=== PATIENT | male | born 1955 | race Caucasian/White ===

== ENCOUNTER 2020-06-18 06:05 | Outpatient (REF) | payer MEDICARE, SELFPAY ==
[2020-06-18 07:38] LABS: MANUAL DIFF FLAG NO
[2020-06-18 07:47] LABS: Basophils Percent Auto 0.4 % (0-2); Eosinophils Absolute Auto 0.1 X10*3/uL (0.0-0.4); Eosinophils Percent Auto 1.8 % (0-4); Hematocrit 40.9 % (42-52); Hemoglobin 14.5 g/dl (14.0-18.0); Imm Gran Abs Auto 0.02 X10*3/uL (0.00-0.03); Imm Gran Pct Auto 0.4 % (0.0-0.4); Lymphocytes Absolute Auto 1.8 X10*3/uL (1.2-4.9); Lymphocytes Percent Auto 31.8 % (20-40); Mean Corpuscular HGB Conc 35.5 g/dl (31.0-36.0); Mean Corpuscular Hemoglobin 34.4 pg (27.0-33.0); Mean Corpuscular Volume 97.1 fL (80-98); Mean Platelet Volume 11.1 fL (9.4-12.4); Monocytes Absolute Auto 0.5 X10*3/uL (0.1-1.2); Monocytes Percent Auto 8.9 % (2-11); Neutrophils Absolute Auto 3.2 X10*3/uL (2.0-8.3); Neutrophils Percent Auto 56.7 % (45-73); Platelet Count 244 X10*3/uL (160-400); Red Blood Count 4.21 X10*6/uL (4.60-5.80); Red Cell Distribution Width 12.6 % (11.0-16.0); White Blood Count 5.6 X10*3/uL (4.8-10.8)
[2020-06-18 07:58] LABS: Glucose Urine UA NEG (NEG); Leukocyte Esterase Urine NEG (NEG); Nitrite Urine NEG (NEG); Specific Gravity - Urine 1.025 (1.005-1.025); Urine Blood NEG (NEG); Urine Ketones NEG (NEG); Urine Protein NEG (NEG-TRACE)
[2020-06-18 08:02] LABS: Appearance Urine CLEAR; Color Urine YELLOW
[2020-06-18 08:13] LABS: Alanine Aminotransferase 17 U/L (0-40); Albumin Level 4.6 g/dL (3.5-5.0); Alkaline Phosphatase 48 U/L (39-117); Anion Gap 14 (12-20); Aspartate Amino Transferase 23 U/L (5-37); Bilirubin Total 0.6 mg/dL (0.0-1.0); Blood Urea Nitrogen 18 mg/dL (9-16); Calcium 8.9 mg/dL (8.4-10.2); Carbon Dioxide 27 mmol/L (22-29); Chloride 101 mmol/L (96-108); Cholesterol 152 mg/dL; Estimated Glomerular Filt Rate > 60; Glucose Random 154 mg/dL (60-115); HDL Cholesterol 26 mg/dL; Potassium 4.1 mmol/l (3.3-5.1); Sodium 138 mmol/L (135-145); Total Protein 7.4 g/dL (6.5-8.0); Triglycerides 439 mg/dL
[2020-06-18 08:35] LABS: Thyroid Stimulating Hormone 1.31 mIU/mL (0.32-4.0); Vitamin D 25-OH Total 24.9 ng/mL (>30)
[2020-06-18 08:43] LABS: Creatinine Urine 131.77 mg/dL; Microalbum/Creatinine Ratio Ur 3.7 ug/mg cr
[2020-06-18 08:46] LABS: Vitamin B12 367 pg/mL (200-900)
[2020-06-18 09:58] LABS: Estimated Average Glucose 154 mg/dL
== END 2020-06-18 06:06 | disposition home or self-care (01) ==
LOC: HO.LAB 06:05
PROVIDERS: Visit Provider Internal Medicine
DX: E11.9 Type 2 diabetes mellitus without complications (principal); I10 Essential (primary) hypertension; E78.2 Mixed hyperlipidemia; E55.9 Vitamin D deficiency, unspecified
CPT/HCPCS: 36415; 80053; 80061; 81003; 82043; 82306; 82607; 83036; 84443; 85025

== ENCOUNTER 2020-07-14 08:21 | Outpatient (REF) | payer MEDICARE, SELFPAY ==
--- NOTE | 2020-07-14 10:36 | MHC.AU.P13 ---
Adult Audiological Evaluation Date of Visit: 07/14/20 Reason for Appointment: Audiological re-evaluation to monitor the status of Mr. De La Cruz's hearing loss. He notes that he has been turning his hearing aids up more lately and feels like his hearing may be worse. He denies any changes to his medical history. Does patient feel they have a hearing loss?: Yes If Yes, Which Ear?: Both Ears Has hearing been tested previously?: Yes Previous Hearing Test Results: [facility] [place], 01/06/2019- Normal hearing at 250 Hz, sloping to a profound high-frequency sensorineural hearing loss bilaterally. Ear History: History of noise exposure?: Yes: hunting Medical History: Medical History:Diabetes, High Blood Pressure Otoscopy: Right Ear: Small scratch and dried blood in canal. Pt notes Q-Tip use Left Ear: Unremarkable Tympanometry: Right Ear: Normal Middle Ear System (Type A) Left Ear: Normal Middle Ear System (Type A) Hearing Evaluation: Transducer(s) Used: Insert Earphones, Bone Conduction Method: Conventional Audiometry Stimuli Used: Pure Tones Right Ear: Description of Hearing: Normal hearing at 250 Hz and a mild sloping to profound sensorineural hearing from 500-8000 Hz. Left Ear: Description of Hearing: Normal hearing at 250 Hz and a mild sloping to profound sensorineural hearing from 500-8000 Hz. Speech Recognition Threshold (SRT): Method Used: Monitored Live Voice Stimuli Used: Spondee Words Right Ear: 35 dBHL Left Ear: 30 dBHL Word Discrimination: Method: Recorded Lists Word Lists Used: NU-6 Right Ear: 96% at 75 dBHL Left Ear: 88% at 75 dBHL Comparison: Compared to the most recent evaluation: Hearing is stable. Recommendations: Recommendations: Audiological re-evaluation in one year. See Hearing Aid Follow-Up note for more information. Hearing aid(s) reprogrammed with updated test results. Hearing aid maintenance recommended in 6 months. Diagnosis: Primary Diagnosis: H90.3 Bilateral Sensorineural Hearing Loss Services Performed: Services Performed: Comprehensive Audiological Evaluation (CPT 20602) Tympanometry (CPT 44572) Signature: Provider: Natalie Yang, CCC-A
== END 2020-07-14 08:22 | disposition home or self-care (01) ==
LOC: HO.SH 08:21
PROVIDERS: PCP Internal Medicine; Referring Provider Internal Medicine; Visit Provider Internal Medicine
DX: H90.3 Sensorineural hearing loss, bilateral (principal)
CPT/HCPCS: 92557; 92567

== ENCOUNTER 2020-09-07 12:58 | Outpatient (REF) | payer SELFPAY | END 2020-09-07 12:59 | disposition home or self-care (01) | LOC: HO.HAP 12:58 | PROVIDERS: Visit Provider Internal Medicine | DX: Z13.89 Encounter for screening for other disorder (principal) ==

== ENCOUNTER 2020-09-16 15:31 | Outpatient (REF) | payer SELFPAY | END 2020-09-16 15:32 | disposition home or self-care (01) | LOC: HO.HAP 15:31 | PROVIDERS: Visit Provider Internal Medicine | DX: Z13.89 Encounter for screening for other disorder (principal) ==

== ENCOUNTER 2020-10-01 06:13 | Outpatient (REF) | payer MEDICARE, SELFPAY ==
[2020-10-01 07:12] LABS: MANUAL DIFF FLAG NO
[2020-10-01 07:16] LABS: Basophils Percent Auto 0.2 % (0-2); Eosinophils Absolute Auto 0.1 X10*3/uL (0.0-0.4); Eosinophils Percent Auto 1.5 % (0-4); Hematocrit 42.4 % (42-52); Hemoglobin 14.7 g/dl (14.0-18.0); Imm Gran Abs Auto 0.02 X10*3/uL (0.00-0.03); Imm Gran Pct Auto 0.4 % (0.0-0.4); Lymphocytes Absolute Auto 1.8 X10*3/uL (1.2-4.9); Lymphocytes Percent Auto 33.7 % (20-40); Mean Corpuscular HGB Conc 34.7 g/dl (31.0-36.0); Mean Corpuscular Hemoglobin 33.4 pg (27.0-33.0); Mean Corpuscular Volume 96.4 fL (80-98); Mean Platelet Volume 10.8 fL (9.4-12.4); Monocytes Absolute Auto 0.7 X10*3/uL (0.1-1.2); Monocytes Percent Auto 12.7 % (2-11); Neutrophils Absolute Auto 2.8 X10*3/uL (2.0-8.3); Neutrophils Percent Auto 51.5 % (45-73); Platelet Count 232 X10*3/uL (160-400); Red Cell Distribution Width 12.7 % (11.0-16.0); White Blood Count 5.4 X10*3/uL (4.8-10.8)
[2020-10-01 07:26] LABS: Prothrombin Time 12.2 SEC (10.8-13.0)
[2020-10-01 07:40] LABS: Alanine Aminotransferase 16 U/L (0-40); Albumin Level 4.6 g/dL (3.5-5.0); Alkaline Phosphatase 63 U/L (39-117); Aspartate Amino Transferase 18 U/L (5-37); Bilirubin Direct 0.2 mg/dL (0.0-0.5); Bilirubin Total 0.4 mg/dL (0.0-1.0); Blood Urea Nitrogen 20 mg/dL (9-16); Estimated Glomerular Filt Rate > 60; Total Protein 7.4 g/dL (6.5-8.0)
[2020-10-04 13:02] LABS: Alpha Fetoprotein 2.7 ng/mL (<6.1)
[2020-10-04 13:28] LABS: Carbohydrate Antigen 19-9 11 U/mL (<34)
== END 2020-10-01 06:14 | disposition home or self-care (01) ==
LOC: HO.LAB 06:13
PROVIDERS: PCP Internal Medicine; Visit Provider Internal Medicine
DX: K86.2 Cyst of pancreas (principal); B18.2 Chronic viral hepatitis C
CPT/HCPCS: 36415; 80076; 82105; 82565; 84520; 85025; 85610; 86301

== ENCOUNTER 2020-10-04 09:23 | Outpatient (REF) | payer MEDICARE, SELFPAY ==
--- NOTE | ~2020-10-04 | MR_ITS ---
EXAMINATION: MR ABDOMEN WITHOUT AND WITH CONTRAST CLINICAL INFORMATION: Pancreatic cyst. Chronic hepatitis C. COMPARISON: Previous abdominal MRI May 2018 and 2018. Abdominal ultrasound February 2009. TECHNIQUE: MR abdomen was performed without and with use of 8.5 mL intravenous Gadavist gadolinium contrast. Postcontrast images are performed in multiphase dynamic sequences. Imaging was performed in 3 planes. MRCP sequences were also performed. FINDINGS: LUNG BASES: The visualized lung bases are unremarkable. LIVER, GALLBLADDER, AND BILIARY TREE: The liver is upper normal in size, right lobe measuring 20 cm in length. This is similar to previous exams. There is slight signal loss in the liver on gzs-wh-qsmcm sequences, suggestive of mild fatty infiltration. There is a 1 cm lesion in the right lobe of the liver that is stable. This is low signal on T1-weighted sequences, high signal on T2-weighted sequences and demonstrates gradual peripheral puddling enhancement, compatible with a benign hemangioma. The second hemangioma in the more inferior right lobe of the liver seen on previous exams may be seen on axial fat sat T2 image 21 series 10. This does not appear appreciably changed. This isn't appreciated on other sequences, probably either due to ekgwc-im-evne or slice thickness. No other focal liver lesion is seen. The liver is normal in contour without evidence of cirrhosis. The gallbladder is normal in size. There is mild gallbladder wall thickening or edema. This may be related to the patient's liver disease. No gallstones are seen. There is no intrahepatic or extrahepatic biliary duct dilatation. The portal veins and hepatic veins are patent.. PANCREAS: There is a simple-appearing cyst in the neck of the pancreas. This measures 0.5 x 1.2 cm. This is low signal on T1-weighted sequences, high signal on T2-weighted sequences and demonstrates no enhancement or solid component. This is similar to previous exams. There is question of a second tiny 2 to 3 mm cyst in the tail of the pancreas for example axial T2 image 9 series 10. SPLEEN: Normal. ADRENAL GLANDS: Normal. KIDNEYS AND URETERS: The kidneys are normal in size, shape, and enhance symmetrically. No hydronephrosis. No perinephric stranding. BLADDER: The bladder is well distended. The bladder wall may be trabeculated. GASTROINTESTINAL TRACT: There is mild diverticulosis of the colon. No bowel obstruction. No ascites or fluid collection. ABDOMINAL WALL: No significant hernia is appreciated. LYMPH NODES: No lymphadenopathy. VASCULAR: Unremarkable. OSSEOUS STRUCTURES: Marrow signal normal. MR/MR abdomen wo/w con IMPRESSION: Mild fatty infiltration of the liver. The liver is upper normal in size. No evidence of cirrhosis. Stable 1 cm hemangioma in the right lobe of the liver. The second hemangioma in the more inferior right lobe of the liver seen on previous exams may be seen on axial fat sat T2 image 21 series 10. No other focal liver lesion is seen. Additional imaging of the liver should be considered if clinically indicated. Mild gallbladder wall thickening or edema. This may be related to liver disease. No gallstones seen. Stable cyst in the neck of the pancreas. Mild diverticulosis of the colon. Well-distended bladder with question slightly trabeculated bladder wall.
== END 2020-10-04 09:24 | disposition home or self-care (01) ==
LOC: HO.MRI 09:23
PROVIDERS: Visit Provider Internal Medicine
DX: K86.2 Cyst of pancreas (principal); B18.2 Chronic viral hepatitis C
CPT/HCPCS: 74183; A9585

== ENCOUNTER 2020-11-05 08:20 | Outpatient (REF) | payer SELFPAY | END 2020-11-05 08:21 | disposition home or self-care (01) | LOC: HO.HAP 08:20 | PROVIDERS: Visit Provider Internal Medicine | DX: Z13.89 Encounter for screening for other disorder (principal) ==

== ENCOUNTER 2020-11-12 10:52 | Outpatient (REF) | payer SELFPAY | END 2020-11-12 10:53 | disposition home or self-care (01) | LOC: HO.HAP 10:52 | PROVIDERS: Visit Provider Internal Medicine | DX: Z13.89 Encounter for screening for other disorder (principal) ==

== ENCOUNTER 2021-01-03 08:55 | Day surgery (SDC) | payer MEDICARE, SELFPAY ==
--- NOTE | 2020-12-31 11:39 | HO.ANESPROP2 ---
HPI - Anesthesia Eval Consult details Narrative: 65yo M for Upper Endoscopy [facility] Past Medical History Medical History (Updated 12/31/20 @ 11:41 by Gladys Jackson) Diabetes Diverticulitis Hepatic hemangioma Hepatitis C HSV infection HTN (hypertension) Pancreatic cyst Surgical History Surgical History (Updated 12/31/20 @ 11:41 by Gladys Jackson) S/p bilateral carpal tunnel release Social History Social History Use of substances other than those prescribed or required for medical reasons: No Are you DNR?: No Advance Directives: No Advance Directives Information Provided: Yes Nutrition Risks: No Nutritional Risk Poor oral hygiene: No Meds Allergies Allergy/AdvReac Type Severity Reaction Status Date / Time No Known Allergies Allergy Unverified 05/13/20 14:36 [No Known Allergies*] Exam Exam Date and Time: December 31, 2020 1139 Assessment and Plan Assessment Anesthesia Assessment: Chart Reviewed
[2021-01-03 09:19] VITALS: BMI 25.8
[2021-01-03 09:41] LABS: Glucose, Whole Blood 177 mg/dL (60-115)
[2021-01-03 10:03] VITALS: BP 117/74; PULSE 71; RESP 18; TEMP 36.2; O2SAT 99
--- NOTE | 2021-01-03 10:09 | PM.OP ---
Brief Operative Note Date of Service: 01/03/21 Pre-op diagnosis: Abdominal discomfort Post-op diagnosis: other (Minimal hiatal hernia, gastric polyps) Procedure: EGD with biopsy Surgeon: Steven Rodgers Anesthesia: MAC Was an Plating Technician used for this Procedure?: No Estimated blood loss (mL): 2.0 Pathology: other (A. Gastric antrum B. Gastric polyps C. EG Junction at 39cm) Condition: stable Disposition: PACU
[2021-01-03 10:18] VITALS: BP 142/78; PULSE 68; RESP 20; TEMP 36.3; O2SAT 97
--- NOTE | 2021-01-03 11:00 | OP_ITS ---
SURGEON: Steven Rodgers MD INDICATIONS: The patient presents for evaluation of abdominal discomfort. Full consent has been obtained from him for this, including risks of bleeding and perforation. PREOPERATIVE DIAGNOSIS: Abdominal discomfort. POSTOPERATIVE DIAGNOSIS: PROCEDURE PERFORMED: Esophagogastroduodenoscopy with biopsies. ESTIMATED BLOOD LOSS: COMPLICATIONS: ANESTHESIA: Monitored anesthesia care. ASSISTANTS: SPECIMENS: POSTOPERATIVE DIAGNOSES: Abdominal discomfort, minimal hiatal hernia, small gastric polyps. DESCRIPTION OF PROCEDURE: The patient was placed in the left lateral decubitus position. The Olympus video gastroscope was passed in the posterior oropharynx and upper esophagus under direct vision. The scope was passed slowly into the distal esophagus. The gastroesophageal junction appeared at 39 cm. There was a very minimal irregularity but no evidence of esophagitis nor Agudelo's mucosa. There was evidence of a minimal hiatal hernia. The scope was advanced to the pylorus and the duodenum was cannulated to the descending portion. The duodenum including the bulb appeared normal without mass or ulceration. The scope was withdrawn back to the stomach, the gastric antrum and body had some minimal areas of erythema, but no erosions or ulceration. There was good peristalsis. The scope was retroflexed visualizing the proximal stomach carefully, which appeared normal, without any sign of mass or ulceration. The scope was straightened. Biopsies were obtained from the gastric antrum. In the forward viewing position were several less than 5 mm hyperplastic appearing gastric polyps in the proximal stomach which were biopsied twice and removed. The remainder of the proximal stomach appeared normal. The scope was withdrawn back to the esophagus. The biopsies were obtained at the EG junction at 39 cm. Proximal to this, the esophageal mucosa appeared normal. The scope was withdrawn from the patient. He tolerated the procedure well and was returned to recovery area in stable condition. IMPRESSION: 1. Small gastric polyps, status post biopsy. 2. Rule out gastritis. 3. Minimal hiatal hernia and reflux, status post biopsy. PLAN: The results of the biopsy will be checked. At this point, he has been using Protonix twice a day with fairly good relief of his previous symptoms. I did advise him to decrease this to once a day. The remainder of his workup including an MRI of the abdomen was unremarkable. The gallbladder imaging appears normal on the most recent MRI as well as MRIs in the past. Laboratories were also unremarkable. I have advised him to use Protonix either daily or just on a p.r.n. basis. MD QUINCY Levy/GUI / [id number]
== END 2021-01-03 11:17 | disposition home or self-care (01) ==
PROVIDERS: PCP Internal Medicine; Visit Provider Internal Medicine
PROC: 0DJ08ZZ Inspection of Upper Intestinal Tract, Via Natural or Artificial Opening Endoscopic (ICD-10-PCS; CPT 43235; principal; 2021-01-03 10:00)
DX: R10.13 Epigastric pain (principal); K44.9 Diaphragmatic hernia without obstruction or gangrene; K31.7 Polyp of stomach and duodenum; K21.9 Gastro-esophageal reflux disease without esophagitis; K86.2 Cyst of pancreas; D18.09 Hemangioma of other sites; B19.20 Unspecified viral hepatitis C without hepatic coma; I10 Essential (primary) hypertension; E11.9 Type 2 diabetes mellitus without complications; A60.00 Herpesviral infection of urogenital system, unspecified; Z79.84 Long term (current) use of oral hypoglycemic drugs; Z79.899 Other long term (current) drug therapy
CPT/HCPCS: 43239; 82947; 88305; 88342

== ENCOUNTER 2021-01-17 05:58 | Outpatient (REF) | payer MEDICARE, SELFPAY ==
[2021-01-17 07:21] LABS: MANUAL DIFF FLAG NO
[2021-01-17 07:35] LABS: Basophils Percent Auto 0.3 % (0-2); Eosinophils Absolute Auto 0.1 X10*3/uL (0.0-0.4); Hematocrit 43.6 % (42-52); Hemoglobin 14.9 g/dl (14.0-18.0); Imm Gran Abs Auto 0.04 X10*3/uL (0.00-0.03); Imm Gran Pct Auto 0.6 % (0.0-0.4); Lymphocytes Absolute Auto 2.2 X10*3/uL (1.2-4.9); Lymphocytes Percent Auto 30.3 % (20-40); Mean Corpuscular HGB Conc 34.2 g/dl (31.0-36.0); Mean Corpuscular Hemoglobin 33.3 pg (27.0-33.0); Mean Corpuscular Volume 97.5 fL (80-98); Monocytes Absolute Auto 0.5 X10*3/uL (0.1-1.2); Monocytes Percent Auto 7.1 % (2-11); Neutrophils Absolute Auto 4.2 X10*3/uL (2.0-8.3); Neutrophils Percent Auto 59.7 % (45-73); Platelet Count 258 X10*3/uL (160-400); Red Blood Count 4.47 X10*6/uL (4.60-5.80); Red Cell Distribution Width 12.6 % (11.0-16.0); White Blood Count 7.1 X10*3/uL (4.8-10.8)
[2021-01-17 08:08] LABS: Estimated Average Glucose 157 mg/dL; Hemoglobin A1c % 7.1 %
[2021-01-17 08:26] LABS: Alanine Aminotransferase 15 U/L (0-40); Albumin Level 4.6 g/dL (3.5-5.0); Alkaline Phosphatase 54 U/L (39-117); Anion Gap 14 (12-20); Aspartate Amino Transferase 16 U/L (5-37); Bilirubin Total 0.5 mg/dL (0.0-1.0); Blood Urea Nitrogen 19 mg/dL (9-16); Calcium 9.3 mg/dL (8.4-10.2); Carbon Dioxide 27 mmol/L (22-29); Chloride 104 mmol/L (96-108); Cholesterol 188 mg/dL; Estimated Glomerular Filt Rate > 60; Glucose Random 157 mg/dL (60-115); HDL Cholesterol 36 mg/dL; LDL Cholesterol Calculated 90 mg/dl; Potassium 4.3 mmol/L (3.3-5.1); Sodium 141 mmol/L (135-145); Total Protein 7.4 g/dL (6.5-8.0); Triglycerides 313 mg/dL
[2021-01-17 08:34] LABS: Creatinine Urine 116.62 mg/dL; Microalbumin Urine < 5.0 mg/L
[2021-01-17 09:00] LABS: Prostate Specific Antigen 1.26 ng/mL (<0.05-4.0)
== END 2021-01-17 05:59 | disposition home or self-care (01) ==
LOC: HO.LAB 05:58
PROVIDERS: PCP Internal Medicine; Visit Provider Internal Medicine
DX: E11.9 Type 2 diabetes mellitus without complications (principal); I10 Essential (primary) hypertension; E78.2 Mixed hyperlipidemia; Z12.5 Encounter for screening for malignant neoplasm of prostate
CPT/HCPCS: 36415; 80053; 80061; 82043; 83036; 84153; 85025

== ENCOUNTER 2021-01-20 07:50 | Outpatient (REF) | payer MEDICARE, SELFPAY ==
--- NOTE | ~2021-01-20 | US_ITS ---
EXAMINATION: US RETROPERITONEAL LIMITED (AORTA) CLINICAL INFORMATION: Screening for abdominal aortic aneurysm. Smoking history. COMPARISON: MRI of October 04, 2020 TECHNIQUE: Casarez-scale, color Doppler and spectral Doppler evaluation of the abdominal aorta. FINDINGS: No abdominal aortic aneurysm. The measurements of the aorta in maximum AP and transverse dimensions respectively are as follows: Proximal: 2.5 x 2.2 cm. Mid: 1.9 x 1.9 cm. Distal: 1.9 x 1.8 cm. PSV: 109 cm/s. The measurements of the common iliac arteries in maximum AP and TRV dimensions are as follows: Right Common Iliac Artery: 1.0 x 1.0 cm. Left Common Iliac Artery: 1.1 x 1.0 cm. US/US aorta IMPRESSION: No abdominal aortic aneurysm. No significant atherosclerotic disease appreciated..
== END 2021-01-20 07:51 | disposition home or self-care (01) ==
LOC: HO.US 07:50
PROVIDERS: PCP Internal Medicine; Visit Provider Internal Medicine
DX: Z13.6 Encounter for screening for cardiovascular disorders (principal)
CPT/HCPCS: 76775

== ENCOUNTER 2021-05-30 05:59 | Outpatient (REF) | payer MEDICARE, SELFPAY ==
[2021-05-30 07:18] LABS: Estimated Average Glucose 194 mg/dL; Hemoglobin A1c % 8.4 %
[2021-05-30 07:20] LABS: Alanine Aminotransferase 15 U/L (0-40); Albumin Level 4.8 g/dL (3.5-5.0); Alkaline Phosphatase 66 U/L (39-117); Anion Gap 14 (12-20); Aspartate Amino Transferase 20 U/L (5-37); Bilirubin Total 0.4 mg/dL (0.0-1.0); Blood Urea Nitrogen 15 mg/dL (9-16); Calcium 9.8 mg/dL (8.4-10.2); Carbon Dioxide 30 mmol/L (22-29); Chloride 103 mmol/L (96-108); Cholesterol 180 mg/dL; Estimated Glomerular Filt Rate > 60; Glucose Random 225 mg/dL (60-115); HDL Cholesterol 28 mg/dL; Potassium 4.6 mmol/L (3.3-5.1); Sodium 142 mmol/L (135-145); Total Protein 7.7 g/dL (6.5-8.0); Triglycerides 554 mg/dL
== END 2021-05-30 06:00 | disposition home or self-care (01) ==
LOC: HO.LAB 05:59
PROVIDERS: PCP Internal Medicine; Visit Provider Internal Medicine
DX: I10 Essential (primary) hypertension (principal); E11.9 Type 2 diabetes mellitus without complications; E78.2 Mixed hyperlipidemia
CPT/HCPCS: 36415; 80053; 80061; 83036

== ENCOUNTER 2021-08-01 08:11 | Outpatient (REF) | payer MEDICARE, SELFPAY ==
--- NOTE | 2021-08-01 09:27 | MHC.AU.AHA ---
Adult Audiological Evaluation Date of Visit: 08/01/21 Reason for Appointment: History of hearing loss. Patient arrives today to determine if there has been a change in hearing. Previous Hearing Test Results: At this clinic on 07/14/2020- Normal sloping to profound sensorineural hearing loss bilaterally Ear History: Recent Ear Drainage: None Reported Recent Ear Pain: None Reported Recent Ear Infections: None Reported Medical History: Medical History: Diabetes, High Blood Pressure Hearing Instrument History- Right Ear: Gerontology Aide: Phonak Model: ZolkCeo [id number] Serial Number: [id number] Battery Size: 13 Repair Warranty: 01/20/2021 Loss and Damage Warranty: 01/20/2021 Dispensed By: [facility] Date of Fittin10/30/2017 Hearing Instrument History- Left Ear: Gerontology Aide: SynerZ Medicalak Model: ZolkCeo M04-[id number] Serial Number: [id number] Battery Size: 13 Warranty: 01/20/2021 Loss and Damage Warranty: 01/20/2021 Dispensed By: [facility] Date of Fittin11/01/2017 Otoscopy: Right Ear: Unremarkable Left Ear: Unremarkable Tympanometry: Tympanometry performed due to: To assess integrity of the middle ear system Right Ear: Normal Middle Ear System (Type A) Left Ear: Normal Middle Ear System (Type A) Hearing Evaluation: Transducer(s) Used: Insert Earphones Method: Conventional Audiometry Stimuli Used: Pure Tones Right Ear: Description of Hearing: Normal sloping to profound sensorineural hearing loss Left Ear: Description of Hearing: Normal sloping to profound sensorineural hearing loss Speech Recognition Threshold (SRT): Method Used: Recorded Lists Stimuli Used: Spondee Words Right Ear: 35 dBHL Left Ear: 30 dBHL Word Discrimination: Method: Recorded Lists Word Lists Used: W-22 Right Ear: 84% at 75 dBHL Left Ear: 84% at 75 dBHL Most Comfortable Level (MCL): Right Ear: 75 dBHL Left Ear: 75 dBHL Aided Testing: Aided word discrimination at 50 dBHL: 100% in quiet, 92% in noise (+10 SNR) Comparison: Compared to the most recent evaluation: Hearing is stable. Recommendations: Audiological re-evaluation in one year. Hearing aid maintenance performed today. No hearing aid programming changes made today. Diagnosis: Primary Diagnosis: H90.3 Bilateral Sensorineural Hearing Loss Signature: Provider: Natalie Dotson, CCC-A
== END 2021-08-01 08:12 | disposition home or self-care (01) ==
LOC: HO.SH 08:11
PROVIDERS: Visit Provider Internal Medicine
DX: H90.3 Sensorineural hearing loss, bilateral (principal)
CPT/HCPCS: 92557; 92567

== ENCOUNTER 2021-08-29 05:57 | Outpatient (REF) | payer MEDICARE, SELFPAY ==
[2021-08-29 07:34] LABS: Estimated Average Glucose 134 mg/dL; Hemoglobin A1c % 6.3 %
[2021-08-29 08:00] LABS: Creatinine Urine 109.34 mg/dL; Microalbum/Creatinine Ratio Ur 4.5 ug/mg cr
[2021-08-29 08:08] LABS: Alanine Aminotransferase 19 U/L (0-40); Albumin Level 4.7 g/dL (3.5-5.0); Alkaline Phosphatase 56 U/L (39-117); Anion Gap 12 (12-20); Aspartate Amino Transferase 22 U/L (5-37); Bilirubin Total 0.6 mg/dL (0.0-1.0); Blood Urea Nitrogen 16 mg/dL (9-16); Calcium 9.7 mg/dL (8.4-10.2); Carbon Dioxide 29 mmol/L (22-29); Chloride 104 mmol/L (96-108); Cholesterol 152 mg/dL; Estimated Glomerular Filt Rate > 60; Glucose Random 141 mg/dL (60-115); HDL Cholesterol 27 mg/dL; Potassium 4.4 mmol/L (3.3-5.1); Sodium 141 mmol/L (135-145); Total Protein 7.8 g/dL (6.5-8.0); Triglycerides 436 mg/dL
[2021-08-30 04:52] LABS: LDL Cholesterol Direct 74 mg/dL (<100)
== END 2021-08-29 05:58 | disposition home or self-care (01) ==
LOC: HO.LAB 05:57
PROVIDERS: PCP Internal Medicine; Visit Provider Internal Medicine
DX: I10 Essential (primary) hypertension (principal); E11.9 Type 2 diabetes mellitus without complications; E78.2 Mixed hyperlipidemia
CPT/HCPCS: 36415; 80053; 80061; 82043; 83036; 83721

== ENCOUNTER → 2021-12-07 11:09 | Outpatient (BNVA) | payer MEDICARE, SELFPAY | PROVIDERS: PCP Internal Medicine; Referring Provider Internal Medicine; Visit Provider Surgery | DX: K64.8 Other hemorrhoids (principal) | CPT/HCPCS: 46600; 99202 ==

== ENCOUNTER 2022-01-17 06:05 | Outpatient (REF) | payer MEDICARE, SELFPAY ==
[2022-01-17 06:30] LABS: MANUAL DIFF FLAG NO
[2022-01-17 07:25] LABS: Basophils Percent Auto 0.4 % (0-2); Eosinophils Absolute Auto 0.1 X10*3/uL (0.0-0.4); Eosinophils Percent Auto 2.2 % (0-4); Hemoglobin 14.5 g/dl (14.0-18.0); Imm Gran Abs Auto 0.04 X10*3/uL (0.00-0.03); Imm Gran Pct Auto 0.7 % (0.0-0.4); Lymphocytes Absolute Auto 1.5 X10*3/uL (1.2-4.9); Lymphocytes Percent Auto 26.3 % (20-40); Mean Corpuscular HGB Conc 34.5 g/dl (31.0-36.0); Mean Corpuscular Hemoglobin 33.3 pg (27.0-33.0); Mean Corpuscular Volume 96.3 fL (80.0-98.0); Mean Platelet Volume 11.2 fL (9.4-12.4); Monocytes Absolute Auto 0.5 X10*3/uL (0.1-1.2); Monocytes Percent Auto 8.5 % (2-11); Neutrophils Absolute Auto 3.4 x10*3/uL (2.0-8.3); Neutrophils Percent Auto 61.9 % (45-73); Platelet Count 252 X10*3/uL (160-400); Red Blood Count 4.36 X10*6/uL (4.60-5.80); Red Cell Distribution Width 12.7 % (11.0-16.0); White Blood Count 5.6 X10*3/uL (4.8-10.8)
[2022-01-17 07:40] LABS: Estimated Average Glucose 157 mg/dL; Hemoglobin A1c % 7.1 %
[2022-01-17 07:49] LABS: Alanine Aminotransferase 18 U/L (0-40); Albumin Level 4.5 g/dL (3.5-5.0); Alkaline Phosphatase 63 U/L (39-117); Anion Gap 15 (12-20); Aspartate Amino Transferase 15 U/L (5-37); Bilirubin Total 0.4 mg/dL (0.0-1.0); Blood Urea Nitrogen 14 mg/dL (9-16); Calcium 9.8 mg/dL (8.4-10.2); Carbon Dioxide 28 mmol/L (22-29); Chloride 103 mmol/L (96-108); Cholesterol 177 mg/dL; Estimated Glomerular Filt Rate > 60; Glucose Random 185 mg/dL (60-115); HDL Cholesterol 29 mg/dL; LDL Cholesterol Calculated 80 mg/dl; Potassium 4.1 mmol/L (3.3-5.1); Sodium 142 mmol/L (135-145); Total Protein 7.5 g/dL (6.5-8.0); Triglycerides 344 mg/dL
[2022-01-17 08:13] LABS: Prostate Specific Antigen 1.69 ng/mL (<0.05-4.0); Thyroid Stimulating Hormone 1.84 uIU/mL (0.32-4.0)
[2022-01-17 09:26] LABS: Appearance Urine CLEAR; Color Urine YELLOW; Glucose Urine UA NEG (NEG); Leukocyte Esterase Urine NEG (NEG); Nitrite Urine NEG (NEG); Specific Gravity - Urine 1.025 (1.005-1.025); Urine Blood NEG (NEG); Urine Ketones NEG (NEG); Urine Protein NEG (NEG-TRACE)
[2022-01-18 08:32] LABS: LDL Cholesterol Direct 89 mg/dL (<100)
[2022-01-18 12:21] LABS: Alpha Fetoprotein 2.8 ng/mL (<6.1)
[2022-01-19 08:57] LABS: Carbohydrate Antigen 19-9 11 U/mL (<34)
[2022-01-20 14:16] LABS: HCV Log PCR <1.18 NOT DETECTED Log IU/mL (NOT DETECTED); HepC Viral Load <15 NOT DETECTED IU/mL (NOT DETECTED)
[2022-01-24 15:51] LABS: FIB-ALT 16 U/L (9-46); FIB-Alpha-2-Macroglobulin 397 mg/dL (106-279); FIB-Apolipoprotein A1 130 mg/dL (94-176); FIB-GGT 25 U/L (3-70); FIB-Haptoglobin 145 mg/dL (43-212); FIB-Total Bilirubin 0.4 mg/dL (0.2-1.2); Liver Fibrosis Score 0.62; Liver Fibrosis Stage F3; Nec Inflam Act Grade A0; Nec Inflam Act Score 0.09
== END 2022-01-17 06:06 | disposition home or self-care (01) ==
LOC: HO.LAB 06:05
PROVIDERS: Absent Provider Internal Medicine; PCP Internal Medicine; Visit Provider Internal Medicine
DX: Z12.5 Encounter for screening for malignant neoplasm of prostate (principal); E78.2 Mixed hyperlipidemia; E11.9 Type 2 diabetes mellitus without complications; I10 Essential (primary) hypertension; K86.2 Cyst of pancreas; Z86.19 Personal history of other infectious and parasitic diseases
CPT/HCPCS: 36415; 80053; 80061; 81003; 81596; 82105; 83036; 83721; 84153; 84443; 85025; 86301; 87522

== ENCOUNTER 2022-05-09 06:10 | Outpatient (REF) | payer MEDICARE, SELFPAY ==
[2022-05-09 07:16] LABS: Estimated Average Glucose 163 mg/dL; Hemoglobin A1c % 7.3 %
[2022-05-09 07:22] LABS: Alanine Aminotransferase 17 U/L (0-40); Albumin Level 4.8 g/dL (3.5-5.0); Alkaline Phosphatase 56 U/L (39-117); Anion Gap 16 (12-20); Aspartate Amino Transferase 19 U/L (5-37); Bilirubin Total 0.5 mg/dL (0.0-1.0); Blood Urea Nitrogen 20 mg/dL (9-16); Calcium 10.2 mg/dL (8.4-10.2); Carbon Dioxide 29 mmol/L (22-29); Chloride 103 mmol/L (96-108); Estimated Glomerular Filt Rate > 60; Glucose Random 181 mg/dL (60-115); Potassium 4.5 mmol/L (3.3-5.1); Sodium 143 mmol/L (135-145); Total Protein 7.7 g/dL (6.5-8.0)
[2022-05-09 08:27] LABS: Creatinine Urine 78.58 mg/dL; Microalbumin Urine < 5.0 mg/L
== END 2022-05-09 06:11 | disposition home or self-care (01) ==
LOC: HO.LAB 06:10
PROVIDERS: PCP Internal Medicine; Visit Provider Internal Medicine
DX: E11.9 Type 2 diabetes mellitus without complications (principal); E78.2 Mixed hyperlipidemia
CPT/HCPCS: 36415; 80053; 82043; 83036

== ENCOUNTER 2022-06-24 07:08 | Outpatient (REF) | payer MEDICARE, SELFPAY ==
[2022-06-24 07:22] LABS: MANUAL DIFF FLAG NO
[2022-06-24 08:09] LABS: Basophils Percent Auto 0.2 % (0-2); Eosinophils Absolute Auto 0.1 X10*3/uL (0.0-0.4); Eosinophils Percent Auto 1.8 % (0-4); Hematocrit 42.6 % (42.0-52.0); Hemoglobin 14.8 g/dl (14.0-18.0); Imm Gran Abs Auto 0.04 X10*3/uL (0.00-0.03); Imm Gran Pct Auto 0.6 % (0.0-0.4); Lymphocytes Absolute Auto 1.7 X10*3/uL (1.2-4.9); Lymphocytes Percent Auto 26.5 % (20-40); Mean Corpuscular HGB Conc 34.7 g/dl (31.0-36.0); Mean Corpuscular Hemoglobin 33.2 pg (27.0-33.0); Mean Corpuscular Volume 95.5 fL (80.0-98.0); Mean Platelet Volume 11.2 fL (9.4-12.4); Monocytes Absolute Auto 0.5 X10*3/uL (0.1-1.2); Monocytes Percent Auto 8.3 % (2-11); Neutrophils Absolute Auto 3.9 x10*3/uL (2.0-8.3); Neutrophils Percent Auto 62.6 % (45-73); Platelet Count 255 X10*3/uL (160-400); Red Blood Count 4.46 X10*6/uL (4.60-5.80); Red Cell Distribution Width 12.5 % (11.0-16.0); White Blood Count 6.3 X10*3/uL (4.8-10.8)
[2022-06-24 08:43] LABS: Alanine Aminotransferase 16 U/L (0-40); Anion Gap 17 (12-20); Blood Urea Nitrogen 16 mg/dL (9-16); Calcium 9.9 mg/dL (8.4-10.2); Carbon Dioxide 28 mmol/L (22-29); Chloride 101 mmol/L (96-108); Estimated Glomerular Filt Rate > 60; Glucose Random 174 mg/dL (60-115); Potassium 4.8 mmol/L (3.3-5.1); Sodium 141 mmol/L (135-145)
[2022-06-24 09:03] LABS: Appearance Urine Clear; Color Urine Yellow; Glucose Urine UA Negative (Negative); Leukocyte Esterase Urine Negative (Negative); Nitrite Urine Negative (Negative); Specific Gravity - Urine 1.015 (1.005-1.025); Urine Blood Negative (Negative); Urine Ketones Negative (Negative); Urine Protein Negative (Neg-Trace)
== END 2022-06-24 07:09 | disposition home or self-care (01) ==
LOC: HO.LAB 07:08
PROVIDERS: PCP Internal Medicine; Visit Provider Internal Medicine
DX: E11.9 Type 2 diabetes mellitus without complications (principal); R35.1 Nocturia
CPT/HCPCS: 36415; 80048; 81003; 84460; 85025

== ENCOUNTER 2022-08-10 06:24 | Outpatient (REF) | payer MEDICARE, SELFPAY ==
[2022-08-10 07:47] LABS: Alanine Aminotransferase 15 U/L (0-40); Albumin Level 4.8 g/dL (3.5-5.0); Alkaline Phosphatase 54 U/L (39-117); Anion Gap 14 (12-20); Aspartate Amino Transferase 20 U/L (5-37); Bilirubin Total 0.5 mg/dL (0.0-1.0); Blood Urea Nitrogen 14 mg/dL (9-16); Calcium 9.7 mg/dL (8.4-10.2); Carbon Dioxide 28 mmol/L (22-29); Chloride 103 mmol/L (96-108); Estimated Glomerular Filt Rate > 60; Glucose Random 155 mg/dL (60-115); Potassium 4.7 mmol/L (3.3-5.1); Sodium 140 mmol/L (135-145); Total Protein 7.4 g/dL (6.5-8.0)
[2022-08-10 07:49] LABS: Estimated Average Glucose 143 mg/dL; Hemoglobin A1c % 6.6 %
== END 2022-08-10 06:25 | disposition home or self-care (01) ==
LOC: HO.LAB 06:24
PROVIDERS: PCP Internal Medicine; Visit Provider Internal Medicine
DX: E11.9 Type 2 diabetes mellitus without complications (principal)
CPT/HCPCS: 36415; 80053; 83036

== ENCOUNTER 2022-09-14 14:31 | Outpatient (REF) | payer MEDICARE, SELFPAY ==
--- NOTE | ~2022-09-14 | US_ITS ---
EXAMINATION: US EXTRACRANIAL CAROTID DUPLEX, BILATERAL CLINICAL INFORMATION: Hypertension. COMPARISON: None TECHNIQUE: Real-time ultrasound and Doppler techniques (integrating B-mode 2-D vascular images, Doppler spectral analysis and color-flow Doppler imaging) were utilized to interrogate the extracranial carotid arteries, the vertebral arteries and proximal subclavian arteries bilaterally. The degree of stenosis is determined by criteria similar to NASCET. FINDINGS: Right Side: 1. There is mild atherosclerotic plaque seen in the bifurcation/proximal ICA region. 2. The common carotid artery PSV proximally is 84 cm/s and distally 85 cm/s. 3. The proximal internal carotid artery velocities are 68 cm/s systolic and 19 cm/s diastolic. 4. The proximal external carotid artery PSV is 107 cm/s. 5. The vertebral artery shows antegrade flow. 6. The subclavian artery waveforms are normal. Left Side: 1. There is mild atherosclerotic plaque seen in the bifurcation/proximal ICA region. 2. The common carotid artery PSV proximally is 103 cm/s and distally 78 cm/s. 3. The proximal internal carotid artery velocities are 52 cm/s systolic and 18 cm/s diastolic. 4. The proximal external carotid artery PSV is 149 cm/s. 5. The vertebral artery shows antegrade flow. 6. The subclavian artery waveforms are normal. US/US carotid duplex BI IMPRESSION: 1. RIGHT: Minimal, non-hemodynamically significant stenosis of the proximal right internal carotid artery corresponding to a 0-49% stenosis by velocity criteria. 2. LEFT: Minimal, non-hemodynamically significant stenosis of the proximal left internal carotid artery corresponding to a 0-49% stenosis by velocity criteria.
== END 2022-09-14 14:32 | disposition home or self-care (01) ==
LOC: HO.US 14:31
PROVIDERS: PCP Internal Medicine; Visit Provider Internal Medicine
DX: R09.89 Other specified symptoms and signs involving the circulatory and respiratory systems (principal); I10 Essential (primary) hypertension
CPT/HCPCS: 93880

== ENCOUNTER 2022-09-19 08:45 | Outpatient (REF) | payer MEDICARE, SELFPAY ==
--- NOTE | 2022-09-19 09:50 | MHC.AU.HFU ---
Hearing Instrument Follow-Up- Binaural Date of Visit: 09/19/22 Right Ear: Phonak Audeo B90 Direct, [id number], sand beige Repair Warranty: 01/20/2021 Loss and Damage Warranty: 01/20/2021 Battery Size: 13 Probation Counselor: 1xS with retention wire Type of Dome: Medium open Type of Wax Guard: Cerustop Dispensed By: [facility] Date of Fittin10/30/2017 Left Ear: Phonak Audeo B90 Direct, [id number], sand beige Repair Warranty: 01/20/2021 Loss and Damage Warranty: 01/20/2021 Battery Size: 13 Probation Counselor: 1xS with retention wire Type of Dome: Medium open Type of Wax Guard: Cerustop Dispensed By: [facility] Date of Fittin11/01/2017 Follow-Up Summary: Paulo eD La Cruz is here today for an updated audiogram and hearing aid check. Hearing is stable bilaterally. See audiogram for report. The patient reports no concerns with his hearing aids at this time and prefers not to have any programming adjustments or cleaning today. Complimentary listening check reveals clear sound bilaterally. Visual inspection of the devices was unremarkable. I reviewed cleaning and how to change the domes/wax guards with the patient. Recommended audiogram and hearing aid check in 1 year, sooner if concerns arise. Diagnosis Code(s): Primary Diagnosis: H90.3 Bilateral Sensorineural Hearing Loss Signature: Provider: Natalie Cabrera, CCC-A
== END 2022-09-19 08:46 | disposition home or self-care (01) ==
LOC: HO.SH 08:45
PROVIDERS: Visit Provider Internal Medicine
DX: Z01.118 Encounter for examination of ears and hearing with other abnormal findings (principal); H90.3 Sensorineural hearing loss, bilateral
CPT/HCPCS: 92557

== ENCOUNTER 2023-04-05 12:16 | Outpatient (REF) | payer MEDICARE, SELFPAY ==
[2023-04-05 17:03] LABS: Adenovirus F 40/41 Not Detected (Not Detect.); Astrovirus Not Detected (Not Detect.); Campylobacter Not Detected (Not Detect.); Cryptosporidium Not Detected (Not Detect.); Cyclospora cayetanensis Not Detected (Not Detect.); E. coli EAEC Not Detected (Not Detect.); E. coli EPEC Not Detected (Not Detect.); E. coli ETEC Not Detected (Not Detect.); E. coli STEC Not Detected (Not Detect.); Entamoeba histolytica Not Detected (Not Detect.); Giardia lamblia Not Detected (Not Detect.); Norovirus GI/GII Not Detected (Not Detect.); Plesiomonas shigelloides Not Detected (Not Detect.); Rotavirus A Not Detected (Not Detect.); Salmonella Not Detected (Not Detect.); Sapovirus Not Detected (Not Detect.); Shigella sp./EIEC Not Detected (Not Detect.); Vibrio Not Detected (Not Detect.); Vibrio Cholerae Not Detected (Not Detect.); Yersinia enterocolitica Not Detected (Not Detect.)
[2023-04-05 17:09] LABS: CDiff Gene PCR NEGATIVE (Negative)
[2023-04-05 22:04] LABS: Leukocytes Stool Qualitative NEGATIVE (NEGATIVE)
== END 2023-04-05 12:17 | disposition home or self-care (01) ==
LOC: HO.10HDLNP 12:16
PROVIDERS: Visit Provider Internal Medicine
DX: R19.7 Diarrhea, unspecified (principal)
CPT/HCPCS: 87493; 87507; 89055

== ENCOUNTER 2023-04-26 06:05 | Outpatient (REF) | payer MEDICARE, SELFPAY ==
[2023-04-26 06:33] LABS: MANUAL DIFF FLAG NO
[2023-04-26 07:04] LABS: Basophils Percent Auto 0.4 % (0-2); Eosinophils Absolute Auto 0.1 X10*3/uL (0.0-0.4); Eosinophils Percent Auto 2.3 % (0-4); Hemoglobin 14.8 g/dl (14.0-18.0); Lymphocytes Absolute Auto 1.4 X10*3/uL (1.2-4.9); Lymphocytes Percent Auto 27.9 % (20-40); Mean Corpuscular HGB Conc 35.2 g/dl (31.0-36.0); Mean Corpuscular Hemoglobin 33.4 pg (27.0-33.0); Mean Corpuscular Volume 94.8 fL (80.0-98.0); Mean Platelet Volume 10.4 fL (9.4-12.4); Monocytes Absolute Auto 0.5 X10*3/uL (0.1-1.2); Monocytes Percent Auto 9.1 % (2-11); Neutrophils Absolute Auto 3.1 x10*3/uL (2.0-8.3); Neutrophils Percent Auto 60.3 % (45-73); Platelet Count 279 X10*3/uL (160-400); Red Blood Count 4.43 X10*6/uL (4.60-5.80); Red Cell Distribution Width 13.2 % (11.0-16.0); White Blood Count 5.2 X10*3/uL (4.8-10.8)
[2023-04-26 07:14] LABS: Estimated Average Glucose 151 mg/dL; Hemoglobin A1c % 6.9 % (<6.0)
[2023-04-26 07:25] LABS: Prothrombin Time 11.6 SEC (11.1-13.3)
[2023-04-26 07:26] LABS: Alanine Aminotransferase 19 U/L (0-40); Albumin Level 4.9 g/dL (3.5-5.0); Alkaline Phosphatase 53 U/L (39-117); Aspartate Amino Transferase 21 U/L (5-37); Bilirubin Direct 0.2 mg/dL (0.0-0.5); Bilirubin Total 0.5 mg/dL (0.0-1.0); Blood Urea Nitrogen 21 mg/dL (9-16); Estimated Glomerular Filt Rate > 60; Total Protein 7.9 g/dL (6.5-8.0)
[2023-04-26 07:32] LABS: Alanine Aminotransferase 19 U/L (0-40); Albumin Level 4.9 g/dL (3.5-5.0); Alkaline Phosphatase 52 U/L (39-117); Anion Gap 13 (12-20); Aspartate Amino Transferase 21 U/L (5-37); Bilirubin Total 0.5 mg/dL (0.0-1.0); Blood Urea Nitrogen 20 mg/dL (9-16); Calcium 9.9 mg/dL (8.4-10.2); Carbon Dioxide 28 mmol/L (22-29); Chloride 105 mmol/L (96-108); Cholesterol 154 mg/dL (<200); Estimated Glomerular Filt Rate > 60; Glucose Random 194 mg/dL (60-115); HDL Cholesterol 30 mg/dL (>40); LDL Cholesterol Calculated 69 mg/dL (<100); Sodium 142 mmol/L (135-145); Total Protein 7.8 g/dL (6.5-8.0); Triglycerides 277 mg/dL (<150)
[2023-04-26 07:47] LABS: Vitamin D 25-OH Total 72.7 ng/mL (>30)
[2023-04-26 07:49] LABS: Vitamin B12 > 2000 pg/mL (200-900)
[2023-04-26 10:45] LABS: Creatinine Urine 90.05 mg/dL; Microalbumin Urine < 5.0 mg/L
[2023-04-26 11:24] LABS: Appearance Urine Clear; Color Urine Yellow; Glucose Urine UA Negative (Negative); Leukocyte Esterase Urine Negative (Negative); Nitrite Urine Negative (Negative); PH 5.5 (5.0-9.0); Urine Blood Negative (Negative); Urine Ketones Negative (Negative); Urine Protein Negative (Neg-Trace)
[2023-04-27 13:38] LABS: HCV Log PCR <1.18 NOT DETECTED Log IU/mL (NOT DETECTED); HepC Viral Load <15 NOT DETECTED IU/mL (NOT DETECTED)
[2023-04-30 10:34] LABS: Carbohydrate Antigen 19-9 19 U/mL (<34)
[2023-05-01 11:44] LABS: Alpha Fetoprotein 2.2 ng/mL (<6.1)
[2023-05-01 13:48] LABS: Immunoglobulin A 334 mg/dL (70-320)
[2023-05-01 14:43] LABS: Endomysial IgA Antibody Negative (Negative)
[2023-05-01 21:18] LABS: Gliadin Deamidated IgA Ab <1.0 U/mL; Gliadin Deamidated IgG Ab <1.0 U/mL; Transglutaminase Ab IgG <1.0 U/mL; Transglutaminase IgA <1.0 U/mL
== END 2023-04-26 06:06 | disposition home or self-care (01) ==
LOC: HO.LAB 06:05
PROVIDERS: Absent Provider Internal Medicine; PCP Internal Medicine; Visit Provider Internal Medicine
DX: K86.2 Cyst of pancreas (principal); Z86.19 Personal history of other infectious and parasitic diseases; K74.00 Hepatic fibrosis, unspecified; K58.8 Other irritable bowel syndrome; E11.9 Type 2 diabetes mellitus without complications; R35.1 Nocturia; I10 Essential (primary) hypertension; E55.9 Vitamin D deficiency, unspecified
CPT/HCPCS: 36415; 80053; 80061; 80076; 81003; 81596; 82043; 82105; 82248; 82306; 82565; 82607; 82784; 83036; 84443; 84520; 85025; 85610; 86231; 86258; 86301; 86364; 87086; 87522

== ENCOUNTER 2023-06-06 08:01 | Outpatient (REF) | payer MEDICARE, SELFPAY ==
--- NOTE | ~2023-06-06 | MR_ITS ---
EXAMINATION: MR ABDOMEN WITHOUT AND WITH CONTRAST CLINICAL INFORMATION: Pancreatic cyst. Hepatic fibrosis. COMPARISON: 10/04/2020 TECHNIQUE: MR abdomen was performed without and with use of 8 mL intravenous Gadavist gadolinium contrast. Postcontrast images are performed in multiphase dynamic sequences. Imaging was performed in 3 planes. MRCP was also performed. FINDINGS: LUNG BASES: 3 mm right lower lobe nodule. LIVER, GALLBLADDER, AND BILIARY TREE: The liver is normal in contour without evidence of cirrhosis. The liver measures 20.8 cm in sagittal dimension. Mild hepatic steatosis. There is a stable 1 cm lesion in the right hepatic lobe previously characterized as a hepatic hemangioma. There is a stable 6 mm lesion in the inferior right hepatic lobe also likely representing hepatic hemangioma. The gallbladder is unremarkable. This may be related to the patient's liver disease. No gallstones are seen. There is no intrahepatic or extrahepatic biliary duct dilatation. The common duct measures 5 mm at the tomas hepatis. The portal veins and hepatic veins are patent. PANCREAS: Stable cystic lesion in the neck of the pancreas. This measures 0.5 x 1.2 cm. No postcontrast enhancement or solid component. Stable cystic lesion in the body of the pancreas measuring 0.6 x 0.8 cm. Stable 0.4 cm mm cystic lesion in the tail of the pancreas. SPLEEN: Not enlarged. ADRENAL GLANDS: No adrenal mass. KIDNEYS AND URETERS: The kidneys are normal in size, shape, and enhance symmetrically. No hydronephrosis. No perinephric stranding. GASTROINTESTINAL TRACT: No bowel obstruction. No ascites or fluid collection. ABDOMINAL WALL: No significant hernia is appreciated. LYMPH NODES: No bulky abdominal lymphadenopathy. VASCULAR: Normal caliber abdominal aorta. MR/MR abdomen wo/w con IMPRESSION: Stable examination.
== END 2023-06-06 08:02 | disposition home or self-care (01) ==
LOC: HO.MRI 08:01
PROVIDERS: PCP Internal Medicine; Visit Provider Internal Medicine
DX: K86.2 Cyst of pancreas (principal); Z86.19 Personal history of other infectious and parasitic diseases
CPT/HCPCS: 74183; A9585

== ENCOUNTER 2023-08-14 05:52 | Outpatient (REF) | payer MEDICARE, SELFPAY ==
[2023-08-14 07:09] LABS: Estimated Average Glucose 183 mg/dL
[2023-08-14 07:18] LABS: Alanine Aminotransferase 14 U/L (0-40); Albumin Level 4.6 g/dL (3.5-5.0); Alkaline Phosphatase 53 U/L (39-117); Anion Gap 16 (12-20); Aspartate Amino Transferase 19 U/L (5-37); Bilirubin Total 0.4 mg/dL (0.0-1.0); Blood Urea Nitrogen 17 mg/dL (9-16); Calcium 9.5 mg/dL (8.4-10.2); Carbon Dioxide 29 mmol/L (22-29); Chloride 102 mmol/L (96-108); Estimated Glomerular Filt Rate > 60; Glucose Random 223 mg/dL (60-115); Potassium 4.6 mmol/L (3.3-5.1); Sodium 142 mmol/L (135-145); Total Protein 7.7 g/dL (6.5-8.0)
== END 2023-08-14 05:53 | disposition home or self-care (01) ==
LOC: HO.LAB 05:52
PROVIDERS: PCP Internal Medicine; Visit Provider Internal Medicine
DX: E11.9 Type 2 diabetes mellitus without complications (principal)
CPT/HCPCS: 36415; 80053; 83036

== ENCOUNTER 2023-10-04 10:16 | Outpatient (REF) | payer MEDICARE, SELFPAY | END 2023-10-04 10:17 | disposition home or self-care (01) | LOC: HO.SH 10:16 | PROVIDERS: Visit Provider Internal Medicine | DX: Z01.10 Encounter for examination of ears and hearing without abnormal findings (principal); H90.3 Sensorineural hearing loss, bilateral | CPT/HCPCS: 92552; 92556 ==

== ENCOUNTER 2023-10-04 11:36 | Outpatient (REF) | payer SELFPAY ==
--- NOTE | 2023-10-04 11:56 | MHC.AU.HA3 ---
Hearing Instrument Follow-Up- Binaural Date of Visit: 10/04/23 Right Ear: Model Wong, Color, Serial Number: Abby Fox [id number] SN: [id number] Color: Sand Beige [employer] Repair Warranty: 01/20/2021 [employer] Loss and Damage Warranty: 01/20/2021 Battery Size: 13 [employer] Research Engineer/Slim Tube: 1xS Earmold/Dome/CShell/SlimTip:Medium vented dome with retention tail Type of Wax Guard: Cerustop Dispensed By: [facility] Date of Fittin10/30/2017 Left Ear: Model Wong, Color, Serial Number: Abby Fox [id number] SN: [id number] Color: Marjorie Bedillan [employer] Repair Warranty: 01/20/2021 [employer] Loss and Damage Warranty: 01/20/2021 Battery Size: 13 [employer] Research Engineer/Slim Tube: 1xS Earmold/Dome/CShell/SlimTip: Medium vented dome with retention tail Type of Wax Guard: Cerustop Dispensed By: [facility] Date of Fittin11/01/2017 Follow-Up Summary: Paulo returned for routine hearing aid maintenance following updated hearing test. Cleaned hearing aids. Replaced domes, wax guards, and retention tails. Hearing is stable; however, Paulo reported hearing difficulties even with his hearing aids. Notably, trouble understanding his who is a soft talker and people who are talking behind him as well as in any adverse listening environment, particularly in restaurants. However, he also reported the treble is too loud. For example, when his has her cellphone on speaker phone, the other person's voice is uncomfortably loud for Paulo. At his grandson's basketball game, the buzzer as well as the referee's whistles are bothersome. High frequencies already significantly cut out due to limits of feedback curve. Discussed balance between comfort and audibility. Changed to medium vented dome and reran feedback analyzer with slight improvement in high frequency gain and increased to 100% gain level to help with clarity. Decreased gain of loud sounds and increased noise management settings. Paulo is will try new settings and call if problems arise. Recommendations: Hearing instrument follow-up or maintenance as needed. Please contact our clinic with any questions or concerns. Diagnosis Code(s): Primary Diagnosis: H90.3 Bilateral Sensorineural Hearing Loss Signature: Provider: Giorgio Eduardo, SIVAKUMAR-A
== END 2023-10-04 11:37 | disposition home or self-care (01) ==
LOC: HO.HAP 11:36
PROVIDERS: Visit Provider Internal Medicine
DX: Z46.1 Encounter for fitting and adjustment of hearing aid (principal); H90.3 Sensorineural hearing loss, bilateral
CPT/HCPCS: 92593

== ENCOUNTER 2023-10-18 13:44 | Outpatient (REF) | payer SELFPAY | END 2023-10-18 13:45 | disposition home or self-care (01) | LOC: HO.HAP 13:44 | PROVIDERS: Visit Provider Internal Medicine | DX: Z13.89 Encounter for screening for other disorder (principal) ==

== ENCOUNTER 2023-11-13 05:59 | Outpatient (REF) | payer MEDICARE, SELFPAY ==
[2023-11-13 07:54] LABS: Estimated Average Glucose 134 mg/dL; Hemoglobin A1c % 6.3 % (<6.0)
[2023-11-13 08:00] LABS: Alanine Aminotransferase 17 U/L (0-40); Albumin Level 4.6 g/dL (3.5-5.0); Alkaline Phosphatase 50 U/L (39-117); Anion Gap 13 (12-20); Aspartate Amino Transferase 20 U/L (5-37); Bilirubin Total 0.5 mg/dL (0.0-1.0); Blood Urea Nitrogen 20 mg/dL (9-16); Calcium 9.3 mg/dL (8.4-10.2); Carbon Dioxide 28 mmol/L (22-29); Chloride 106 mmol/L (96-108); Estimated Glomerular Filt Rate > 60; Glucose Random 121 mg/dL (60-115); Potassium 3.7 mmol/L (3.3-5.1); Sodium 143 mmol/L (135-145); Total Protein 7.4 g/dL (6.5-8.0)
== END 2023-11-13 06:00 | disposition home or self-care (01) ==
LOC: HO.LAB 05:59
PROVIDERS: PCP Internal Medicine; Visit Provider Internal Medicine
DX: E11.65 Type 2 diabetes mellitus with hyperglycemia (principal)
CPT/HCPCS: 36415; 80053; 83036

== ENCOUNTER 2023-11-20 20:54 | Emergency (ER) | payer MEDICARE, SELFPAY ==
--- NOTE | 2023-11-20 | ECG_ITS ---
Test Reason : WEAKNESS Blood Pressure : / mmHG Vent. Rate : 063 BPM Atrial Rate : 063 BPM P-R Int : 160 ms QRS Dur : 084 ms QT Int : 414 ms P-R-T Axes : 036 -10 037 degrees QTc Int : 423 ms Sinus rhythm with occasional Premature ventricular complexes Minimal voltage criteria for LVH, may be normal variant ( R in aVL ) Borderline ECG When compared with ECG of 10-JUN-2012 07:54, Premature ventricular complexes are now Present Referred By: Generic ED Physician Electronically Signed By:Jovi Campa
--- NOTE | ~2023-11-20 | US_ITS ---
EXAMINATION: US ABDOMEN LIMITED CLINICAL INFORMATION: Abdominal pain. COMPARISON: CT from the same day TECHNIQUE: Real-time imaging of the right upper quadrant abdominal viscera. FINDINGS: PANCREAS: The visualized proximal portion of the pancreas is unremarkable. The distal portion is obscured secondary to overlying bowel gas. LIVER: The liver is normal in size. The liver contour is normal. There is diffusely increased liver parenchymal echogenicity, suggesting hepatic steatosis. No focal hepatic lesion. There is no intrahepatic biliary duct dilatation seen. GALLBLADDER: The gallbladder is physiologically distended. Gallbladder sludge is present. No definite gallstones are seen. There is slight gallbladder wall thickening to 0.4 cm. Sonographic Main sign is reportedly negative. COMMON BILE DUCT: Normal in caliber measuring 0.4 cm in diameter. RIGHT KIDNEY: No hydronephrosis. No renal calculi or focal parenchymal lesions. The kidney measures 13.8 cm in maximum dimension. FREE FLUID: None. US/US abdomen limited IMPRESSION: 1. Gallbladder sludge with slight gallbladder wall thickening, nonspecific in the absence of positive sonographic Main sign. If there is clinical concern for cholecystitis, assessment with nuclear medicine hepatobiliary scan may be helpful. 2. Hepatic steatosis.
--- NOTE | ~2023-11-20 | CT_ITS ---
EXAMINATION: CT ABDOMEN AND PELVIS WITH CONTRAST CLINICAL INFORMATION: Left lower quadrant pain COMPARISON: Multiple priors, including 06/06/2023 TECHNIQUE: Multidetector volumetric images were obtained from the superior aspect of the liver through the pubic symphysis following administration 85 mL of Omnipaque 350 intravenous contrast. Sagittal and coronal reformatted images were obtained on the technologist's workstation. Oral contrast: No This CT examination was performed using dose optimization techniques as appropriate, variously including the following: *Automated exposure control *Adjustment of mA and/or kV according to patient size (this includes techniques or standardized protocols for targeted exams where dose is matched to indication/reason for exam; i.e. extremities or head) *Use of iterative reconstruction technique DLP: 530 mGy-cm FINDINGS: LUNG BASES: Few bilateral lung nodules are present measuring 4 mm in the right lower lobe on image 68/811, 4 mm in the left lower lobe on image 6/211, and 3 mm in the left lower lobe on image 58/811. LIVER, GALLBLADDER, AND BILIARY TREE: The liver is normal in size, shape, and attenuation. Subtle subcentimeter hypoattenuating focus in the right hepatic lobe is better characterized on prior MRI. No biliary ductal dilatation is present. The gallbladder is unremarkable with no evidence of radiopaque gallstones, significant gallbladder wall thickening, or obvious pericholecystic inflammatory changes. PANCREAS: Small cystic pancreatic lesions are better demonstrated on prior MRI. SPLEEN: Unremarkable. ADRENAL GLANDS: Unremarkable. KIDNEYS AND URETERS: Bilateral nephrograms are symmetric. Prominent right greater than left extrarenal pelvises with no obstructing calculus seen. Nonspecific bilateral perinephric stranding. BLADDER: Significantly distended, without appreciable wall thickening. GASTROINTESTINAL TRACT: No evidence of bowel obstruction. There is colonic diverticulosis without convincing diverticulitis. No significant bowel wall thickening is seen. No free fluid or free air is seen. ABDOMINAL WALL: No significant hernia is appreciated. LYMPH NODES: Normal. VASCULAR: Scattered atherosclerotic calcifications. PELVIC VISCERA: Mildly prominent prostate gland, including nodularity superiorly indenting on the urinary bladder. OSSEOUS STRUCTURES: Mild scattered degenerative changes in the spine. CT/CT abdomen pelvis w IV con IMPRESSION: 1. Colonic diverticulosis without convincing diverticulitis. 2. Significantly distended urinary bladder. Bladder outlet obstruction is a consideration with this appearance. There is some prominence of right greater than left extrarenal pelvises, which may be physiologic in this setting. No obstructing calculus identified. 3. Mildly prominent prostate gland, including nodularity superiorly indenting on the urinary bladder. This could reflect hypertrophy though malignancy cannot be excluded. 4. Few nonspecific lung nodules as noted above. According to the UPDATED 2017 Fleischner Society recommendations, the advised follow-up imaging for solid nodules < 6 mm is: LOW RISK PATIENT: No routine follow-up. HIGH RISK PATIENT: Optional CT at 12 months.
[2023-11-20 21:22] VITALS: BP 204/91; PULSE 65; RESP 20; TEMP 36.5; O2SAT 100; BMI 25.8
[2023-11-20 21:47] LABS: Basophils Percent Auto 0.2 % (0-2); Eosinophils Absolute Auto 0.1 X10*3/uL (0.0-0.4); Eosinophils Percent Auto 0.9 % (0-4); Hematocrit 43.6 % (42.0-52.0); Hemoglobin 15.9 g/dl (14.0-18.0); Imm Gran Abs Auto 0.05 X10*3/uL (0.00-0.03); Imm Gran Pct Auto 0.4 % (0.0-0.4); Lymphocytes Percent Auto 14.8 % (20-40); MANUAL DIFF FLAG NO; Mean Corpuscular HGB Conc 36.5 g/dl (31.0-36.0); Mean Corpuscular Hemoglobin 33.1 pg (27.0-33.0); Mean Corpuscular Volume 90.8 fL (80.0-98.0); Mean Platelet Volume 10.5 fL (9.4-12.4); Monocytes Percent Auto 7.6 % (2-11); Neutrophils Absolute Auto 10.4 x10*3/uL (2.0-8.3); Neutrophils Percent Auto 76.1 % (45-73); Platelet Count 278 X10*3/uL (160-400); Red Cell Distribution Width 12.1 % (11.0-16.0); White Blood Count 13.7 X10*3/uL (4.8-10.8)
[2023-11-20 22:02] LABS: Alanine Aminotransferase 15 U/L (0-40); Alkaline Phosphatase 61 U/L (39-117); Anion Gap 17 (12-20); Aspartate Amino Transferase 21 U/L (5-37); Bilirubin Total 0.5 mg/dL (0.0-1.0); Blood Urea Nitrogen 20 mg/dL (9-16); Calcium 9.9 mg/dL (8.4-10.2); Carbon Dioxide 27 mmol/L (22-29); Chloride 98 mmol/L (96-108); Estimated Glomerular Filt Rate > 60; Glucose Random 182 mg/dL (60-115); Potassium 4.1 mmol/L (3.3-5.1); Sodium 138 mmol/L (135-145); Total Protein 8.4 g/dL (6.5-8.0)
[2023-11-20 22:12] LABS: Troponin-I High Sensitivity < 2.7 ng/L (<3.5-35.0)
[2023-11-20 22:15] LABS: Bilirubin Direct 0.2 mg/dL (0.0-0.5); Lipase 51 U/L (8-78)
[2023-11-20 22:20] VITALS: BP 171/90; PULSE 70; RESP 18; TEMP 36.8; O2SAT 98
--- NOTE | 2023-11-20 22:21 | MHC.EDTECH ---
This tech took over care of patient at this time,hourly rounds and vitals completed,BP is elevated at 171/90,RN made aware. Patient ambulated to bathroom with a steady gait, urine sample obtained and sent to lab.
[2023-11-20 22:34] LABS: Appearance Urine Clear; Color Urine Yellow; Glucose Urine UA Negative (Negative); Leukocyte Esterase Urine Negative (Negative); Nitrite Urine Negative (Negative); Urine Blood Negative (Negative); Urine Ketones 15 mg/dL (Negative); Urine Protein Trace mg/dL (Neg-Trace)
[2023-11-20 22:39] LABS: Bacteria Urine None Seen (None Seen); Hyaline Casts Urine 0-2 /LPF (0-2); RBC Urine 0-2 /HPF (0-2); Squamous Epithelial Cell Urine 0-2 /HPF (0-2); WBC Urine 0-5 /HPF (0-5)
--- NOTE | 2023-11-20 23:22 | ED_ITS ---
HPI - Abdominal Pain General Chief Complaint: Abdominal Pain Stated Complaint: abd pain Time Seen by Provider: 11/20/23 22:40 Source: patient and family Mode of arrival: ambulatory History of Present Illness HPI narrative: 68-year-old male with onset of what he describes as periumbilical pain as well as associated nausea, vomiting denies any fevers and chills and denies any intra-abdominal surgeries in the past. Patient states he has carried a diagnosis of diverticulosis in the past. Related Data Home Medications Medication Instructions Recorded Confirmed acyclovir 400 mg tablet 400 mg PO BID 12/07/21 12/07/21 atorvastatin 10 mg tablet 10 mg PO DAILY 12/07/21 12/07/21 banana ea PO 12/07/21 12/07/21 flakes-transgalactooligosaccharide oral powder packet (Banatrol Plus oral powder packet) hydrochlorothiazide 25 mg tablet 25 mg PO DAILY 12/07/21 12/07/21 lisinopril 40 mg tablet 40 mg PO DAILY 12/07/21 12/07/21 metformin 500 mg tablet,extended 1,000 mg PO BID 12/07/21 12/07/21 release 24 hr multivitamin 1 tab PO DAILY 12/07/21 12/07/21 pantoprazole 40 mg tablet,delayed 40 mg PO DAILY 12/07/21 12/07/21 release Allergies Allergy/AdvReac Type Severity Reaction Status Date / Time No Known Allergies Allergy Verified 11/20/23 21:21 [No Known Allergies*] Review of Systems Review of Systems Pertinent positives and negatives as stated in HPI PMFSH Past Medical History Source: nursing notes reviewed Medical History Hemorrhoids with complication Diabetes Pancreatic cyst Hepatic hemangioma Diverticulitis HSV infection HTN (hypertension) Hepatitis C Surgical History S/p bilateral carpal tunnel release Family History Family History Maternal Grandfather Cancer of unknown origin Social History Social History Advance Directives: No Advance Directives Information Provided: No Physical Exam ED Vital Signs: Vital Signs - 24 hr 11/20/23 21:22 11/20/23 22:20 11/20/23 23:44 Temperature 97.7 F 98.3 F 98.5 F Pulse Rate 65 70 63 Respiratory Rate 20 18 18 Blood Pressure 204/91 H 171/90 H 175/83 H Pulse Oximetry 100 98 98 Oxygen Delivery Method Room Air Room Air Room Air 11/21/23 00:03 11/21/23 00:42 11/21/23 02:21 Temperature 98.4 F 98.2 F Pulse Rate 63 81 87 Respiratory Rate 18 18 18 Blood Pressure 159/77 H 145/74 H 122/54 L Pulse Oximetry 98 98 98 Oxygen Delivery Method Room Air Room Air Room Air BMI result Body Mass Index 25.8 VITAL SIGNS: Reviewed. GENERAL: Well developed, well nourished, in no acute distress. HEAD: Normocephalic/atraumatic EYES: PERRLA, EOMI EARS: Ext canals without abnormality NOSE: Nares patent bilateral OROPHARYNX: no oral lesions noted, posterior pharynx clear NECK: Supple, no adenopathy LUNGS: Normal breath sounds. No adventitious sounds or accessory muscle use. SpO2<98> CARDIOVASCULAR: Regular rate and rhythm without noted murmurs ABDOMEN: Soft, left lower quadrant pain, non-distended with bowel sounds. MUSCULOSKELETAL: No tenderness, deformities, or effusions noted on gross inspection. EXTREMITIES: No cyanosis, clubbing or edema. SKIN: Inspection of the skin reveals no rashes NEUROLOGIC: Alert and oriented x 4. Strength and sensation to light touch were grossly intact x 4. Medical Decision Making Medical Decision Making [facility] Narrative: 2310: 68-year-old male with history and clinical presentation, DDX: Diverticulitis, perfect abdomen, lower clinical suspicion for renal colic/appendicitis and no clinical suspicion for SBO. I reviewed all investigations and hematologic indices demonstrate a leukocytosis without anemia or thrombocytopenia. Chemistry indices negative for MATTHEW/electrolyte or liver enzyme derangements, I sensitivity troponin is undetectable. Lactic acid was noted be 2.2, patient has received IV fluids as well as antibiotics. Urinalysis is negative for UTI or hematuria. CT scan negative for any evidence to suggest diverticulitis/cholecystitis/appendicitis/obstruction. There is noted a large amount of stool. Ultrasound demonstrates borderline gallbladder wall thickness with noted sludge, however clinical exam is completely benign for suggestion of cholecystitis. On re-evaluation patient is feeling much better and is no longer nauseous. Suspect that this may have been related with stool volume load but patient also instructed to follow-up in the outpatient setting for elective gallbladder evaluation. He is otherwise discharged. Differential Diagnosis Differential Diagnoses: The differential diagnosis associated with the presentation includes Admission/Observation Consideration of admission/observation: Escalation of care including admission/observation considered Please see the discussion above Lab Data MDM Lab Attestation statement: I reviewed the patient's lab results. Please see the discussion above 11/20/23 21:41 11/20/23 21:41 Labs: Lab Results 11/20/23 11/20/23 11/20/23 Range/Units 21:41 22:26 23:42 WBC 13.7 H (4.8-10.8) X10*3/uL RBC 4.80 (4.60-5.80) X10*6/uL Hgb 15.9 (14.0-18.0) g/dl Hct 43.6 (42.0-52.0) % MCV 90.8 (80.0-98.0) fL MCH 33.1 H (27.0-33.0) pg MCHC 36.5 H (31.0-36.0) g/dl RDW 12.1 (11.0-16.0) % Plt Count 278 (160-400) X10*3/uL MPV 10.5 (9.4-12.4) fL Immature Gran % (Auto) 0.4 (0.0-0.4) % Neut % (Auto) 76.1 H (45-73) % Lymph % (Auto) 14.8 L (20-40) % [place] % (Auto) 7.6 (2-11) % Eos % (Auto) 0.9 (0-4) % Baso % (Auto) 0.2 (0-2) % Lymph # (Auto) 2.0 (1.2-4.9) X10*3/uL [place] # (Auto) 1.0 (0.1-1.2) X10*3/uL Eos # (Auto) 0.1 (0.0-0.4) X10*3/uL Baso # (Auto) 0.0 (0.0-0.2) X10*3/uL Abs Immat Gran (auto) 0.05 H (0.00-0.03) X10*3/uL Absolute Neuts (auto) 10.4 H (2.0-8.3) x10*3/uL Absolute Nucleated RBC 0.000 (0.0-0.012) X10*3/uL Nucleated RBC % (auto) 0.0 (0.0-0.2) /100WBC Sodium 138 (135-145) mmol/L Potassium 4.1 (3.3-5.1) mmol/L Chloride 98 (96-108) mmol/L Carbon Dioxide 27 (22-29) mmol/L Anion Gap 17 (12-20) BUN 20 H (9-16) mg/dL Creatinine 1.09 (0.5-1.4) mg/dL Estim Creat Clear Calc 63.0 Estimated GFR > 60 Random Glucose 182 H (60-115) mg/dL Lactic Acid 2.2 H* (0.5-2.0) mmol/L Lactic Acid F/U @ 2Hr (0.5-2.0) mmol/L Calcium 9.9 D (8.4-10.2) mg/dL Total Bilirubin 0.5 (0.0-1.0) mg/dL Direct Bilirubin 0.2 (0.0-0.5) mg/dL AST 21 (5-37) U/L ALT 15 (0-40) U/L Alkaline Phosphatase 61 (39-117) U/L Troponin I High Sens < 2.7 (<3.5-35.0) ng/L Total Protein 8.4 H (6.5-8.0) g/dL Albumin 5.0 (3.5-5.0) g/dL Lipase 51 (8-78) U/L Urine Color Yellow Urine Appearance Clear Urine pH 7.0 (5.0-9.0) Ur Specific [place]rosse 1.010 (1.005-1.025) Urine Protein Trace (Neg-Trace) mg/dL Urine Glucose (UA) Negative (Negative) mg/dL Urine Ketones 15 (Negative) mg/dL Urine Blood Negative (Negative) Urine Nitrite Negative (Negative) Ur Leukocyte Esterase Negative (Negative) Urine RBC 0-2 (0-2) /HPF Urine WBC 0-5 (0-5) /HPF Ur Squamous Epith Cells 0-2 (0-2) /HPF Urine Bacteria None Seen (None Seen) Hyaline Casts 0-2 (0-2) /LPF 11/21/23 Range/Units 02:11 WBC (4.8-10.8) X10*3/uL RBC (4.60-5.80) X10*6/uL Hgb (14.0-18.0) g/dl Hct (42.0-52.0) % MCV (80.0-98.0) fL MCH (27.0-33.0) pg MCHC (31.0-36.0) g/dl RDW (11.0-16.0) % Plt Count (160-400) X10*3/uL MPV (9.4-12.4) fL Immature Gran % (Auto) (0.0-0.4) % Neut % (Auto) (45-73) % Lymph % (Auto) (20-40) % Sum[place] % (Auto) (2-11) % Eos % (Auto) (0-4) % Baso % (Auto) (0-2) % Lymph # (Auto) (1.2-4.9) X10*3/uL [place] # (Auto) (0.1-1.2) X10*3/uL Eos # (Auto) (0.0-0.4) X10*3/uL Baso # (Auto) (0.0-0.2) X10*3/uL Abs Immat Gran (auto) (0.00-0.03) X10*3/uL Absolute Neuts (auto) (2.0-8.3) x10*3/uL Absolute Nucleated RBC (0.0-0.012) X10*3/uL Nucleated RBC % (auto) (0.0-0.2) /100WBC Sodium (135-145) mmol/L Potassium (3.3-5.1) mmol/L Chloride (96-108) mmol/L Carbon Dioxide (22-29) mmol/L Anion Gap (12-20) BUN (9-16) mg/dL Creatinine (0.5-1.4) mg/dL Estim Creat Clear Calc Estimated GFR Random Glucose (60-115) mg/dL Lactic Acid (0.5-2.0) mmol/L Lactic Acid F/U @ 2Hr 2.2 H* (0.5-2.0) mmol/L Calcium (8.4-10.2) mg/dL Total Bilirubin (0.0-1.0) mg/dL Direct Bilirubin (0.0-0.5) mg/dL AST (5-37) U/L ALT (0-40) U/L Alkaline Phosphatase (39-117) U/L Troponin I High Sens (<3.5-35.0) ng/L Total Protein (6.5-8.0) g/dL Albumin (3.5-5.0) g/dL Lipase (8-78) U/L Urine Color Urine Appearance Urine pH (5.0-9.0) Ur Specific [place]rosse (1.005-1.025) Urine Protein (Neg-Trace) mg/dL Urine Glucose (UA) (Negative) mg/dL Urine Ketones (Negative) mg/dL Urine Blood (Negative) Urine Nitrite (Negative) Ur Leukocyte Esterase (Negative) Urine RBC (0-2) /HPF Urine WBC (0-5) /HPF Ur Squamous Epith Cells (0-2) /HPF Urine Bacteria (None Seen) Hyaline Casts (0-2) /LPF Independent Interpretation I performed an independent interpretation of an: EKG Interpretation: Sinus rhythm, HR-63, no STEMI, MS/QRS/QTC is within normal limits. Radiology Impression Discussion of test interpretation with radiology: I have reviewed the radiologist's reading. Radiologist Impression: Please see the discussion above External Record Review External record reviewed: Outpatient record and Prior outpatient labs Chronic Conditions Patient?s care impacted by: Diabetes and Hypertension Medications Administered Discontinued Medications Generic Name Dose Route Start Last Admin Trade Name Freq PRN Reason Stop Dose Admin Fentanyl 25 mcg 11/20/23 23:10 11/20/23 23:44 Fentanyl Citrate/Pf 100 Mcg/2 Ml Vial IVPUSH 11/20/23 23:11 25 mcg ONCE ONE Administration Protocol Sodium Chloride 1,000 mls @ 999 mls/hr 11/20/23 23:15 11/21/23 00:46 Ns IV 11/21/23 00:15 Infused .Q1H1M AJ Infusion Piperacillin Sod/Tazobactam 50 mls @ 100 mls/hr 11/20/23 23:10 11/20/23 23:45 Sod 3.375 gm/ Sodium Chloride IV 11/20/23 23:39 Infused ONCE ONE Infusion Iohexol 85 ml 11/21/23 00:27 11/21/23 00:28 Iohexol 350 Mg/Ml 100 Ml Infus..Btl IV 11/21/23 00:28 85 ml ONCE ONE Administration Ondansetron HCl 4 mg 11/20/23 23:10 11/20/23 23:43 Ondansetron Hcl 4 Mg/2 Ml Vial IVPUSH 11/20/23 23:11 4 mg ONCE ONE Administration Critical Care Time Critical Care Time Critical Care Time: Yes Total Critical Care Time: 60 Attestation: I personally attest to this time spent taking care of the patient. Discharge Plan Discharge Clinical Impression: Abdominal pain, Constipation, Cholelithiasis Patient Disposition: Home, Self-Care Instructions: Abdominal Pain (ED), Constipation (ED), Gallstones (ED) Additional Instructions: 1. Resume all home medications as prescribed. 2. Recommend [id number] MiraLax for treating constipation. 3. Recommend outpatient follow-up for gallbladder evaluation. Return to the ER for any worsening symptoms. Prescriptions: No Action metformin 500 mg tablet extended release 24 hr 1,000 mg PO BID lisinopril 40 mg tablet 40 mg PO DAILY acyclovir 400 mg tablet 400 mg PO BID atorvastatin 10 mg tablet 10 mg PO DAILY multivitamin Tablet 1 tab PO DAILY hydrochlorothiazide 25 mg tablet 25 mg PO DAILY pantoprazole 40 mg tablet,delayed release (DR/EC) 40 mg PO DAILY Banatrol Plus Powder In Packet PO Referrals: Markos Mulligan MD [Primary Care Provider] -
[2023-11-20] MEDS: Piperacillin Sodium/Tazobactam 3.375 GM in 0.9 % Sodium Chloride 50 ML IV (23:43)
[2023-11-20] MEDS: ondansetron HCL 4 MG/2 ML VIAL IVPUSH (23:43)
[2023-11-20 23:44] VITALS: BP 175/83; PULSE 63; RESP 18; TEMP 36.9; O2SAT 98
[2023-11-20] MEDS: fentaNYL citrate/PF 100 MCG/2 ML VIAL 25 MCG IVPUSH (23:44)
[2023-11-20] MEDS: 0.9 % Sodium Chloride 1,000 ML 999 ML IV (23:45)
--- NOTE | 2023-11-20 23:45 | MHC.EDTECH ---
Blood cultures,and lactic drawn and sent to lab. Hourly rounds and vitals completed,patient's BP is elevated 175/83 RN made aware.
[2023-11-21 00:03] VITALS: BP 159/77; PULSE 63; RESP 18; O2SAT 98
[2023-11-21 00:03] LABS: Lactic Acid 2.2 mmol/L (0.5-2.0)
[2023-11-21] MEDS: iohexoL 350 MG/ML 100 ML INFUS..BTL 85 ML IV (00:28)
[2023-11-21 00:42] VITALS: BP 145/74; PULSE 81; RESP 18; TEMP 36.9; O2SAT 98
[2023-11-21 01:50] LABS: Reflex Lactate? Lactic Acid Added
--- NOTE | 2023-11-21 01:55 | MHC.EDTECH ---
This tech went to repeat lactic,patient is at ultrasound at this time.RN and MD aware
--- NOTE | 2023-11-21 02:07 | MHC.EDTECH ---
Patient arrived back from [facility] ,lactic being obtained at this time.
[2023-11-21 02:21] VITALS: BP 122/54; PULSE 87; RESP 18; TEMP 36.8; O2SAT 98
--- NOTE | 2023-11-21 02:22 | MHC.EDTECH ---
Hourly rounds and vitals completed,patient is resting at this time. at bedside
[2023-11-21 02:33] LABS: ~Lactic Acid-LAB USE ONLY 2.2 mmol/L (0.5-2.0)
--- NOTE | 2023-11-21 02:38 | PC.NURSE ---
Critical lab result received: Lactic acid 2.2 Dr. Lindsey made aware. No new orders at this time.
[2023-11-21 03:48] VITALS: BP 121/70; PULSE 92; RESP 14; TEMP 36.7; O2SAT 97
[2023-11-21 04:18] LABS: Reflex Lactate? 2 Y
== END 2023-11-21 03:49 | disposition home or self-care (01) ==
PROVIDERS: Emergency Provider Student in an Organized Health Care Education/Training Program; PCP Internal Medicine
DX: K80.20 Calculus of gallbladder without cholecystitis without obstruction (principal); K59.00 Constipation, unspecified; R10.33 Periumbilical pain; R94.31 Abnormal electrocardiogram [ECG] [EKG]; R10.32 Left lower quadrant pain; R11.2 Nausea with vomiting, unspecified; Z79.899 Other long term (current) drug therapy
CPT/HCPCS: 36415; 51798; 74177; 76705; 80053; 81001; 82248; 83605; 83690; 84484; 85025; 87040; 93005; 96361; 96374; 96375; 99285; J2405; J2543; J3010; Q9967

== ENCOUNTER → 2023-11-20 21:33 | Outpatient (BNV) | payer MEDICARE, SELFPAY | PROVIDERS: Emergency Provider Student in an Organized Health Care Education/Training Program; PCP Internal Medicine; Visit Provider Internal Medicine Cardiovascular Disease | DX: R53.1 Weakness (principal) | CPT/HCPCS: 93010 ==

== ENCOUNTER 2023-11-29 10:25 | Outpatient (AMB) | payer MEDICARE, SELFPAY ==
--- NOTE | 2023-11-29 10:34 | MHC.OFFVIS ---
Intake Intake Visit Reasons: stomach pain, gallbladder issues Intake Note: This patient presents for symptomatic gallbladder. Pt c/o; reports diarrhea, reports is on 2 rounds of abx, reports diarrhea, reports no abdominal pain or cramp. Double Cutter Required: No Accompanied by: Self / Same As Patient Allergies No Known Allergies [No Known Allergies*] Allergy (Verified 11/29/23 10:40) Medication List - Last Reconciled 11/29/23 by Danie Sainz MD acyclovir 400 mg PO BID atorvastatin 10 mg PO DAILY banana [id number]. (Banatrol Plus oral powder packet) ea PO ciprofloxacin HCl 500 mg PO BID hydrochlorothiazide 25 mg PO DAILY insulin glargine (Basaglar KwikPen U-100 Insulin) units subcut lisinopril 40 mg PO DAILY metformin ER 1,000 mg PO BID metronidazole 500 mg PO TID multivitamin 1 tab PO DAILY pantoprazole 40 mg PO DAILY HPI stomach pain, gallbladder issues HPI Details 68-year-old male referred for gallbladder sludge. He went to the ER last 11/16/2023 because of what he described as an episode of severe epigastric and periumbilical pain. He says this lasted for a couple of hours. He had a CAT scan and an ultrasound done showing gallbladder sludge without stones. He did not have any evidence of cholecystitis. His LFTs were normal. He was sent home and was advised to see me in the office. He has had no further episodes since then. He says he has good oral intake. [facility] Medical History (Updated 11/29/23 @ 10:57 by Danie Sainz MD) Gallbladder sludge Hemorrhoids with complication Diabetes Pancreatic cyst Hepatic hemangioma Diverticulitis HSV infection HTN (hypertension) Hepatitis C Surgical History S/p bilateral carpal tunnel release Family History Maternal Grandfather Cancer of unknown origin Review of Systems Const Denies chills and Denies fever(s) Card Denies chest pain, Denies dyspnea and Denies dyspnea on exertion Resp Denies cough, Denies dyspnea and Denies dyspnea on exertion GI Denies hematochezia and Denies change in bowel habits Denies hematuria and Denies difficulty urinating Musc Denies back pain and Denies limited range of motion Neuro Denies focal weakness and Denies convulsions Psych Denies depression and Denies mood swings Physical Exam Const General: comfortable and no acute distress Orientation/consciousness: patient oriented x3 Neck Neck: Yes no lymphadenopathy Resp Auscultation: clear to auscultation bilaterally Cardio Rhythm: regular rhythm GI Other: No Main's sign Palpation (GI): Soft to palpation, nontender and no guarding Neuro General: patient oriented x3 Assessment & Plan Assessment & Plan (1) Gallbladder sludge: Code(s): K82.8 - Other specified diseases of gallbladder Plan: He had gallbladder sludge noted on an ultrasound in the ER. His pain was described to be in the periumbilical area and epigastric area at that time. He says that this was not on the right upper quadrant. He is pain may be atypical for gallbladder disease. However, I did tell him that there is the option of proceeding with cholecystectomy for symptoms that may be attributable to gallbladder disease. I discussed the technique of laparoscopic cholecystectomy and possible open cholecystectomy. I reviewed the risks including but not limited to bleeding, infections, injury to other organs, as well as the benefits and alternatives I did make him aware that I am uncertain if his episode of pain at that time was secondary to gallbladder disease as this was atypical He says he will think about the procedure and let me know if he decides to proceed. Coding Level of Care Code New Pt Level 3 (66292) Diagnoses Gallbladder sludge K82.8
== END 2023-11-29 10:54 | disposition home or self-care (01) ==
PROVIDERS: PCP Internal Medicine; Visit Provider Surgery
DX: K82.8 Other specified diseases of gallbladder (principal)
CPT/HCPCS: 99203; 99213

== ENCOUNTER → 2023-11-29 10:25 | Outpatient (BNVA) | payer MEDICARE, SELFPAY | PROVIDERS: PCP Internal Medicine; Visit Provider Surgery | DX: K82.8 Other specified diseases of gallbladder (principal) | CPT/HCPCS: 99202 ==

== ENCOUNTER 2024-03-06 08:41 | Outpatient (AMB) | payer MEDICARE, SELFPAY ==
--- NOTE | 2024-03-06 09:28 | A.SPINEOV_ITS ---
Intake Visit Reasons: Left leg pain and numbness Car Rental Manager Required: No Allergies No Known Allergies [No Known Allergies*] Allergy (Verified 11/29/23 10:40) Assessment & Plan Assessment & Plan (1) Lumbar radiculopathy: Code(s): M54.16 - Radiculopathy, lumbar region Category: Medical Plan Dear colleague, Thank you for referring Paulo to our office today. Paulo is a pleasant 69-year-old male who comes in today with a chief complaint of low back pain with radiation to his left lower extremity. He states that this has been ongoing for the past couple of years but was recently exacerbated on 02/17/2024 when he was camping. He states that he was attempting to pull a stake out of the ground from his tent, and when bending over to do so felt a sharp pain in his low back precipitating a worsening shooting pain down his leg. He had an MRI completed a couple of weeks later, which he brings with him to the office today. When describing the radiation of his pain he runs his hand over the lateral aspect of his left thigh down his posterior/lateral tibialis toward the bottom left side of his foot. He reports associated lateral thigh numbness with this pain. He reports that standing and lying flat helps to alleviate his pain, and that sitting and bending exacerbate his pain. He is currently taking oxycodone, gabapentin, Biofreeze, and Tylenol to help alleviate his symptoms. He reports a history of previous evaluation by both [facility] pain management and [facility] pain management. He reports he has had several injections in his spine before, but is unsure exactly what procedures he had done. He states that he was recently evaluated by GORDON Hadley along Dr. Brandon at [facility] who referred him to physical therapy and pain management. He comes in today for a 2nd opinion. PMH: History of right shoulder repair, bilateral carpal tunnel release, unspecified right knee surgery x 2. HSV, Diabetes (last A1C 6.3%), GERD, high blood pressure, Social hx: The patient does not smoke, reports no substance use. Medications: Metformin, lisinopril, acyclovir, HCTZ, Protonix, meloxicam, gabapentin, insulin, oxycodone, gabapentin, Biofreeze, Tylenol. Allergies: NKDA. Physical exam: The patient has 5/5 strength in his upper and lower extremities. He has some hypoesthesia reported over his lateral thigh terminating before the knee. The rest of his sensation is intact. His reflexes are 2+ intact. He ambulates with a somewhat antalgic gait favoring the right side. (-) bilateral straight leg raise, (-) Sherri's, (-) Cony finger test, (-) clonus, (-) Todd's. Imaging review: MRI of the lumbar spine completed at [facility] shows diffuse spondylosis of the lumbar spine. He has mild central canal and bilateral foraminal stenosis at L2-3, accompanied by a grade 1 spondylolisthesis. He has mild central canal and bilateral foraminal stenosis at L3-4. He also has mild- moderate right-sided foraminal stenosis at L4-5. There is also some evidence of facet hypertrophy at L2-3 and L3-4. Impression: Paulo is a pleasant 69-year-old male who comes in today with a chi ef complaint of exacerbation of existing lumbar radiculopathy. In addition to this recent exacerbation he reports newer onset numbness of the lateral thigh. His MRI imaging does not show any obvious acute pathology that would be causing his symptoms. There is no evidence of an acute disc herniation causing left- sided nerve compression. There is evidence of a spondylolisthesis. I would like to send the patient for a set of flexion/extension x-rays, and I would also like to obtain his pain management injection records from both [facility] pain management and [facility] pain management. This will help us pain to better picture of what treatment interventions have been tried and what has and/or has not been successful in the past. I will follow up with Keon after these things were done / obtained. Thank you for allowing us to care for your patient. The total time spent with this visit with this patient was 45 minutes reviewing history, physical exam, MRI imaging review, and implementation of treatment plan or further diagnostic testing Chandrakant Blackburn MD,PhD [facility] Orders: Orders XR lumbar spine 4V min Today M54.16 - Radiculopathy, lumbar region Coding Level of Care Code New Pt Level 4 (41677) Diagnoses Lumbar radiculopathy M54.16
== END 2024-03-06 10:12 | disposition home or self-care (01) ==
PROVIDERS: PCP Internal Medicine; Visit Provider Physician Assistant
DX: M54.16 Radiculopathy, lumbar region (principal)
CPT/HCPCS: 99204

== ENCOUNTER 2024-03-06 08:41 | Outpatient (REF) | payer MEDICARE, SELFPAY ==
--- NOTE | ~2024-03-06 | XR_ITS ---
EXAMINATION: XR LUMBOSACRAL SPINE WITH OBLIQUES CLINICAL INFORMATION: Radiculopathy lumbar region. COMPARISON: MRI lumbar spine August 29, 2022. TECHNIQUE: 4 views of the lumbar spine. FINDINGS: Dextroscoliosis of the lumbar spine. Diffuse demineralization. Degenerative changes in the bilateral sacroiliac joints. Facet arthritis in the lower lumbar spine. Grade 1 anterolisthesis of L1 on L2, and of L2 on L3 with flexion and extension. Moderate multilevel lumbar spondylosis with loss of disc space height. XR/XR lumbar spine 4V min IMPRESSION: 1. Moderate multilevel lumbar spondylosis with loss of disc space height. 2. Facet arthritis in the lower lumbar spine.
== END 2024-03-06 08:42 | disposition home or self-care (01) ==
LOC: HO.HOSX 08:41
PROVIDERS: PCP Internal Medicine; Visit Provider Physician Assistant
DX: M54.16 Radiculopathy, lumbar region (principal)
CPT/HCPCS: 72110; 99202

== ENCOUNTER 2024-03-26 08:59 | Outpatient (AMB) | payer MEDICARE, SELFPAY ==
--- NOTE | 2024-03-26 09:02 | MHC.OFFVIS ---
Intake Visit Reasons: hematuria Intake Note: Patient is present for HEMATURIA Urology Medication:PYRIDOXINE Antibiotic Allergy:NONE Blood Thinner:NONE Director Airport Operations Required: No Allergies No Known Allergies [No Known Allergies*] Allergy (Verified 03/26/24 09:45) Medication List - Last Reconciled 03/26/24 by FENG Cyr acyclovir 400 mg PO BID atorvastatin 10 mg PO DAILY hydrochlorothiazide 25 mg PO DAILY insulin glargine (Basaglar KwikPen U-100 Insulin) units subcut lisinopril 40 mg PO DAILY metformin ER 1,000 mg PO BID multivitamin 1 tab PO DAILY pantoprazole 40 mg PO DAILY tamsulosin 0.4 mg PO BEDTIME 30 days HPI Comments Details: Keon is a very pleasant 69-year-old male patient of Dr. Mulligan. He has a past medical history of hemorrhoids, diabetes, pancreatic cysts, hepatic hemangioma, diverticulitis, hypertension, hepatitis-C treated in 2014, HCV remains negative. He presents to the office today as a new patient for acute urinary retention. In discussion with the patient today he reports having had L5-S1 back surgery with Dr. Crawford at [facility] approximately 2 days ago at which time a Butler catheter was placed due to acute urinary retention. He reports noting episodes of gross hematuria and is here today for further assessment evaluation. He reports prior to his back surgery he had no urinary issues or concerns. He reports he had been following up with his PSAs and prostate exams with his PCP. He reports having had his PSA drawn this year and believes it was 1.6. In review of patient's chart it appears PSAs are as follows: 07/15 1.2, 01/13 1.0 Discussed at length potential causes of acute urinary retention. Discussed in office voiding trial with nursing in 3-4 weeks given patient with over 1 L in his bladder status post surgery. He reports to be recovering well from his recent back surgery. He reports pain has been managed with gabapentin and Tylenol as needed and he has been able to come off of his as needed oxycodone. Discussed bladder cap for bladder cycling. Discussed obtaining retroperitoneal ultrasound and PSA in 3 months for further assessment evaluation.He otherwise denies any bothersome urinary issues or concerns. [facility] Medical History (Updated 03/26/24 @ 09:44 by Rita Albrecht, MASTER COOK-BC) Gallbladder sludge Hemorrhoids with complication Diabetes Pancreatic cyst Hepatic hemangioma Diverticulitis HSV infection HTN (hypertension) Hepatitis C Surgical History S/p bilateral carpal tunnel release Family History Maternal Grandfather Cancer of unknown origin Review of Systems Const All systems reviewed & are unremarkable except as noted in HPI and below Physical Exam Const General: cooperative, healthy appearing, comfortable, no acute distress, well developed, alert and awake Nutritional Appearance: average body habitus Orientation/consciousness: patient oriented x3 Limitations: no limitations HEENT Head: Yes normal to inspection, Yes normocephalic and Yes atraumatic Ears: hearing grossly normal bilaterally Eyes General: appearance normal, both eyes and all related structures Neck Neck: Yes normal visual inspection and Yes trachea midline Chest Chest palpation & inspection: normal inspection of the chest Resp Effort & Inspection: normal respiratory effort and able to speak in complete sentences Cardio Rate: regular rate GI Inspection: Yes normal to inspection General: Yes no CVA tenderness Back/Spine/Pelvis Back: no CVA tenderness Skin General skin exam: no rashes or lesions noted Neuro General: patient oriented x3 Extrem General: Yes normal to inspection Psych Appearance: grossly normal and well kempt Mental Status: mental status grossly normal Speech and movement: Normal speech and movement present and Clear speech present Affect: normal affect Attitude: cooperative Thought process: Normal thought process present Thought content: Normal thought content present Insight: Fair insight present (Psych) Judgement: Fair judgement present (Psych) Assessment & Plan Assessment & Plan (1) Acute urinary retention: Code(s): R33.8 - Other retention of urine Category: Medical Plan Follow-up in office voiding trial in 3-4 weeks with nursing. Will obtain retroperitoneal ultrasound and PSA in 3 months. Discussed bladder cycling with bladder cap. Start Flomax as discussed and prescribed. Discussed, educated, and stressed the importance of adequate hydration. Discussed at length potential causes of acute urinary retention. Follow-up with nursing in 3-4 weeks for in office voiding trial. Follow-up with provider in 3 months with imaging and lab to be completed prior; or sooner with any issues, concerns, and or questions. Orders: Orders US retroperitoneal comp 3 Months R33.8 - Other retention of urine Prostate Specific Antigen 3 Months N40.0 - Benign prostatic hyperplasia without lower urinary tract symptoms Medications: New tamsulosin 0.4 mg PO BEDTIME 30 caps 3RF 30 days N40.1 - Benign prostatic hyperplasia with lower urinary tract symptoms, R35.1 - Nocturia Patient Instructions: The patient had an opportunity to ask questions regarding the treatment plan. All questions were answered. Physical exam, labs, and imaging were discussed and reviewed in detail. As well as risks, benefits, and discussion of treatment choices. No major barriers to understanding were identified. The patient expressed understanding and agreement with the above treatment plan. The patient was made aware they should contact our office by phone for worsening of their current condition, the appearance of new symptoms, or with any questions or concerns. Compliance is encouraged with any medications and follow up testing that is ordered. It is a privilege to be allowed the opportunity to participate in? your urological care.? Again, if you have any questions or concerns If you have any questions or concerns please do not hesitate to contact me. The office is [phone]. This note is constructed using voice recognition software. While every effort has been made to ensure accuracy welder setter resistance machine errors may have been included. Yours sincerely, FENG Cyr Coding Level of Care Code New Pt Level 4 (39627) Diagnoses Acute urinary retention R33.8
== END 2024-03-26 09:50 | disposition home or self-care (01) ==
PROVIDERS: PCP Internal Medicine; Visit Provider Nurse Practitioner Family
DX: R33.8 Other retention of urine (principal)
CPT/HCPCS: 99204

== ENCOUNTER → 2024-03-26 08:59 | Outpatient (BNVA) | payer MEDICARE, SELFPAY | PROVIDERS: PCP Internal Medicine; Visit Provider Nurse Practitioner Family | DX: R33.8 Other retention of urine (principal) | CPT/HCPCS: 99202 ==

== ENCOUNTER → 2024-04-15 08:12 | Outpatient (BNVA) | payer MEDICARE, SELFPAY | PROVIDERS: PCP Internal Medicine; Visit Provider Nurse Practitioner Family | DX: R33.8 Other retention of urine (principal) | CPT/HCPCS: 51700; 51702; 51798 ==

== ENCOUNTER → 2024-05-07 10:04 | Outpatient (BNVA) | payer MEDICARE, SELFPAY | PROVIDERS: PCP Internal Medicine; Visit Provider Nurse Practitioner Family ==

== ENCOUNTER 2024-05-22 09:43 | Outpatient (AMB) | payer MEDICARE, SELFPAY ==
--- NOTE | 2024-05-22 10:04 | MHC.OFFVIS ---
Intake Visit Reasons: cysto/VT Intake Note: Patient is Present for Cystoscopy/Voiding Trial Urology Med: Tamsulosin Antibiotic Allergy:None Blood Thinner:None PVR: 598ml URO- G Disposable Cystoscope lot:[id number] exp:12/05/2026 Corporate Technical Recruiter Required: No Accompanied by: Self / Same As Patient Allergies No Known Allergies [No Known Allergies*] Allergy (Verified 05/22/24 10:15) HPI Comments Details: Keon is a pleasant male. He is a patient of Dr. Mulligan. He seen for the following urologic conditions - urinary retention Check cystoscopy Large median lobe on prostate Retention had been triggered from spinal surgery Start finasteride Plan GreenLight laser prostatectomy in 6-8 weeks Family history of enlarged prostate Urinary retention Initial presentation following L5-S1 spine fusion with Dr. Crawford Has been on alpha-celine Valenzuela catheter been placed for large voiding residual 07/15 1.2, 01/13 1.0 PFSH Medical History Gallbladder sludge Hemorrhoids with complication Diabetes Pancreatic cyst Hepatic hemangioma Diverticulitis HSV infection HTN (hypertension) Hepatitis C Surgical History S/p bilateral carpal tunnel release Family History Maternal Grandfather Cancer of unknown origin Review of Systems Const Denies chills and Denies fever(s) Card Reports no additional complaints and Denies syncope Resp Denies cough GI Denies abdominal pain and Denies heartburn Reports as per HPI and Denies change in libido Neuro Denies syncope Psych Denies change in libido Endo Denies change in libido Physical Exam Const General: cooperative, healthy appearing, comfortable and no acute distress Orientation/consciousness: patient oriented x3 HEENT Face and sinus: Yes normal facial exam Mouth: moist mucous membranes Neck Neck: Yes normal visual inspection, Yes full ROM and Yes trachea midline Chest Chest palpation & inspection: normal inspection of the chest Resp Effort & Inspection: normal respiratory effort, able to speak in complete sentences and no respiratory distress GI Inspection: Yes normal to inspection Back/Spine/Pelvis Cervical Spine: normal cervical lordosis Thoracic/Lumbar Spine: thoracic and lumbar spine normal to inspection Skin General skin exam: no rashes or lesions noted Neuro General: patient oriented x3, gait normal, tone normal and moves all extremities Extrem General: Yes normal to inspection and Yes capillary refill normal Office Procedures Bladder/Catheter Procedure Details: 16 fr valenzuela catheter 10ml balloon with flip valve inserted, patient tolerated well. Patient to follow up in 4 weeks for catheter change/VT with nursing 51501-Zuvtzr Temporary Bladder Catheter Procedure code (CPT) selection complete Cystoscopy Consent Discussed risk and benefit or proposed procedure with the patient. Information consent for procedure given to the patient. Discussed technical aspects, risks, benefits and alternatives in full. Addressed all of the patient's questions and concerns regarding the procedure. The patient demonstrated knowledge and understanding. They wish to proceed with this procedure. Preparation The patient was prepped in the usual manner. A tier lift operator was present and in the room. Genitalia was prepped with betadine solution in a sterile manner. Lidocaine Jelly 2% was placed into the urethra and 16Fr flexible Olympus cystoscope was inserted into the meatus after adequate lubrication. Procedure Cystoscopy performed using a disposable Urovue digital 16 Swazi cystoscope. Meatus circumcised Urethra anterior and posterior urethra normal Prostatic Urethra permanent median lobe Bladder examination with retroflexion of cystoscope Bladder Orifices normal shape and position Bladder Capacity large Trabeculations grade 2 Cellule Formation yes Diverticulum Formation - Mucosal Erythema -- Bladder Tumor - 16fr valenzuela catheter removed prior to procedure prep, patient tolerated removal well. 60679-Irmcmiuotl DISPOSABLE SCOPE URO-G FLEXIBLE SCOPE Procedure code (CPT) selection complete Post Void Residual Post Residual Void Post Void Residual (PVR): 598 79895-Gnhz Void Residual by ultrasound Office Meds lidocaine HCl 2 % mucosal jelly in applicator Performing Provider: Ulisses Monsivais MD [facility] Administered by: Ilir Mcgill LPN on 05/22/24 10:18 Dose Route Admin Location Dispensed Lot Number Expiration Date [facility] Systems Navigator 10 mL intra-urethral 10 mL nitrofurantoin monohydrate/macrocrystals 100 mg capsule Performing Provider: Ulisses Monsivais MD Performing Location[facility] Administered by: Ilir Mcgill LPN on 05/22/24 10:18 Dose Route Admin Location Dispensed Lot Number Expiration Date [facility] Systems Navigator 100 mg PO 1 cap naproxen 500 mg tablet Performing Provider: Ulisses Monsivais MD Performing Location: [facility] Administered by: Ilir Mcgill LPN on 05/22/24 10:18 Dose Route Admin Location Dispensed Lot Number Expiration Date [employer] Systems Navigator 500 mg PO 1 tab Assessment & Plan Assessment & Plan (1) Bladder outlet obstruction: Code(s): N32.0 - Bladder-neck obstruction Category: Medical Plan We discussed the nature of the decision and reasonable options for performing a prostate intervention. Interventions include TURP, GreenLight laser enucleation of the prostate, GreenLight laser ablation of the prostate, transurethral incision of the prostate, and I-Tend prostate procedure. Options such as medical therapy were discussed. The relative uncertainties and benefits related to each alternate procedure were adequately discussed. General surgical risks including, but not limited to, pain, bleeding, infection, myocardial infarction, pulmonary embolus, deep vein thrombosis and cerebrovascular accident which may result in further hospitalization were discussed. Full disclosure of the procedure as well as all major risks, benefits and complications were discussed including but not limited to damage to the urethra or bladder neck, recurrent BPH, retrograde ejaculation, bladder infection, urge, de cammie frequency, incomplete emptying, dysuria, remote chance of erectile dysfunction, epididymitis, and meatal stenosis. The success rate of the procedure was discussed. Success of the procedure in the short-term does not necessarily guarantee that long-term success will be maintained. Suitable follow up will need to be maintained. The patient showed understanding of discussion. An opportunity was provided for questions to be answered and wishes to proceed with the following procedure. - GreenLight laser prostatectomy Orders: Orders AMB Cystoscopy Today R33.8 - Other retention of urine AMB Post Void Residual by ultrasound Today R33.8 - Other retention of urine AMB Bladder/Catheter Procedure Today N32.0 - Bladder-neck obstruction, R33.8 - Other retention of urine Medications: New finasteride 5 mg PO DAILY 90 days 90 tabs 1RF N13.8 - Other obstructive and reflux uropathy, N32.0 - Bladder-neck obstruction, N40.1 - Benign prostatic hyperplasia with lower urinary tract symptoms, R33.9 - Retention of urine, unspecified Patient Instructions: Imaging studies, laboratory and physical exam results were discussed and reviewed in detail. No major barriers to patient understanding were identified. An opportunity to ask questions regarding the treatment plan was provided. All questions were answered. The patient expressed understanding and agreement with the above treatment plan. The patient is aware they should contact our office by phone for worsening of their current condition or the appearance of new urologic symptoms. Compliance is encouraged with any medications and followup testing that is ordered. It is a privilege to participate in the urologic care of your patient. If you have any questions or concerns regarding treatment for the above conditions, or other urologic issues, please do not hesitate to contact me. The office telephone contact is [phone]. This note is constructed using voice recognition software. While every effort has been made to ensure accuracy area mechanic errors may have been included. Yours sincerely, Dr Ulisses Monsivais MD, [facility] - Urology Providers of Expert, Compassionate Care for the Genitourinary System Coding Level of Care Code Est Pt Level 4 (35206) Diagnoses Bladder outlet obstruction N32.0 CPT Codes Bladder/Catheter Procedure - CPT: 30192-Hkynvz Temporary Bladder Catheter ([id number]) Cystoscopy - CPT: 18772-Amqyjfzqjv ([id number]) Post Residual Void - PVR CPT Code: 70085-Xaii Void Residual by ultrasound ([id number])
== END 2024-05-22 11:16 | disposition home or self-care (01) ==
PROVIDERS: PCP Internal Medicine; Visit Provider Urology
DX: N32.0 Bladder-neck obstruction (principal); R33.8 Other retention of urine
CPT/HCPCS: 52000; 99214

== ENCOUNTER → 2024-05-22 09:43 | Outpatient (BNVA) | payer MEDICARE, SELFPAY | PROVIDERS: PCP Internal Medicine; Visit Provider Urology | DX: N40.1 Benign prostatic hyperplasia with lower urinary tract symptoms (principal); R33.8 Other retention of urine; N32.0 Bladder-neck obstruction; N13.8 Other obstructive and reflux uropathy | CPT/HCPCS: 51702; 51798; 52000; 99212 ==

== ENCOUNTER 2024-06-12 09:52 | Outpatient (REF) | payer MEDICARE, SELFPAY | END 2024-06-12 09:53 | disposition home or self-care (01) | LOC: HO.US 09:52 | PROVIDERS: PCP Internal Medicine; Visit Provider Nurse Practitioner Family | DX: R33.8 Other retention of urine (principal) | CPT/HCPCS: 76770 ==

== ENCOUNTER → 2024-06-18 07:46 | Outpatient (BNVA) | payer MEDICARE, SELFPAY | PROVIDERS: PCP Internal Medicine; Visit Provider Urology | DX: N32.0 Bladder-neck obstruction (principal); R33.8 Other retention of urine | CPT/HCPCS: 51700 ==

== ENCOUNTER → 2024-07-16 08:41 | Outpatient (BNVA) | payer MEDICARE, SELFPAY | PROVIDERS: PCP Internal Medicine; Visit Provider Urology | DX: N32.0 Bladder-neck obstruction (principal); R33.8 Other retention of urine; Z46.6 Encounter for fitting and adjustment of urinary device | CPT/HCPCS: 51702 ==

== ENCOUNTER 2024-08-21 08:29 | Outpatient (AMB) | payer MEDICARE, SELFPAY ==
--- NOTE | 2024-08-21 08:38 | MHC.OFFVIS ---
Intake Visit Reasons: 3M PVR/Med Review(Finasteride) Intake Note: Patient is present for 3m pvr/med review Urology Medication:finasteride,bactrim,tamsulosin Antibiotic Allergy:none Blood Thinner:none TODAY'S PVR:0ML'S Folder Gluer Operator Required: No Allergies No Known Allergies [No Known Allergies*] Allergy (Verified 08/21/24 08:39) HPI Comments Details: Keon is a pleasant male. He is a patient of Dr. Mulligan. He seen for the following urologic conditions - urinary retention - lower urinary tract symptoms Has failed voiding trials with Butler catheter in place Butler catheter switch today Plan GreenLight laser prostatectomy Lower urinary tract symptoms Three-month follow-up Urinary retention Initial presentation following L5-S1 spine fusion with Dr. Crawford Has been on alpha-celine Butler catheter been placed for large voiding residual 07/15 1.2, 01/13 1.0 PFSH Medical History Gallbladder sludge Hemorrhoids with complication Diabetes Pancreatic cyst Hepatic hemangioma Diverticulitis HSV infection HTN (hypertension) Hepatitis C Surgical History S/p bilateral carpal tunnel release Family History Maternal Grandfather Cancer of unknown origin Review of Systems Const Denies chills and Denies fever(s) Card Reports no additional complaints and Denies syncope Resp Denies cough GI Denies abdominal pain and Denies heartburn Reports as per HPI and Denies change in libido Neuro Denies syncope Psych Denies change in libido Endo Denies change in libido Physical Exam Const General: cooperative, healthy appearing, comfortable and no acute distress Orientation/consciousness: patient oriented x3 HEENT Face and sinus: Yes normal facial exam Mouth: moist mucous membranes Neck Neck: Yes normal visual inspection, Yes full ROM and Yes trachea midline Chest Chest palpation & inspection: normal inspection of the chest Resp Effort & Inspection: normal respiratory effort, able to speak in complete sentences and no respiratory distress GI Inspection: Yes normal to inspection Back/Spine/Pelvis Cervical Spine: normal cervical lordosis Thoracic/Lumbar Spine: thoracic and lumbar spine normal to inspection Skin General skin exam: no rashes or lesions noted Neuro General: patient oriented x3, gait normal, tone normal and moves all extremities Extrem General: Yes normal to inspection and Yes capillary refill normal Office Procedures Bladder/Catheter Procedure Details: Sixteen Surinamese Butler catheter exchange 10257-Rwffey Temporary Bladder Catheter Procedure code (CPT) selection complete Post Void Residual Post Residual Void Post Void Residual (PVR): 0 46339-Pcvq Void Residual by ultrasound Results AMB Urinalysis, Automated UA Leukoctes 15 Hannah/uL Last Edit by ISIS Jeter on 08/21/24 08:54 UA Nitrite Positive Last Edit by ISIS Jeter on 08/21/24 08:54 UA Urobilinogen 0.2 mg/dL Last Edit by ISIS Jeter on 08/21/24 08:54 UA Protein 0 mg/dL Last Edit by ISIS Jeter on 08/21/24 08:54 UA pH 5.5 Last Edit by Lola Hicks CCM on 08/21/24 08:54 UA Blood 0 Krishna/uL Last Edit by IISS Jeter on 08/21/24 08:54 UA Specific [place] 1.020 Last Edit by Lola Hicks CCM on 08/21/24 08:54 UA Ketone Negative Last Edit by ISIS Jeter on 08/21/24 08:54 UA Bilirubin 0 mg/dL Last Edit by ISIS Jeter on 08/21/24 08:54 UA Glucose 0 mg/dL Last Edit by ISIS Jeter on 08/21/24 08:54 Results Reviewed Results Reviewed: Laboratory Last Values Urine pH (Auto) 5.5 08/21/24 08:54 Specific [place] (Auto) 1.020 08/21/24 08:54 Urine Protein (Auto) 0 mg/dL 08/21/24 08:54 Glucose (UA)(Auto) 0 mg/dL 08/21/24 08:54 Urine Ketones (Auto) Negative 08/21/24 08:54 Urine Blood (Auto) 0 Krishna/uL 08/21/24 08:54 Urine Nitrite (Auto) Positive 08/21/24 08:54 Urine Bilirubin (Auto) 0 mg/dL 08/21/24 08:54 Urine Urobilinogen (Auto) 0.2 mg/dL 08/21/24 08:54 Leukocyte Esterase (Auto) 15 Hannah/uL 08/21/24 08:54 Assessment & Plan Assessment & Plan (1) Acute urinary retention: Code(s): R33.8 - Other retention of urine Category: Medical (2) Bladder outlet obstruction: Code(s): N32.0 - Bladder-neck obstruction Category: Medical Plan Risks, benefits and alternatives to therapy were discussed. These include but are not limited to infection, bleeding, damage to local organs and tissues, need for further interventions. Anesthetic risks regarding cardiac arrhythmia, blood clots, and potential mortality were discussed. The patient understands the typical recovery time and the outpatient nature of the procedure. After consideration of these risks the patient gives full informed consent and they wish to move ahead with the procedure. Plan GreenLight laser prostatectomy Orders: Orders AMB Urinalysis Automated Today Z13.9 - Encounter for screening, unspecified Patient Instructions: Imaging studies, laboratory and physical exam results were discussed and reviewed in detail. No major barriers to patient understanding were identified. An opportunity to ask questions regarding the treatment plan was provided. All questions were answered. The patient expressed understanding and agreement with the above treatment plan. The patient is aware they should contact our office by phone for worsening of their current condition or the appearance of new urologic symptoms. Compliance is encouraged with any medications and followup testing that is ordered. It is a privilege to participate in the urologic care of your patient. If you have any questions or concerns regarding treatment for the above conditions, or other urologic issues, please do not hesitate to contact me. The office telephone contact is [phone]. This note is constructed using voice recognition software. While every effort has been made to ensure accuracy printing equipment mechanic errors may have been included. Yours sincerely, Dr Ulisses Monsivais MD, [facility] - Urology Providers of Expert, Compassionate Care for the Genitourinary System Coding Level of Care Code Est Pt Level 4 (43870) Diagnoses Acute urinary retention R33.8 Bladder outlet obstruction N32.0 CPT Codes Bladder/Catheter Procedure - CPT: 63536-Qqdggy Temporary Bladder Catheter ([id number]) Post Residual Void - PVR CPT Code: 31908-Ujmw Void Residual by ultrasound ([id number])
--- OUTSIDE RECORDS SUMMARY | 2024-08-21 08:47 | XMS_ITS ---
Author Organization [facility] Address [address] [place] [address] Care Team Providers Care Platen Press Operator Name Role Phone Markos Mulligan MD Primary Care Provider Steven Monteiro [phone] REASON FOR VISIT refill pantoprazole Encounters Encounter Location Date Provider Diagnosis [facility] [address] [place] [address] [address] [place] [address] 06/23/2024 Steven Rodgers PLAN OF TREATMENT Next Appt Details Provider Name:Steven Rodgers , 09/04/2024 10:00:00 AM, [address], [address], [place], [address],
--- OUTSIDE RECORDS SUMMARY | 2024-08-21 08:47 | XMS_ITS ---
Author Organization [facility] Address [address] [place] [address] Care Team Providers Care Doctor Chiropractic Name Role Phone Markos Mulligan MD Primary Care Provider Unavaila Manolo Cardoza Unavailable [phone] REASON FOR VISIT Seen Sooner Encounters Encounter Location Date Provider Diagnosis [address] [address] 06/29/2023 Manolo Riojas Plan Of Treatment Next Appt Details Provider Name:Maonlo Riojas , 06/09/2025 08:45:00 AM, [address] [place] [address], [phone], Progress Notes * Paulo SALGADO MDOB:1954 (69 yo M)Acc No.[id number]:06/29/2023 Progress Note Patient:?Paulo SALGADO Provider:?Manolo Riojas DPM :1955???Age:68 Y???Sex:Male Corona e:06/29/2023 Address:[address], [place] Pcp:Markos Mulligan MD Subjective: * Chief Complaints: * ???1. Seen Sooner. * Medical History:? Objective: * Vitals:? Assessment: Plan: * Treatment: * Images: * The named appointment provid er may or may not be the originator of this progress note, and it is not deemed complete until electronically signed by the appointment provider. Sign off status: Pending * Provider:Kerri Riojas DPM Date:?2022 Generated for Adrian wilcox/Latasha/Heladio on:?08/21/2024 08:46 AM EST
--- OUTSIDE RECORDS SUMMARY | 2024-08-21 08:47 | XMS_ITS | Patient Health Record ---
Author Organization [facility] Address [address] [place] [address] Care Team Providers Care Cover Cutter Machine Name Role Phone Markos Mulligan MD Primary Care Provider Manolo Sales Unavailable [phone] Allergies No Known Allergies Results Component Value Reference Range Notes HEMOGLOBIN A1C (GLYCOHEMOGLO BIN) Reviewed date:06/10/2024 08:37:12 AM Interpretation: Performing Lab: Notes/Report: TOTAL HEMOGLOBIN (HGBA1C) 6.4 Reason For Referral No Information Medications Medication SIG (Take, Route, Frequency, Duration) Notes Start Date End Date Status Meloxicam 15 mg 1x a day Active Protonix 40 MG 1 tablet Orally Once a day for 30 day(s) Active metFORMIN HCl ER 500 MG TAKE TWO TABLETS BY MOUTH EVERY DAY WITH SUPPER Oral for 90 Active Basaglar KwikPen 100 UNIT/ML as directed Subcutaneous Active metroNIDAZOLE Not-Ta henok Acyclovir Active Ciprofloxacin HCl 500 MG TAKE ONE TABLET BY MOUTH TWICE A DAY FOR 10 DAYS Oral for 10 Not-Taking Finasteride 5 MG 1 tablet Orally Once a day Active Tamsulosin HCl 0.4 MG 1 capsule Orally Once a day Active Cephalexin 500 MG 1 capsule Orally every 6 hrs for 5 day(s) Not-Taking hydroCHLOROthiazide 25 MG 1 tablet in th e morning Orally Once a day for 30 day(s) Active Lisinopril 40 MG 1 tablet Orally Once a day for 30 day(s) Active Atorvastatin Calcium 10 MG 1 tablet Orally Once a day for 30 day(s) Active Lantus Not-Taking Gabapentin 600 MG 1 tablet Orally three a day Active Extra Depth Orthopedic Shoes (1 Pair) with Customized Heat Molded Multidensity Innersoles (3 Pair) as directed Dx: NIDDM (E11.9), Hammertoe Foot Deformity (M20.41,M20.42), Preulcerative Skin Lesion(s) (L85.1) Active Immunizations Vaccine Route Administration Date Status Comme nts COVID-19 Moderna Vaccine Unknown 10/25/2020 Administere d 1st 09/27/2020 Influenza Unknown 04/27/2022 Administered Social History Tobacco Use: Social History Observation Description Date Details (start date - stop date) Former Smoker NA - NA Tobacco Use/Smoking Question Answer Notes Are you a: former smoker Additional Findings: Tobacco Non-User Current no n-smoker Alcohol Screen Question Answer Notes Did you have a drink containing alcohol in the p ast year? No Points 0 Interpretation Negative Tobacco use other than smoking: Question Answer Notes Are you an other tobacco user? No Problems Problem Type SNOMED Code ICD Code Onset Dates Problem Status W/U Status Risk Notes Problem Acquired hammer toe of right foot (619376640160 9105) Other hammer toe(s) (acquired), right foot (M20.41) Active confirmed Problem Acquired hammer toe of left foot (823458504709 9103) Other hammer toe(s) (acquired), left foot (M20.42) Active confirmed Problem [id number] Type 2 diabetes mellitus without complication (E11.9) Active confirmed Vital Signs Height 5ft 8in in 06/10/2024 Weight 175 lbs 06/10/2024 BMI 26.61 kg/m2 06/10/2024 Encounters Encounter Location Date Provider Diagnosis [facility] [address] [address] 06/10/2024 Manolo Riojas Type 2 diabetes mellitus without complication E11.9 ; Other hammer toe(s) (acquired), left foot M20.42 and Other hammer toe(s) (acquired), right foot M20.41 Assessments Encounter Date Diagnosis (ICD Code) Assessment Notes Treatment Notes Treatment Clinical Notes Section Notes 06/10/2024 Type 2 diabetes mellitus without complication (ICD-10 - E11.9) 06/10/2024 Other hammer toe(s) (acquired), left foot (ICD-10 - M20.42) 06/10/2024 Other hammer toe(s) (acquired), right foot (ICD-10 - M20.41) Patient Educated with: DIABETIC FOOT CARE INSTRUCTIONS.p df (DIABETIC FOOT CARE INSTRUCTIONS.p df) Plan Of Treatment Pending Test Test Name Order Date 36813-Kuoydkcy Plate 04/04/2022 28831-Aajsmtlq Plate Each Additional 04/2022 74295-JFO 11/07/2022 [id number]-KSZ 03/07/2023 01774-PLJZBRB SKIN/TISSUE 03/29/2023 57976-JXJOPIH SKIN/TISSUE 11/21/2022 61715 I&D ABSCESS- SIMPLE,SINGLE 021 Next Appt Details Provider Name:Manolo Riojas , 06/09/2025 08:45:00 AM, [address] [place] [address], [phone], Insurance Providers Payer Name Payer Address Payer Phone Subscriber Number Group Number Insured Name Patient Relationship to Insured Coverage Start Date Coverage End Date Medicare National [employer] [address] [facility] [place] [address] [id number] Paulo Savage Self - patient is the insured [employer] [address] [place] [address] [id number] Paulo Savage Self - patient is the insured Medical (General) History Medical History History ICD Code Back,Hip,and Knee pain Cataracts Diabetes mellitus type ll Diverticulosis Hepatitis C High blood pressure Measles Mumps Chicken pox Carpal tunnel knee Arthritis Sciatica CAD Surgical History Surgery Date(Month/Year) knee surgery, right carpal tunnel surgery bilateral right shoulder surgery cataract Epidural steroid injections, Spine hip injection 10/10/22 l5 s1 spine surgery 03/25/2024
--- OUTSIDE RECORDS SUMMARY | 2024-08-21 08:47 | XMS_ITS ---
Author Organization [facility] Address [address] [place] [address] Care Team Providers Care Physician Intensivist Name Role Phone Markos Mulligan MD Primary Care Provider Steven Monteiro [phone] REASON FOR VISIT No show Encounters Encounter Location Date Provider Diagnosis [facility] [address] [place] [address] 04/24/2024 Steven Rodgers PLAN OF TREATMENT Next Appt Details Provider Name:Steven Rodgers , 09/04/2024 10:00:00 AM, [address], [address], [place], [address],
--- OUTSIDE RECORDS SUMMARY | 2024-08-21 08:47 | XMS_ITS ---
[facility] [address] [facility] [place] [address] Care Team Providers Care Biomass Technician Name Role Phone Markos Mulligan MD Primary Care Provider Manolo Sales Unavailable [phone] Allergies No Known Allergies REASON FOR VISIT At Risk Footcare, Toe Irritation Medications Medication SIG (Take, Route, Frequency, Duration) Notes Start Date End Date Status Meloxicam 15 mg 1x a day Active Protonix 40 MG 1 tablet Orally Once a day for 30 day(s) Active metFORMIN HCl ER 500 MG TAKE TWO TABLETS BY MOUTH EVERY DAY WITH SUPPER Oral for 90 Active metroNIDAZOLE Not-Ta henok Cephalexin 500 MG 1 capsule Orally every 6 hrs for 5 day(s) Not-Taking Acyclovir Active hydroCHLOROthiazide 25 MG 1 tablet in th e morning Orally Once a day for 30 day(s) Active Lisinopril 40 MG 1 tablet Orally Once a day for 30 day(s) Active Atorvastatin Calcium 10 MG 1 tablet Orally Once a day for 30 day(s) Active Gabapentin 600 MG 1 tablet Orally three a day Active Basaglar KwikPen 100 UNIT/ML as directed Subcutaneous Active Finasteride 5 MG 1 tablet Orally Once a day Active Tamsulosin HCl 0.4 MG 1 capsule Orally Once a day Active Extra Depth Orthopedic Shoes (1 Pair) with Customized Heat Molded Multidensity Innersoles (3 Pair) as directed Dx: NIDDM (E11.9), Hammertoe Foot Deformity (M20.41,M20.42), Preulcerative Skin Lesion(s) (L85.1) Active Lantus Not-Taking Ciprofloxacin HCl 500 MG TAKE ONE TABLET BY MOUTH TWICE A DAY FOR 10 DAYS Oral for 10 Not-Taking Social History Tobacco Use: Social History Observation [...] Are you an other tobacco user? No Vital Signs Height 5ft 8in in 06/10/2024 Weight 175 lbs 06/10/2024 BMI 26.61 kg/m2 06/10/2024 Encounters Encounter Location Date Provider Diagnosis [facility] [address] [address] 06/10/2024 Manolo Riojas Type 2 diabetes mellitus [...] FOOT CARE INSTRUCTIONS.p df) Plan Of Treatment Medication Medication Name Sig Start Date Stop Date Notes Extra Depth Orthopedic Shoes (1 Pair) with Customized Heat Molded Multidensity Innersoles (3 Pair) as directed Dx: NIDDM (E11.9), Hammertoe Foot Deformity (M20.41,M20.42), Preulcerative Skin Lesion(s) (L85.1) Treatment Notes Assessment Notes Other hammer toe(s) (acquired), right fo ot Patient Educated with: DIABETIC FOOT CARE INSTRUCTIONS.pdf (DIABETIC FOOT CARE INSTRUCTIONS.pdf) Next Appt Details Follow Up: 1 Year, Reason: Provider Name:Manolo Riojas , 06/09/2025 08:45:00 AM, [address] [facility] [place], [address], Progress Notes * Paulo SALGADO MDOB:1954 (69 yo M)Acc No.[id number]:06/10/2024 Progress Note Patient:?Paulo Salgado Provider:?Manolo Riojas DPM :1955???Age:69 Y???Sex:Male Corona e:06/10/2024 Address:[address] [place] [address], [place] Pcp:Markos Mulligan MD Subjective: * Chief Complaints: * ???At Risk FootcareToe Irrit ation * HPI: ???At Risk footcare:?Pt States Last PCP Visit:?Date?03/12/2024 ???Toe pain:?Location:?B/L feet.?Duration:?several years.?Course:?worse.?Aggravated by:?shoes, any pressure.?Treatments:?change in shoes.? * ROS:?General/Constitutional:?Nausea?denies.?Vomiting?denies.?Hunger Thirst?denies.?Loss appetite?denies.?Chills?denies.?Fatigue?denies.?Fever?denies.?Night Sweats?denies.?Unexplained weight loss?denies.?Unexplained weight gain?denies.?HEENTM:?Dentures?denies.?Dizziness?denies.?Glasses/contacts?admits.?Retinopathy?de nies.?Blurred/double vision?denies.?TMJ?denies.?Discharge/drainage?denies.?Implants?denies.?Sore throat?denies.?Dental implants?denies.?Hard of hearing ?denies.?Difficulty chewing/swallowing/speaking?denies.?Nose bleeds?denies.?Sore mouth?denies.?Respiratory:?On Oxygen?denies.?Pneumonia/pleurisy?denies.?Bronchitis?denies.?Emphysema?denies.?C oughing?denies.?Cough blood?denies.?Shortness of breath?denies.?Wheezing?denies.?Cardiovascular:?Pacemaker?denies.?MVP?denies.?WPW?denies.?CHF?denies.?Heart attack?denies.?Septal defect?denies.?Rapid beat?denies.?Chest pain ?denies.?Atrial Fib.?denies.?Murmur/Palpitations?denies.?Gastrointestinal:?Hemorrhoids?denies.?Stomach/Abdominal pain?admits.?Dark blood stool?denies.?Irritable bowel ?admits.?Constipation?denies.?Diarrhea?admits.?Hematology:?Swelling?denies.?Clots?denies.?Varicose Veins?denies.?Bruising?denies.?Bleeding problem?denies.?Genitourinary:?Blood urine?denies.?Frequent/Painfu/urination/bladder control?denies.?Kidney stones?denies.?Infection (UTI)?denies.?Nephropathy?denies.?sex trans dis (STD)?denies.?Prostate?denies.?Musculoskeletal:?Hammertoes?admits.?Bunions?denies.?Back Pain?admits.?Muscle Cramps/ Resting?denies.?Muscle cramps / walking?denies.?Generalized aches and pains?admits.?Weakness?denies.?Integ.:?Hagen?denies.?Scars?denies.?Corns/calluses?admits.?Ingrown nails?admits.?Painful nails?admits.?Open Sores?denies.?Rashes?denies.?Neurologic:?Difficulty sleeping?denies.?Brain disorder?denies.?Numbness?admits, Left foot due to recent spinal surgery.?Balance trouble?denies.?Confusion?denies.?Fainting/blackouts?denies.?Tingling?admits, in the toes, that is mild, Left foot due to recent spinal surgery.?Tremors?denies.? * Medical History:? * Surgical History:?knee surge ry, right carpal tunnel surgery bilateral right shoulder surgery cataract Epidural steroid injections, Spine 09/25/22hip injection 10/10/22l5 s1 spine surgery 03/25/2024 * Hospitalization/Major Diagno stic Procedure:?Denies Past Hospitalization * Family History:?Mother: luis fontenot?Father: , heart attack, diagnosed with Diabetic - NIDDM, Unspecified essential hypertension, Unspecified heart disease.?Spouse: alive.?Maternal Grand Mother: diagnosed with Diabetic - NIDDM.? * Social History:?Tobacco Use:?Tobacco Use/Smoking?Are you a:?former smoker ?Additional Findings: Tobacco Non-User?Current non-smoker ?Tobacco use other than smoking?Are you an other tobacco user??No ???Drugs/Alcohol:?Drugs?Have you used drugs other than those for medical reasons in the past 12 months??No ?Alcohol Screen?Did you have a drink containing alcohol in the past year??No ?Points?0 ?Interpretation?Negative ???Miscellaneous:?Caffeine: yes, frequency:, 1 cup per day. ?Children: yes, 2. ?Exercise: yes, walking treadmil, weights. ?Marital status: . ?Occupation: retired-[employer]. * Medications:?TakingFinasteri de 5 MG Tablet 1 tablet Orally Once a dayTamsulosin HCl 0.4 MG Capsule 1 capsule Orally Once a dayBasaglar KwikPen 100 UNIT/ML Solution Pen-injector as directed Subcutaneous Acyclovir Atorvastatin Calcium 10 MG Tablet 1 tablet Orally Once a dayGabapentin 600 MG Tablet 1 tablet Orally three a dayhydroCHLOROthiazide 25 MG Tablet 1 tablet in the morning Orally Once a dayLisinopril 40 MG Tablet 1 tablet Orally Once a daymetFORMIN HCl ER 500 MG Tablet Extended Release 24 Hour TAKE TWO TABLETS BY MOUTH EVERY DAY WITH SUPPER Oral Meloxicam , Notes: 15 mg 1x a dayProtonix 40 MG Tablet Delayed Release 1 tablet Orally Once a dayExtra Depth Orthopedic Shoes (1 Pair) with Customized Heat Molded Multidensity Innersoles (3 Pair) as directed Dx: NIDDM (E11.9), Hammertoe Foot Deformity (M20.41,M20.42), Preulcerative Skin Lesion(s) (L85.1)Taking Finasteride 5 MG Tablet 1 tablet Orally Once a dayTaking Tamsulosin HCl 0.4 MG Capsule 1 capsule Orally Once a dayTaking Basaglar KwikPen 100 UNIT/ML Solution Pen-injector as directed Subcutaneous Taking Acyclovir Taking Atorvastatin Calcium 10 MG Tablet 1 tablet Orally Once a dayTaking Gabapentin 600 MG Tablet 1 tablet Orally three a dayTaking hydroCHLOROthiazide 25 MG Tablet 1 tablet in the morning Orally Once a dayTaking Lisinopril 40 MG Tablet 1 tablet Orally Once a dayTaking metFORMIN HCl ER 500 MG Tablet Extended Release 24 Hour TAKE TWO TABLETS BY MOUTH EVERY DAY WITH SUPPER Oral Taking Meloxicam , Notes: 15 mg 1x a dayTaking Protonix 40 MG Tablet Delayed Release 1 tablet Orally Once a dayTaking Extra Depth Orthopedic Shoes (1 Pair) with Customized Heat Molded Multidensity Innersoles (3 Pair) as directed Dx: NIDDM (E11.9), Hammertoe Foot Deformity (M20.41,M20.42), Preulcerative Skin Lesion(s) (L85.1)Not-Taking/PRNCephalexin 500 MG Capsule 1 capsule Orally every 6 hrsmetroNIDAZOLE Ciprofloxacin HCl 500 MG Tablet TAKE ONE TABLET BY MOUTH TWICE A DAY FOR 10 DAYS Oral Lantus Medication List reviewed and reconciled with the patientNot-Taking/PRN Cephalexin 500 MG Capsule 1 capsule Orally every 6 hrsNot-Taking/PRN metroNIDAZOLE Not-Taking/PRN Ciprofloxacin HCl 500 MG Tablet TAKE ONE TABLET BY MOUTH TWICE A DAY FOR 10 DAYS Oral Not-Taking/PRN Lantus Medication List reviewed and reconciled with the patient * Allergies:?N.K.D.A.yes[Aller gies Verified] Objective: * Vitals:?Ht: 5ft 8in, Wt:175, BMI:26.61, Shoe size: 8, BS: 120, Ht-cm: 172.72 cm, Wt-k.38 kg. * ???Past Orders: ???Lab:HEMOGLOBIN A1C (GLYCO HEMOGLOBIN) (Order Date - 02/25/2024) (Collection Date - 02/25/2024) ? Value Reference Range ?TOTAL HEMOGLOBIN (HGBA1C) 6.4 * Examination: ???Dermatologic: ?SKIN FINDINGS:?Skin exam reveals normal texture, elasticity, and turgor. There are no masses. The interspaces are clear, B/L, Skin exam reveals Keratotic lesion(s) located at, SUB MTH (s), 1, B/L , Heel(s), B/L .?Orthopedic: ?MUSCLE STRENGTH:?5/5 all groups in a symmetrical fashion , B/L.?FOOT MORPHOLOGY:? No Charcot collapse/destruction noted at MTJ.?DIGITAL DEFORMITIES:?Digital contracture, PIPJ, 2-5 B/L, incompl-reducible to push-up test, medial under lapping - T3, T8, Adducto-varus deformity noted, T3, T8,?with evidence of shoe producing skin irritation.?FOOTWEAR:?worn, OT were inspected and noted to be severely worn , in poor condition not giving proper support at the present time , shoe gear properties exacerbate patients foot/toe deformity.?Vascular: ?DP PULSES(B):?3/4, B/L.?PT PULSES(B):?3/4, B/L.?CAPILLARY FILL TIME:?immediate, all digits, B/L.?TROPHIC CONDITION-TEXTURE/ELASTICITY/TURGOR/HAIR GROWTH(B):?normal, B/L.?TEMPERTURE GRADIENT(C):?normal, warm to cool, proximal to distal, B/L, B/L.?PIGMENTATION:?normal, B/L.?EDEMA(C):?absent, B/L.?Neurological: ?SENSORY:?Neurological exam reveals intact sensorium, pain sensation normal, vibration sensation intact, pinprick sensation is normal in the lower extremities, 5.07 monofilament test performed at plantar aspects of 5 varied sites per foot shows sensation, normal, B/L, Pt denies, anesthesia, burning, paresthesia, tingling, B/L.?Ophthalmology Referral: ?DIABETES EYE EXAM?General Examination: ?GENERAL APPEARANCE:?Reveals a pleasant, alert, well nourished, well- developed, well hydrated individual, who demonstrates proper attention to hygiene/body habitus, and is in no acute distress, Pt serves as own historian for office visit today , , and/who is physically present in exam room at time of visit.?ORIENTED:?person, place, and time.?FOOT EXAM:?Footwear Evaluation? Assessment: * Assessment: 1.?Type 2 diabetes mellitus without complication - E11.9?2.?Other hammer toe(s) (acquired), left foot - M20.42, Chronic problem, Worse (4),Rx Management (4)?3.?Other hammer toe(s) (acquired), right foot - M20.41 (Primary), Chronic problem, Worse (4),Rx Management (4)? Plan: * Treatment: * Procedure Codes:? * Preventive Medicine:? ??Counseling:?Discussion:?-14: Office or other outpatient visit for the evaluation and management of an established patient, which required a medically appropriate history and/or examination and MODERATE level of DECISION MAKING for: 1 OR MORE CHRONIC PROBLEM(S) THATS WORSENING, 2 STABLE CHRONIC PROBLEMS, A NEWLY DIAGNOSED PROBLEM WITH UNCERTAIN PROGNOSIS, AN ACUTE COMPLICATED INJURY WITH MULTIPLE TREATMENT OPTIONS, OR AN ACUTE PROBLEM WITH ACCOMPANYING SYSTEMIC SYMPTOMS, THAT POSE(S) A MODERATE RISK OF MORBIDITY. THIS CONDITION MAY ALSO INCLUDE RX DRUG MANAGEMENT, OR A DECISON FOR MINOR SURGERY. The visit on the day of the encounter encompassed interpreting the data and educating the patient as to the nature of their condition, treatment options available according to their individual PMH, meds, allergies, and overall health/living conditions, as well as any potential risks or complications that may occur from a failure to adhere to, and participate in, the recommended course of therapy. The discussion included a complete verbal, and/or written explanation of the examination results, any x-rays taken, the proposed diagnosis, and outline of the treatment plan. A schedule for future care needs was also explained. The patient verbalized an understanding of the instructions at this time and agreed to be an active participant in their treatment. If the patient should think of any questions or concerns after the visit, I have encouraged the patient to call the office.?Digital Surgery:?Digital surgery was discussed with the patient, We elected to try conservative treatment at the present time, due to the patients medical history and increased asssociated post-operative risks.?Digital Treatment:?HT- I explained to the patient the possible etiologies of Hammertoes, including genetics/foot type/shoegear/activity level/exercise routine and the risks/benefits of all the different treatment options for their pain including: No treatment at all, Rest, Ice, New/supportive/wider/deeper Shoegear, Digital Padding/Strapping/Taping/Bracing/Gel protective sleeves, Foot/Ankle AFO Bracing, Stretching exercises, Deep Tissue Massage, Arch support/shoe inserts with splay metatarsal padding, and Custom orthoses. I insisted that any digital devices be removed daily and not worn overnight for safety. The patient is to carefully examine the toes daily for any skin irritation while using any splinting or padding device. The advantages and disadvantages of each option were discussed and the patients questions re: shoegear, padding, custom vs prefabricated inserts, activity level, and consistency in home treatment regimens for optimal success were answered to their verbally confirmed satisfaction.?Shoe Gear Counseling:?SHOE Rx - The patient was counseled in great detail on their muscoloskeletal foot and toe deformities which coincided with the dermatological presentations visualized on exam. We discussed how their deformities put the integrity of their feet at risk for potential pedal complications which makes the accomidative diabetic shoes and cutomizable inserts medically necessary. We discussed the different shoe and insert treatment types and options, as well as the important advantages for adhering to regularly wearing these accomidative devices daily. The patient was made aware of the fact that a failure to abide by these recommedations may be deleterious to their foot health as they are able to prevent many pedal complications such as skin irritation, skin ulceration, infection, and even loss of toe/foot/leg/or life. Time was also spent with the patient dispensing and discussing proper diabetic footcare techniques including daily skin moisturization, daily foot inspection for any interruption in skin integrity including open lesions, or sign of infection such as redness/malodor/drainage/swelling. Also discussed and recommended were procedures regarding daily shoe inspection for the presence of internal foreign bodies as well as any visualized irregular shoe or insert wear. Patient questions re: shoes, inserts, and self foot inspections were answered to their satisfaction as the patient verbally confirmed a full understanding of the above information. A Rx for Extra Depth Orthopedic Shoes with 3 pair of custom heat-molded inserts was dispensed.? ??Screening/Special Tests:?Fall Risk?Assessment:?Performed ?Plan of Care:?Documented ?Screening:?No falls in the past year ?FALLS: Screening for Future Fall Risk?Have you had any falls with injury in the past year??No * Follow Up:?1 Year * Images: * Sign off status: Completed true * Provider:?Manolo Riojas DPM Date:?2023 Generated for Adrian wilcox/Latasha/Jonelsmitting on:?08/21/2024 08:46 AM EST History and Physical Notes * HPI (History of Present Illness) Category Sub-Category Detail Notes Category Not es Toe pain Location: B/L feet Duration: several years Course: worse Aggravated by: shoes, any pressure Treatments: change in shoes At Risk footcare Pt States Last PCP Visit: Date: 4 Examination Category Sub-Category Detail Notes Category Not es Neurological SENSORY: Neurological exa m reveals intact sensorium, pain sensation normal, vibration sensation intact, pinprick sensation is normal in the lower extremities, 5.07 monofilament test performed at plantar aspects of 5 varied sites per foot shows sensation, normal, B/L, Pt denies, anesthesia, burning, paresthesia, tingling, B/L Dermatologic SKIN FINDINGS: Skin exam reveal s normal texture, elasticity, and turgor. There are no masses. The interspaces are clear, B/L, Skin exam reveals Keratotic lesion(s) located at, SUB MTH (s), 1, B/L , Heel(s), B/L Orthopedic FOOT MORPHOLOGY: No Charcot javy apse/destruction noted at MTJ FOOTWEAR: worn, OT were inspec selma and noted to be severely worn , in poor condition not giving proper support at the present time , shoe gear properties exacerbate patients foot/toe deformity DIGITAL DEFORMITIES: Digital contracture , PIPJ, 2-5 B/L, incompl-reducible to push-up test, medial under lapping - T3, T8, Adducto-varus deformity noted, T3, T8, with evidence of shoe producing skin irritation MUSCLE STRENGTH: 5/5 all groups in a symmetrical fashion , B/L General Examination GENERAL APPEARANCE: Reveals a pleasant, alert, well nourished, well-developed, well hydrated individual, who demonstrates proper attention to hygiene/body habitus, and is in no acute distress, Pt serves as own historian for office visit today , , and/who is physically present in exam room at time of visit FOOT EXAM: Lower Extremity Neurological Exa m performed:: Yes ORIENTED: person, place, and t calvin Footwear Evaluation Footwear Evaluation performe d:: Yes Ophthalmology Referral DIABETES EYE EXAM Diabetic Retinopa thy Screening:: Yes Findings of Diabetic Eye Exam:: no retin opathy Vascular DP PULSES (B): 3/4, B/L PT PULSES (B): 3/4, B/L CAPILLARY FILL TIME: immediate, all digi ts, B/L TEMPERTURE GRADIENT (C): normal, warm to cool, proximal to distal, B/L, B/L TROPHIC CONDITION-TEXTURE/ELASTICITY/TURGOR/HAIR GROWTH (B): normal, B/L EDEMA (C): absent, B/L PIGMENTATION: normal, B/L
--- OUTSIDE RECORDS SUMMARY | 2024-08-21 08:47 | XMS_ITS ---
Author Organization [facility] Address [address] [place] [address] Care Team Providers Care Nursing Home Admissions Director Name Role Phone Markos Mulligan MD Primary Care Provider Manolo Sales Unavailable [phone] Allergies No Known Allergies REASON FOR VISIT At Risk Footcare, Toe Irritation Medications Medication SIG (Take, Route, Frequency, Duration) Notes Start Date End Date Status Meloxicam 15 mg 1x a day Active metFORMIN HCl ER 500 MG TAKE TWO TABLETS BY MOUTH EVERY DAY WITH SUPPER Oral for 90 Active Lisinopril 40 MG 1 tablet Orally Once a day for 30 day(s) Active hydroCHLOROthiazide 25 MG 1 tablet in th e morning Orally Once a day for 30 day(s) Active Protonix 40 MG 1 tablet Orally Once a day for 30 day(s) Active Extra Depth Orthopedic Shoes (1 Pair) with Customized Heat Molded Multidensity Innersoles (3 Pair) as directed Dx: NIDDM (E11.9), Hammertoe Foot Deformity (M20.41,M20.42), Preulcerative Skin Lesion(s) (L85.1) 06/05/2023 Active Gabapentin 600 MG 1 tablet Orally three a day Active Atorvastatin Calcium 10 MG 1 tablet Orally Once a day for 30 day(s) Active Acyclovir Active Lantus Not-Taking Ciprofloxacin HCl 500 MG TAKE ONE TABLET BY MOUTH TWICE A DAY FOR 10 DAYS Oral for 10 Not-Taking metroNIDAZOLE Not-Ta henok Cephalexin 500 MG 1 capsule Orally every 6 hrs for 5 day(s) Not-Taking Social History Tobacco Use: Social History [...] tobacco user? No Vital Signs Height 5ft 10 in in 06/05/2023 Weight 175 lbs 06/05/2023 BMI 25.11 kg/m2 06/05/2023 Blood pressure systolic 120 mm Hg 06/05/20 23 Blood pressure diastolic 80 mm Hg 023 Encounters Encounter Location Date Provider Diagnosis [facility] [address] [place] [address] 06/05/2023 Manolo Riojas Type 2 diabetes mellitus without complication E11.9 ; Other hammer toe(s) (acquired), left foot M20.42 and Other hammer toe(s) (acquired), right foot M20.41 Assessments Encounter Date Diagnosis (ICD Code) Assessment Notes Treatment Notes Treatment Clinical Notes Section Notes 06/05/2023 Type 2 diabetes mellitus without complication (ICD-10 - E11.9) 06/05/2023 Other hammer toe(s) (acquired), left foot (ICD-10 - M20.42) 06/05/2023 Other hammer toe(s) (acquired), right foot (ICD-10 - M20.41) Patient Educated with: DIABETIC FOOT CARE INSTRUCTIONS.p df (DIABETIC FOOT CARE INSTRUCTIONS.p df) Plan Of Treatment Medication Medication Name Sig Start Date Stop Date Notes Extra Depth Orthopedic Shoes (1 Pair) with Customized Heat Molded Multidensity Innersoles (3 Pair) as directed Dx: NIDDM (E11.9), Hammertoe Foot Deformity (M20.41,M20.42), Preulcerative Skin Lesion(s) (L85.1) 06/05/2023 Treatment Notes Assessment Notes Other hammer toe(s) (acquired), right fo ot Patient Educated with: DIABETIC FOOT CARE INSTRUCTIONS.pdf (DIABETIC FOOT CARE INSTRUCTIONS.pdf) Next Appt Details Follow Up: prn, Reason: Provider Name:Manolo Riojas , 06/09/2025 08:45:00 AM, [address] [place] [place], [address], Progress Notes * Paulo SALGADO MDOB:1954 (68 yo M)Acc No.[id number]:06/05/2023 Progress Note Patient:Paulo Soto Provider:?Manolo Riojas DPM :1955???Age:68 Y???Sex:Male Corona e:06/05/2023 Address:[address] [place] [address], [place] Pcp:Markos Mulligan MD Subjective: * Chief Complaints: * ???At Risk FootcareToe Irrit ation * HPI: ???At Risk footcare:?Pt States Last PCP Visit:?Date?03/08/2023 ???Toe pain:?Location:?B/L feet.?Duration:?several years.?Course:?worse.?Aggrevated by:?shoes, any pressure.?Treatments:?change in shoes.? * ROS:?General/Constitutional:?Nausea?denies.?Vomiting?denies.?Hunger Thirst?denies.?Loss appetite?denies.?Chills?denies.?Fatigue?denies.?Fever?denies.?Night Sweats?denies.?Unexplained weight loss?denies.?Unexplained weight gain?denies.?HEENTM:?Dentures?denies.?Dizziness?denies.?Glasses/contacts?admits.?Retinopathy?de nies.?Blurred/double vision?denies.?TMJ?denies.?Discharge/drainage?denies.?Implants?denies.?Sore throat?denies.?Dental implants?denies.?Hard of hearing ?denies.?Difficulty chewing/swallowing/speaking?denies.?Nose bleeds?denies.?Sore mouth?denies.?Respiratory:?On Oxygen?denies.?Pneumonia/pleurisy?denies.?Bronchitis?denies.?Emphysema?denies.?C oughing?denies.?Cough blood?denies.?Shortness of breath?denies.?Wheezing?denies.?Cardiovascular:?Pacemaker?denies.?MVP?denies.?WPW?denies.?CHF?denies.?Heart attack?denies.?Septal defect?denies.?Rapid beat?denies.?Chest pain ?denies.?Atrial Fib.?denies.?Murmur/Palpitations?denies.?Gastrointestinal:?Hemorrhoids?denies.?Stomach/Abdominal pain?admits.?Dark blood stool?denies.?Irritable bowel ?admits.?Constipation?denies.?Diarrhea?admits.?Hematology:?Swelling?denies.?Clots?denies.?Varicose Veins?denies.?Bruising?denies.?Bleeding problem?denies.?Genitourinary:?Blood urine?denies.?Frequent/Painfu/urination/bladder control?denies.?Kidney stones?denies.?Infection (UTI)?denies.?Nephropathy?denies.?sex trans dis (STD)?denies.?Prostate?denies.?Musculoskeletal:?Hammertoes?admits.?Bunions?denies.?Back Pain?admits.?Muscle Cramps/ Resting?denies.?Muscle cramps / walking?denies.?Generalized aches and pains?admits.?Weakness?denies.?Integ.:?Hagen?denies.?Scars?denies.?Corns/calluses?admits.?Ingrown nails?admits.?Painful nails?admits.?Open Sores?denies.?Rashes?denies.?Neurologic:?Difficulty sleeping?denies.?Brain disorder?denies.?Numbness?denies.?Balance trouble?denies.?Confusion?denies.?Fainting/blackouts?denies.?Tingling?denies.?Tr emors?denies.? * Medical History:? * Surgical History:?knee surge ry, right carpal tunnel surgery bilateral right shoulder surgery cataract Epidural steroid injections, Spine 09/25/22hip injection 10/10/22 * Hospitalization/Major Diagno stic Procedure:?Denies Past Hospitalization [...] past year??No ?Points?0 ?Interpretation?Negative ???Miscellaneous:?Caffeine: yes, frequency:, 1-2 cups per day. ?Children: yes, 2. ?Exercise: yes, walking treadmil, weights. ?Marital status: . 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 * Medications:?TakingAcyclovir Atorvastatin Calcium 10 MG Tablet 1 tablet [...] Release 1 tablet Orally Once a dayTaking Acyclovir Taking Atorvastatin Calcium 10 MG Tablet [...] Delayed Release 1 tablet Orally Once a dayNot-Taking/PRNCephalexin 500 MG Capsule 1 capsule Orally every [...] reviewed and reconciled with the patient * Allergies:?N.K.D.A.yes[Alicia berg Verified] Objective: * Vitals:?Ht: 5ft 10 in, Wt:17 5, BMI:25.11, Shoe size:8, BP:120/80 mm Hg, BS:128. * ???Past Orders: ???Lab:HEMOGLOBIN A1C (GLYCO HEMOGLOBIN) (Order Date - 11/07/2022) (Collection Date - 11/06/2022) ? Value Reference Range ?HEMOGLOBIN A1C (HH) 6.8 * Examination: ???Dermatologic: ?SKIN FINDINGS:?Skin exam reveals [...] T8,?with evidence of shoe producing skin irritation.?FOOTWEAR:?worn, non-supportive , shoe gear properties exacerbate patients foot/toe deformity.?Vascular: ?DP PULSES:?/, B/L.?PT PULSES:?/, B/L.?CAPILLARY FILL TIME:?immediate, all digits, B/L.?SKIN TEMPERTURE GRADIENT OF THE LOWER EXTERMITIES:?normal, warm to cool, proximal to distal, B/L, B/L.?HAIR GROWTH/TEXTURE/ELASTICITY/TURGOR:?normal, B/L.?PIGMENTATION:?normal, B/L.?EDEMA:?absent, B/L.?Neurological: ?SENSORY:?Neurological exam reveals intact sensorium, pain [...] injury in the past year??No * Follow Up:?prn * Images: * Sign off status: Completed true * Provider:?Manolo Riojas DPM Date:?2022 Generated for Adrian wilcox/Latasha/Heladio on:?08/21/2024 08:46 AM EST History and Physical Notes * HPI (History of Present Illness) Category Sub-Category Detail Notes Category Not es Toe pain Location: B/L feet Duration: several years Course: worse Aggravated by: shoes, any pressure Treatments: change in shoes At Risk footcare Pt States Last PCP Visit: Date: 3 Examination Category Sub-Category Detail Notes Category Not [...] javy apse/destruction noted at [facility] FOOTWEAR: worn, non-supportive , shoe gear properties exacerbate patients foot/toe [...]
--- OUTSIDE RECORDS SUMMARY | 2024-08-21 08:47 | XMS_ITS ---
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
--- OUTSIDE RECORDS SUMMARY | 2024-08-21 08:48 | XMS_ITS | Patient Health Record ---
Author Organization [facility] Address [address] [place] [address] Care Team Providers Care Cnc Technician Name Role Phone Markos Mulligan MD Primary Care Provider Steven Monteiro [phone] ALLERGIES No Known Allergies REASON FOR REFERRAL No Information MEDICATIONS Medication SIG (Take, Route, Frequency, Duration) Notes Start Date End Date Status Stool Softener 100 MG 1 capsule as neede d Orally Once a day Active Fiber 625 MG 2 tablets as needed Orally as directed Active Lisinopril 20 MG 1 tablet Orally Once a day for 30 day(s) Active Cipro 500 MG 1 tablet Orally Twic e a day for 10 day(s) 09/21/2016 Active Atorvastatin Calcium 10 MG 1 tablet Oral ly Once a day for 30 day(s) Active [employer] [facility] Advan ce - as directed Orally once a day Active Banatrol Active Flaxseed Oil 1000 MG as directed Orally once a day Active Acyclovir 400 MG 1 tablet Orally once a day Active Probiotic - as directed Orally Active metFORMIN HCl 500 MG 4 tablet with meals Orally Once a day Active Protonix 40 MG 1 tablet Orally Once a day for 30 Active hydroCHLOROthiazide 25 MG 1 tablet Orall y Once a day Active Multivitamin Adult - as directed Orally once a day Active Meloxicam 15 MG Oral for 90 Ac tive Claritin 10 MG 1 tablet Orally Once a day/ as needed Active Pantoprazole Sodium 40 MG TAKE 1 TABLET BY MOUTH EVERY DAY FOR 30 DAYS for 90 Active Flagyl 500 MG 1 tablet Orally Thre e times a day for 10 day(s) 04/01/2021 Active IMMUNIZATIONS Vaccine Route Administration Date Status Comme nts Influenza Unknown 04/27/2018 Administered Influenza Unknown 05/27/2020 Administered Influenza Unknown 05/27/2021 Administered SOCIAL HISTORY Sex Assigned At : Social History Observation Description Sex Assigned At Unknown PROBLEMS Problem Type ICD Code Onset Dates Problem Status W/U Status Risk SNOMED Code Notes Problem Epigastric pain (R10.13) Active confirmed 37055967 Problem Diverticulitis of large intestine without perforation or abscess without bleeding (K57.32) Active confirmed 6669960 Problem Encounter for screening for malignant neoplasm of colon (Z12.11) Active confirmed 683613906 Problem Abdominal bloating (R14.0) Active confirmed 618993571 Problem Other hemorrhoids (K64.8) Active confirmed 64225489 Problem Gastroesophageal reflux disease without esophagitis (K21.9) Active confirmed 463364073 Problem Chronic hepatitis C without hepatic coma (B18.2) Active confirmed 102579816 Problem Pancreatic cyst (K86.2) Active confirmed 04403631 Problem Abdominal pain, left lower quadrant (R10.32) Active confirmed 711294185 Problem History of hepatitis C (Z86.19) Active confirmed 90060410317397 Problem Abdominal pain, generalized (R10.84) Active confirmed 601816476 Problem Abdominal distension (R14.0) Active confirmed 34600576 Problem Other irritable bowel syndrome (K58.8) Active confirmed 74047169 Problem Diarrhea of presumed infectious origin (R19.7) Active confirmed 77417732 Problem Liver fibrosis (K74.00) Active confirmed 29877309 Problem Diastasis of rectus abdominis (M62.08) Active confirmed 76084958 Encounters Encounter Location Date Provider Diagnosis [facility] [address] [place] [address] 04/24/2024 Steven Rodgers [facility] [address] [place] [address] 11/23/2023 Steven Rodgers [facility] [address] [place] [address] 04/24/2024 Steven Rodgers [facility] [address] [place] [address] 06/23/2024 Steven Rodgers PLAN OF TREATMENT Pending Test Test Name Order Date BUN 04/29/2019 BUN 06/30/2014 BUN 04/20/2017 BUN 04/24/2023 BUN 09/30/2020 CREATININE 04/29/2019 CREATININE 06/30/2014 CREATININE 04/20/2017 CREATININE 09/30/2020 LIVER PROFILE 04/23/2015 LIVER PROFILE 09/30/2020 LIVER PROFILE 05/09/2012 LIVER PROFILE 12/13/2021 LIVER PROFILE 04/02/2015 LIVER PROFILE 07/01/2015 LIVER PROFILE 01/21/2015 LIVER PROFILE 06/30/2014 LIVER PROFILE 04/24/2023 LIVER PROFILE 04/20/2017 CBC w DIFF 06/30/2014 CBC w DIFF 04/24/2023 CBC w DIFF 04/20/2017 CBC w DIFF 07/13/2016 CBC w DIFF 04/23/2015 CBC w DIFF 02/18/2015 CBC w DIFF 09/30/2020 CBC w DIFF 04/02/2015 CBC w DIFF 01/21/2015 PROTHROMBIN TIME (PT, INR) 04/20/2017 PROTHROMBIN TIME (PT, INR) 09/30/2020 ALPHA-FETOPROTEIN,TUMOR MARKER 3 ALPHA-FETOPROTEIN,TUMOR MARKER 4 ALPHA-FETOPROTEIN,TUMOR MARKER 7 ALPHA-FETOPROTEIN,TUMOR MARKER 1 ALPHA-FETOPROTEIN,TUMOR MARKER 9 CELIAC PANEL #10 04/24/2023 CA 19-9 04/29/2019 CA 19-9 12/13/2021 CA 19-9 04/24/2023 CA 19-9 04/20/2017 CA 19-9 09/30/2020 HEPATITIS C VIRAL LOAD 01/21/2015 HEPATITIS C VIRAL LOAD 04/29/2019 HEPATITIS C VIRAL LOAD 04/23/2015 HEPATITIS C VIRAL LOAD 07/01/2015 HEPATITIS C VIRAL LOAD 12/13/2021 HEPATITIS C VIRAL LOAD 04/24/2023 HEPATITIS C VIRAL LOAD 04/02/2015 HEPATITIS C VIRAL LOAD 04/20/2017 CT ABD & PELVIS WITH CONTRAST 06/30/2014 CT ABD & PELVIS WITH CONTRAST 07/13/2016 MRI ABD NO CONTRAST (MRCP) 04/24/2023 MRI ABD W&WO CONTRAST 05/02/2016 MRI ABD W&WO CONTRAST 04/20/2017 MRI ABD W&WO CONTRAST 09/30/2020 MRI ABD W&WO CONTRAST 05/09/2018 MRI ABD W&WO CONTRAST 04/29/2019 MRI ABD W&WO CONTRAST 04/24/2023 MRI ABD W&WO CONTRAST 07/01/2014 HCV LIVER FIBROSIS, FIBRO TEST 2 HCV LIVER FIBROSIS, FIBRO TEST 3 STOOL WBC 04/04/2023 C DIFFICILE RFLX PCR 04/04/2023 Alpha Fetoprotein 12/13/2021 Future Test Test Name Order Date COLONOSCOPY 04/29/2019 UPPER GI ENDOSCOPY 12/26/2020 Next Appt Details Provider Name:Steven Rodgers , 09/04/2024 10:00:00 AM, [address], [address], [place], [address], Insurance Providers Payer Name Payer Address Payer Phone Subscriber Number Group Number Insured Name Patient Relationship to Insured Coverage Start Date Coverage End Date MEDICARE OF [place] [address] [employer] [place] [address] [phone] [id number] WILLY SORIANO Self - patient is the insured [employer] CLAIMS [address] [place] [address] [id number] WILLY SORIANO Self - patient is the insured MEDICAL (GENERAL) HISTORY Medical History History ICD Code Chronic Hep C-Genotype 1a--l iver bx in 2008 showed only a grade 1/4 hepatitis and stage I/IV fibrosis- Finished 3 months of the Viekira/Ribaviirn in the beginning of 04/2015--HCV was neg. on 06/21/15, 10/2015, 04/2016, and 05/2019 HTN Bilateral carpal tunnel-surgery with Dr. Gooden Genital herpes Neg. colonoscopy in 1999, 10/2009, and 2019 except sigmoid diverticulosis Denies NH,CVA,Lung disease,renal disease Sigmoid diverticulitis confi rmed on CAT scan and treated with outpatient antibiotics in June of 2014; had an episode in 02/2016 treated with outpatient antibiotics--- he also had episodes in June of 2016, August of 2016, and February 2017--he was referred to the colorectal surgeons at [facility] in August 2016--seen by Dr. Malave in 09/2016 and the plan is to observe things but recommend surgery if things recur Hepatic hemangioma was seen on his CAT scan and MRI in 2013--F/U in 05/2018 was stable; 09/2020 MRI was stable Small pancreatic cysts seen on the MRI in 2013--he was evaluated by Dr. Brewster who did not think an endoscopic ultrasound was required and recommended a follow up MRI for 2015--F/U MRI in 05/2018 was stable. MRI in 05/2019 was stable; 09/2020 was stable NIDDM IBS EGD 12/2020--minimal hiatal h ernia, minimal gastritis, gastric biopsies negative for H. pylori, no esophagitis nor Agudelo's esophagus, benign gastric polyps Surgical History Surgery Date(Month/Year) R Knee Cataracts both eyes carpal tunnel as above Right 4th finger laceration Shoulder surgery-right 11/2018
== END 2024-08-21 09:30 | disposition home or self-care (01) ==
PROVIDERS: PCP Internal Medicine; Visit Provider Urology
DX: R33.8 Other retention of urine (principal); N32.0 Bladder-neck obstruction; Z13.9 Encounter for screening, unspecified
CPT/HCPCS: 51702; 99214

== ENCOUNTER → 2024-08-21 08:29 | Outpatient (BNVA) | payer MEDICARE, SELFPAY | PROVIDERS: PCP Internal Medicine; Visit Provider Urology | DX: R33.8 Other retention of urine (principal); N32.0 Bladder-neck obstruction; Z46.6 Encounter for fitting and adjustment of urinary device; Z96.0 Presence of urogenital implants | CPT/HCPCS: 51702; 51798; 81003; 99212 ==

== ENCOUNTER 2024-09-11 08:15 | Outpatient (REF) | payer MEDICARE, SELFPAY ==
--- NOTE | ~2024-09-11 | MR_ITS ---
EXAMINATION: MRI Abdomen without and with contrast HISTORY: Pancreatic cyst COMPARISON: Comparison is made with the prior examination dated 06/06/2023. TECHNIQUE: Axial in and out of phase T1-weighted gradient echo, axial diffusion weighted, and axial and coronal haste T2 with fat saturation images were obtained through the abdomen. 3D MRCP Reconstructed images and thick slab imaging of the biliary tree were obtained. Subsequently, fat suppressed axial and coronal T1-weighted images were obtained after the intravenous administration of 8.5 mL Gadavist. FINDINGS: There is no significant signal loss in the liver on opposed phase imaging to suggest steatosis. There is no intra or extrahepatic biliary ductal dilatation. Again seen is a 5 mm T2 hyperintense enhancing lesion in segment VII and an additional 5 mm T2 enhancing lesion in segment IV which likely represent hemangiomas. An additional 2 mm arterial enhancing focus is noted in segment VIII (series 20, image 20). This is too small to accurately characterize. The hepatic and portal veins are patent. There are multiple calculi in the gallbladder. Again seen is a 12 x 4 mm T2 hyperintense lesion in the neck of the pancreas without abnormal enhancement. A 5 mm T2 hyperintense focus is again noted in the body of the pancreas without associated enhancement. There is a punctate T2 hyperintense focus in the tail of the pancreas. This also does not enhance. The pancreatic duct is normal in caliber. The spleen, adrenals, and kidneys are unremarkable. No retroperitoneal lymphadenopathy or ascites is identified in the upper abdomen. MR/MR abdomen wo/w con IMPRESSION: 1. Stable cystic foci in the pancreas as described. Continued follow-up is recommended. 2. Probable small hemangiomata in the liver as detailed above. These are stable. Electronically signed by: Steven Wells MD 09/11/2024 01:44 PM EST
[2024-09-11] MEDS: gadobutroL 10 ML VIAL IVPUSH (09:37)
== END 2024-09-11 08:16 | disposition home or self-care (01) ==
LOC: HO.MRI 08:15
PROVIDERS: PCP Internal Medicine; Visit Provider Internal Medicine
DX: K86.2 Cyst of pancreas (principal); K74.00 Hepatic fibrosis, unspecified; Z86.19 Personal history of other infectious and parasitic diseases
CPT/HCPCS: 74183; A9585

== ENCOUNTER → 2024-09-11 08:30 | Outpatient (BNV) | payer MEDICARE, SELFPAY | PROVIDERS: PCP Internal Medicine; Visit Provider Radiology Diagnostic Radiology | DX: K86.2 Cyst of pancreas (principal) | CPT/HCPCS: 74183 ==

== ENCOUNTER → 2024-09-16 08:43 | Outpatient (BNVA) | payer MEDICARE, SELFPAY | PROVIDERS: PCP Internal Medicine; Visit Provider Urology | DX: N32.0 Bladder-neck obstruction (principal); R33.8 Other retention of urine | CPT/HCPCS: 51702 ==

== ENCOUNTER → 2024-10-14 10:10 | Outpatient (BNVA) | payer MEDICARE, SELFPAY | PROVIDERS: PCP Internal Medicine; Visit Provider Urology | DX: N32.0 Bladder-neck obstruction (principal); R33.8 Other retention of urine; Z46.6 Encounter for fitting and adjustment of urinary device; Z96.0 Presence of urogenital implants | CPT/HCPCS: 51702 ==

== ENCOUNTER 2024-10-28 07:51 | Outpatient (REF) | payer MEDICARE, SELFPAY ==
--- OUTSIDE RECORDS SUMMARY | 2024-10-28 07:54 | XMS_ITS ---
Author Organization [facility] Address [address] [facility] [place] [address] Care Team Providers Care Environmental Services Coordinator Name Role Phone Markos Mulligan MD Primary Care Provider Manolo Sales Unavailable [phone] Allergies No Known Allergies REASON FOR VISIT [...] Date Details (start date - stop date) Never Smoker NA - NA Alcohol Screen Question Answer Notes Did you have a drink containing alcohol in the p ast year? No Points 0 Interpretation Negative Tobacco use other than smoking: Question Answer Notes Are you an other tobacco user? No Tobacco Control (Standard) Question Answer Notes Tobacco use: Nonsmoker Vital Signs Height 5ft 8in in 06/10/2024 Weight 175 lbs 06/10/2024 BMI 26.61 kg/m2 06/10/2024 Encounters Encounter Location Date Provider Diagnosis [facility] [address] [address] 06/10/2024 Manolo Riojas Type 2 diabetes mellitus [...] Name:Manolo Riojas , 06/09/2025 08:45:00 AM, [address] [place], [address], Progress Notes * Paulo SALGADO MDOB:1954 (69 yo M)Acc No.[id number]:06/10/2024 Progress Note Patient:?Paulo SALGADO Provider:?Manolo Riojas DPM :1955???Age:69 Y???Sex:Male Corona e:06/10/2024 Address:[address] [place] [address], [place] Pcp:Markos Mulligan MD Subjective: * Chief Complaints: * ???At Risk FootcareToe Irrit ation * HPI: ???At Risk footcare:?Pt States Last PCP Visit:?Date?03/12/2024 ???Toe pain:?Location:?B/L feet.?Duration:?several years.?Course:?worse.?Aggravated by:?shoes, any pressure.?Treatments:?change in shoes.? * ROS:?General/Constitutional:?Nausea?denies.?Vomiting?denies.?Hunger Thirst?denies.?Loss appetite?denies.?Chills?denies.?Fatigue?denies.?Fever?denies.?Night Sweats?denies.?Unexplained weight loss?denies.?Unexplained weight gain?denies.?HEENTM:?Dentures?denies.?Dizziness?denies.?Glasses/contacts?admits.?Retinopathy?den ies.?Blurred/double vision?denies.?TMJ?denies.?Discharge/drainage?denies.?Implants?denies.?Sore throat?denies.?Dental implants?denies.?Hard of hearing ?denies.?Difficulty chewing/swallowing/speaking?denies.?Nose bleeds?denies.?Sore mouth?denies.?Respiratory:?On O xygen?denies.?Pneumonia/pleurisy?denies.?Bronchitis?denies.?Emphysema?denies.?Co ughing?denies.?Cough blood?denies.?Shortness of breath?denies.?Wheezing?denies.?Cardiovascular:?Pacemaker?denies.?MVP?denies.?WPW?denies.?CHF?denies.?Heart attack?denies.?Septal defect?denies.?Rapid beat?denies.?Chest pain [...] Diabetic - NIDDM.? * Social History:?Tobacco Use:?Tobacco use other than smoking?Are you an other tobacco user??No ?Tobacco Control (Standard)?Tobacco use:?Nonsmoker ???Drugs/Alcohol:?Drugs?Have you used drugs other than those for medical reasons in the past 12 months??No ?Alcohol Screen?Did you have a drink containing alcohol in the past year??No ?Points?0 ?Interpretation?Negative ???Miscellaneous:?Caffeine: yes, frequency:, 1 cup per day. ?Children: yes, 2. ?Exercise: yes, walking treadmil, weights. ?Marital status: . 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 * Medications:?TakingFinasteri de 5 MG Tablet 1 tablet Orally Once a day Tamsulosin HCl 0.4 MG Capsule 1 capsule Orally Once a day Basaglar KwikPen 100 UNIT/ML Solution Pen-injector as directed Subcutaneous Acyclovir Atorvastatin Calcium 10 MG Tablet 1 tablet Orally Once a day Gabapentin 600 MG Tablet 1 tablet Orally three a day hydroCHLOROthiazide 25 MG Tablet 1 tablet in the morning Orally Once a day Lisinopril 40 MG Tablet 1 tablet Orally Once a day metFORMIN HCl ER 500 MG Tablet Extended Release 24 Hour TAKE TWO TABLETS BY MOUTH EVERY DAY WITH SUPPER Oral Meloxicam , Notes to Pharmacist: 15 mg 1x a dayProtonix 40 MG Tablet Delayed Release 1 tablet Orally Once a day Extra Depth Orthopedic Shoes (1 Pair) with Customized Heat Molded Multidensity Innersoles (3 Pair) as directed Dx: NIDDM (E11.9), Hammertoe Foot Deformity (M20.41,M20.42), Preulcerative Skin Lesion(s) (L85.1) Taking Finasteride 5 MG Tablet 1 tablet Orally Once a day Taking Tamsulosin HCl 0.4 MG Capsule 1 capsule Orally Once a day Taking Basaglar KwikPen 100 UNIT/ML Solution Pen-injector as directed Subcutaneous Taking Acyclovir Taking Atorvastatin Calcium 10 MG Tablet 1 tablet Orally Once a day Taking Gabapentin 600 MG Tablet 1 tablet Orally three a day Taking hydroCHLOROthiazide 25 MG Tablet 1 tablet in the morning Orally Once a day Taking Lisinopril 40 MG Tablet 1 tablet Orally Once a day Taking metFORMIN HCl ER 500 MG Tablet Extended Release 24 Hour TAKE TWO TABLETS BY MOUTH EVERY DAY WITH SUPPER Oral Taking Meloxicam , Notes to Pharmacist: 15 mg 1x a dayTaking Protonix 40 MG Tablet Delayed Release 1 tablet Orally Once a day Taking Extra Depth Orthopedic Shoes (1 Pair) with Customized Heat Molded Multidensity Innersoles (3 Pair) as directed Dx: NIDDM (E11.9), Hammertoe Foot Deformity (M20.41,M20.42), Preulcerative Skin Lesion(s) (L85.1) Not-Taking/PRNCephalexin 500 MG Capsule 1 capsule Orally every 6 hrs metroNIDAZOLE Ciprofloxacin HCl 500 MG Tablet TAKE ONE TABLET BY MOUTH TWICE A DAY FOR 10 DAYS Oral Lantus Medication List reviewed and reconciled with the patientNot-Taking/PRN Cephalexin 500 MG Capsule 1 capsule Orally every 6 hrs Not-Taking/PRN metroNIDAZOLE Not-Taking/PRN Ciprofloxacin HCl 500 MG Tablet TAKE ONE TABLET BY MOUTH TWICE A DAY FOR 10 DAYS Oral Not-Taking/PRN Lantus Medication List reviewed and reconciled with the patient * Allergies:?N.K.D.A.yes[Aller gies Verified] Objective: * Vitals:?Ht: 5ft 8in, Wt:175, BMI:26.61, Shoe size: 8, BS: 120, Ht-cm: 172.72 cm, Wt-k.38 kg. * ???Past Orders: ???Lab:HEMOGLOBIN A1C (GLYCO HEMOGLOBIN) (Order Date - 02/25/2024) (Collection Date & Time - 02/25/2024 08:36 AM) ? Value Reference Range ?TOTAL HEMOGLOBIN (HGBA1C) 6.4 * Examination: ???Ophthalmology Referral: ?DIABETES EYE EXAM?Procedure Performed:?Yes ?Date of Exam Performed?05/12/2024 ?Diabetic Retinopathy Screening:?Yes ?Findings of Diabetic Eye Exam:?no retinopathy?Dermatologic: ?SKIN FINDINGS:?Skin exam reveals normal texture, elasticity, and turgor. There are no masses. The interspaces are clear, B/L, Skin exam reveals Keratotic lesion(s) located at, SUB MTH (s), 1, B/L , Heel(s), B/L .?Vascular: ?DP PULSES (B):?3/4, B/L.?PT PULSES (B):?3/4, B/L.?CAPILLARY FILL TIME:?immediate, all digits, B/L.?TROPHIC CONDITION-TEXTURE/ELASTICITY/TURGOR/HAIR GROWTH (B):?normal, B/L.?TEMPERTURE GRADIENT (C):?normal, warm to cool, proximal to distal, B/L, B/L.?PIGMENTATION:?normal, B/L.?EDEMA (C):?absent, B/L.?Orthopedic: ?MUSCLE STRENGTH:?5/5 all groups in a symmetrical [...] , shoe gear properties exacerbate patients foot/toe deformity.?Neurological: ?SENSORY:?Neurological exam reveals intact sensorium, pain sensation normal, vibration sensation intact, pinprick sensation is normal in the lower extremities, 5.07 monofilament test performed at plantar aspects of 5 varied sites per foot shows sensation, normal, B/L, Pt denies, anesthesia, burning, paresthesia, tingling, B/L.?General Examination: ?GENERAL APPEARANCE:?Reveals a pleasant, alert, well nourished, well- developed, well hydrated individual, who demonstrates proper attention to hygiene/body habitus, and is in no acute distress, Pt serves as own historian for office visit today , , and/who is physically present in exam room at time of visit.?ORIENTED:?person, place, and time.?FOOT EXAM:?Lower Extremity Neurological Exam performed:?Yes ?Visual exam of foot performed:?Yes ?Date?06/10/2024 ?Footwear Evaluation?Footwear Evaluation performed:?Yes??? Assessment: * Assessment: 1.?Type 2 diabetes mellitus without complication - E11.9???2.?Other hammer toe(s) (acquired), left foot - M20.42???Specify :Chronic problem, Worse (4),Rx Management (4)???3.?Other hammer toe(s) (acquired), right foot - M20.41 (Primary)???Specify :Chronic problem, Worse (4),Rx Management (4)??? Plan: * Treatment: * Procedure Codes:? * [...] Provider:?Manolo Riojas DPM Date:?2023 Generated for Adrian wilcox/Latasha/Heladio on:?10/28/2024 07:54 AM EST History and Physical Notes * [...] Lower Extremity Neurological Exa m performed:: Yes Visual exam of foot performed:: Yes Date: 06/10/2024 ORIENTED: person, place, and t calvin Footwear Evaluation Footwear Evaluation performe d:: Yes Ophthalmology Referral DIABETES EYE EXAM Procedure Perform ed:: Yes ?Date of Exam Performed: 05/12/2024 Diabetic Retinopathy Screening:: Yes Findings of Diabetic Eye Exam:: no retin opathy Vascular DP PULSES (B): 3/4, B/L PT PULSES (B): 3/4, B/L CAPILLARY FILL TIME: immediate, all digi ts, B/L TEMPERTURE GRADIENT (C): normal, warm to cool, proximal to distal, B/L, B/L TROPHIC CONDITION-TEXTURE/ELASTICITY/TURGOR/HAIR GROWTH (B): normal, B/L EDEMA (C): absent, B/L PIGMENTATION: normal, B/L
--- OUTSIDE RECORDS SUMMARY | 2024-10-28 07:54 | XMS_ITS ---
Author Organization [facility] Address [address] [place] [address] Care Team Providers Care Client Technologies Analyst Name Role Phone Markos Mulligan MD Primary Care Provider Steven Monteiro Unavailable [phone] ALLERGIES No Known Allergies REASON FOR VISIT Patient presents today for hep c MEDICATIONS Medication SIG (Take, Route, Frequency, Duration) Notes Start Date End Date Status Banatrol Active metFORMIN HCl 500 MG 4 tablet with meals Orally Once a day Active Acyclovir 400 MG 1 tablet Orally once a day Active hydroCHLOROthiazide 25 MG 1 tablet Orall y Once a day Active Gabapentin 600 MG 1 capsule Orally three times a day Active Finasteride 5 MG 1 tablet Orally Once a day Active Insulin Glargine 100 UNIT/ML as directed /26 units Subcutaneous once a day Active Tamsulosin HCl 0.4 MG 2 capsule Orally Once a day Active Protonix 40 MG 1 tablet Orally Once a day for 30 Active Probiotic - as directed Orally Active Tylenol Extra Strength Not-Taking Flaxseed Oil 1000 MG as directed Orally once a day Active Lisinopril 20 MG 1 tablet Orally Once a day for 30 day(s) Active Fiber 625 MG 2 tablets as needed Orally as directed Active Move Free Joint Health Advance - as directed Orally once a day Active Atorvastatin Calcium 10 MG 1 tablet Oral ly Once a day for 30 day(s) Active Multivitamin Adult - as directed Orally once a day Active Stool Softener 100 MG 1 capsule as neede d Orally Once a day Active Claritin 10 MG 1 tablet Orally Once a day/ as needed Active VITAL SIGNS Blood pressure systolic 00 mm Hg 09/04/19 25 Blood pressure diastolic 00 mm Hg 025 Height 69 in 09/04/2024 Weight 189 lbs 09/04/2024 BMI 27.91 kg/m2 09/04/2024 Encounters Encounter Location Date Provider Diagnosis [facility] [address] [place] [address] 09/04/2024 Steven Rodgers Pancreatic cyst K86. 2 ; Liver fibrosis K74.00 ; History of hepatitis C Z86.19 ; Gastroesophageal reflux disease without esophagitis K21.9 and Other irritable bowel syndrome K58.8 ASSESSMENTS Encounter Date Diagnosis Assessment Notes Treatment Notes Treatment Clinical Notes 09/04/2024 Pancreatic cyst (ICD -10 - K86.2) 09/04/2024 Liver fibrosis (ICD- 10 - K74.00) 09/04/2024 History of hepatitis C (ICD-10 - Z86.19) 09/04/2024 Gastroesophageal ref lux disease without esophagitis (ICD-10 - K21.9) 09/04/2024 Other irritable kong l syndrome (ICD-10 - K58.8) PLAN OF TREATMENT Pending Test Test Name Order Date BUN 09/04/2024 LIVER PROFILE 09/04/2024 CBC w DIFF 09/04/2024 ALPHA-FETOPROTEIN,TUMOR MARKER 5 CA 19-9 09/04/2024 MRI ABD W&WO CONTRAST 09/04/2024 HCV LIVER FIBROSIS, FIBRO TEST 5 Prothrombin Time INR 09/04/2024 Creatinine 09/04/2024 Next Appt Details Follow Up: 1 Year, Reason: Provider Name:Steven Rodgers , 09/08/2025 09:10:00 AM, [address], [address], [place], [address], Progress Notes * Examination Category Sub-Category Detail Notes General Examination GENERAL APPEARANCE: pleasant , well nourished, well developed, in no acute distress EYES: sclera non-icteric NECK/THYROID: no cervical lymphade nopathy, neck supple HEART: S1, S2 normal LUNGS: clear to auscultatio n bilaterally ABDOMEN: normal bowel sounds, no guarding or rigidity, no masses palpable, soft, nondistended, NT NEUROLOGIC: alert and oriented SKIN: nonjaundiced, no spi karthikeyan angiomata EXTREMITIES: no edema ORAL CAVITY: mucosa moist
--- OUTSIDE RECORDS SUMMARY | 2024-10-28 07:54 | XMS_ITS | Clinical Summary ---
Author Organization [facility] Address [address] [place] [address] Care Team Providers Care Paper Box Maker Name Role Phone Markos Mulligan MD Primary Care Provider [phone] Surgical History Surgery Date Site/Laterality Comments CARPAL TUNNEL RELEASE 2015 Bilateral PROCEDURE: HISTORICAL CARPAL TUNNEL REL KNEE SURGERY 2008 Right PROCEDURE: HISTORICAL KNEE SURGERY; COMMENT: x2 SHOULDER SURGERY 2018 Right PROCEDURE: HISTORICAL SHOULDER SURGERY; COMMENT: Dr. Dillon OTHER SURGICAL HISTORY Left PROCEDURE: HISTORY OTHER; COMMENT: wrist CATARACT EXTRACTION PROCEDURE: HISTORICAL CATARACT REMOVAL Medical History Medical History Date Comments HTN (hypertension) DX:HTN (hyper tension) Diabetes mellitus type 2, co ntrolled, with complications (CMS/HCC) DX:Diabetes mellitus type 2, controlled, with complications (HCC); COMMENT: last A1c 6.30 November 2023 Social History Tobacco Use Types Packs/Day Years Used Date Smoking Tobacco: Former Smokeless Tobacco: Never Alcohol Use Standard Drinks/Week Comments No 0 (1 standard drink = 0.6 oz pur e alcohol) Sex and Gender Information Value Date Recorded Sex Assigned at Not on file Legal Sex Male 8:32 PM EST Gender Identity Not on file Sexual Orientation Not on file Obstetrics History Last Filed Vital Signs Vital Sign Reading Time Taken Comments Blood Pressure - - Pulse - - Temperature - - Respiratory Rate - - Oxygen Saturation - - Inhaled Oxygen Concentration - - Weight 81.7 kg (180 lb 0.1 oz) 04/03/2024 10:12 AM EDT Height 172.7 cm (5' 8 ) 04/03/2024 10:12 AM EDT Body Mass Index 27.37 04/03/2024 10:12 AM EDT Plan of Treatment Health Maintenance Due Date Last Done Comments DTaP,Tdap,and Td Vaccines (1 - Tdap) 04/20/2015 04/19/2015 Pneumococcal Vaccine: 50+ Years (2 of 2 - PCV) 07/01/2021 07/01/2020 Abdominal Aortic Aneurysm (AAA) Screen 09/21/2023 Cholesterol Screening (Lipid Panel) 09/21/2023 Colorectal Cancer Screening: Colonoscopy 09/21/2023 Depression Screening 09/21/2023 Falls Risk Assessment 09/21/2023 Hepatitis C Screening 09/21/2023 Social Influencers of Health Screening 09/21/2023 COVID-19 Vaccine ( season) 2024 11/24/2021, 07/12/2021, 10/25/2020, Additional history exists Influenza Vaccine (#1) 2024 , 05/09/2021, 04/14/2020, Additional history exists RSV Immunization Patients 60+ Years Old (1 - 1-dose 75+ series) 01/02/2028 Zoster Vaccines Completed 07/01/2018, 12/02/2017 HIB Vaccines Aged Out No longer eligi ble based on patient's age to complete this topic HPV Vaccines Aged Out No longer eligi ble based on patient's age to complete this topic Hepatitis A Vaccines Aged Out No long er eligible based on patient's age to complete this topic Hepatitis B Vaccines Aged Out No long er eligible based on patient's age to complete this topic IPV Vaccines Aged Out No longer eligi ble based on patient's age to complete this topic MMR Vaccines Aged Out No longer eligi ble based on patient's age to complete this topic Meningococcal ACWY Vaccine Aged Out N o longer eligible based on patient's age to complete this topic Meningococcal B Vacine Aged Out No lo nger eligible based on patient's age to complete this topic RSV Immunization Patients Under 20 months Aged Out No longer eligible based on patient's age to complete this topic Varicella Vaccines Aged Out No longer eligible based on patient's age to complete this topic Care Teams Paper Box Maker Relationship Specialty Start Date End Date Markos Mulligan MD [address] [place] [address] PCP - General 09/18/22
--- OUTSIDE RECORDS SUMMARY | 2024-10-28 07:54 | XMS_ITS ---
Author Organization [facility] Address [address] [place] [address] Care Team Providers Care Pedicab Driver Name Role Phone Markos Mulligan MD Primary Care Provider Steven Monteiro [phone] REASON FOR VISIT refill pantoprazole Encounters Encounter Location Date Provider Diagnosis [facility] [address] [place] [address] 06/23/2024 Steven Rodgers PLAN OF TREATMENT Next Appt Details Provider Name:Steven Rodgers , 09/08/2025 09:10:00 AM, [address], [address], [place], [address],
--- OUTSIDE RECORDS SUMMARY | 2024-10-28 07:54 | XMS_ITS ---
Author Organization [facility] Address [address] [place] [address] Care Team Providers Care Oil Pipe Inspector Helper Name Role Phone Markos Mulligan MD Primary Care Provider Manolo Sales Unavailable [phone] Allergies No Known Allergies REASON FOR VISIT [...] 023 Encounters Encounter Location Date Provider Diagnosis [facility] [place] [address] [place] [address] 06/05/2023 Manolo Riojas Type 2 diabetes mellitus [...] Name:Manolo Riojas , 06/09/2025 08:45:00 AM, [address] [place], [address], Progress Notes * Paulo SALGADO MDOB:1954 (68 yo M)Acc No.[id number]:06/05/2023 Progress Note Patient:Paulo Soto Provider:?Manolo Riojas DPM :1955???Age:68 Y???Sex:Male Corona e:06/05/2023 Address:[address] [place] [address], [place] Pcp:Markos Mulligan MD Subjective: * Chief Complaints: [...] gear properties exacerbate patients foot/toe deformity.?Vascular: ?DP PULSES:?3/4, B/L.?PT PULSES:?3/4, B/L.?CAPILLARY FILL TIME:?immediate, all digits, B/L.?SKIN TEMPERTURE [...] burning, paresthesia, tingling, B/L.?Ophthalmology Referral: ?DIABETES EYE EXAM?Diabetic Retinopathy Screening:?Yes ?Findings of Diabetic Eye Exam:?no retinopathy?General Examination: ?GENERAL APPEARANCE:?Reveals a pleasant, alert, well nourished, well- developed, well hydrated individual, who demonstrates proper attention to hygiene/body habitus, and is in no acute distress, Pt serves as own historian for office visit today , , and/who is physically present in exam room at time of visit.?ORIENTED:?person, place, and time.?FOOT EXAM:?Lower Extremity Neurological Exam performed:?Yes ?Footwear Evaluation?Footwear Evaluation performed:?Yes??? Assessment: * Assessment: [...] Riojas DPM Date:?2022 Generated for Adrian wilcox/Latasha/Heladio on:?10/28/2024 07:53 AM EST History and Physical Notes * [...]
--- OUTSIDE RECORDS SUMMARY | 2024-10-28 07:54 | XMS_ITS ---
Author Organization [facility] Address [address] [place] [address] Care Team Providers Care Lease Administration Supervisor Name Role Phone Markos Mulligan MD Primary Care Provider Steven Monteiro [phone] REASON FOR VISIT No show Encounters Encounter Location Date Provider Diagnosis [facility] [address] [place] [address] 04/24/2024 Steven Rodgers PLAN OF TREATMENT Next Appt Details Provider Name:Steven Rodgers , 09/08/2025 09:10:00 AM, [address], [address], [place], [address],
--- OUTSIDE RECORDS SUMMARY | 2024-10-28 07:54 | XMS_ITS ---
Author Organization [facility] Address [address] [place] [address] Care Team Providers Care General Internist And Physician Leader Name Role Phone Markos Mulligan MD Primary Care Provider Unavaila Manolo Cardoza Unavailable [phone] REASON FOR VISIT Seen Sooner Encounters Encounter Location Date Provider Diagnosis [address] [address] 06/29/2023 Manolo Riojas Plan Of Treatment Next Appt Details Provider Name:Manolo Riojas , 06/09/2025 08:45:00 AM, [address] [place] [address], [address], Progress Notes * Paulo SALGADO MDOB:1954 (69 yo M)Acc No.[id number]:06/29/2023 Progress Note Patient:?Paulo SALGADO Provider:?Manolo Riojas DPM :1955???Age:68 Y???Sex:Male Corona e:06/29/2023 Address:[address], [place] Pcp:Markos Mulligan MD Subjective: * Chief Complaints: [...] DPM Date:?2022 Generated for Adrian wilcox/Latasha/Heladio on:?10/28/2024 07:54 AM EST
--- OUTSIDE RECORDS SUMMARY | 2024-10-28 07:55 | XMS_ITS | Patient Health Record ---
Author Organization [facility] Address [address] [place] [address] Care Team Providers Care Weaver Dobby Loom Name Role Phone Markos Mulligan MD Primary Care Provider Manolo Sales Unavailable [phone] Allergies No Known Allergies Results Component Value [...] (Standard) Question Answer Notes Tobacco use: Nonsmoker Problems Problem Type SNOMED Code ICD Code Onset Dates Problem Status W/U Status Risk Notes Problem Acquired hammer toe of right foot (034886438791 9105) Other hammer toe(s) (acquired), right foot (M20.41) Active confirmed Problem Acquired hammer toe of left foot (088932890312 9103) Other hammer toe(s) (acquired), left foot (M20.42) Active confirmed Problem 95222524 Type 2 diabetes mellitus without complication (E11.9) Active confirmed Vital Signs Height 5ft 8in in 06/10/2024 Weight 175 lbs 06/10/2024 BMI 26.61 kg/m2 06/10/2024 Encounters Encounter Location Date Provider Diagnosis [facility] [address] [address] 06/10/2024 Manolo Riojas Type 2 diabetes mellitus [...] Treatment Pending Test Test Name Order Date [id number] Plate 04/04/2022 [id number] Plate Each Additional 04/2022 [id number] 11/07/2022 [id number] 03/07/2023 [id number] SKIN/TISSUE 03/29/2023 [id number] SKIN/TISSUE 11/21/2022 [id number] I&D ABSCESS- SIMPLE,SINGLE 021 Next Appt Details Provider Name:Manolo Riojas , 06/09/2025 08:45:00 AM, [address], [place], [address], Insurance Providers Payer Name Payer Address Payer Phone Subscriber Number Group Number Insured Name Patient Relationship to Insured Coverage Start Date Coverage End Date Medicare National [employer]t [employer] [address] [facility] [place] [address] [phone] [id number] Paulo Savage Self - patient is the insured [employer] [address] [place] [address] [id number] Paulo Savage Self - patient is the [...]
== END 2024-10-28 07:52 | disposition home or self-care (01) ==
LOC: HO.SH 07:51
PROVIDERS: Visit Provider Internal Medicine
DX: Z01.118 Encounter for examination of ears and hearing with other abnormal findings (principal); H90.3 Sensorineural hearing loss, bilateral
CPT/HCPCS: 92552; 92556

== ENCOUNTER 2024-10-28 08:39 | Outpatient (REF) | payer SELFPAY ==
--- OUTSIDE RECORDS SUMMARY | 2024-10-28 09:15 | XMS_ITS | Clinical Summary ---
Author Organization [employer] [facility] Address [address] [place] [address] Care Team Providers Care Long Distance Billing Operator Name Role Phone Markos Mulligan MD Primary Care Provider [phone] Surgical History Surgery Date Site/Laterality Comments CARPAL [...] age to complete this topic Care Teams Long Distance Billing Operator Relationship Specialty Start Date End Date Markos Mulligan MD [address] [place] [address] PCP - General 09/18/22
--- OUTSIDE RECORDS SUMMARY | 2024-10-28 09:16 | XMS_ITS | Patient Health Record ---
Author Organization [facility] Address [address] [place] [address] Care Team Providers Care Telegraphic Instrument Supervisor Name Role Phone Markos Mulligan MD Primary Care Provider Steven Monteiro [phone] ALLERGIES No Known Allergies RESULTS Component Value Reference Range Notes MR abdomen wo/w con Reviewed date:10/18/2024 10:14:57 PM Interpretation: Performing Lab: Notes/Report: [address] [address] Magnetic Resonance Report Signed Patient: Willy Salgado MR#: [id number] : 1955 Acct:[id number] Age/Sex: 69 / M ADM Date: 09/11/24 Loc: HO.MRI Attending Dr: Steven Rodgers MD Ordering Physician: Steven Rodgers MD Date of Service: 09/11/24 Procedure(s): MR abdomen wo/w con Accession Number(s): [id number] cc: Markos Mulligan MD; Steven Rodgers MD EXAMINATION: MRI Abdomen without and with contrast HISTORY: Pancreatic cyst COMPARISON: Comparison is made with the prior examination dated 06/06/2023. TECHNIQUE: Axial in and out of phase T1-weighted gradient echo, axial diffusion weighted, and axial and coronal haste T2 with fat saturation images were obtained through the abdomen. 3D MRCP Reconstructed images and thick slab imaging of the biliary tree were obtained. Subsequently, fat suppressed axial and coronal T1-weighted images were obtained after the intravenous administration of 8.5 mL Gadavist. FINDINGS: There is no significant signal loss in the liver on opposed phase imaging to suggest steatosis. There is no intra or extrahepatic biliary ductal dilatation. Again seen is a 5 mm T2 hyperintense enhancing lesion in segment VII and an additional 5 mm T2 enhancing lesion in segment IV which likely represent hemangiomas. An additional 2 mm arterial enhancing focus is noted in segment VIII (series 20, image 20). This is too small to accurately characterize. The hepatic and portal veins are patent. There are multiple calculi in the gallbladder. Again seen is a 12 x 4 mm T2 hyperintense lesion in the neck of the pancreas without abnormal enhancement. A 5 mm T2 hyperintense focus is again noted in the body of the pancreas without associated enhancement. There is a punctate T2 hyperintense focus in the tail of the pancreas. This also does not enhance. The pancreatic duct is normal in caliber. The spleen, adrenals, and kidneys are unremarkable. No retroperitoneal lymphadenopathy or ascites is identified in the upper abdomen. MR/MR abdomen wo/w con IMPRESSION: 1. Stable cystic foci in the pancreas as described. Continued follow-up is recommended. 2. Probable small hemangiomata in the liver as detailed above. These are stable. Electronically signed by: Steven Wells MD 09/11/2024 01:44 PM [facility] Dictated By: Steven Wells MD Signed By: <Electronically signed by Steven Wells MD in OV> 09/11/24 1344 DD/ 0830 TD/TT: 09/11/24 0915 Conductor Symphonic Orchestra: Complete Blood Count Auto Di ff Reviewed date:10/18/2024 10:15:21 PM Interpretation: Performing Lab:[facility], [address] [place] [phone] Notes/Report: White Blood Count 6.8 4.8-10.8 X10*3/uL Red Blood Count 4.53 4.60-5.80 X10*6/uL Hemoglobin 15.3 14.0-18.0 g/dl Hematocrit 42.7 42.0-52.0 % Mean Corpuscular Volume 94.3 80.0-98.0 fL Mean Corpuscular Hemoglobin 33.8 27.0-33.0 pg Mean Corpuscular HGB Conc 35.8 31.0-36.0 g/dl Red Cell Distribution Width 12.6 11.0-16.0 % Platelet Count 222 160-400 X10*3/uL Mean Platelet Volume 11.4 9.4-12.4 fL Neutrophils Percent Auto 65.3 45-73 % Imm Gran Pct Auto 0.4 0.0-0.4 % Lymphocytes Percent Auto 22.7 20-40 % Monocytes Percent Auto 9.7 2-11 % Eosinophils Percent Auto 1.6 0-4 % Basophils Percent Auto 0.3 0-2 % NRBC Pct Auto 0.0 0.0-0.2 /100WBC Neutrophils Absolute Auto 4.5 2.0-8.3 x10*3/u L Imm Gran Abs Auto 0.03 0.00-0.03 X10*3/uL Lymphocytes Absolute Auto 1.6 1.2-4.9 X10*3/u L Monocytes Absolute Auto 0.7 0.1-1.2 X10*3/uL Eosinophils Absolute Auto 0.1 0.0-0.4 X10*3/u L Basophils Absolute Auto 0.0 0.0-0.2 X10*3/uL NRBC Abs Auto 0.000 0.0-0.012 X10*3/uL Prothrombin Time INR Reviewed date:09/15/2024 09:35:56 PM Interpretation: Performing Lab:[address] [address] Notes/Report: Prothrombin Time 11.9 10.9-12.4 SEC INTERNATIONAL NORM RATIO 1.0 0.9-1.1 INTERNATIONAL NORMALIZED RATIO (INR) REFERENCE RANGES Reference Range For patients not on anticoagulant therapy: 0.9 - 1.1 INR ranges for oral anticoagulant therapy: For prevention and treatment of venous thrombosis and pulmonary embolism: 2.0 - 3.0 For acute myocardial infarction with aspirin therapy: 2.0 - 3.0 For acute myocardial infarction without aspirin therapy: 3.0 - 4.0 For patients with mechanical prosthetic heart valves: 2.5 - 3.5 Liver Panel Reviewed date:09/15/2024 09:35:47 PM Interpretation: Performing Lab:[address] [address] Notes/Report: Bilirubin Total 0.4 0.0-1.0 mg/dL Bilirubin Direct 0.1 0.0-0.5 mg/dL Aspartate Amino Transferase 29 5-37 U/L Alanine Aminotransferase 24 0-40 U/L Total Protein 8.2 6.5-8.0 g/dL Albumin Level 4.8 3.5-5.0 g/dL Alkaline Phosphatase 71 39-117 U/L Blood Urea Nitrogen Reviewed date:09/15/2024 09:35:35 PM Interpretation: Performing Lab:[facility], [address] [place] [phone] Notes/Report: Blood Urea Nitrogen 26 9-16 mg/dL Creatinine Reviewed date:09/15/2024 09:35:24 PM Interpretation: Performing Lab:[address] [address] Notes/Report: Creatinine 1.01 0.5-1.4 mg/dL Estimated Glomerular Filt Rate > 60 Chronic Kidney Disease: Estimated GFR < 60 mL/min/1.73m2 Severe Kidney Disease: Estimated GFR < 15 mL/min/1.73m2 Carbohydrate Antigen 19-9 Reviewed date:09/21/2024 02:53:31 PM Interpretation: Performing Lab:[address] [address] Notes/Report: Carbohydrate Antigen 19-9 11 <34 U/mL This test was performed using the [employer] chemiluminescent method. Values obtained from different assay methods cannot be used interchangeably. CA 19-9 levels, regardless of value, should not be interpreted as absolute evidence of the presence or absence of disease. THIS TEST WAS PERFORMED AT: [facility] [address] [place] [phone] KIRAN PRATHER MD Alpha Fetoprotein Reviewed date:09/21/2024 02:53:40 PM Interpretation: Performing Lab:[address] [address] Notes/Report: Alpha Fetoprotein 2.1 <6.1 ng/mL This test was performed using the [employer] chemiluminescent method. Values obtained from different assay methods cannot be used interchangeably. AFP levels, regardless of value, should not be interpreted as absolute evidence of the presence or absence of disease. THIS TEST WAS PERFORMED AT: [facility] [address] [place] [phone] KIRAN PRATHER MD Liver Fibrosis Pnl Reviewed date:09/21/2024 02:54:05 PM Interpretation: Performing Lab:[facility], [address] [place] [phone] Notes/Report: Liver Fibrosis Score 0.59 Liver Fibrosis Stage F3 Liver Fibrosis Interpretation SEE NOTE advanced fibrosis Fibro Test Score (f) Metavir Score f>=0 and f<=0.21 : F0 (no fibrosis) f>0.21 and f<=0.27 : F0-F1 (no fibrosis) f>0.27 and f<=0.31 : F1 (minimal fibrosis) f>0.31 and f<=0.48 : F1-F2 (minimal fibrosis) f>0.48 and f<=0.58 : F2 (moderate fibrosis) f>0.58 and f<=0.72 : F3 (advanced fibrosis) f>0.72 and f<=0.74 : F3-F4 (advanced fibrosis) f>0.74 and f<=1.00 : F4 (severe fibrosis) Nec Inflam Act Score 0.08 Nec Inflam Act Grade A0 Nec Inflam Act Interpretation SEE NOTE no activity ActiTest Score (a) Metavir Score a>=0 and a<=0.17 : A0 (no activity) a>0.17 and a<=0.29 : A0-A1 (no activity) a>0.29 and a<=0.36 : A1 (minimal activity) a>0.36 and a<=0.52 : A1-A2 (minimal activity) a>0.52 and a<=0.60 : A2 (significant activity) a>0.60 and a<=0.62 : A2-A3 (significant activity) a>0.62 and a<=1.00 : A3 (severe activity) TSN-Oynow-7-Macroglobulin 373 106-279 mg/dL FIB-Haptoglobin 89 43-212 mg/dL FIB-Apolipoprotein A1 117 94-176 mg/dL FIB-Total Bilirubin 0.3 0.2-1.2 mg/dL FIB-GGT 13 3-70 U/L FIB-ALT 15 9-46 U/L Reference ID [id number] Footnote SEE NOTE The reliability of results is dependent on compliance with the preanalytical and analytical conditions recommended by [employer]. The tests have to be deferred for: acute hemolysis, acute hepatitis, acute inflammation, extra hepatic cholestasis. The advice of a specialist should be sought for interpretation in chronic hemolysis and Gilbert's syndrome. The test interpretation is not validated in liver transplant patients. Isolated extreme values of one of the components should lead to caution in interpreting the results. In case of discordance between a biopsy result and a test, it is recommended to seek the advice of a specialist. The causes of these discordances could be due to a flaw of the test or to a flaw in the biopsy: i.e. a liver biopsy has a 33% variability rate for one fibrosis stage. FibroTest is interpretable for chronic hepatitis B and C, alcoholic and non alcoholic steatosis. ActiTest is interpretable for chronic hepatitis B and C. The performance characteristics have been determined by [facility]. It has not been cleared or approved by the U.S. Food and Drug Administration. Performance characteristics refer to the analytical performance of the test. [employer], the associated logo, [employer] and all associated [employer] larry are the registered trademarks of [employer]. All third republican larry - (R) and (TM) - are the property of their respective owners. (C) [id number] [employer]. All rights reserved. THIS TEST WAS PERFORMED AT: [facility] [address] [place] [address] ROBERTO COLÓN MD,PHD,KELLIE REASON FOR REFERRAL No Information MEDICATIONS Medication SIG (Take, Route, Frequency, Duration) Notes Start Date End Date Status Flaxseed Oil 1000 MG as directed Orally once a day Active metFORMIN HCl 500 MG 4 tablet with meals Orally Once a day Active Protonix 40 MG 1 tablet Orally Once a day for 30 Active Acyclovir 400 MG 1 tablet Orally once a day Active Probiotic - as directed Orally Active Banatrol Active Multivitamin Adult - as directed Orally once a day Active hydroCHLOROthiazide 25 MG 1 tablet Orall y Once a day Active Tylenol Extra Strength Not-Taking Stool Softener 100 MG 1 capsule as neede d Orally Once a day Active Claritin 10 MG 1 tablet Orally Once a day/ as needed Active Finasteride 5 MG 1 tablet Orally Once a day Active Lisinopril 20 MG 1 tablet Orally Once a day for 30 day(s) Active Insulin Glargine 100 UNIT/ML as directed /26 units Subcutaneous once a day Active Fiber 625 MG 2 tablets as needed Orally as directed Active Gabapentin 600 MG 1 capsule Orally three times a day Active Move Free [facility] Advance - as directed Orally once a day Active Tamsulosin HCl 0.4 MG 2 capsule Orally Once a day Active Atorvastatin Calcium 10 MG 1 tablet Oral ly Once a day for 30 day(s) Active IMMUNIZATIONS Vaccine Route Administration Date Status Comme nts Influenza Unknown 04/27/2018 Administered Influenza Unknown 05/27/2020 Administered Influenza Unknown 05/27/2021 Administered SOCIAL HISTORY Sex Assigned At : Social History Observation Description Sex Assigned At Unknown PROBLEMS Problem Type ICD Code Onset Dates Problem Status W/U Status Risk SNOMED Code Notes Problem Epigastric pain (R10.13) Active confirmed 51018329 Problem Diverticulitis of large intestine without perforation or abscess without bleeding (K57.32) Active confirmed 1038439 Problem Encounter for screening for malignant neoplasm of colon (Z12.11) Active confirmed 555805305 Problem Abdominal bloating (R14.0) Active confirmed 669999784 Problem Other hemorrhoids (K64.8) Active confirmed 07186496 Problem Gastroesophageal reflux disease without esophagitis (K21.9) Active confirmed 304318894 Problem Chronic hepatitis C without hepatic coma (B18.2) Active confirmed 499645722 Problem Pancreatic cyst (K86.2) Active confirmed 19745394 Problem Abdominal pain, left lower quadrant (R10.32) Active confirmed 166883836 Problem History of hepatitis C (Z86.19) Active confirmed 11609344442220 Problem Abdominal pain, generalized (R10.84) Active confirmed 067079751 Problem Abdominal distension (R14.0) Active confirmed 13292274 Problem Other irritable bowel syndrome (K58.8) Active confirmed 05667925 Problem Diarrhea of presumed infectious origin (R19.7) Active confirmed 87959166 Problem Liver fibrosis (K74.00) Active confirmed 61051147 Problem Diastasis of rectus abdominis (M62.08) Active confirmed 19816582 VITAL SIGNS Blood pressure diastolic 00 mm Hg 09/04/2024 Height 69 in 09/04/2024 Blood pressure systolic 00 mm Hg 09/04/2024 Weight 189 lbs 09/04/2024 BMI 27.91 kg/m2 09/04/2024 Encounters Encounter Location Date Provider Diagnosis [facility] [address] [place] [phone] 04/24/2024 Steven Rodgers [facility] [address] [place] [phone] 09/04/2024 Steven Rodgers Pancreatic cyst K86. 2 ; Liver fibrosis K74.00 ; History of hepatitis C Z86.19 ; Gastroesophageal reflux disease without esophagitis K21.9 and Other irritable bowel syndrome K58.8 [facility] [address] [place] [phone] 11/23/2023 Steven Rodgers [facility] [address] [place] [phone] 04/24/2024 Steven Rodgers [facility] [address] [place] [phone] 06/23/2024 Steven Rodgers ASSESSMENTS Encounter Date Diagnosis Assessment Notes Treatment [...] Test Name Order Date BUN 04/29/2019 BUN 09/30/2020 BUN 06/30/2014 BUN 09/04/2024 BUN 04/24/2023 BUN 04/20/2017 CREATININE 04/20/2017 CREATININE 04/29/2019 CREATININE 09/30/2020 CREATININE 06/30/2014 LIVER PROFILE 04/23/2015 LIVER PROFILE 04/20/2017 LIVER PROFILE 05/09/2012 LIVER PROFILE 04/02/2015 LIVER PROFILE 07/01/2015 LIVER PROFILE 09/30/2020 LIVER PROFILE 01/21/2015 LIVER PROFILE 12/13/2021 LIVER PROFILE 09/04/2024 LIVER PROFILE 06/30/2014 LIVER PROFILE 04/24/2023 CBC w DIFF 09/04/2024 CBC w DIFF 06/30/2014 CBC w DIFF 04/24/2023 CBC w DIFF 04/23/2015 CBC w DIFF 02/18/2015 CBC w DIFF 04/20/2017 CBC w DIFF 07/13/2016 CBC w DIFF 04/02/2015 CBC w DIFF 09/30/2020 CBC w DIFF 01/21/2015 PROTHROMBIN TIME (PT, INR) 09/30/2020 PROTHROMBIN TIME (PT, INR) 04/20/2017 ALPHA-FETOPROTEIN,TUMOR MARKER 5 ALPHA-FETOPROTEIN,TUMOR MARKER 1 ALPHA-FETOPROTEIN,TUMOR MARKER 3 ALPHA-FETOPROTEIN,TUMOR MARKER 4 ALPHA-FETOPROTEIN,TUMOR MARKER 9 ALPHA-FETOPROTEIN,TUMOR MARKER 7 CELIAC PANEL #10 04/24/2023 CA 19-9 12/13/2021 CA 19-9 04/20/2017 CA 19-9 09/04/2024 CA 19-9 09/30/2020 CA 19-9 04/24/2023 CA 19-9 04/29/2019 HEPATITIS C VIRAL LOAD 01/21/2015 HEPATITIS C VIRAL LOAD 12/13/2021 HEPATITIS C VIRAL LOAD 04/20/2017 HEPATITIS C VIRAL LOAD 04/23/2015 HEPATITIS C VIRAL LOAD 07/01/2015 HEPATITIS C VIRAL LOAD 04/02/2015 HEPATITIS C VIRAL LOAD 04/24/2023 HEPATITIS C VIRAL LOAD 04/29/2019 CT ABD & PELVIS WITH CONTRAST 06/30/2014 CT ABD & PELVIS WITH CONTRAST 07/13/2016 MRI ABD NO CONTRAST (MRCP) 04/24/2023 MRI ABD W&WO CONTRAST 05/09/2018 MRI ABD W&WO CONTRAST 04/29/2019 MRI ABD W&WO CONTRAST 09/04/2024 MRI ABD W&WO CONTRAST 04/20/2017 MRI ABD W&WO CONTRAST 04/24/2023 MRI ABD W&WO CONTRAST 07/01/2014 MRI ABD W&WO CONTRAST 09/30/2020 MRI ABD W&WO CONTRAST 05/02/2016 HCV LIVER FIBROSIS, FIBRO TEST 3 HCV LIVER FIBROSIS, FIBRO TEST 2 HCV LIVER FIBROSIS, FIBRO TEST 5 STOOL WBC 04/04/2023 C DIFFICILE RFLX PCR 04/04/2023 Prothrombin Time INR 09/04/2024 Creatinine 09/04/2024 Alpha Fetoprotein 12/13/2021 Future Test Test Name Order Date COLONOSCOPY 04/29/2019 UPPER GI ENDOSCOPY 12/26/2020 Next Appt Details Provider Name:Steven Rodgers , 09/08/2025 09:10:00 AM, [address] [facility], [address], [place], [address], Insurance Providers Payer Name Payer Address Payer Phone Subscriber Number Group Number Insured Name Patient Relationship to Insured Coverage Start Date Coverage End Date MEDICARE OF [place] [address] [place] [address] [id number] WILLY SORIANO Self - patient is the insured [employer] CLAIMS [address] [place] [address] [id number] WILLY SROIANO Self - patient is the insured MEDICAL [...] 10/2009, and 2019 except sigmoid diverticulosis Denies MD,CVA,Lung disease,renal disease Sigmoid diverticulitis confi rmed on CAT scan and treated with outpatient antibiotics in June of 2014; had an episode in 02/2016 treated with outpatient antibiotics--- he also had episodes in June of 2016, August of 2016, and February 2017--he was referred to the colorectal surgeons at [facility] in August 2016--seen by Dr. Malave in [...] esophagitis nor Agudelo's esophagus, benign gastric polyps Enlarged prostate- Dr. Monsivais Surgical History Surgery Date(Month/Year) R Knee Cataracts both eyes carpal tunnel as above Right 4th finger laceration Shoulder surgery-right 11/2018 Left wrist 05/2023 Back L5-S1 03/24/2024 Future surgery for enlarged prostate as of the 09/04/24 OV - Dr. Monsivais
== END 2024-10-28 08:40 | disposition home or self-care (01) ==
LOC: HO.HAP 08:39
PROVIDERS: Visit Provider Internal Medicine
DX: Z46.1 Encounter for fitting and adjustment of hearing aid (principal); H90.3 Sensorineural hearing loss, bilateral
CPT/HCPCS: 92593; V5267

== ENCOUNTER 2024-11-17 05:51 | Day surgery (SDC) | payer MEDICARE, SELFPAY ==
--- NOTE | 2024-11-14 08:55 | HO.ANESPROP2 ---
Documented by User: Gladys Jackson NP 11/14/24 08:56 HPI - Anesthesia Eval Consult details Narrative: 69yo M for Laser Ablation Prostate w/Green Light PMFSH Active Problems Active Problems: All Active Problems Bladder outlet obstruction (Acute) Acute urinary retention (Acute) Lumbar radiculopathy (Acute) Gallbladder sludge (Acute) Hemorrhoids with complication (Acute) Past Medical History Medical History Gallbladder sludge Hemorrhoids with complication Diabetes Pancreatic cyst Hepatic hemangioma Diverticulitis HSV infection HTN (hypertension) Hepatitis C Family History Family History Maternal Grandfather Cancer of unknown origin Surgical History Surgical History S/p bilateral carpal tunnel release Social History Social History Patient Tobacco Use Status: Never used Tobacco Use of substances other than those prescribed or required for medical reasons: No Are you DNR?: No Advance Directives: No Advance Directives Information Provided: Yes Meds Allergies Allergy/AdvReac Type Severity Reaction Status Date / Time No Known Allergies Allergy Verified 08/21/24 08:39 [No Known Allergies*] Home Medications ?Medication ?Instructions ?Recorded ?Confirmed ?Last Taken ?Type acyclovir 400 mg tablet 400 mg PO BID 12/07/21 11/29/23 Unknown History atorvastatin 10 mg tablet 10 mg PO DAILY 12/07/21 11/29/23 Unknown History hydrochlorothiazide 25 mg tablet 25 mg PO DAILY 12/07/21 11/29/23 Unknown History lisinopril 40 mg tablet 40 mg PO DAILY 12/07/21 11/29/23 Unknown History metformin 500 mg tablet,extended 1,000 mg PO BID 12/07/21 11/29/23 Unknown History release 24 hr multivitamin 1 tab PO DAILY 12/07/21 11/29/23 Unknown History pantoprazole 40 mg tablet,delayed 40 mg PO DAILY 12/07/21 11/29/23 Unknown History release insulin glargine 100 unit/mL (3 unit subcut 11/29/23 11/29/23 Unknown History mL) subcutaneous pen (Alyse Gonzalez U-100 Insulin) Exam Height,Weight and Vital Signs: Height 5 ft 10 in Pertinent Lab Results Pertinent Lab Results: Laboratory Tests 09/15/24 06:24 WBC 6.8 Hgb 15.3 Hct 42.7 Plt Count 222 Sodium 142 Potassium 3.7 Chloride 107 Carbon Dioxide 23 BUN 26 H Creatinine 1.10 Narrative Narrative: EKG 2023 Vent. Rate : 063 BPM Atrial Rate : 063 BPM P-R Int : 160 ms QRS Dur : 084 ms QT Int : 414 ms P-R-T Axes : 036 -10 037 degrees QTc Int : 423 ms Sinus rhythm with occasional Premature ventricular complexes Minimal voltage criteria for LVH, may be normal variant ( R in aVL ) Borderline ECG When compared with ECG of 10-JUN-2012 07:54, Premature ventricular complexes are now Present Assessment and Plan Assessment Anesthesia Assessment: Chart Reviewed Documented by User: Richard Guerra MD 11/17/24 07:52 PMFSH Past Medical History Medical History Gallbladder sludge Hemorrhoids with complication Diabetes Pancreatic cyst Hepatic hemangioma Diverticulitis HSV infection HTN (hypertension) Hepatitis C Family History Family History Maternal Grandfather Cancer of unknown origin Family history of problems with anesthesia: No Surgical History Surgical History S/p bilateral carpal tunnel release History of Problems with Anesthesia: No Social History Social History Patient Tobacco Use Status: Never used Tobacco Use of substances other than those prescribed or required for medical reasons: No Are you DNR?: No Advance Directives: No Advance Directives Information Provided: Yes Meds Allergies Allergy/AdvReac Type Severity Reaction Status Date / Time No Known Allergies Allergy Verified 08/21/24 08:39 [No Known Allergies*] Home Medications ?Medication ?Instructions ?Recorded ?Confirmed ?Last Taken ?Type acyclovir 400 mg tablet 400 mg PO BID 12/07/21 11/29/23 Unknown History atorvastatin 10 mg tablet 10 mg PO DAILY 12/07/21 11/29/23 Unknown History hydrochlorothiazide 25 mg tablet 25 mg PO DAILY 12/07/21 11/29/23 Unknown History lisinopril 40 mg tablet 40 mg PO DAILY 12/07/21 11/29/23 Unknown History metformin 500 mg tablet,extended 1,000 mg PO BID 12/07/21 11/29/23 Unknown History release 24 hr multivitamin 1 tab PO DAILY 12/07/21 11/29/23 Unknown History pantoprazole 40 mg tablet,delayed 40 mg PO DAILY 12/07/21 11/29/23 Unknown History release insulin glargine 100 unit/mL (3 unit subcut 11/29/23 11/29/23 Unknown History mL) subcutaneous pen (Basaglar KwikPen U-100 Insulin) Exam Airway Mallampati Class: II TM Dist: <=3cm Neck ROM: Full Loose/Missing/Broken Teeth: No Heart: ok Lungs: ok Assessment and Plan Assessment Anesthesia Assessment: Anesthesia Plan Discussed Final Anesthetic Review Family History of Problems with Anesthesia: No History of Problems with Anesthesia: No NPO: Yes ASA Class: II Final Preanesthetic Review: No Changes in Pt Med Stat, Meds/Allgs Chart Reviewed, Consent Obtained/Reviewed and Anes Risks/Benef Reviewed Patient Risk: Intermediate Procedure Risk: Low Anesthetic Plan Anesthetic Plan: GA and Agree w/ Assess. and Plan Disposition: Standard PACU
[2024-11-17] VITALS (8 sets, daily range): BP systolic 131–167; BP diastolic 79–85; PULSE 58–76; RESP 16–18; TEMP 36.1–36.6; O2SAT 93–98; BMI 28.2
[2024-11-17 06:25] LABS: Glucose, Whole Blood 168 mg/dL (60-115)
[2024-11-17] MEDS: Lactated Ringers 1,000 ML 100 ML IVCONT (06:45)
--- NOTE | 2024-11-17 07:26 | MHC.SHP ---
Pre-Procedural Eval Section A - 24 Hr Update-Section A only Date of Service: 11/17/24 The patient is an INPATIENT: No Changes since office visit: No Cold of Flu in the past 2 weeks, No New Medical Problems, No Changes in Medication and No Patient answered all questions The patient has been examined within 24 hours of the surgical procedure. The History & Physical has been completed within 30 days and I have reviewed it.: No Section B - Complete if H&P > 30 days Chief Complaint: Retention of urine, unspecified Details of Present Illness: greenlight laser prostate Relevant Social History: None Present Medications: see Short Stay Collaborative assessment Medical History: No relevant PMH History of Previous Operations: No relevant previous surgery Allergies: Allergies Allergy/AdvReac Type Severity Reaction Status Date / Time No Known Allergies Allergy Verified 08/21/24 08:39 [No Known Allergies*] Review of Systems Sugical H&P ROS: Negative: Constitution, Cardiovascular, Respiratory, Neurological, Psychiatric, Hem-Onc, Allergic/Immunologic, Gastrointestinal, Genitourinary, Musculoskeletal, Integumentary, Endocrine and Eyes/Ears/Nose/Throat Exam Surgical H&P Exam: Normal: HEENT, Normal: Heart, Normal: Lungs, Normal: Extremities, Normal: Abdomen, Normal: Skin and Normal: Neurological Plan Diagnosis/Plan: Unchanged I have reviewed the history and physical and performed a pertinent physical examination on my patient. No changes have occurred unless specified. Time Spent With Patient Time: Total time managing care of this patient today ____ minutes.
[2024-11-17] MEDS: ceFAZolin Sodium/Dextrose,Iso 2 GM/50 ML PIGGYBACK IV (07:33)
--- NOTE | 2024-11-17 08:38 | P.OP_ITS ---
Operative Note Operative Note Date of Service: 11/17/24 Narrative: PreOperative Diagnosis: Bladder outlet obstruction Post Operative Diagnosis: Bladder outlet obstruction Procedure: GreenLight Laser Enucleation of the prostate CPT 47951 Surgeon: Dr Ulisses Monsivais Anesthesia: General History of bladder outlet obstruction. Initial presentation with urinary retention. Failed voiding trial. On cystoscopy in office has significantly enlarged median lobe. Recommendation for prostate procedure with laser enucleation of prostate. Risks and benefits have been discussed. Focus was placed on development of retrograde ejaculation which is a normal part of this procedure. Procedure: After informed consent was verified the patient was brought to the operating room and placed in a supine position. Anesthesia was administered per protocol. Patient was placed in modified dorsal lithotomy position and prepped and draped in a sterile fashion. Safety pause time-out was confirmed. Antibiotics have been given. A Twenty-four [place] laser cystoscope was inserted per urethra. No abnormalities were found of the anterior and bulbar urethra. The prostatic urethra shows primarily median lobe hypertrophy. The bladder was examined and both ureteric orifices were seen in their normal positions away from the area of interest. Bladder trabeculation Grade 2. Using a GreenLight laser with initial settings of 80 huffman incisions were made at the 5 and 7 o'clock position. The incisions were taken down from the bladder neck down to the area just proximal of the veru. These were gradually deepened in order to define the lateral aspects of the median lobe area. The deep boundary of enucleation was defined by the prostate surgical capsule. Once clearly defined the grooves were extended in the lateral directions in order to create a deep groove. The median lobe was then ablated and enucleated tissue released into the bladder with the laser power increased to 120 W - and after partial removal to 140 w. Once the median lobe area had been cleared, attention was directed to the lateral lobes. Starting with the patient's left lateral lobe. First the 05:00 o'clock groove was further developed. This was moved in the lateral direction to undermine the tissue on the lateral side running from the bladder neck to the prostate apex. The ureteric orifice was used to guide incisions. The laser fiber was placed at the 1 o'clock position and a secondary groove was developed down to the level of prostatic capsule. The creation of a second deep groove defined a segment of intervening tissue similar to a slice of orange. At the apex of the prostate the laser was used to vertically link the two grooves releasing the intervening tissue and creating a segment of tissue. This tissue was then removed with a combination of enucleation and ablation working from the apex toward the bladder neck. A similar procedure was repeated on the patient's right-hand side. The only differences being the position of the lateral groove at he 7 o'clock position and the secondary groove at the 11 o'clock position, Otherwise the procedure was developed in a mirror fashion. At power of 140 w After the majority of tissue had been debulked remnant tissue was ablated with the side fire laser and the curve of the prostate followed up each side wall clearly defining the anterior remnant strip that remained between the 11 and 1 o'clock positions. At completion debris and pieces of prostate were removed from the bladder with irrigation. Both ureteric orifices were reviewed again in shown to be patent in away from any areas of energy damage. The apical area was reviewed and any stray mucosal ooze was controlled. A 22 Citizen [place] 30 cc balloon Butler catheter was placed into the bladder using a flexible stylet. Clear efflux was obtained upon irrigation with a Grace piston syringe. 30 cc was placed in the balloon and gentle traction was placed. A snap was used to hold tension on the catheter to control bleeding during patient moved and transported. A drainage bag was placed. Once transportation is complete to the PACU the snap will be removed. The patient tolerated the procedure well, he was extubated in the operating and transferred in a stable condition to the recovery area. Total Power 169 kW Lasing time 25 min Pathology: Prostate tissue Drains: Butler catheter
[2024-11-17] MEDS: oxyCODONE HCl Immed Release 5 MG TABLET PO (08:53)
[2024-11-17] MEDS: Acetaminophen 325 MG TABLET 975 MG PO (09:16)
[2024-11-17] MEDS: ondansetron HCL 4 MG/2 ML VIAL IVPUSH (09:26)
[2024-11-17] MEDS: Phenazopyridine HCL 100 MG TABLET PO (09:58)
== END 2024-11-17 10:29 | disposition home or self-care (01) ==
PROVIDERS: PCP Internal Medicine; Visit Provider Urology
PROC: (CPT 52648; principal; 2024-11-17 07:30)
DX: N40.3 Nodular prostate with lower urinary tract symptoms (principal); N32.0 Bladder-neck obstruction; R33.8 Other retention of urine; I10 Essential (primary) hypertension; E11.9 Type 2 diabetes mellitus without complications; K86.2 Cyst of pancreas; D18.03 Hemangioma of intra-abdominal structures; B00.9 Herpesviral infection, unspecified; Z87.19 Personal history of other diseases of the digestive system; Z79.4 Long term (current) use of insulin; Z79.84 Long term (current) use of oral hypoglycemic drugs; Z79.899 Other long term (current) drug therapy; Z86.19 Personal history of other infectious and parasitic diseases
CPT/HCPCS: 52649; 82947; 88305; J0690; J2003; J2405; J2704; J3010

== ENCOUNTER → 2024-11-17 05:51 | Outpatient (BNV) | payer MEDICARE, SELFPAY | PROVIDERS: PCP Internal Medicine; Visit Provider Urology | DX: N32.0 Bladder-neck obstruction (principal) | CPT/HCPCS: 52649 ==

== ENCOUNTER → 2024-11-19 08:57 | Outpatient (BNVA) | payer MEDICARE, SELFPAY | PROVIDERS: PCP Internal Medicine; Visit Provider Urology | DX: N32.0 Bladder-neck obstruction (principal); R33.8 Other retention of urine | CPT/HCPCS: 51700 ==

== ENCOUNTER 2024-12-01 06:07 | Outpatient (REF) | payer MEDICARE, SELFPAY ==
--- OUTSIDE RECORDS SUMMARY | 2024-12-01 06:10 | XMS_ITS ---
[facility] Address [address] [facility] [place] [address] Care Team Providers Care Derrick Boat Captain Name Role Phone Markos Mulligan MD Primary Care Provider Manolo Sales Unavailable [phone] Allergies No Known Allergies REASON FOR VISIT [...] 06/10/2024 Encounters Encounter Location Date Provider Diagnosis [facility] [address] [address] 06/10/2024 Manolo Riojas Type 2 diabetes mellitus [...] Name:Manolo Riojas , 06/09/2025 08:45:00 AM, [address] [place], [address], Progress Notes * Paulo SALGDAO MDOB:1954 (69 yo M)Acc No.[id number]:06/10/2024 Progress Note Patient:?Paulo SALGADO Provider:?Manolo Riojas DPM :1955???Age:69 Y???Sex:Male [place] e:06/10/2024 Address:[address] [place] [address], [id number] Pcp:Markos Mulligan MD Subjective: * Chief Complaints: [...] Riojas DPM Date:?2023 Generated for Adrian wilcox/Latasha/Heladio on:?12/01/2024 06:10 AM EDT History and Physical Notes * HPI (History [...] No Charcot javy apse/destruction noted at [facility] FOOTWEAR EVALUATION: worn, OT were inspe cted and noted to be severely worn , [...]
--- OUTSIDE RECORDS SUMMARY | 2024-12-01 06:10 | XMS_ITS | Clinical Summary ---
Author Organization [facility] Address [address] [place] [address] Care Team Providers Care Prosthodontist/Owner Name Role Phone Markos Mulligan MD Primary Care Provider [phone] Surgical History Surgery Date Site/Laterality Comments CARPAL [...] 05/09/2021, 04/14/2020, Additional history exists RSV Immunization Adult Patients (1 - 1-dose 75+ series) 01/02/2028 Zoster [...] age to complete this topic Care Teams Prosthodontist/Owner Relationship Specialty Start Date End Date Markos Mulligan MD [address] [place] [address] PCP - General 09/18/22
--- OUTSIDE RECORDS SUMMARY | 2024-12-01 06:10 | XMS_ITS ---
Author Organization [facility] Address [address] [place] [address] Care Team Providers Care Scale Expert Name Role Phone Markos Mulligan MD Primary Care Provider Steven Monteiro Unavailable [phone] Allergies No Known Allergies REASON FOR VISIT Patient presents today for hep c Medications Medication SIG (Take, Route, Frequency, Duration) [...] Orally Once a day/ as needed Active Vital Signs Blood pressure systolic 00 mm Hg 09/04/19 25 Blood pressure diastolic 00 mm Hg 025 Height 69 in 09/04/2024 Weight 189 lbs 09/04/2024 BMI 27.91 kg/m2 09/04/2024 Encounters Encounter Location Date Provider Diagnosis [facility] [address] [place] [address] 09/04/2024 Steven Rodgers Pancreatic cyst K86. 2 ; Liver fibrosis K74.00 ; History of hepatitis C Z86.19 ; Gastroesophageal reflux disease without esophagitis K21.9 and Other irritable bowel syndrome K58.8 Assessments Encounter Date Diagnosis (ICD Code) Assessment Notes Treatment Notes Treatment Clinical Notes Section Notes 09/04/2024 Pancreatic cyst (ICD-10 - K86.2) Overall, Shaun appears to be doing well. He is not having any new nor worrisome GI complaints at the present time. His reflux is well controlled on his PPI. He has not had any recent symptoms to suggest diverticulitis . We did review that he won't be due for a screening colonoscopy until 2029 given his negative exam in 2019 and no family history of colon cancer. He does not show any signs nor is he having any symptoms of progressive liver disease. His studies from the past 1 to 1 1/2 years ago all appeared quite stable, including the imaging of his pancreatic cysts. I have recommended further followup of his previous hepatitis C and some component of liver fibrosis with the below laboratories. The MRI of the abdomen will be to followup on his known pancreatic cysts and chronic liver disease. If his upcoming studies are stable and he otherwise remains well I will plan to see Shaun in one year for a followup office visit. Shaun was comfortable with this plan. Thank you again for allowing me to participate in Shaun's care. I shall continue to keep you advised of his progress. 09/04/2024 Liver fibrosis (ICD-10 - K74.00) Overall, Shaun appears to be doing well. He is not having any new nor worrisome GI complaints at the present time. His reflux is well controlled on his PPI. He has not had any recent symptoms to suggest diverticulitis . We did review that he won't be due for a screening colonoscopy until 2029 given his negative exam in 2019 and no family history of colon cancer. He does not show any signs nor is he having any symptoms of progressive liver disease. His studies from the past 1 to 1 1/2 years ago all appeared quite stable, including the imaging of his pancreatic cysts. I have recommended further followup of his previous hepatitis C and some component of liver fibrosis with the below laboratories. The MRI of the abdomen will be to followup on his known pancreatic cysts and chronic liver disease. If his upcoming studies are stable and he otherwise remains well I will plan to see Shaun in one year for a followup office visit. Shaun was comfortable with this plan. Thank you again for allowing me to participate in Shaun's care. I shall continue to keep you advised of his progress. 09/04/2024 History of hepatitis C (ICD-10 - Z86.19) Overall, Shaun appears to be doing well. He is not having any new nor worrisome GI complaints at the present time. His reflux is well controlled on his PPI. He has not had any recent symptoms to suggest diverticulitis . We did review that he won't be due for a screening colonoscopy until 2029 given his negative exam in 2019 and no family history of colon cancer. He does not show any signs nor is he having any symptoms of progressive liver disease. His studies from the past 1 to 08 27/2 years ago all appeared quite stable, including the imaging of his pancreatic cysts. I have recommended further followup of his previous hepatitis C and some component of liver fibrosis with the below laboratories. The MRI of the abdomen will be to followup on his known pancreatic cysts and chronic liver disease. If his upcoming studies are stable and he otherwise remains well I will plan to see Shaun in one year for a followup office visit. Shaun was comfortable with this plan. Thank you again for allowing me to participate in Shaun's care. I shall continue to keep you advised of his progress. 09/04/2024 Gastroesophageal reflux disease without esophagitis (ICD-10 - K21.9) Overall, Shaun appears to be doing well. He is not having any new nor worrisome GI complaints at the present time. His reflux is well controlled on his PPI. He has not had any recent symptoms to suggest diverticulitis . We did review that he won't be due for a screening colonoscopy until 2029 given his negative exam in 2019 and no family history of colon cancer. He does not show any signs nor is he having any symptoms of progressive liver disease. His studies from the past 1 to 1 /2 years ago all appeared quite stable, including the imaging of his pancreatic cysts. I have recommended further followup of his previous hepatitis C and some component of liver fibrosis with the below laboratories. The MRI of the abdomen will be to followup on his known pancreatic cysts and chronic liver disease. If his upcoming studies are stable and he otherwise remains well I will plan to see Shaun in one year for a followup office visit. Shaun was comfortable with this plan. Thank you again for allowing me to participate in Shaun's care. I shall continue to keep you advised of his progress. 09/04/2024 Other irritable bowel syndrome (ICD-10 - K58.8) Overall, Shaun appears to be doing well. He is not having any new nor worrisome GI complaints at the present time. His reflux is well controlled on his PPI. He has not had any recent symptoms to suggest diverticulitis . We did review that he won't be due for a screening colonoscopy until 2029 given his negative exam in 2019 and no family history of colon cancer. He does not show any signs nor is he having any symptoms of progressive liver disease. His studies from the past 1 to 1 1/2 years ago all appeared quite stable, including the imaging of his pancreatic cysts. I have recommended further followup of his previous hepatitis C and some component of liver fibrosis with the below laboratories. The MRI of the abdomen will be to followup on his known pancreatic cysts and chronic liver disease. If his upcoming studies are stable and he otherwise remains well I will plan to see Shaun in one year for a followup office visit. Shaun was comfortable with this plan. Thank you again for allowing me to participate in Shaun's care. I shall continue to keep you advised of his progress. Plan Of Treatment Pending Test Test Name Order Date BUN 09/04/2024 LIVER PROFILE 09/04/2024 CBC w DIFF 09/04/2024 ALPHA-FETOPROTEIN,TUMOR MARKER 5 CA 19-9 09/04/2024 MRI ABD W&WO CONTRAST 09/04/2024 HCV LIVER FIBROSIS, FIBRO TEST 5 Prothrombin Time INR 09/04/2024 Creatinine 09/04/2024 Next Appt Details Follow Up: 1 Year, Reason: Provider Name:Steven Rodgers , 09/08/2025 09:10:00 AM, [address], [address], [place], [address], Progress Notes * WILLY SALGADODOB:[birth year] (69 yo M)Acc No.[id number]:09/04/2024 Progress Notes Patient:WILLY ANSARI Provider:?Steven Rodgers MD :1955???Age:69 Y???Sex:Male Corona e:09/04/2024 Address:[address] [place] [address], [place], [facility] Pcp:Markos Mulligan MD Subjective: * Chief Complaints: * ???1. Patient presents today for hep c. * HPI: ???incontinence:? I saw Shaun in followup today in regard to his previous history of chronic hepatitis C, known history of pancreatic cysts and hepatic hemangiomas, gastroesophageal reflux, and history of irregular bowel movements with known diverticulosis. I last saw Shaun in March of 2023. Since that time he reports that he has been doing well from a GI standpoint. He reports that he has not been having any heartburn, dysphagia, anorexia, early satiety, nausea, nor vomiting. He has not had any specific abdominal pains, jaundice, unintentional weight loss, increasing abdominal girth, edema, pruritus, or fatigue. His bowel movements have actually been fairly regular and without any hematochezia nor melena. Laboratories and imaging studies from the latter part of 2022 and the early part of 2023 were all stable. The ultrasound and CT scan did not show any change in the pancreatic cysts or hepatic hemangioma. There was no radiographic evidence of cirrhosis and there was no splenomegaly or ascites. Laboratories revealed a normal CBC with platelet count, normal LFTs, normal chemistries, normal alpha- fetoprotein level, and a normal CA 19-9 level. * ROS:?General/Constitutional:?Change in appetite?denies.?Chills?denies.?Fatigue?denies.?Ophthalmologic:?Comments?all negative.?ENT:?Comments?all negative.?Respiratory:?hemoptysis?denies.?Cough?denies.?Cardiovascular:?Chest pain?denies.?Orthopnea?denies.?Gastrointestinal:?Comments?See HPI for details.?Genitourinary:?Hematuria?denies.?Dysuria?denies.?Musculoskeletal:?Painful joints?denies.?Weakness?denies.?Skin:?Itching?denies.?Rash?denies.?Neurologic:?Headache?denies.?Seizures?denies.?Psychiatric:?Comments?all negative.? * Medical History:?Chronic Hep C-Genotype 1a--liver bx in 2008 showed only a grade 1/4 hepatitis and stage I/IV fibrosis- Finished 3 months of the Viekira/Ribaviirn in the beginning of 04/2015--HCV was neg. on 06/21/15, 10/2015, 04/2016, and 05/2019, HTN, Bilateral carpal tunnel-surgery with Dr. Gooden, Genital herpes, Neg. colonoscopy in 1999, 10/2009, and 10/2019 except sigmoid diverticulosis, Denies MO,CVA,Lung disease,renal disease, Sigmoid diverticulitis confirmed on CAT scan and treated with outpatient antibiotics in June of 2014; had an episode in 02/2016 treated with outpatient antibiotics--- he also had episodes in June of 2016, August of 2016, and February 2017--he was referred to the colorectal surgeons at [facility] in August 2016--seen by Dr. Malave in 09/2016 and the plan is to observe things but recommend surgery if things recur, Hepatic hemangioma was seen on his CAT scan and MRI in 2013--F/U in 05/2018 was stable; 09/2020 MRI was stable, Small pancreatic cysts seen on the MRI in 2013--he was evaluated by Dr. Brewster who did not think an endoscopic ultrasound was required and recommended a follow up MRI for 2015--F/U MRI in 05/2018 was stable. MRI in 05/2019 was stable; 09/2020 was stable, NIDDM, IBS, EGD 12/2020--minimal hiatal hernia, minimal gastritis, gastric biopsies negative for H. pylori, no esophagitis nor Agudelo's esophagus, benign gastric polyps, Enlarged prostate- Dr. Monsivais . * Surgical History:?R Knee , C ataracts both eyes , carpal tunnel as above , Right 4th finger laceration , Shoulder surgery-right 11/2018, Left wrist 05/2023, Back L5- S1 03/24/2024, Future surgery for enlarged prostate as of the 09/04/24 OV - Dr. Monsivais . * Family History:?Father: dece ased, diagnosed with Diabetes, Heart disease, HTN (hypertension).?Mother: alive.?Maternal Grand Father: , diagnosed with Colon cancer.? No 1st degree relatives with colorectal cancer or liver disease. * Social History:?Tobacco Use:?Tobacco Use/Smoking?Are you a: nonsmoker.?Drugs/Alcohol:?Alcohol Screen?Points: 0, Interpretation: Negative.?Miscellaneous:?Marital status: . 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 ???Nonsmoker; no alcohol. * Medications:?Taking Insulin Glargine 100 UNIT/ML Solution as directed/26 units Subcutaneous once a day , Taking Finasteride 5 MG Tablet 1 tablet Orally Once a day , Taking Tamsulosin HCl 0.4 MG Capsule 2 capsule Orally Once a day , Taking Gabapentin 600 MG Tablet 1 capsule Orally three times a day , Taking Banatrol , Taking Acyclovir 400 MG Tablet 1 tablet Orally once a day , Taking metFORMIN HCl 500 MG Tablet 4 tablet with meals Orally Once a day , Taking hydroCHLOROthiazide 25 MG Tablet 1 tablet Orally Once a day , Taking Multivitamin Adult - Tablet as directed Orally once a day , Taking Claritin 10 MG Tablet 1 tablet Orally Once a day/ as needed , Taking Stool Softener 100 MG Capsule 1 capsule as needed Orally Once a day , Taking Fiber 625 MG Tablet 2 tablets as needed Orally as directed , Taking Lisinopril 20 MG Tablet 1 tablet Orally Once a day , Taking Atorvastatin Calcium 10 MG Tablet 1 tablet Orally Once a day , Taking Move Free Joint Health Advance - Tablet as directed Orally once a day , Taking Flaxseed Oil 1000 MG Capsule as directed Orally once a day , Taking Probiotic - Capsule as directed Orally , Taking Protonix 40 MG Tablet Delayed Release 1 tablet Orally Once a day , Not-Taking/PRN Tylenol Extra Strength , Discontinued Meloxicam 15 MG Tablet Oral , Discontinued Cipro 500 MG Tablet 1 tablet Orally Twice a day , Discontinued Flagyl 500 MG Tablet 1 tablet Orally Three times a day , Discontinued Pantoprazole Sodium 40 MG Tablet Delayed Release TAKE 1 TABLET BY MOUTH EVERY DAY FOR 30 DAYS , Medication List reviewed and reconciled with the patient * Allergies:?N.K.D.A. Objective: * Vitals:?Wt: 189 lbs, Ht: 69 in, BMI:27.91Index, BP: 00/00 mm Hg. * Examination: ???General Examination: ?GENERAL APPEARANCE:?pleasant, well nourished, well developed, in no acute distress.?EYES:?sclera non-icteric.?ORAL CAVITY:?mucosa moist.?NECK/THYROID:?no cervical lymphadenopathy, neck supple.?SKIN:?nonjaundiced, no spider angiomata.?HEART:?S1, S2 normal.?LUNGS:?clear to auscultation bilaterally.?ABDOMEN:?normal bowel sounds, no guarding or rigidity, no masses palpable, soft, nondistended, NT.?EXTREMITIES:?no edema.?NEUROLOGIC:?alert and oriented.? Assessment: * Assessment: 1.?Liver fibrosis - K74.00 ( Primary)???2.?Pancreatic cyst - K86.2???3.?History of hepatitis C - Z86.19???4.?Gastroesophageal reflux disease without esophagitis - K21.9???5.?Other irritable bowel syndrome - K58.8??? Overall, Shaun appears to be doing well. He is not having any new nor worrisome GI complaints at the present time. His reflux is well controlled on his PPI. He has not had any recent symptoms to suggest diverticulitis. We did review that he won't be due for a screening colonoscopy until 2029 given his negative exam in 2019 and no family history of colon cancer. He does not show any signs nor is he having any symptoms of progressive liver disease. His studies from the past 1 to 1 1/2 years ago all appeared quite stable, including the imaging of his pancreatic cysts. I have recommended further followup of his previous hepatitis C and some component of liver fibrosis with the below laboratories. The MRI of the abdomen will be to followup on his known pancreatic cysts and chronic liver disease. If his upcoming studies are stable and he otherwise remains well I will plan to see Shaun in one year for a followup office visit. Shaun was comfortable with this plan. Thank you again for allowing me to participate in Shaun's care. I shall continue to keep you advised of his progress. Plan: * Treatment: * 2.?Pancreatic cyst?LAB: BUN ?LAB: LIVER PROFILE ?LAB: CBC w DIFF ?LAB: ALPHA-FETOPROTEIN,TUMOR MARKER ?LAB: CA 19-9 ?LAB: HCV LIVER FIBROSIS, FIBRO TEST ?LAB: Prothrombin Time INR ?LAB: Creatinine ?Imaging: MRI ABD W&WO CONTRAST* Colon,Ritika 09/04/2024 10:5 4:14 AM EST >order faxed for scheduling * 3.?History of hepatitis C?LAB: BUN ?LAB: LIVER PROFILE ?LAB: CBC w DIFF ?LAB: ALPHA-FETOPROTEIN,TUMOR MARKER ?LAB: CA 19-9 ?LAB: HCV LIVER FIBROSIS, FIBRO TEST ?LAB: Prothrombin Time INR ?LAB: Creatinine ?Imaging: MRI ABD W&WO CONTRAST* Colon,Ritika 09/04/2024 10:5 4:14 AM EST >order faxed for scheduling * * Procedure Codes:?3017F COLOR ECTAL CA SCREEN DOC REV, 1036F TOBACCO NON-USER, G8785 BP SCR NOT PRFRM REC REASON NOS * Preventive Medicine:? ??Counseling:?Care goal follow-up plan:?Above Normal BMI Follow-up?Giving encouragement to exercise,?BMI management provided?Yes.? ??Screenings:?Fall Risk Screening?Fall Risk Assessment:?No falls in the past year,?Screening:?No falls in the past year,?Assessment:?Not performed, no reason specified,?Plan of Care:?Not documented, no reason specified.? * Follow Up:?1 Year * * The named appointment provid er may or may not be the originator of this progress note, and it is not deemed complete until electronically signed by the appointment provider. Sign off status: Pending * Provider:?Steven Rodgers MD Date:? 025 Generated for Adrian wilcox/Latasha/Jonelsmitting on:?12/01/2024 06:10 AM EDT History and Physical Notes * HPI (History of Present Illness) Category Sub-Category Detail Notes Category Not es incontinence I saw Shaun in followup today in regard to his previous history of chronic hepatitis C, known history of pancreatic cysts and hepatic hemangiomas, gastroesophageal reflux, and history of irregular bowel movements with known diverticulosis. I last saw Shaun in March of 2023. Since that time he reports that he has been doing well from a GI standpoint. He reports that he has not been having any heartburn, dysphagia, anorexia, early satiety, nausea, nor vomiting. He has not had any specific abdominal pains, jaundice, unintentional weight loss, increasing abdominal girth, edema, pruritus, or fatigue. His bowel movements have actually been fairly regular and without any hematochezia nor melena. Laboratories and imaging studies from the latter part of 2022 and the early part of 2023 were all stable. The ultrasound and CT scan did not show any change in the pancreatic cysts or hepatic hemangioma. There was no radiographic evidence of cirrhosis and there was no splenomegaly or ascites. Laboratories revealed a normal CBC with platelet count, normal LFTs, normal chemistries, normal alpha-fetoprotein level, and a normal CA 19-9 level. Examination Category Sub-Category Detail Notes Category Not es General Examination GENERAL APPEARANCE: pleasant , well [...]
--- OUTSIDE RECORDS SUMMARY | 2024-12-01 06:10 | XMS_ITS ---
Author Organization [facility] Address [address] [address] Care Team Providers Care Hide Mill Man Name Role Phone Markos Mulligan MD Primary Care Provider Manolo Sales Unavailable [phone] Allergies No Known Allergies REASON FOR VISIT [...] 023 Encounters Encounter Location Date Provider Diagnosis [facility] [place] [address] [place] [address] 06/05/2023 Manolo Riojas Type 2 diabetes mellitus [...] Name:Manolo Riojas , 06/09/2025 08:45:00 AM, [address] [place], [address], Progress Notes * Paulo SALGADO MDOB:1954 (68 yo M)Acc No.[id number]:06/05/2023 Progress Note Patient:Paulo Soto Provider:?Manolo Riojas DPM :1955???Age:68 Y???Sex:Male Corona e:06/05/2023 Address:[address] [place] [address], [place] Pcp:Markos Mulligan MD Subjective: * Chief Complaints: [...] Riojas DPM Date:?2022 Generated for Adrian wilcox/Latasha/Heladio on:?12/01/2024 06:10 AM [...] apse/destruction noted at [facility] FOOTWEAR EVALUATION: worn, non-supportiv e , shoe gear properties exacerbate patients foot/toe [...]
--- OUTSIDE RECORDS SUMMARY | 2024-12-01 06:11 | XMS_ITS ---
Author Organization [facility] Address [address] [place] [address] Care Team Providers Care Chancery Clerk Name Role Phone Markos Mulligan MD Primary Care Provider Steven Monteiro [phone] Encounters Encounter Location Date Provider Diagnosis [facility] [address] [place] [address] 11/18/2024 Steven Rodgers Plan Of Treatment Next Appt Details Provider Name:Steven Rodgers , 09/08/2025 09:10:00 AM, [address], [address], [place], [address], Progress Notes * WILLY SALGADODOB:[birth year] (69 yo M)Acc No.[id number]:11/18/2024 Patient:?WILLY SALGADO :1955???Age:69 Y???Sex:Male Address:[address] [place] [address] * true * Date:? Generated for Printi ng/Facatalina/eTransmitting on:?12/01/2024 06:10 AM EDT
--- OUTSIDE RECORDS SUMMARY | 2024-12-01 06:11 | XMS_ITS ---
Author Organization [facility] Address [address] [place] [address] Care Team Providers Care Nuclear Medical Tech Name Role Phone Markos Mulligan MD Primary Care Provider Steven Monteiro [phone] REASON FOR VISIT PLEASE LOCK NOTE Encounters Encounter Location Date Provider Diagnosis [facility] [address] [facility] [address] [place] [address] 11/19/2024 Steven Rodgers Plan Of Treatment Next Appt Details Provider Name:Steven Rodgers , 09/08/2025 09:10:00 AM, [address], [address], [place], [address], Progress Notes * WILLY SALGADODOB:[birth year] (69 yo M)Acc No.[id number]:11/19/2024 Patient:?WILLY SALGADO :1955???Age:69 Y???Sex:Male Address:[address] [place] [address] * true * Date:? Generated for Printi brenden/Latasha/eTransmitting on:?12/01/2024 06:10 AM EDT
--- OUTSIDE RECORDS SUMMARY | 2024-12-01 06:11 | XMS_ITS ---
Author Organization [facility] Address [address] [place] [address] Care Team Providers Care Licensed Massage Therapist Name Role Phone Markos Mulligan MD Primary Care Provider Unavaila Manolo Cardoza Unavailable [phone] REASON FOR VISIT Seen Sooner Encounters Encounter Location Date Provider Diagnosis [address] [address] 06/29/2023 Manolo Riojas Plan Of Treatment Next Appt Details Provider Name:Manolo Riojas , 06/09/2025 08:45:00 AM, [address] [place] [address], [address], Progress Notes * Paulo SALGADO MDOB:1954 (69 yo M)Acc No.[id number]:06/29/2023 Progress Note Patient:?Paulo SALGADO Provider:?Manolo Riojas DPM :1955???Age:68 Y???Sex:Male Corona e:06/29/2023 Address:[address], [place] Pcp:Markos Mulligan MD Subjective: * Chief Complaints: [...]
--- OUTSIDE RECORDS SUMMARY | 2024-12-01 06:11 | XMS_ITS | Patient Health Record ---
Author Organization [facility] Address [address] [place] [address] Care Team Providers Care Surgical Scrub Technician Name Role Phone Markos Mulligan MD Primary Care Provider Manolo Sales Unavailable [phone] Allergies No Known Allergies Results Component Value [...] Problem Acquired hammer toe of right foot (025563127060 9105) Other hammer toe(s) (acquired), right foot (M20.41) Active confirmed Problem Acquired hammer toe of left foot (788504695073 9103) Other hammer toe(s) (acquired), left foot (M20.42) Active confirmed Problem 12407696 Type 2 diabetes mellitus without complication (E11.9) Active confirmed Vital Signs Height 5ft 8in in 06/10/2024 Weight 175 lbs 06/10/2024 BMI 26.61 kg/m2 06/10/2024 Encounters Encounter Location Date Provider Diagnosis [facility] [address] [address] 06/10/2024 Manolo Riojas Type 2 diabetes mellitus [...] Treatment Pending Test Test Name Order Date [id number]-Undveatr Plate 04/04/2022 99510-Vstaceys Plate Each Additional 04/2022 [id number] 11/07/2022 [id number] 03/07/2023 [id number]-UZEFYHM SKIN/TISSUE 03/29/2023 93447-WIXPJMN SKIN/TISSUE 11/21/2022 34948 I&D ABSCESS- SIMPLE,SINGLE 021 Next Appt Details Provider Name:Manolo Riojas , 06/09/2025 08:45:00 AM, [address] [facility], [place], [address], Insurance Providers Payer Name Payer Address Payer Phone Subscriber Number Group Number Insured Name Patient Relationship to Insured Coverage Start Date Coverage End Date Medicare National [employer] [address] [facility] [place] [address] [id number] Paulo Savage Self - patient is the insured [employer] [address] [place] [address] [id number] Paulo Savage Self - patient is the [...]
[2024-12-01 08:41] LABS: Estimated Average Glucose 128 mg/dL; Hemoglobin A1C 167.0271 umol/L; Hemoglobin A1c % 6.1 % (<6.0); Total Hemoglobin (HGBA1C) 3895.2041 umol/L
[2024-12-01 08:50] LABS: Alanine Aminotransferase 16 U/L (0-40); Albumin Level 4.5 g/dL (3.5-5.0); Alkaline Phosphatase 61 U/L (39-117); Anion Gap 13 (12-20); Aspartate Amino Transferase 24 U/L (5-37); Bilirubin Total 0.4 mg/dL (0.0-1.0); Blood Urea Nitrogen 29 mg/dL (9-16); Calcium 9.6 mg/dL (8.4-10.2); Carbon Dioxide 26 mmol/L (22-29); Chloride 107 mmol/L (96-108); Cholesterol 158 mg/dL (<200); Estimated Glomerular Filt Rate > 60; Glucose Random 149 mg/dL (60-115); HDL Cholesterol 23 mg/dL (>40); LDL Cholesterol Calculated 66 mg/dL (<100); Potassium 3.9 mmol/L (3.3-5.1); Sodium 142 mmol/L (135-145); Total Protein 7.6 g/dL (6.5-8.0); Triglycerides 346 mg/dL (<150)
[2024-12-01 08:51] LABS: Microalbum/Creatinine Ratio Ur 227.5 ug/mg cr (<30)
[2024-12-01 09:10] LABS: TSH reflex Free T4 1.99 uIU/mL (0.32-4.0)
[2024-12-03 00:19] LABS: LDL Cholesterol Direct 75 mg/dL (<100)
== END 2024-12-01 06:08 | disposition home or self-care (01) ==
LOC: HO.LAB 06:07
PROVIDERS: PCP Internal Medicine; Visit Provider Internal Medicine
DX: I10 Essential (primary) hypertension (principal); E78.1 Pure hyperglyceridemia; Z13.1 Encounter for screening for diabetes mellitus
CPT/HCPCS: 36415; 80053; 80061; 82043; 82570; 83036; 83721; 84443

== ENCOUNTER 2024-12-26 14:42 | Outpatient (AMB) | payer MEDICARE, SELFPAY ==
--- NOTE | 2024-12-26 14:45 | MHC.OFFVIS ---
Intake Visit Reasons: [facility]- follow up Intake Note: Patient is present for [facility] F/U Urology Medication:TAMSULOSIN,FINASTERIDE Antibiotic Allergy:NONE Blood Thinner: NONE TODAY'S PVR:230ML'S Green Inspector Required: No Allergies No Known Allergies (No Known Allergies*) Allergy (Verified 12/26/24 14:46) HPI Comments Details: Keon is a pleasant male. He is a patient of Dr. Mulligan. He seen for the following urologic conditions - urinary retention - lower urinary tract symptoms Six week follow-up [facility] laser Effective urination Effective stream Six-month follow-up office with PVR Lower urinary tract symptoms Three-month follow-up Urinary retention Initial presentation following L5-S1 spine fusion with Dr. Crawford Has been on alpha-celine Butler catheter been placed for large voiding residual 07/15 1.2, 01/13 1.0 PFSH Medical History Gallbladder sludge Hemorrhoids with complication Diabetes Pancreatic cyst Hepatic hemangioma Diverticulitis HSV infection HTN (hypertension) Hepatitis C Surgical History S/p bilateral carpal tunnel release Family History Maternal Grandfather Cancer of unknown origin Social History Patient Tobacco Use Status: Never used Tobacco Review of Systems Const Denies chills and Denies fever(s) Card Reports no additional complaints and Denies syncope Resp Denies cough GI Denies abdominal pain and Denies heartburn Reports as per HPI and Denies change in libido Neuro Denies syncope Psych Denies change in libido Endo Denies change in libido Physical Exam Const General: cooperative, healthy appearing, comfortable and no acute distress Orientation/consciousness: patient oriented x3 HEENT Face and sinus: Yes normal facial exam Mouth: moist mucous membranes Neck Neck: Yes normal visual inspection, Yes full ROM and Yes trachea midline Chest Chest palpation & inspection: normal inspection of the chest Resp Effort & Inspection: normal respiratory effort, able to speak in complete sentences and no respiratory distress GI Inspection: Yes normal to inspection Back/Spine/Pelvis Cervical Spine: normal cervical lordosis Thoracic/Lumbar Spine: thoracic and lumbar spine normal to inspection Skin General skin exam: no rashes or lesions noted Neuro General: patient oriented x3, gait normal, tone normal and moves all extremities Extrem General: Yes normal to inspection and Yes capillary refill normal Office Procedures Post Void Residual Post Residual Void Post Void Residual (PVR): 230 75376-Itcm Void Residual by ultrasound Assessment & Plan Assessment & Plan (1) Acute urinary retention: Code(s): R33.8 - Other retention of urine Category: Medical (2) Bladder outlet obstruction: Code(s): N32.0 - Bladder-neck obstruction Category: Medical Plan Six-month follow-up PSA Orders: Orders Prostate Specific Antigen 6 Months N32.0 - Bladder-neck obstruction Patient Instructions: This note is constructed using voice recognition software. While every effort has been made to ensure accuracy route service representative errors may have been included. Imaging studies, laboratory and physical exam results were discussed and reviewed in detail. No major barriers to patient understanding were identified. An opportunity to ask questions regarding the treatment plan was provided. All questions were answered. The patient expressed understanding and agreement with the above treatment plan. The patient is aware they should contact our office by phone for worsening of their current condition or the appearance of new urologic symptoms. Compliance is encouraged with any medications and followup testing that is ordered. It is a privilege to participate in the urologic care of your patient. If you have any questions or concerns regarding treatment for the above conditions, or other urologic issues, please do not hesitate to contact me. The office telephone contact is [phone]. Sincerely, Dr Ulisses Monsivais MD, [facility] - Urology Compassionate Specialist Care for the Genitourinary System Coding Level of Care Code Est Pt Level 3 (03734) Diagnoses Acute urinary retention R33.8 Bladder outlet obstruction N32.0 CPT Codes Post Residual Void - PVR CPT Code: 98188-Iscl Void Residual by ultrasound ([id number])
--- OUTSIDE RECORDS SUMMARY | 2024-12-26 14:45 | XMS_ITS | Clinical Summary ---
Author Organization [facility] Address [address] [place] [address] Care Team Providers Care Aircraft Powerplant Repairer Name Role Phone Markos Mulligan MD Primary Care Provider [phone] Surgical History Surgery Date Site/Laterality Comments CARPAL [...] mellitus type 2, co ntrolled, with complications (CMS/HCC V24, CMS/HCC V28) DX:Diabetes mellitus type 2, controlled, with complications ([facility]); COMMENT: last A1c 6.30 November 2023 Social [...] 07/12/2021, 10/25/2020, Additional history exists Influenza Vaccine (Season Ended) 2025 05/30/2022, 05/09/2021, 04/14/2020, Additional history exists RSV Immunization [...] age to complete this topic Meningococcal B Vaccine Aged Out No l onger eligible based on patient's age to complete this topic RSV Immunization Patients Under 20 months Aged Out No longer eligible based on patient's age to complete this topic Varicella Vaccines Aged Out No longer eligible based on patient's age to complete this topic Care Teams Aircraft Powerplant Repairer Relationship Specialty Start Date End Date Markos Mulligan MD [address] [place] [address] PCP - General 09/18/22
--- OUTSIDE RECORDS SUMMARY | 2024-12-26 14:45 | XMS_ITS ---
Author Organization [facility] Address [address] [place] [address] Care Team Providers Care House Servant Name Role Phone Markos Mulligan MD Primary Care Provider Steven Monteiro Unavailable [phone] Allergies No Known Allergies REASON FOR VISIT [...] 09/04/2024 Encounters Encounter Location Date Provider Diagnosis [facility] [address] [place] [address] 09/04/2024 Steven Rodgers Pancreatic cyst K86. 2 [...] Name:Steven Rodgers , 09/08/2025 09:10:00 AM, [address], [address], [place], [address], Progress Notes * WILLY SALGADODOB:[birth year] (69 yo M)Acc No.[id number]:09/04/2024 Progress Notes Patient:WILLY ANSARI Provider:?Steven Rodgers MD :1955???Age:69 Y???Sex:Male Corona e:09/04/2024 Address:[address] [place] [address], [place], [id number] Pcp:Markos Mulligan MD Subjective: * Chief Complaints: * ???Patient presents today fo r hep c * HPI: ???incontinence:? I saw Shaun in [...] HPI for details.?Genitourinary:?Hematuria?denies.?Dysuria?denies.?Musculoskeletal:?Painful joints?denies.?Weakness?denies.?Skin:?Itching?denies.?Rash?denies.?Neurologic:?Headache?denies.?Seizures?denies.?Psychiatric:?Comments?all negative.? * Medical History:? * Surgical History:?R Knee Cat aracts both eyes carpal tunnel as above Right 4th finger laceration Shoulder surgery-right 11/2018Left wrist ack L5-S1 03/24/2024Future surgery for enlarged prostate as of the 09/04/24 OV - Dr. Monsivais * Hospitalization/Major Diagno stic Procedure:?No Hospitalization History. * Family History:?Father: dece ased, diagnosed with Diabetes, Heart disease, HTN (hypertension).?Mother: alive.?Maternal Grand Father: , diagnosed with Colon cancer.? No 1st degree relatives with colorectal cancer or liver disease. * Social History:?Tobacco Use:?Tobacco Use/Smoking?Are you a: nonsmoker.?Drugs/Alcohol:?Alcohol Screen?Points: 0, Interpretation: Negative.?Miscellaneous:?Marital status: . 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 ???Nonsmoker; no alcohol. * Medications:?TakingInsulin G largine 100 UNIT/ML Solution as directed/26 units Subcutaneous once a day Finasteride 5 MG Tablet 1 tablet Orally Once a day Tamsulosin HCl 0.4 MG Capsule 2 capsule Orally Once a day Gabapentin 600 MG Tablet 1 capsule Orally three times a day Banatrol Acyclovir 400 MG Tablet 1 tablet Orally once a day metFORMIN HCl 500 MG Tablet 4 tablet with meals Orally Once a day hydroCHLOROthiazide 25 MG Tablet 1 tablet Orally Once a day Multivitamin Adult - Tablet as directed Orally once a day Claritin 10 MG Tablet 1 tablet Orally Once a day/ as needed Stool Softener 100 MG Capsule 1 capsule as needed Orally Once a day Fiber 625 MG Tablet 2 tablets as needed Orally as directed Lisinopril 20 MG Tablet 1 tablet Orally Once a day Atorvastatin Calcium 10 MG Tablet 1 tablet Orally Once a day Move [email or web address] Advance - Tablet as directed Orally once a day Flaxseed Oil 1000 MG Capsule as directed Orally once a day Probiotic - Capsule as directed Orally Protonix 40 MG Tablet Delayed Release 1 tablet Orally Once a day Taking Insulin Glargine 100 UNIT/ML Solution as directed/26 units Subcutaneous once a day Taking Finasteride 5 MG Tablet 1 tablet Orally Once a day Taking Tamsulosin HCl 0.4 MG Capsule 2 capsule Orally Once a day Taking Gabapentin 600 MG Tablet 1 capsule Orally three times a day Taking Banatrol Taking Acyclovir 400 MG Tablet 1 tablet Orally once a day Taking metFORMIN HCl 500 MG Tablet 4 tablet with meals Orally Once a day Taking hydroCHLOROthiazide 25 MG Tablet 1 tablet Orally Once a day Taking Multivitamin Adult - Tablet as directed Orally once a day Taking Claritin 10 MG Tablet 1 tablet Orally Once a day/ as needed Taking Stool Softener 100 MG Capsule 1 capsule as needed Orally Once a day Taking Fiber 625 MG Tablet 2 tablets as needed Orally as directed Taking Lisinopril 20 MG Tablet 1 tablet Orally Once a day Taking Atorvastatin Calcium 10 MG Tablet 1 tablet Orally Once a day Taking [facility] [email or web address] Advance - Tablet as directed Orally once a day Taking Flaxseed Oil 1000 MG Capsule as directed Orally once a day Taking Probiotic - Capsule as directed Orally Taking Protonix 40 MG Tablet Delayed Release 1 tablet Orally Once a day Not-Taking/PRNTylenol Extra Strength Not-Taking/PRN Tylenol Extra Strength DiscontinuedMeloxicam 15 MG Tablet Oral Cipro 500 MG Tablet 1 tablet Orally Twice a day Flagyl 500 MG Tablet 1 tablet Orally Three times a day Pantoprazole Sodium 40 MG Tablet Delayed Release TAKE 1 TABLET BY MOUTH EVERY DAY FOR 30 DAYS Medication List reviewed and reconciled with the patientDiscontinued Meloxicam 15 MG Tablet Oral Discontinued Cipro 500 MG Tablet 1 tablet Orally Twice a day Discontinued Flagyl 500 MG Tablet 1 tablet Orally Three times a day Discontinued Pantoprazole Sodium 40 MG Tablet Delayed Release TAKE 1 TABLET BY MOUTH EVERY DAY FOR 30 DAYS Medication List reviewed and reconciled with the patient * Allergies:?N.K.D.A.yes[Aller gies Verified] Objective: * Vitals:?Wt: 189 lbs, Ht: 69 [...] be due for a screening colonoscopy until 2030 given his negative exam in 2020 and no family history of colon cancer. [...] Procedure Codes:?3017F COLOR ECTAL CA SCREEN DOC [id number] TOBACCO [id number] BP SCR NOT PRFRM REC REASON NOS * Preventive Medicine:? ??Counseling:?Care goal follow-up plan:?Above Normal BMI Follow-up?Giving encouragement to exercise,?BMI management provided?Yes.? ??Screenings:?Fall Risk Screening?Fall Risk Assessment:?No falls in the past year,?Screening:?No falls in the past year,?Assessment:?Not performed, no reason specified,?Plan of Care:?Not documented, no reason specified.? * Follow Up:?1 Year * * Sign off status: Completed true * Provider:?Steven Rodgers MD Date:? 025 Generated for Adrian wilcox/Latasha/eTransmitting on:?12/26/2024 02:45 PM EDT History and Physical Notes * HPI [...]
--- OUTSIDE RECORDS SUMMARY | 2024-12-26 14:45 | XMS_ITS ---
Author Organization [facility] Address [address] [place] [address] Care Team Providers Care Wire Harness Design Engineer Name Role Phone Markos Mulligan MD Primary Care Provider Steven Monteiro [phone] Encounters Encounter Location Date Provider Diagnosis [facility] [address] [place] [address] 11/18/2024 Steven Rodgers Plan Of Treatment Next Appt Details Provider Name:Steven Rodgers , 09/08/2025 09:10:00 AM, [address], [address], [place], [address], Progress Notes * WILLY SALGADODOB:[birth year] (69 yo M)Acc No.[id number]:11/18/2024 Patient:?WILLY SALGADO :1955???Age:69 Y???Sex:Male Address:[address] [place] [address] * true * Date:? Generated for Printi ng/Fahermelindog/eTransmitting on:?12/26/2024 02:45 PM EDT
--- OUTSIDE RECORDS SUMMARY | 2024-12-26 14:45 | XMS_ITS ---
Author Organization [facility] Address [address] [facility] [place] [address] Care Team Providers Care Finishing Technician Name Role Phone Markos Mulligan MD Primary Care Provider Manolo Sales Unavailable [phone] Allergies No Known Allergies REASON FOR VISIT [...] 06/10/2024 Encounters Encounter Location Date Provider Diagnosis [facility] [address] [address] 06/10/2024 Manolo Riojas Type 2 diabetes mellitus [...] Name:Manolo Riojas , 06/09/2025 08:45:00 AM, [address] [place], [address], Progress Notes * Paulo SALGADO MDOB:1954 (69 yo M)Acc No.[id number]:06/10/2024 Progress Note Patient:?Paulo SALGADO Provider:?Manolo Riojas DPM :1955???Age:69 Y???Sex:Male Corona e:06/10/2024 Address:[address] [place] [address], [id number] Pcp:Markos Mulligan MD Subjective: * Chief Complaints: [...] Riojas DPM Date:?2023 Generated for Adrian wilcox/Latasha/Heladio on:?12/26/2024 02:45 PM EDT History and Physical [...]
--- OUTSIDE RECORDS SUMMARY | 2024-12-26 14:46 | XMS_ITS | Patient Health Record ---
[facility] Address [address] [facility] [place] [address] Care Team Providers Care Pest Control Worker Helper Name Role Phone Markos Mulligan MD Primary Care Provider Manolo Sales Unavailable [phone] Allergies No Known Allergies Results Component Value [...] Problem Acquired hammer toe of right foot (768130899171 9105) Other hammer toe(s) (acquired), right foot (M20.41) Active confirmed Problem Acquired hammer toe of left foot ([id number] 9103) Other hammer toe(s) (acquired), left foot (M20.42) Active confirmed Problem [id number] Type 2 diabetes mellitus without complication (E11.9) Active confirmed Vital Signs Height 5ft 8in in 06/10/2024 Weight 175 lbs 06/10/2024 BMI 26.61 kg/m2 06/10/2024 Encounters Encounter Location Date Provider Diagnosis [facility] [address] [address] 06/10/2024 Manolo Riojas Type 2 diabetes mellitus [...] Treatment Pending Test Test Name Order Date [id number]-Ddoynscq Plate 04/04/2022 86263-Gphvrpzc Plate Each Additional 04/2022 93080-UED 11/07/2022 93737-DFZ 03/07/2023 31616-KABAHWL SKIN/TISSUE 03/29/2023 63653-MTJCDDN SKIN/TISSUE 11/21/2022 92565 I&D ABSCESS- SIMPLE,SINGLE 021 Next Appt Details Provider Name:Manolo Riojas , 06/09/2025 08:45:00 AM, [address] [facility], [place], [address], Insurance Providers Payer Name Payer Address Payer Phone Subscriber Number Group Number Insured Name Patient Relationship to Insured Coverage Start Date Coverage End Date Medicare National [employer]t [employer] [address] [facility] [place] [address] [id number] Paulo Savage Self - patient is the insured [employer] [address] [place] [address] [phone] [id number] Paulo Savage Self - patient is the [...]
--- OUTSIDE RECORDS SUMMARY | 2024-12-26 14:46 | XMS_ITS | Patient Health Record ---
Author Organization [facility] Address [address] [place] [address] Care Team Providers Care Business Development Representative Name Role Phone Markos Mulligan MD Primary Care Provider Steven Monteiro [phone] Allergies No Known Allergies Results Component Value Reference Range Notes MR abdomen wo/w con Reviewed date:10/18/2024 10:14:57 PM Interpretation: Performing Lab: Notes/Report: [address] [address] Magnetic Resonance Report Signed Patient: Willy Salgado MR#: [id number] : 1955 Acct:[id number] Age/Sex: 69 / M ADM Date: 09/11/24 Loc: HO.MRI Attending Dr: Steven Rodgers MD Ordering Physician: Steven Rodgers MD Date of Service: 09/11/24 Procedure(s): MR abdomen wo/w con Accession Number(s): [id number] cc: Markos Mulligan MD; Steven Rodgers MD [...] by: Steven Wells MD 09/11/2024 01:44 PM [facility] Dictated By: Steven Wells MD Signed By: <Electronically signed by Steven Wells MD in OV> 09/11/24 1344 DD/ 0830 TD/TT: 09/11/24 0915 [employer] Estate Internship: [place] [address] Magnetic Resonance Report Signed Patient: Willy Salgado MR#: [id number] : 1955 Acct:[id number] Age/Sex: 69 / M ADM Date: 09/11/24 Loc: HO.MRI Attending Dr: Steven Rodgers MD Ordering Physician: Steven Rodgers MD Date of Service: 09/11/24 Procedure(s): MR abdomen wo/w con Accession Number(s): [id number] cc: Markos Mulligan MD ; Steven Rodgers MD EXAMINATION: MRI Abdomen without and with contrast HISTORY: Pancreatic cyst COMPARISON: Comparis on is made with the prior examination dated 06/06/2023. TECHNIQUE: Axial in and out of phase T1-weighted gradient echo, axial diffusion weighted, and axial and coronal haste T2 with fat saturation images were obtained through the abdomen. 3D MRCP Reconstructed images and thick slab imagi ng of the biliary tree were obtained. Subsequently, fat suppressed axial and coronal T1-weighted images were obtained after the intravenous administration of 8.5 mL Gadavist. FINDINGS: There is n o significant signal loss in the liver on opposed phase imaging to suggest steatosis. There is no intra or extrahepatic biliary ductal dilatation. Again seen is a 5 mm T2 hyperintense enhancing lesion in segment VII and an additional 5 mm T2 enhancing lesion in segment IV which likely represent hemangiomas. An additional 2 mm arterial enhanc ing focus is noted in segment VIII (series 20, image 20). This is t oo small to accurately characterize. The hepatic and portal veins are patent. There are multiple calculi in the gallbladder. Again seen is a 12 x 4 mm T2 hyperintense lesion in the neck of the pancreas without abnormal enhancement. A 5 mm T2 hyperintense focus is again noted in the body of the pancreas without associated enhancement. There is a punctate T2 hyperintense focus i n the tail of the pancreas. This also does not enhance. The pancrea tic duct is normal in caliber. The spleen, adrenals , and kidneys are unremarkable. No retroperitoneal lymphadenopathy or ascites is identified in the upper abdomen. ___ MR/MR abdomen wo/w con IMPRESSION: 1. Stable cystic foc i in the pancreas as described. Continued follow-up is recommended. 2. Probable small hemangiomata in the liver as detailed above. These are stable. Electronically blaze d by: Steven Wells MD 09/11/2024 01:44 PM [facility] Dictated By: Steven Wells MD Signed By: <Electronically signed by Steven Wells MD in OV> 09/11/24 1344 DD/ 0830 TD/TT: 09/11/24 0915 Real Estate Internship: Complete Blood Count Auto Di ff Reviewed date:10/18/2024 10:15:21 PM Interpretation: Performing Lab:[facility], [address] [place] [phone] Notes/Report: White Blood Count 6.8 4.8-10.8 X10*3/uL [...] 0.0-0.2 /100WBC Neutrophils Absolute Auto 4.5 2.0-8.3 x10*3/uL Imm Gran Abs Auto 0.03 0.00-0.03 X10*3/uL Lymphocytes Absolute Auto 1.6 1.2-4.9 X10*3/uL Monocytes Absolute Auto 0.7 0.1-1.2 X10*3/uL Eosinophils Absolute Auto 0.1 0.0-0.4 X10*3/uL Basophils Absolute Auto 0.0 0.0-0.2 X10*3/uL NRBC Abs Auto 0.000 0.0-0.012 X10*3/uL Prothrombin Time INR Reviewed date:09/15/2024 09:35:56 PM Interpretation: Performing Lab:[facility], [address] [place] [phone] Notes/Report: Prothrombin Time 11.9 10.9-12.4 [employer] [...] Panel Reviewed date:09/15/2024 09:35:47 PM Interpretation: Performing Lab:[address] [address] Notes/Report: Bilirubin Total 0.4 0.0-1.0 mg/dL Bilirubin Direct 0.1 0.0-0.5 mg/dL Aspartate Amino Transferase 29 5-37 U/L Alanine Aminotransferase 24 0-40 U/L Total Protein 8.2 6.5-8.0 g/dL Albumin Level 4.8 3.5-5.0 g/dL Alkaline Phosphatase 71 39-117 U/L Blood Urea Nitrogen Reviewed date:09/15/2024 09:35:35 PM Interpretation: Performing Lab:[address] [address] Notes/Report: Blood Urea Nitrogen 26 9-16 mg/dL Creatinine Reviewed date:09/15/2024 09:35:24 PM Interpretation: Performing Lab:[address] [address] Notes/Report: Creatinine 1.01 0.5-1.4 mg/dL Estimated Glomerular Filt Rate > 60 Chronic Kidney Disease: Estimated GFR < 60 mL/min/1.73m2 Severe Kidney Disease: Estimated GFR < 15 mL/min/1.73m2 Carbohydrate Antigen 19-9 Reviewed date:09/21/2024 02:53:31 PM Interpretation: Performing Lab:[address] [address] Notes/Report: Carbohydrate Antigen 19-9 11 <34 U/mL This test was performed using the Siemens chemiluminescent method. Values obtained from different assay methods cannot be used interchangeably. CA 19-9 levels, regardless of value, should not be interpreted as absolute evidence of the presence or absence of disease. THIS TEST WAS PERFORMED AT: [employer] [address] [place] [phone] KIRAN PRATHER MD Alpha Fetoprotein Reviewed date:09/21/2024 02:53:40 PM Interpretation: Performing Lab:[facility], [address] [place] [phone] Notes/Report: Alpha Fetoprotein 2.1 <6.1 ng/mL This test was performed using the [place] chemiluminescent method. Values obtained from different assay methods cannot be used interchangeably. AFP levels, regardless of value, should not be interpreted as absolute evidence of the presence or absence of disease. THIS TEST WAS PERFORMED AT: [facility] [address] [place] [phone] KIRAN PRATHER MD Liver Fibrosis Pnl Reviewed date:09/21/2024 02:54:05 PM Interpretation: Performing Lab:[facility], [address] [place] [phone] Notes/Report: Liver Fibrosis Score 0.59 Liver Fibrosis [...] a>0.62 and a<=1.00 : A3 (severe activity) RQT-Jgpvs-3-Macroglobuli n 373 106-279 mg/dL FIB-Haptoglobin 89 43-212 mg/dL FIB-Apolipoprotein A1 117 94-176 mg/dL FIB-Total Bilirubin 0.3 0.2-1.2 mg/dL FIB-GGT 13 3-70 U/L FIB-ALT 15 9-46 U/L Reference ID [id number] Footnote SEE NOTE The reliability of results is dependent on compliance with the preanalytical and analytical conditions recommended by [employer]. The tests have to be deferred for: [...] The performance characteristics have been determined by [employer] [facility]. It has not been cleared or approved by the U.S. Food and Drug Administration. Performance characteristics refer to the analytical performance of the test. [employer], the associated logo, byUs and all associated [employer] larry are the registered trademarks of [employer]. All third libertarian larry - (R) and (TM) - are the property of their respective owners. (C) 4451-9515 [employer]. All rights reserved. THIS TEST WAS PERFORMED AT: [employer] [facility] [address] [place] [address] ROBERTO COLÓN MD,PHD,KELLIE Reason For Referral No Information Medications Medication [...] three times a day Active Move Free Joint [facility] Advance - as directed Orally once a day Active Tamsulosin HCl 0.4 MG 2 capsule Orally Once a day Active Atorvastatin Calcium 10 MG 1 tablet Oral ly Once a day for 30 day(s) Active Immunizations Vaccine Route Administration Date Status Comme nts Influenza Unknown 04/27/2018 Administered Influenza Unknown 05/27/2020 Administered Influenza Unknown 05/27/2021 Administered Problems Problem Type SNOMED Code ICD Code Onset Dates Problem Status W/U Status Risk Notes Problem 44936058 Epigastric pain (R10.13) Active confirmed Problem 9818193 Diverticulitis o f large intestine without perforation or abscess without bleeding (K57.32) Active confirmed Problem 230808312 Encounter for screening for malignant neoplasm of colon (Z12.11) Active confirmed Problem 650345633 Abdominal bloati ng (R14.0) Active confirmed Problem 05393313 Other hemorrhoid s (K64.8) Active confirmed Problem 528047295 Gastroesophageal reflux disease without esophagitis (K21.9) Active confirmed Problem 264585542 Chronic hepatiti s C without hepatic coma (B18.2) Active confirmed Problem 61767299 Pancreatic cyst (K86.2) Active confirmed Problem 131677762 Abdominal pain, left lower quadrant (R10.32) Active confirmed Problem 12113530450465 History of hepatitis C (Z86.19) Active confirmed Problem 540122840 Abdominal pain, generalized (R10.84) Active confirmed Problem 26850625 Abdominal distension (R14.0) Active confirmed Problem 16151930 Other irritable bowel syndrome (K58.8) Active confirmed Problem 39510411 Diarrhea of presumed infectious origin (R19.7) Active confirmed Problem 99989069 Liver fibrosis (K74.00) Active confirmed Problem 81518730 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 2 ; Liver fibrosis K74.00 ; History of hepatitis C Z86.19 ; Gastroesophageal reflux disease without esophagitis K21.9 and Other irritable bowel syndrome K58.8 [facility] [address] [place] [address] 04/24/2024 Steven Rodgers [facility] [address] [place] [phone] 06/23/2024 Steven Rodgers [facility] [address] [place] [address] 11/18/2024 Steven Rodgers [facility] [address] [place] [address] 11/19/2024 Steven Rodgers Assessments Encounter Date Diagnosis (ICD Code) Assessment [...] Pending Test Test Name Order Date BUN 04/20/2017 BUN 04/29/2019 BUN 06/30/2014 BUN 04/24/2023 BUN 09/30/2020 BUN 09/04/2024 CREATININE 09/30/2020 CREATININE 04/20/2017 CREATININE 04/29/2019 CREATININE 06/30/2014 LIVER PROFILE 04/24/2023 LIVER PROFILE 06/30/2014 LIVER PROFILE 09/04/2024 LIVER PROFILE 04/02/2015 LIVER PROFILE 01/21/2015 LIVER PROFILE 09/30/2020 LIVER PROFILE 05/09/2012 LIVER PROFILE 04/20/2017 LIVER PROFILE 12/13/2021 LIVER PROFILE 07/01/2015 LIVER PROFILE 04/23/2015 CBC w DIFF 02/18/2015 CBC w DIFF 04/23/2015 CBC w DIFF 04/24/2023 CBC w DIFF 06/30/2014 CBC w DIFF 09/04/2024 CBC w DIFF 04/02/2015 CBC w DIFF 07/13/2016 CBC w DIFF 01/21/2015 CBC w DIFF 09/30/2020 CBC w DIFF 04/20/2017 PROTHROMBIN TIME (PT, INR) 09/30/2020 PROTHROMBIN TIME (PT, INR) 04/20/2017 ALPHA-FETOPROTEIN,TUMOR MARKER 1 ALPHA-FETOPROTEIN,TUMOR MARKER 9 ALPHA-FETOPROTEIN,TUMOR MARKER 7 ALPHA-FETOPROTEIN,TUMOR MARKER 3 ALPHA-FETOPROTEIN,TUMOR MARKER 5 ALPHA-FETOPROTEIN,TUMOR MARKER 4 CELIAC PANEL #10 04/24/2023 CA 19-9 09/30/2020 CA 19-9 04/29/2019 CA 19-9 04/20/2017 CA 19-9 09/04/2024 CA 19-9 04/24/2023 CA 19-9 12/13/2021 HEPATITIS C VIRAL LOAD 04/24/2023 HEPATITIS C VIRAL LOAD 12/13/2021 HEPATITIS C VIRAL LOAD 04/23/2015 HEPATITIS C VIRAL LOAD 04/29/2019 HEPATITIS C VIRAL LOAD 04/20/2017 HEPATITIS C VIRAL LOAD 04/02/2015 HEPATITIS C VIRAL LOAD 01/21/2015 HEPATITIS C VIRAL LOAD 07/01/2015 CT ABD & PELVIS WITH CONTRAST 06/30/2014 CT ABD & PELVIS WITH CONTRAST 07/13/2016 MRI ABD NO CONTRAST (MRCP) 04/24/2023 MRI ABD W&WO CONTRAST 09/04/2024 MRI ABD W&WO CONTRAST 07/01/2014 MRI ABD W&WO CONTRAST 05/02/2016 MRI ABD W&WO CONTRAST 05/09/2018 MRI ABD W&WO CONTRAST 09/30/2020 MRI ABD W&WO CONTRAST 04/24/2023 MRI ABD W&WO CONTRAST 04/29/2019 MRI ABD W&WO CONTRAST 04/20/2017 HCV LIVER FIBROSIS, FIBRO TEST 5 HCV LIVER FIBROSIS, FIBRO TEST 2 HCV LIVER FIBROSIS, FIBRO TEST 3 STOOL WBC 04/04/2023 C DIFFICILE RFLX PCR 04/04/2023 Prothrombin Time INR 09/04/2024 Creatinine 09/04/2024 Alpha Fetoprotein 12/13/2021 Future Test Test Name Order Date COLONOSCOPY 04/29/2019 UPPER GI ENDOSCOPY 12/26/2020 Next Appt Details Provider Name:Steven Rodgers , 09/08/2025 09:10:00 AM, [address] [place] [address], [address], [place], [address], Insurance Providers Payer Name Payer Address Payer Phone Subscriber Number Group Number Insured Name Patient Relationship to Insured Coverage Start Date Coverage End Date MEDICARE OF [place] [address] [facility] [address] [phone] [id number] WILLY SORIANO Self - patient is the insured [employer] ATT[employer] CLAIMS [address] [place] [address] [id number] WILLY SORIANO Self - patient is the insured Medical (General) History Medical History History ICD Code Chronic Hep C-Genotype 1a--l iver bx in 2008 showed only a grade 1/4 hepatitis and stage I/IV fibrosis- Finished 3 months of the Viekira/Ribaviirn in the beginning of 04/2015--HCV was neg. on 06/21/15, 10/2015, 04/2016, and 05/2019 HTN Bilateral carpal tunnel-surgery with Dr. Gooden Genital herpes Neg. colonoscopy in 1999, 10/2009, and 2019 except sigmoid diverticulosis Denies MS,CVA,Lung disease,renal disease Sigmoid diverticulitis confi rmed on CAT scan and treated with outpatient antibiotics in June of 2014; had an episode in 02/2016 treated with outpatient antibiotics--- he also had episodes in June of 2016, August of 2016, and February 2017--he was referred to the colorectal surgeons at [facility] in August 2016--seen by Dr. [...]
--- OUTSIDE RECORDS SUMMARY | 2024-12-26 14:46 | XMS_ITS ---
Author Organization [facility] Address [address] [place] [address] Care Team Providers Care Expressive Therapist Name Role Phone Markos Mulligan MD Primary Care Provider Unavaila Manolo Cardoza Unavailable [phone] REASON FOR VISIT Seen Sooner Encounters Encounter Location Date Provider Diagnosis [address] [address] 06/29/2023 Manolo Riojas Plan Of Treatment Next Appt Details Provider Name:Manolo Riojas , 06/09/2025 08:45:00 AM, [address] [place] [address], [phone], Progress Notes * Paulo SALGADO MDOB:1954 (69 yo M)Acc No.[id number]:06/29/2023 Progress Note Patient:?Paulo SALGADO Provider:?Manolo Riojas DPM :1955???Age:68 Y???Sex:Male [place] e:06/29/2023 Address:[address], [place] Pcp:Markos Mulligan MD Subjective: * Chief Complaints: [...] Riojas DPM Date:?2022 Generated for Adrian wilcox/Latasha/Heladio on:?12/26/2024 02:45 PM EDT
--- OUTSIDE RECORDS SUMMARY | 2024-12-26 14:46 | XMS_ITS ---
Author Organization [facility] Address [address] [place] [address] Care Team Providers Care Sugar Cane Farm Manager Name Role Phone Markos Mulligan MD Primary Care Provider Steven Monteiro [phone] REASON FOR VISIT PLEASE LOCK NOTE Encounters Encounter Location Date Provider Diagnosis [facility] [address] [place] [address] 11/19/2024 Steven Rodgers Plan Of Treatment Next Appt Details Provider Name:Steven Rodgers , 09/08/2025 09:10:00 AM, [address], [address], [place], [address], Progress Notes * WILLY SALGADODOB:[birth year] (69 yo M)Acc No.[id number]:11/19/2024 Patient:?WILLY SALGADO :1955???Age:69 Y???Sex:Male Address:[address] [place] [address] * true * Date:? Generated for Printi brenden/Latasha/eTransmitting on:?12/26/2024 02:45 PM EDT
== END 2024-12-26 15:29 | disposition home or self-care (01) ==
LOC: HO.HUSH 14:42
PROVIDERS: PCP Internal Medicine; Visit Provider Urology
DX: R33.8 Other retention of urine (principal); N32.0 Bladder-neck obstruction
CPT/HCPCS: 99024

== ENCOUNTER → 2024-12-26 14:42 | Outpatient (BNVA) | payer MEDICARE, SELFPAY | PROVIDERS: PCP Internal Medicine; Visit Provider Urology | DX: R33.8 Other retention of urine (principal); N32.0 Bladder-neck obstruction; Z98.890 Other specified postprocedural states | CPT/HCPCS: 51798; 99212 ==

== ENCOUNTER 2025-03-23 06:01 | Outpatient (REF) | payer MEDICARE, SELFPAY ==
--- OUTSIDE RECORDS SUMMARY | 2025-03-23 06:04 | XMS_ITS | Clinical Summary ---
Author Organization [facility] Address [address] [address] Phone Care Team Providers Care School Bus Technician Name Role Phone Markos Mulligan MD Primary Care Provider [phone] Markos Mulligan MD Unavailable [phone] Markos Mulligan MD Unavailable [phone] Kaveh Garcia MD Unavailable Steven Rodgers MD Unavailable [phone] Allergies No known active allergies Medications GLUCOSAMINE/METHY LSULFONYLMETH (GLUCOSAMINE SULFATE-MSM ORAL) (Move free) Take 2 tablets by mouth once daily. Active pablbdhm-djr-oyoz ous fumarate 9 mg iron/15 mL Liqd Take 1 tablet by mouth once daily. Active flaxseed oil 1,000 mg Cap Take 1,000 mg by mouth daily. Active Lactobac no.41/Bifidobact no.7 (PROBIOTIC-10 ORAL) Take 1 tablet once daily. Active pantoprazole (PROTONIX) 40 MG tablet Take 40 mg by mouth daily. 021 Active loratadine (CLARITIN) 10 mg tablet Take 10 mg by mouth daily. Active acetaminophen (TYLENOL) 500 MG tablet Take 1,000 mg by mouth 3 (three) times a day. Active wheat dextrin (BENEFIBER CLEAR SF, DEXTRIN, ORAL) Take 3 teaspoonful by mouth 2 (two) times a day. Active hydrocortisone 2.5 % creamIndications: Unspecified hemorrhoids Apply 1 Application topically daily as needed. 28 g 3 024 Active FREESTYLE 28 gauge lancetsIndication s:Uncontrolled type 2 diabetes mellitus with hyperglycemia Test bs 3 x a day 300 each 11 024 Active FREESTYLE LITE Strp stripsIndications :Type 2 diabetes mellitus without complication, without long-term current use of insulin Inject 1 each under the skin 3 (three) times a day before meals. 300 strip 11 024 Active hydroCHLOROthiazi de 25 MG tabletIndications :Essential hypertension TAKE 1 TABLET (25 MG TOTAL) BY MOUTH DAILY. 90 tablet 3 024 Active gabapentin (NEURONTIN) 600 MG tablet Take 600 mg by mouth 3 (three) times a day. 024 Active metFORMIN (GLUCOPHAGE-XR) 500 MG 24 hr tabletIndications :Type 2 diabetes mellitus without complications Take 2 tablets (1,000 mg total) by mouth 2 (two) times a day. 360 tablet 3 024 Active lisinopril (PRINIVIL,ZESTRIL ) 40 MG tabletIndications :Essential hypertension TAKE 1 TABLET BY MOUTH EVERY DAY 90 tablet 3 024 Active insulin pen needles, disposable, (BD PIOTR 2ND GEN PEN NEEDLE) 32 gauge x 5/32 NdleIndications:U ncontrolled type 2 diabetes mellitus with hyperglycemia USE 1 NEEDLE NEEDED (EACH EVENING). 100 each 3 024 Active acyclovir (ZOVIRAX) 400 MG tablet TAKE 1 TABLET BY MOUTH TWICE A DAY 180 tablet 3 024 Active tamsulosin (FLOMAX) 0.4 mg Cap Take 0.8 mg by mouth nightly at bedtime. Active finasteride (PROSCAR) 5 mg tablet Take 5 mg by mouth daily. Active insulin glargine-yfgn (SEMGLEE,INSULIN GLARG-YFGN,PEN) 100 unit/mL (3 mL) subcutaneous penIndications:Ty pe 2 diabetes mellitus without complication, with long-term current use of insulin Inject 26 Units under the skin nightly at bedtime. 30 mL 3 025 2025 Active FREESTYLE TERRY 3 PLUS SENSOR Charisse Use as directed Active atorvastatin (LIPITOR) 10 MG tabletIndications :Mixed hyperlipidemia TAKE 1 TABLET BY MOUTH EVERY DAY 90 tablet 3 025 Active insulin degludec U-100 (TRESIBA) injection penIndications:Ty pe 2 diabetes mellitus without complication, with long-term current use of insulin Inject 26 Units under the skin nightly at bedtime. 30 mL 025 Active atorvastatin (LIPITOR) 10 MG tabletIndications :Mixed hyperlipidemia take 1 tablet by mouth every day 90 tablet 3 024 2024 Discontinued Active Problems Problem Noted Date Diagnosed Date Lumbar radiculopathy 04/12/2024 Overview (04/14/2024): Saw [facility] spine center- 03/06 saw Chandrakant Majano PA-C they will get new films and get pain med information from [facility]- then f/u with the pt Admitted to [facility] 03/24/24 for numbness and leg pain- plan a invasive microdiscectomy- saw Gregory Eugene PA-C Had surgery with Dr. Brandon 03/24/24- see media scan dated 03/24/24 Chronic hepatitis C without hepatic coma 024 Essential hypertension 2018 Bilateral hearing loss 2018 History of tobacco use 2018 Mixed hyperlipidemia 2018 Pulmonary nodules 2018 Type 2 diabetes mellitus without complications 0 2018 Encounters Date Type Department Care Team Description 03/13/2025 Refill [facility] [address] [place] [address] Markos Mulligan MD Med Change Request 03/08/2025 Refill [facility] [address] [place] [address] Markos Mulligan MD Medication Refill 01/07/2025 Telephone [facility] [address] [place] [address] Markos Mulligan MD Request For Records from Last 3 Months Immunizations Immunization Administration Dates Next Due COVID-19 (Pre-06/18) Moderna Vaccine, mRNA, PF 10/25/2020,09/27/2020 Influenza High-Dose Quadriva lent Preservative Free IM 05/09/2021 Influenza High-Dose Trivalen t Preservative Free IM 05/05/2024,04/29/2019,04/29/2018 Influenza Quadrivalent Adjuv anted Preservative Free IM 06/11/2023,05/30/2022 Influenza Quadrivalent Preservative Free IM 0 03/2017,05/05/2016 Influenza Trivalent w/ Preservative IM ,04/27/2018,05/17/2015 Influenza, Unspecified Formulation 04/14/2020 Pneumococcal conjugate PCV13 2018 Pneumococcal polysaccharide PPSV23 07/01/2020, RSV Vaccine (monovalent, adjuvanted) 05/10/2023 Td (adult),2 Lf Tetanus Toxo id, PF, Adsorbed 04/19/2015 Zoster live 08/28/2015 Zoster recombinant 04/01/2023,07/01/2018, 018 Family History Medical History Relation Comments Diabetes Father Heart disease Father Atrial fibrillation Mother Hypertension Mother Colon cancer Paternal Grandmother Relation Status Comments Brother 1 Alive Brother 2 Alive Brother 3 Alive Father (Age 78) Mother Alive HEALTHY HTN Paternal Grandmother Sister 1 Alive Sister 2 Alive Social History Tobacco Use Types Packs/Day Years Used Date Smoking Tobacco: Former Cigarettes 0.5 20 0 02/13/1980 - 1989 Smokeless Tobacco: Never Tobacco Cessation:Counseling Given: Not Answered Comments:quit 25 years ago Alcohol Use Standard Drinks/Week Comments Not Currently 0 (1 standard drink = 0.6 oz pure alcohol) has not had alcohol since late Education Answer Date Recorded Are you interested in more education? Not on yoel e 12/22/2022 Are you concerned about learning? Not on file 12/22/2022 No 12/22/2022 No 12/22/2022 Digital Access Answer Date Recorded No 01/16/2023 No 01/16/2023 Reliable internet access at home? Not on file 01/16/2023 Device with a working camera? Not on file Intimate Partner Violence Answer Date R ecorded Denied Basic Needs Not on file 03/20/2025 In the past 12 months have y ou been in a relationship with a person who hurts, threatens, or tries to control you? No 03/20/2025 Worried food would run out Not on file 03/20 In the past 12 months have y ou been in a relationship with a person who hurts, threatens, or tries to control you? No 03/20/2025 Sex and Gender Information Value Date Recorded Sex Assigned at Not on file Legal Sex Male 10:36 PM EDT Gender Identity Not on file Sexual Orientation Not on file Last Filed Vital Signs Vital Sign Reading Time Taken Comments Blood Pressure 126/67 12/04/2024 7:52 AM EDT Pulse 72 12/04/2024 7:52 AM EDT Temperature 36.6 C (97.9 F) 12/04/2024 7:52 AM EDT Respiratory Rate 16 12/04/2024 7:52 AM EDT Oxygen Saturation 98% 12/04/2024 7:52 AM EDT Inhaled Oxygen Concentration - - Weight 86.3 kg (190 lb 3.2 oz) 12/04/2024 7:52 A M EDT Height 173.7 cm (5' 8.39 ) 12/04/2024 7:52 AM ED T Body Mass Index 28.59 12/04/2024 7:52 AM EDT Plan of Treatment Upcoming Encounters Date Type Department Care Team (Late st Contact Info) Description 03/27/2025 11:00 AM EDT Office Visit [facility] [address] [place] [address] Markos Mulligan MD [address] [place] [address] [email or web address] Health Maintenance Due Date Last Done Comments HEPATITIS A VACCINES (1 of 2 - Risk 2-dose series) 01/02/1974 COLOGUARD 1998 FIT TEST 1998 FOBT 1998 SIGMOIDOSCOPY 1998 VIRTUAL COLONOSCOPY 1998 COVID-19 VACCINE ( season) 2024 05/30/2022, 11/24/2021, 07/12/2021, Additional history exists DIABETIC EYE EXAM 08/01/2024 08/01/2023, , 06/20/2022, Additional history exists DEPRESSION SCREENING 03/17/2025 03/17/2024, 03/17/20 24 Adult Td,Tdap Booster 04/19/2025 04/19/2015 HEMOGLOBIN A1C 06/02/2025 12/01/2024, 02/25, 11/13/2023, Additional history exists BLOOD PRESSURE 06/05/2025 12/04/2024 CREATININE LEVEL 12/01/2025 12/01/2024, , 11/27/2023, Additional history exists POTASSIUM LEVEL 12/01/2025 12/01/2024, 02/25, 11/27/2023, Additional history exists COLONOSCOPY 11/02/2029 11/03/2019, 11/22/2009 COLORECTAL CANCER SCREENING 11/02/2029 PNEUMOCOCCAL VACCINES (50+ years) Completed 07/01/2020, 2018, 06/15/2015 ABDOMINAL AORTIC ANEURYSM (AAA) SCREENING Completed 01/20/2021, 12/08/2016 ZOSTER VACCINES Completed 04/01/2023, 12/2017, 12/02/2017, Additional history exists RSV VACCINE Completed 05/10/2023 SMOKING STATUS SCREENING (Once After 26 Yrs) Completed 12/04/2024 HIB VACCINES Aged Out No longer eligi ble based on patient's age to complete this topic MENINGOCOCCAL VACCINES (ACWY) Aged Out No longer eligible based on patient's age to complete this topic MENINGOCOCCAL VACCINES (B) Aged Out N o longer eligible based on patient's age to complete this topic Medical Devices Not on file Procedures Procedure Name Priority Date/Time Associated Diagnosis Comments OUTSIDE HEMOGLOBIN A1C Routine 12/01/2024 OUTSIDE POTASSIUM LEVEL Routine 12/01/2024 OUTSIDE SERUM CREATININE LEVEL Routine 12/01/2024 DIABETES EYE EXAM FOR RESULT ENTRY ONLY Routine 08/01/2023 10:48 AM EST US ABDOMINAL AORTIC SCREENING Routine 01/20/2021 4:28 PM EDT Screening for abdominal aortic aneurysm COLONOSCOPY FOR RESULT ENTRY ONLY Routine 11/03/2019 from Last 3 Months or Most Recently Relevant to Health Maintenance Results * Outside Potassium Level (12/01/2024) Potassium level - External 3.9 3.4 - 5.0 mmol/L EXTERNAL NON-INTERFACED REF LAB Result [facility] Historical Provider MD LAB BLOOD ORDERABLES Maribel l Result Performing Organization Address City/[facility]/ZIP Co de Phone Number EXTERNAL NON-INTERFACED REF LAB * Outside HbA1c (12/01/2024) Hemoglobin A1c - External 6.1 % EXTERNAL NON-INTERFACED REF LAB Result [facility] Provider MD LAB BLOOD ORDERABLES Maribel l Result Performing Organization Address [facility] de Phone Number EXTERNAL NON-INTERFACED REF LAB * Outside Serum Creatinine Level (12/01/2024) Creatinine, serum - External 1.13 0.8 - 1.3 mg/dL EXTERNAL NON-INTERFACED REF LAB Result [facility] Provider LAB BLOOD ORDERABLES Maribel l Result Performing Organization Address [facility] de Phone Number EXTERNAL NON-INTERFACED REF LAB * DIABETES EYE EXAM FOR RESULT ENTRY ONLY (08/01/2023 10:48 AM EST) Result [facility] Historical Provider HEALTH MAINTENANCE Final Result * Abdominal Aortic Screening (01/20/2021 4:28 PM EDT) Anatomical Region Laterality Modality Abdomen Ultrasound Diagn ostic Markos Mulligan MD IM US ABDOMEN Final Result * COLONOSCOPY FOR RESULT ENTRY ONLY (11/03/2019) Colonoscopy 10 year repeat Result [facility] Historical Provider HEALTH MAINTENANCE Final Result from Last 3 Months or Most Recently Relevant to Health Maintenance Insurance MEDICARE PART A & B [email or web address] MEDEX SUPPLEMENT MEDICARE PART A & B [email or web address] MEDEX SUPPLEMENT MEDICARE PART A & B [employer] SUPPLEMENT MEDICARE PART A & B [employer] SUPPLEMENT MEDICARE PART A & B [email or web address] MEDEX SUPPLEMENT MEDICARE PART A & B [employer] MEDEX SUPPLEMENT MEDICARE PART A & B [email or web address] MEDEX SUPPLEMENT MEDICARE PART A & B [employer] MEDEX SUPPLEMENT MEDICARE PART A & B [employer] CROSS MEDEX SUPPLEMENT Care Teams School Bus Technician Relationship Specialty Start Date End Date Markos Mulligan MD [address] [place] [id number] [email or web address] PCP - General 06/14/17 Markos Mulligan MD [address] [place] [address] [email or web address] Historical LMR Provider 06/14/17 Markos Mulligan MD [address] [place] [address] [email or web address] Insurance Assigned Provider 12/01/23 Kaveh Garcia MD [address] [place] [address] [address] Ophthalmology 01/15/20 Steven Rodgers MD [address] [place] [address] Drive [address] [place] [address] Gastroenterology 01/15/20 Additional Source Comments The information contained in this document represents components of the legal health record. It is not the complete legal health record.[facility]
--- OUTSIDE RECORDS SUMMARY | 2025-03-23 06:04 | XMS_ITS | Patient Health Record ---
Author Organization [facility] Address [address] [place] [address] Care Team Providers Care Mixer Foam Rubber Name Role Phone Markos Mulligan MD Primary Care Provider Steven Monteiro [phone] Allergies No Known Allergies Results Component Value Reference Range Notes MR abdomen wo/w con Reviewed date:10/18/2024 10:14:57 PM Interpretation: Performing Lab: Notes/Report: [address] [address] Magnetic Resonance Report Signed Patient: Willy Salgado MR#: [id number] : 1955 Acct:[id number] Age/Sex: 69 / M ADM Date: 09/11/24 Loc: HO.MRI Attending Dr: Steven Rodgers MD Ordering Physician: Steven Rodgers MD Date of Service: 09/11/24 Procedure(s): MR abdomen wo/w con Accession Number(s): [id number] cc: Markos Mulligan MD; Steven Rodgers MD [...] by: Steven Wells MD 09/11/2024 01:44 PM [facility] Dictated By: Steven Wells MD Signed By: <Electronically signed by Steven Wells MD in OV> 09/11/24 1344 DD/ 0830 TD/TT: 09/11/24 0915 Roller Staker: Complete Blood Count Auto Di ff Reviewed date:10/18/2024 10:15:21 PM Interpretation: Performing Lab:[facility], [address] [place] [phone] Notes/Report: White Blood Count 6.8 4.8-10.8 X10*3/uL [...] INR Reviewed date:09/15/2024 09:35:56 PM Interpretation: Performing Lab:[address] [address] Notes/Report: Prothrombin Time 11.9 10.9-12.4 [employer] [...] Panel Reviewed date:09/15/2024 09:35:47 PM Interpretation: Performing Lab:[address] [address] Notes/Report: Bilirubin Total 0.4 0.0-1.0 mg/dL Bilirubin Direct 0.1 0.0-0.5 mg/dL Aspartate Amino Transferase 29 5-37 U/L Alanine Aminotransferase 24 0-40 U/L Total Protein 8.2 6.5-8.0 g/dL Albumin Level 4.8 3.5-5.0 g/dL Alkaline Phosphatase 71 39-117 U/L Blood Urea Nitrogen Reviewed date:09/15/2024 09:35:35 PM Interpretation: Performing Lab:[facility], [address] [place] [phone] Notes/Report: Blood Urea Nitrogen 26 9-16 mg/dL Creatinine Reviewed date:09/15/2024 09:35:24 PM Interpretation: Performing Lab:[address] [address] Notes/Report: Creatinine 1.01 0.5-1.4 mg/dL Estimated Glomerular Filt Rate > 60 Chronic Kidney Disease: Estimated GFR < 60 mL/min/1.73m2 Severe Kidney Disease: Estimated GFR < 15 mL/min/1.73m2 Carbohydrate Antigen 19-9 Reviewed date:09/21/2024 02:53:31 PM Interpretation: Performing Lab:[address] [address] Notes/Report: Carbohydrate Antigen 19-9 11 <34 U/mL This test was performed using the IntelliMat chemiluminescent method. Values obtained from different assay methods cannot be used interchangeably. CA 19-9 levels, regardless of value, should not be interpreted as absolute evidence of the presence or absence of disease. THIS TEST WAS PERFORMED AT: [employer] [address] [place] [phone] KIRAN PRATHER MD Alpha Fetoprotein Reviewed date:09/21/2024 02:53:40 PM Interpretation: Performing Lab:[address] [address] Notes/Report: Alpha Fetoprotein 2.1 <6.1 ng/mL This test was performed using the [employer] [place] chemiluminescent method. Values obtained from different assay methods cannot be used interchangeably. AFP levels, regardless of value, should not be interpreted as absolute evidence of the presence or absence of disease. THIS TEST WAS PERFORMED AT: [facility] [address] [place] [phone] KIRAN PRATHER MD Liver Fibrosis Pnl Reviewed date:09/21/2024 02:54:05 PM Interpretation: Performing Lab:[facility], [address] [place] [phone] Notes/Report: Liver Fibrosis Score 0.59 Liver Fibrosis [...] a>0.62 and a<=1.00 : A3 (severe activity) UIK-Oeswk-8-Macroglobulin 373 106-279 mg/dL FIB-Haptoglobin 89 43-212 mg/dL FIB-Apolipoprotein A1 117 94-176 mg/dL FIB-Total Bilirubin 0.3 0.2-1.2 mg/dL FIB-GGT 13 3-70 U/L FIB-ALT 15 9-46 U/L Reference ID [id number] Footnote SEE NOTE The reliability of results is dependent on compliance with the preanalytical and analytical conditions recommended by [employer]. The tests have to be deferred for: [...] The performance characteristics have been determined by [facility]. It has not been cleared or approved by the U.S. Food and Drug Administration. Performance characteristics refer to the analytical performance of the test. [employer], the associated logo, [employer] and all associated [employer] larry are the registered trademarks of [employer]. All third green party larry - (R) and (TM) - are the property of their respective owners. (C) 3906-9936 [employer]. All rights reserved. THIS TEST WAS PERFORMED AT: [employer] [facility] [address] [place] [address] ROBERTO COLÓN MD,PHD,KELLIE Reason For Referral No [...] three times a day Active Move Free [facility] Advance - as directed Orally [...] Problem Status W/U Status Risk Notes Problem 28946848 Epigastric pain (R10.13) Active confirmed Problem 2252310 Diverticulitis o f large intestine without perforation or abscess without bleeding (K57.32) Active confirmed Problem 625271887 Encounter for screening for malignant neoplasm of colon (Z12.11) Active confirmed Problem 153643910 Abdominal bloati ng (R14.0) Active confirmed Problem 63943233 Other hemorrhoid s (K64.8) Active confirmed Problem 916995616 Gastroesophageal reflux disease without esophagitis (K21.9) Active confirmed Problem 156476827 Chronic hepatiti s C without hepatic coma (B18.2) Active confirmed Problem 71315978 Pancreatic cyst (K86.2) Active confirmed Problem 848018452 Abdominal pain, left lower quadrant (R10.32) Active confirmed Problem 90985813089591 History of hepatitis C (Z86.19) Active confirmed Problem 340847965 Abdominal pain, generalized (R10.84) Active confirmed Problem 78295085 Abdominal distension (R14.0) Active confirmed Problem 44883307 Other irritable bowel syndrome (K58.8) Active confirmed Problem 25164648 Diarrhea of presumed infectious origin (R19.7) Active confirmed Problem 92755604 Liver fibrosis (K74.00) Active confirmed Problem 07176963 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 2 ; Liver fibrosis K74.00 ; History of hepatitis C Z86.19 ; Gastroesophageal reflux disease without esophagitis K21.9 and Other irritable bowel syndrome K58.8 [facility] [address] [place] [address] 04/24/2024 Steven Rodgers [facility] [address] [place] [address] 06/23/2024 Steven Rodgers [facility] [address] [place] [address] 11/18/2024 Steven Rodgers [facility] [address] [place] [address] 11/19/2024 Steven Rodgers Assessments Encounter Date Diagnosis [...] Order Date BUN 04/29/2019 BUN 06/30/2014 BUN 04/24/2023 BUN 09/30/2020 BUN 09/04/2024 BUN 04/20/2017 CREATININE 04/29/2019 CREATININE 06/30/2014 CREATININE 09/30/2020 CREATININE 04/20/2017 LIVER PROFILE 12/13/2021 LIVER PROFILE 07/01/2015 LIVER PROFILE 04/23/2015 LIVER PROFILE 04/24/2023 LIVER PROFILE 06/30/2014 LIVER PROFILE 09/04/2024 LIVER PROFILE 04/02/2015 LIVER PROFILE 09/30/2020 LIVER PROFILE 01/21/2015 LIVER PROFILE 04/20/2017 LIVER PROFILE 05/09/2012 CBC w DIFF 07/13/2016 CBC w DIFF 09/30/2020 CBC w DIFF 01/21/2015 CBC w DIFF 04/20/2017 CBC w DIFF 02/18/2015 CBC w DIFF 04/23/2015 CBC w DIFF 04/24/2023 CBC w DIFF 06/30/2014 CBC w DIFF 09/04/2024 CBC w DIFF 04/02/2015 PROTHROMBIN TIME (PT, INR) 09/30/2020 PROTHROMBIN TIME (PT, INR) 04/20/2017 ALPHA-FETOPROTEIN,TUMOR MARKER 5 ALPHA-FETOPROTEIN,TUMOR MARKER 4 ALPHA-FETOPROTEIN,TUMOR MARKER 1 ALPHA-FETOPROTEIN,TUMOR MARKER 9 ALPHA-FETOPROTEIN,TUMOR MARKER 7 ALPHA-FETOPROTEIN,TUMOR MARKER 3 CELIAC PANEL #10 04/24/2023 CA 19-9 09/04/2024 CA 19-9 04/24/2023 CA 19-9 12/13/2021 CA 19-9 09/30/2020 CA 19-9 04/29/2019 CA 19-9 04/20/2017 HEPATITIS C VIRAL LOAD 04/02/2015 HEPATITIS C VIRAL LOAD 01/21/2015 HEPATITIS C VIRAL LOAD 07/01/2015 HEPATITIS C VIRAL LOAD 04/24/2023 HEPATITIS C VIRAL LOAD 12/13/2021 HEPATITIS C VIRAL LOAD 04/23/2015 HEPATITIS C VIRAL LOAD 04/29/2019 HEPATITIS C VIRAL LOAD 04/20/2017 CT ABD & PELVIS WITH CONTRAST 07/13/2016 CT ABD & PELVIS WITH CONTRAST 06/30/2014 MRI ABD NO CONTRAST (MRCP) 04/24/2023 MRI ABD W&WO CONTRAST 04/29/2019 MRI ABD W&WO CONTRAST 04/20/2017 MRI ABD W&WO CONTRAST 09/04/2024 MRI ABD W&WO CONTRAST 07/01/2014 MRI ABD W&WO CONTRAST 05/02/2016 MRI ABD W&WO CONTRAST 05/09/2018 MRI ABD W&WO CONTRAST 09/30/2020 MRI ABD W&WO CONTRAST 04/24/2023 HCV LIVER FIBROSIS, FIBRO TEST 3 HCV LIVER FIBROSIS, FIBRO TEST 5 HCV LIVER FIBROSIS, FIBRO TEST 2 STOOL WBC 04/04/2023 C DIFFICILE RFLX PCR 04/04/2023 Prothrombin Time INR 09/04/2024 Creatinine 09/04/2024 Alpha Fetoprotein 12/13/2021 Future Test Test Name Order Date COLONOSCOPY 04/29/2019 UPPER GI ENDOSCOPY 12/26/2020 Next Appt Details Provider Name:Steven Rodgers , 09/08/2025 09:10:00 AM, [address] [place] [address], [address], [place], [address], Insurance Providers Payer Name Payer Address Payer Phone Subscriber Number Group Number Insured Name Patient Relationship to Insured Coverage Start Date Coverage End Date MEDICARE OF [place] [address] [employer] [place] [address] [id number] WILLY SORIANO Self - patient is the insured MEDEX ATTN CLAIMS [address] [place] [address] [phone] [id number] WILLY SORIANO Self - patient is the [...] 10/2009, and 2019 except sigmoid diverticulosis Denies IN,CVA,Lung disease,renal disease Sigmoid diverticulitis confi rmed on CAT scan and treated with outpatient antibiotics in June of 2014; had an episode in 02/2016 treated with outpatient antibiotics--- he also had episodes in June of 2016, August of 2016, and February 2017--he was referred to the colorectal surgeons at [facility] in August 2016--seen by Dr. Malave [...]
--- OUTSIDE RECORDS SUMMARY | 2025-03-23 06:04 | XMS_ITS | Clinical Summary ---
Author Organization [employer] [facility] Address [address] [place] [address] Care Team Providers Care Drawing Press Operator Name Role Phone Markos Mulligan MD Primary Care Provider [phone] Surgical History Surgery Date Site/Laterality Comments CARPAL [...] DX:Diabetes mellitus type 2, controlled, with complications ([facility]); COMMENT: last A1c 6.30 November 2023 Social [...] Panel) 09/21/2023 Colorectal Cancer Screening: Colonoscopy 09/21/2023 Falls Risk Assessment 09/21/2023 Hepatitis C Screening 09/21/2023 Social Influencers of Health Screening 09/21/2023 COVID-19 Vaccine ( - season) 2024 11/24/2021, 07/12/2021, 10/25/2020, Additional history exists Depression Screening 08/27/2024 Influenza Vaccine (#1) 2025 , 05/09/2021, 04/14/2020, Additional history exists RSV [...] age to complete this topic Care Teams Drawing Press Operator Relationship Specialty Start Date End Date Markos Mulligan MD [address] [place] [address] PCP - General 09/18/22
[2025-03-23 07:56] LABS: Hemoglobin A1C 176.4428 umol/L; Total Hemoglobin (HGBA1C) 3911.9156 umol/L
[2025-03-23 08:00] LABS: Alanine Aminotransferase 21 U/L (0-40); Albumin Level 4.7 g/dL (3.5-5.0); Alkaline Phosphatase 57 U/L (39-117); Anion Gap 14 (12-20); Aspartate Amino Transferase 26 U/L (5-37); Blood Urea Nitrogen 25 mg/dL (9-16); Calcium 9.0 mg/dL (8.4-10.2); Carbon Dioxide 28 mmol/L (22-29); Chloride 105 mmol/L (96-108); Estimated Glomerular Filt Rate > 60; Potassium 4.0 mmol/L (3.3-5.1); Sodium 143 mmol/L (135-145); Total Protein 7.1 g/dL (6.5-8.0)
== END 2025-03-23 06:02 | disposition home or self-care (01) ==
LOC: HO.LAB 06:01
PROVIDERS: PCP Internal Medicine; Visit Provider Internal Medicine
DX: H90.3 Sensorineural hearing loss, bilateral (principal); I10 Essential (primary) hypertension; E78.1 Pure hyperglyceridemia; E11.9 Type 2 diabetes mellitus without complications; Z79.4 Long term (current) use of insulin
CPT/HCPCS: 36415; 80053; 83036

== ENCOUNTER 2025-05-07 15:34 | Outpatient (REF) | payer MEDICARE, SELFPAY ==
--- OUTSIDE RECORDS SUMMARY | 2024-04-24 05:00 | XMS_ITS ---
Author Organization [facility] Address [address] [place] [address] Care Team Providers Care Automation Engineer Name Role Phone Markos Mulligan MD Primary Care Provider Steven Monteiro [phone] REASON FOR VISIT Patient presents today for chronic hep c,pancreatic cyst Encounters Encounter Location Date Provider Diagnosis [facility] [address] [place] [address] 04/24/2024 Steven Rodgers Plan Of Treatment Next Appt Details Provider Name:Steven Rodgers , 09/08/2025 09:10:00 AM, [address], [address], [place], [address], Progress Notes * WILLY SALGADODOB:[birth year] (70 yo M)Acc No.[id number]:04/24/2024 Progress Notes Patient: Yareli GOLDSTEINKenny WILLY Provider: Juan Rodgers MD :1955 A ge:69 Y S ex:Male Date:04/24/2024 Address:[address] [id number] Pcp:Markos Mulligan MD Subjective: * Chief Complaints: [...] 0 04/24/2024 Generated for Adrian wilcox/Latasha/Heladio on: 0 05/07/2025 06:41 PM EDT
--- NOTE | 2025-05-07 16:18 | MHC.AU.HA3 ---
Hearing Instrument Follow-Up- Binaural Date of Visit: 05/07/25 Right Ear: Wong, Model, Color, Serial Number: Abby Fox [id number] SN: [id number] Color: Sand Beige Towel Distributor Repair Warranty: 01/20/2021 Towel Distributor Loss and Damage Warranty: 01/20/2021 [facility] Service Plan: Battery Size: 13 Spoilage Worker/Slim Tube: 1xS Earmold/Dome/CShell/SlimTip:Medium vented dome with retention tail Type of Wax Guard: Cerustop Dispensed By: [facility] Date of Fittin10/30/2017 Left Ear: Wong, Model, Color, Serial Number: Abby Patelo [id number] SN: [id number] Color: Sand Beige Towel Distributor Repair Warranty: 01/20/2021 Towel Distributor Loss and Damage Warranty: 01/20/2021 [facility] Service Plan: Battery Size: 13 Spoilage Worker/Slim Tube: 1xS Earmold/Dome/CShell/SlimTip: Medium vented dome with retention tail Type of Wax Guard: Cerustop Dispensed By: [facility] Date of Fittin11/01/2017 Follow-Up Summary: Seen for hearing aid problem. Right telegraph plant maintainer wire broken. Cleaned both aids. Replaced left wax guard and dome. Replaced right telegraph plant maintainer. Listening check positive. Recommendations: Recommendations: Hearing instrument follow-up or maintenance as needed. Diagnosis Code(s): Primary Diagnosis: H90.3 Bilateral Sensorineural Hearing Loss Signature: Provider: Giorgio Duarte, [facility]
--- OUTSIDE RECORDS SUMMARY | 2025-05-07 18:41 | XMS_ITS | Patient Health Record ---
Author Organization [facility] Address [address] [place] [address] Care Team Providers Care Area Forester Name Role Phone Markos Mulligan MD Primary Care Provider Steven Monteiro [phone] Allergies No Known Allergies Results Component Value Reference Range Notes MR abdomen wo/w con Reviewed date:10/18/2024 10:14:57 PM Interpretation: Performing Lab: Notes/Report: [address] [address] Magnetic Resonance Report Signed Patient: Willy Salgado MR#: [id number] : 1955 Acct:[id number] Age/Sex: 69 / M ADM Date: 09/11/24 Loc: HO.MRI Attending Dr: Steven Rodgers MD Ordering Physician: Steven Rodgers MD Date of Service: 09/11/24 Procedure(s): MR abdomen wo/w con Accession Number(s): [id number] cc: Markos Mulligan MD; Steven Rodgers MD [...] by: Steven Wells MD 09/11/2024 01:44 PM [facility] Dictated By: Steven Wells MD Signed By: <Electronically signed by Steven Wells MD in OV> 09/11/24 1344 DD/ 0830 TD/TT: 09/11/24 0915 Toe Former: Complete Blood Count Auto Di ff Reviewed date:10/18/2024 10:15:21 PM Interpretation: Performing Lab:[facility], [address] [place] [address] Notes/Report: White Blood Count 6.8 4.8-10.8 X10*3/uL [...] INR Reviewed date:09/15/2024 09:35:56 PM Interpretation: Performing Lab:[address] [address] Notes/Report: Prothrombin Time 11.9 10.9-12.4 [employer] [...] Panel Reviewed date:09/15/2024 09:35:47 PM Interpretation: Performing Lab:[address] [address] Notes/Report: Bilirubin Total 0.4 0.0-1.0 mg/dL Bilirubin Direct 0.1 0.0-0.5 mg/dL Aspartate Amino Transferase 29 5-37 U/L Alanine Aminotransferase 24 0-40 U/L Total Protein 8.2 6.5-8.0 g/dL Albumin Level 4.8 3.5-5.0 g/dL Alkaline Phosphatase 71 39-117 U/L Blood Urea Nitrogen Reviewed date:09/15/2024 09:35:35 PM Interpretation: Performing Lab:[facility], [address] [place] [address] Notes/Report: Blood Urea Nitrogen 26 9-16 mg/dL Creatinine Reviewed date:09/15/2024 09:35:24 PM Interpretation: Performing Lab:[address] [address] Notes/Report: Creatinine 1.01 0.5-1.4 mg/dL Estimated Glomerular Filt Rate > 60 Chronic Kidney Disease: Estimated GFR < 60 mL/min/1.73m2 Severe Kidney Disease: Estimated GFR < 15 mL/min/1.73m2 Carbohydrate Antigen 19-9 Reviewed date:09/21/2024 02:53:31 PM Interpretation: Performing Lab:[address] [address] Notes/Report: Carbohydrate Antigen 19-9 11 <34 U/mL This test was performed using the [employer] chemiluminescent method. Values obtained from different assay methods cannot be used interchangeably. CA 19-9 levels, regardless of value, should not be interpreted as absolute evidence of the presence or absence of disease. THIS TEST WAS PERFORMED AT: [facility] [address] [place] [address] KIRAN PRATHER MD Alpha Fetoprotein Reviewed date:09/21/2024 02:53:40 PM Interpretation: Performing Lab:[address] [address] Notes/Report: Alpha Fetoprotein 2.1 <6.1 ng/mL This test was performed using the [employer] [place] chemiluminescent method. Values obtained from different assay methods cannot be used interchangeably. AFP levels, regardless of value, should not be interpreted as absolute evidence of the presence or absence of disease. THIS TEST WAS PERFORMED AT: [facility] [address] [place] [phone] KIRAN PRATHER MD Liver Fibrosis Pnl Reviewed date:09/21/2024 02:54:05 PM Interpretation: Performing Lab:[facility], [address] [place] [address] Notes/Report: Liver Fibrosis Score 0.59 Liver Fibrosis [...] a>0.62 and a<=1.00 : A3 (severe activity) MYO-Otfkd-5-Macroglobulin 373 106-279 mg/dL FIB-Haptoglobin 89 43-212 mg/dL FIB-Apolipoprotein A1 117 94-176 mg/dL FIB-Total Bilirubin 0.3 0.2-1.2 mg/dL FIB-GGT 13 3-70 U/L FIB-ALT 15 9-46 U/L Reference ID [id number] Footnote SEE NOTE The reliability of results is dependent on compliance with the preanalytical and analytical conditions recommended by [employer]. The tests have to be deferred for: [...] The performance characteristics have been determined by [facility]. It has not been cleared or approved by the U.S. Food and Drug Administration. Performance characteristics refer to the analytical performance of the test. [facility], the associated logo, [employer] and all associated [employer] larry are the registered trademarks of [employer]. All third green party larry - (R) and (TM) - are the property of their respective owners. (C) [id number] [employer]. All rights reserved. THIS TEST WAS PERFORMED AT: [employer] [facility] [address] [place] [address] ROBERTO COLÓN MD,PHD,KELLIE Reason For Referral No [...] three times a day Active Move Free [facility] Advance - as directed Orally once [...] Problem Status W/U Status Risk Notes Problem 72474119 Epigastric pain (R10.13) Active confirmed Problem 4689328 Diverticulitis o f large intestine without perforation or abscess without bleeding (K57.32) Active confirmed Problem 700736509 Encounter for screening for malignant neoplasm of colon (Z12.11) Active confirmed Problem 248157351 Abdominal bloati ng (R14.0) Active confirmed Problem 81366940 Other hemorrhoid s (K64.8) Active confirmed Problem 608586644 Gastroesophageal reflux disease without esophagitis (K21.9) Active confirmed Problem 808742669 Chronic hepatiti s C without hepatic coma (B18.2) Active confirmed Problem 14049058 Pancreatic cyst (K86.2) Active confirmed Problem 445773463 Abdominal pain, left lower quadrant (R10.32) Active confirmed Problem 04505732002271 History of hepatitis C (Z86.19) Active confirmed Problem 118030836 Abdominal pain, generalized (R10.84) Active confirmed Problem 51292766 Abdominal distension (R14.0) Active confirmed Problem 81344645 Other irritable bowel syndrome (K58.8) Active confirmed Problem 90547073 Diarrhea of presumed infectious origin (R19.7) Active confirmed Problem 18208819 Liver fibrosis (K74.00) Active confirmed Problem 88343163 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 2 ; Liver fibrosis K74.00 ; History of hepatitis C Z86.19 ; Gastroesophageal reflux disease without esophagitis K21.9 and Other irritable bowel syndrome K58.8 [facility] [address] [place] [address] 06/23/2024 Steven Rodgers [facility] [address] [place] [address] 11/18/2024 Steven Rodgers [facility] [address] [place] [address] 11/19/2024 Steven Rodgers Assessments Encounter Date Diagnosis [...] until 2030 given his negative exam in 2019 and [...] BUN 09/30/2020 BUN 09/04/2024 BUN 04/20/2017 CREATININE 04/20/2017 CREATININE 04/29/2019 CREATININE 06/30/2014 CREATININE 09/30/2020 LIVER PROFILE 09/04/2024 LIVER PROFILE 04/02/2015 LIVER PROFILE 09/30/2020 LIVER PROFILE 01/21/2015 LIVER PROFILE 04/20/2017 LIVER PROFILE 05/09/2012 LIVER PROFILE 12/13/2021 LIVER PROFILE 07/01/2015 LIVER PROFILE 04/23/2015 LIVER PROFILE 04/24/2023 LIVER PROFILE 06/30/2014 CBC w DIFF 04/24/2023 CBC w DIFF 06/30/2014 CBC w DIFF 09/04/2024 CBC w DIFF 04/02/2015 CBC w DIFF 07/13/2016 CBC w DIFF 09/30/2020 CBC w DIFF 01/21/2015 CBC w DIFF 04/20/2017 CBC w DIFF 02/18/2015 CBC w DIFF 04/23/2015 PROTHROMBIN TIME (PT, INR) 09/30/2020 PROTHROMBIN TIME (PT, INR) 04/20/2017 ALPHA-FETOPROTEIN,TUMOR MARKER 3 ALPHA-FETOPROTEIN,TUMOR MARKER 5 ALPHA-FETOPROTEIN,TUMOR MARKER 4 ALPHA-FETOPROTEIN,TUMOR MARKER 1 ALPHA-FETOPROTEIN,TUMOR MARKER 9 ALPHA-FETOPROTEIN,TUMOR MARKER 7 CELIAC PANEL #10 04/24/2023 CA 19-9 09/30/2020 CA 19-9 04/29/2019 CA 19-9 04/20/2017 CA 19-9 09/04/2024 CA 19-9 04/24/2023 CA 19-9 12/13/2021 HEPATITIS C VIRAL LOAD 04/23/2015 HEPATITIS C VIRAL LOAD 04/29/2019 HEPATITIS C VIRAL LOAD 04/20/2017 HEPATITIS C VIRAL LOAD 04/02/2015 HEPATITIS C VIRAL LOAD 01/21/2015 HEPATITIS C VIRAL LOAD 07/01/2015 HEPATITIS C VIRAL LOAD 04/24/2023 HEPATITIS C VIRAL LOAD 12/13/2021 CT ABD & PELVIS WITH CONTRAST 06/30/2014 CT ABD & PELVIS WITH CONTRAST 07/13/2016 MRI ABD NO CONTRAST (MRCP) 04/24/2023 MRI ABD W&WO CONTRAST 05/02/2016 MRI ABD W&WO CONTRAST 05/09/2018 MRI ABD W&WO CONTRAST 09/30/2020 MRI ABD W&WO CONTRAST 04/24/2023 MRI ABD W&WO CONTRAST 04/29/2019 MRI ABD W&WO CONTRAST 04/20/2017 MRI ABD W&WO CONTRAST 09/04/2024 MRI ABD W&WO CONTRAST 07/01/2014 HCV LIVER FIBROSIS, FIBRO TEST 5 HCV LIVER FIBROSIS, FIBRO TEST 2 HCV LIVER FIBROSIS, FIBRO TEST 3 STOOL WBC 04/04/2023 C DIFFICILE RFLX PCR 04/04/2023 Prothrombin Time INR 09/04/2024 Creatinine 09/04/2024 Alpha Fetoprotein 12/13/2021 Future Test Test Name Order Date COLONOSCOPY 04/29/2019 UPPER GI ENDOSCOPY 12/26/2020 Next Appt Details Provider Name:Steven Rodgers , 09/08/2025 09:10:00 AM, [address], [address], [place], [address], Insurance Providers Payer Name Payer Address Payer Phone Subscriber Number Group Number Insured Name Patient Relationship to Insured Coverage Start Date Coverage End Date MEDICARE OF [place] [address] [facility] [address] [id number] WILLY SORIANO Self - patient is the insured [employer] ATT[employer] CLAIMS [address] [place] [address] [id number] WILLY SORIANO Self - patient is the [...] 10/2009, and 2019 except sigmoid diverticulosis Denies PR,CVA,Lung disease,renal disease Sigmoid diverticulitis confi rmed on CAT scan and treated with outpatient antibiotics in June of 2014; had an episode in 02/2016 treated with outpatient antibiotics--- he also had episodes in June of 2016, August of 2016, and February 2017--he was referred to the colorectal surgeons at [facility] in August 2016--seen by Dr. Malave [...]
--- OUTSIDE RECORDS SUMMARY | 2025-05-07 18:41 | XMS_ITS | Patient Health Record ---
Author Organization [facility] Address [address] [place] [address] Care Team Providers Care Cashiers Bussers Food Runners Name Role Phone Markos Mulligan MD Primary Care Provider Manolo Sales Unavailable [phone] Allergies No Known Allergies Reason For Referral No Information Medications Medication SIG (Take, Route, Frequency, Duration) Notes Start Date End Date Status Meloxicam 15 mg 1x a day Active Protonix 40 MG 1 tablet Orally Once a day; Duration: 30 day(s) Active metFORMIN HCl ER 500 MG TAKE TWO TABLETS BY MOUTH EVERY DAY WITH SUPPER Oral; Duration: 90 Active Basaglar KwikPen 100 UNIT/ML as directed Subcutaneous Active metroNIDAZOLE Not-Ta henok Acyclovir Active Ciprofloxacin HCl 500 MG TAKE ONE TABLET BY MOUTH TWICE A DAY FOR 10 DAYS Oral; Duration: 10 Not-Taking Finasteride 5 MG 1 tablet Orally Once a day Active Tamsulosin HCl 0.4 MG 1 capsule Orally Once a day Active Cephalexin 500 MG 1 capsule Orally every 6 hrs; Duration: 5 day(s) Not-Taking hydroCHLOROthiazide 25 MG 1 tablet in th e morning Orally Once a day; Duration: 30 day(s) Active Lisinopril 40 MG 1 tablet Orally Once a day; Duration: 30 day(s) Active Atorvastatin Calcium 10 MG 1 tablet Orally Once a day; Duration: 30 day(s) Active Lantus Not-Taking Gabapentin 600 MG 1 tablet Orally three a day Active Extra Depth Orthopedic Shoes (1 Pair) with Customized Heat Molded Multidensity Innersoles (3 Pair) as directed Dx: NIDDM (E11.9), Hammertoe Foot Deformity (M20.41,M20.42), Preulcerative Skin Lesion(s) (L85.1) Active Immunizations Vaccine Route Administration Date Status Comme nts Influenza Unknown 04/27/2022 Administered COVID-19 Moderna Vaccine Unknown 10/25/2020 Administere d 1st 09/27/2020 Social History Tobacco Use: Social History Observation [...] Problem Acquired hammer toe of right foot (857637032071081 5) Other hammer toe(s) (acquired), right foot (M20.41) Active confirmed Problem Acquired hammer toe of left foot (837965692497168 3) Other hammer toe(s) (acquired), left foot (M20.42) Active confirmed Problem Type II diabetes mellitus without complication (958998541) Type 2 diabetes mellitus without complication (E11.9) Active confirmed Vital Signs Height 5ft 8in in 06/10/2024 Weight 175 lbs 06/10/2024 BMI 26.61 kg/m2 06/10/2024 Encounters Encounter Location Date Provider Diagnosis [facility] [address] [address] 06/10/2024 Manolo Riojas Type 2 diabetes mellitus [...] Treatment Pending Test Test Name Order Date [id number] Plate 04/04/2022 [id number] Plate Each Additional 04/2022 [id number] 11/07/2022 [id number] 03/07/2023 [id number] SKIN/TISSUE 03/29/2023 [id number] SKIN/TISSUE 11/21/2022 99493 I&D ABSCESS- SIMPLE,SINGLE 021 Next Appt Details Provider Name:Manolo Riojas , 06/09/2025 08:45:00 AM, [address] [place], [address], Insurance Providers Payer Name Payer Address Payer Phone Subscriber Number Group Number Insured Name Patient Relationship to Insured Coverage Start Date Coverage End Date Medicare National Govt [employer] [address] [place] [address] [id number] Paulo Savage Self - patient is the insured [employer] [address] [place] [address] [id number] Paulo Savage Self - patient is the [...]
--- OUTSIDE RECORDS SUMMARY | 2025-05-07 18:42 | XMS_ITS | Clinical Summary ---
Author Organization [facility] Address [address] [facility] [address] [place] [address] Phone Care Team Providers Care Chipper Name Role Phone Markos Mulligan MD Primary Care Provider [phone] Markos Mulligan MD Unavailable [phone] Markos Mulligan MD Unavailable [phone] Kaveh Garcia MD Unavailable Steven Rodgers MD Unavailable [phone] Allergies No known active allergies Medications GLUCOSAMINE/METHY LSULFONYLMETH (GLUCOSAMINE SULFATE-MSM ORAL) (Move free) Take 2 tablets by mouth once daily. Active ihlnyvca-uic-lday ous fumarate 9 mg iron/15 mL Liqd [...] before meals. 300 strip 11 024 Active gabapentin (NEURONTIN) 600 MG tablet Take 600 mg by mouth 3 (three) times a day. 024 Active lisinopril (PRINIVIL,ZESTRIL ) 40 MG tabletIndications :Essential hypertension TAKE 1 TABLET BY MOUTH EVERY DAY 90 tablet 3 024 Active insulin pen needles, disposable, (BD PIOTR 2ND GEN PEN NEEDLE) 32 gauge x NdleIndications:U ncontrolled type 2 diabetes mellitus with hyperglycemia USE 1 NEEDLE NEEDED (EACH EVENING). 100 each 3 024 Active acyclovir (ZOVIRAX) 400 MG tablet TAKE 1 TABLET BY MOUTH TWICE A DAY 180 tablet 3 024 Active FREESTYLE TERRY 3 PLUS SENSOR Cahrisse Use as directed Active atorvastatin (LIPITOR) 10 MG tabletIndications :Mixed hyperlipidemia TAKE 1 TABLET BY MOUTH EVERY DAY 90 tablet 3 025 Active insulin degludec U-100 (TRESIBA) injection penIndications:Ty pe 2 diabetes mellitus without complication, with long-term current use of insulin Inject 26 Units under the skin nightly at bedtime. 30 mL 025 Active cyanocobalamin, vitamin B-12, (VITAMIN B-12 SL) Place under the tongue every morning. Active hydroCHLOROthiazi de 25 MG tabletIndications :Essential hypertension TAKE 1 TABLET (25 MG TOTAL) BY MOUTH DAILY. 90 tablet 025 Active metFORMIN (GLUCOPHAGE-XR) 500 MG 24 hr tabletIndications :Type 2 diabetes mellitus without complications TAKE 2 TABLETS BY MOUTH TWICE A DAY 360 tablet 025 Active hydroCHLOROthiazi de 25 MG tabletIndications :Essential hypertension TAKE 1 TABLET (25 MG TOTAL) BY MOUTH DAILY. 90 tablet 3 024 2024 Discontinued metFORMIN (GLUCOPHAGE-XR) 500 MG 24 hr tabletIndications :Type 2 diabetes mellitus without complications Take 2 tablets (1,000 mg total) by mouth 2 (two) times a day. 360 tablet 3 024 2024 Discontinued Active Problems Problem Noted Date Diagnosed Date Lumbar radiculopathy 04/12/2024 Overview (04/14/2024): Saw [facility]- 03/06 saw Chandrakant Majano PA-C they will get new films and get pain med information from [facility]- then f/u with the pt Admitted to [facility] 03/24/24 for numbness and leg pain- plan [...] Encounters Date Type Department Care Team Description 04/09/2025 Refill [facility] Internal Medicine [address] [place] [address] Markos Mulligan MD Medication Refill 03/27/2025 11:00 AM EDT Office Visit [facility] [address] [facility] [place] [address] Markos Mulligan MD Routine general medical examination at a health care facility (Primary Dx); Gastroesophageal reflux disease, unspecified whether esophagitis present; Essential hypertension; History of tobacco use; Mixed hyperlipidemia; Bilateral hearing loss, unspecified hearing loss type; Type 2 diabetes mellitus without complication, with long-term current use of insulin 03/24/2025 Orders Only [facility] Internal Medicine [address] [facility] [place] [address] Zehra Ford MD 03/13/2025 Refill [facility] Internal [facility] [address] [facility] [place] [address] Markos Mulligan MD Med Change Request 03/08/2025 [facility] [address] [place] [address] Markos Mulligan MD Medication Refill from Last 3 Months Immunizations Immunization Administration Dates Next Due COVID-19 (Pre-06/18) Moderna Vaccine, mRNA, PF 10/25/2020,09/27/2020 INFLUENZA, SPLIT VIRUS, TRIV ALENT W/ PRESERVATIVE IM 05/27/2020,04/27/2018,05/17/2015 Influenza High-Dose Quadriva lent Preservative Free IM 05/09/2021 Influenza High-Dose Trivalen t Preservative Free IM 05/05/2024,04/29/2019,04/29/2018 Influenza Quadrivalent Adjuv anted Preservative Free IM 06/11/2023,05/30/2022 Influenza Quadrivalent Preservative Free IM 03/2017,05/05/2016 Influenza, Unspecified Formulation 04/27/2022, Pneumococcal conjugate PCV13 2018 Pneumococcal polysaccharide PPSV23 07/01/2020, RSV Vaccine (monovalent, adjuvanted) 05/10/2023 Td (adult),2 Lf Tetanus Toxo id, PF, Adsorbed 04/19/2015 Tdap 04/08/2025 Zoster live 08/28/2015 Zoster recombinant 04/01/2023,07/01/2018, 018 [...] Sign Reading Time Taken Comments Blood Pressure 134/78 03/27/2025 11:59 AM EDT Pulse 76 03/27/2025 11:11 AM EDT Temperature 36.3 C (97.3 F) 03/27/2025 11:11 AM EDT Respiratory Rate 12 03/27/2025 11:11 AM EDT Oxygen Saturation 97% 03/27/2025 11:11 AM EDT Inhaled Oxygen Concentration - - Weight 86.7 kg (191 lb 3.2 oz) 03/27/2025 11:11 AM EDT Height 173.9 cm (5' 8.47 ) 03/27/2025 11:11 AM E DT Body Mass Index 28.68 03/27/2025 11:11 AM EDT Plan of Treatment Upcoming Encounters Date Type Department Care Team (Late st Contact Info) Description 10/02/2025 8:30 AM EST Office Visit [facility] [address] [place] [address] Markos Mulligan MD [address] [place] [address] 03/29/2026 8:00 AM EDT Office Visit [facility] [address] [place] [address] Jose E Fallon PA-C [address] [place] [address] [email or web address] Health Maintenance Due Date Last Done Comments HEPATITIS A VACCINES (1 of 2 - Risk 2-dose series) 01/02/1974 COLOGUARD 1998 FIT TEST 1998 FOBT 1998 SIGMOIDOSCOPY 1998 VIRTUAL COLONOSCOPY 1998 DIABETIC EYE EXAM 08/01/2024 08/01/2023, , 06/20/2022, Additional history exists INFLUENZA VACCINE (#1) 2025 , 06/11/2023, 06/11/2023, Additional history exists COVID-19 VACCINE ( season) 2025 05/30/2022, 11/24/2021, 07/12/2021, Additional history exists HEMOGLOBIN A1C 06/02/2025 12/01/2024, 02/25, 11/13/2023, Additional history exists BLOOD PRESSURE 09/27/2025 03/27/2025 CREATININE LEVEL 12/01/2025 12/01/2024, , 11/27/2023, Additional history exists POTASSIUM LEVEL 12/01/2025 12/01/2024, 02/25, 11/27/2023, Additional history exists DEPRESSION SCREENING 03/27/2026 03/27/2025, 03/17/20 24 COLONOSCOPY 11/02/2029 11/03/2019, 11/22/2009 COLORECTAL CANCER SCREENING 11/02/2029 Adult Td,Tdap Booster 04/08/2035 04/08/2025, 015 PNEUMOCOCCAL VACCINES (50+ years) Completed 07/01/2020, 2018, 06/15/2015 ABDOMINAL AORTIC ANEURYSM (AAA) SCREENING Completed 01/20/2021, 12/08/2016 ZOSTER VACCINES Completed 04/01/2023, 11/0 12/2017, 12/02/2017, Additional history exists RSV VACCINE Completed 05/10/2023 SMOKING STATUS SCREENING (Once After 26 Yrs) Completed 03/27/2025 HIB VACCINES Aged Out No longer eligi ble based on patient's age to complete this topic MENINGOCOCCAL VACCINES (ACWY) Aged Out No longer eligible based on patient's age to complete this topic MENINGOCOCCAL VACCINES (B) Aged Out N o longer eligible based on patient's age to complete this topic Medical Devices Not on file Procedures Procedure Name Priority Date/Time Associated Diagnosis Comments OUTSIDE LAB Routine 03/23/2025 2:01 PM EDT OUTSIDE HEMOGLOBIN A1C Routine 12/01/2024 OUTSIDE POTASSIUM LEVEL Routine 12/01/2024 OUTSIDE SERUM CREATININE LEVEL Routine 12/01/2024 DIABETES EYE EXAM FOR RESULT ENTRY ONLY Routine 08/01/2023 10:48 AM EST ABDOMINAL AORTIC SCREENING Routine 01/20/2021 4:28 PM EDT Screening for abdominal aortic aneurysm COLONOSCOPY FOR RESULT ENTRY ONLY Routine 11/03/2019 from Last 3 Months or Most Recently Relevant to Health Maintenance Results * Outside Lab (03/23/2025 2:01 PM EDT) Historical Provider MD LAB BLOOD ORDERABLES Maribel l Result * Outside Potassium Level (12/01/2024) Potassium level - External 3.9 3.4 - 5.0 mmol/L EXTERNAL NON-INTERFACED REF LAB Historical Provider MD LAB BLOOD ORDERABLES Maribel l Result EXTERNAL NON-INTERFACED REF LAB * Outside HbA1c (12/01/2024) Hemoglobin A1c - External 6.1 % EXTERNAL NON-INTERFACED REF LAB Historical Provider MD LAB BLOOD ORDERABLES Maribel l Result EXTERNAL NON-INTERFACED REF LAB * Outside Serum Creatinine Level (12/01/2024) Creatinine, serum - External 1.13 0.8 - 1.3 mg/dL EXTERNAL NON-INTERFACED REF LAB Historical Provider LAB BLOOD ORDERABLES Maribel l Result EXTERNAL NON-INTERFACED REF LAB * DIABETES EYE EXAM FOR RESULT ENTRY ONLY (08/01/2023 10:48 AM EST) Historical Provider HEALTH MAINTENANCE Final Result * US Abdominal Aortic Screening (01/20/2021 4:28 PM EDT) Anatomical Region Laterality Modality Abdomen Ultrasound Diagn ostic Markos Mulligan MD IMG US ABDOMEN Final Result * COLONOSCOPY FOR RESULT ENTRY ONLY (11/03/2019) Colonoscopy 10 year repeat Historical Provider HEALTH MAINTENANCE Final Result from Last 3 Months or Most Recently Relevant to Health Maintenance Insurance MEDICARE PART A & B [employer] MEDEX SUPPLEMENT MEDICARE PART A & B Member Subscriber Plan / Payer ( fective 2017-) Name:Willy Salgado Member ID:[id number] Relation to Subscriber:Self Name:Willy Salgado Subscriber ID:[id number] Payer ID:[id number] Group ID:Not on file Type:Medicare Address: [facility] [address] [place], [place] [phone] [facility] [employer] MEDEX SUPPLEMENT MEDICARE PART A & B Member Subscriber Plan / Payer ( fective 2017-) Name:Willy Salgado Member ID:[id number] Relation to Subscriber:Self Name:Willy Salgado Subscriber ID:[id number] Payer ID:[id number] Group ID:Not on file Type:Medicare Address: [facility] [address] [place] [phone] [facility] [employer] MEDEX SUPPLEMENT MEDICARE PART A & B [employer] MEDEX SUPPLEMENT MEDICARE PART A & B [employer] MEDEX SUPPLEMENT MEDICARE PART A & B [employer] MEDEX SUPPLEMENT MEDICARE PART A & B Member Subscriber Plan / Payer ( fective 2017-) Name:Willy Salgado Member ID:[id number] Relation to Subscriber:Self Name:Salgado, Willy Subscriber ID:[id number] Payer ID:[id number] Group ID:Not on file Type:Medicare Address: [facility] [address] [place] [address] [facility] [employer] MEDEX SUPPLEMENT MEDICARE PART A & B Member Subscriber Plan / Payer ( fective 2017-) Name:Willy Salgado Member ID:[id number] Relation to Subscriber:Self Name:Willy Salgado Subscriber ID:[id number] Payer ID:[id number] Group ID:Not on file Type:Medicare Address: [facility] [address] [place] [phone] [facility] [employer] MEDEX SUPPLEMENT MEDICARE PART A & B Member Subscriber Plan / Payer (Ef fective 2017-Present) Name:Willy Salgado Member ID:[id number] Relation to Subscriber:Self Name:SalgadoWilly lomeli Subscriber ID:[id number] Payer ID:[id number] Group ID:Not on file Type:Medicare Address: [facility] [employer] [facility] [address] [facility] [place] [address] [employer] MEDEX SUPPLEMENT Care Teams Chipper Relationship Specialty Start Date End Date Markos Mulligan MD [address] [place] [address] [email or web address] PCP - General 06/14/17 Markos Mulligan MD [address] [place] [address] [email or web address] Historical LMR Provider 06/14/17 Markos Mulligan MD [address] [place] [address] [email or web address] Insurance Assigned Provider 12/01/23 Kaveh Garcia MD [address] [place] [address] [place] [address] Ophthalmology 01/15/20 Steven Rodgers MD [address] [place] [address] Gastroenterology 01/15/20 Additional Source Comments The information contained in this document represents components of the legal health record. It is not the complete legal health record.[facility]
== END 2025-05-07 15:35 | disposition home or self-care (01) ==
LOC: HO.HAP 15:34
PROVIDERS: Visit Provider Internal Medicine
DX: Z46.1 Encounter for fitting and adjustment of hearing aid (principal); H90.3 Sensorineural hearing loss, bilateral
CPT/HCPCS: V5299

== ENCOUNTER 2025-06-15 06:02 | Outpatient (REF) | payer MEDICARE, SELFPAY ==
--- OUTSIDE RECORDS SUMMARY | 2024-04-24 05:00 | XMS_ITS ---
Author Organization [facility] Address [address] [place] [address] Care Team Providers Care Model Builder Name Role Phone Markos Mulligan MD Primary Care Provider Steven Monteiro [phone] REASON FOR VISIT Patient presents today for chronic hep c,pancreatic cyst Encounters Encounter Location Date Provider Diagnosis [facility] [address] [place] [address] 04/24/2024 Steven Rodgers Plan Of Treatment Next Appt Details Provider Name:Steven Rodgers , 09/08/2025 09:10:00 AM, [address], [address], [place], [address], Progress Notes * WILLY SALGADODOB:[birth year] (70 yo M)Acc No.[id number]:04/24/2024 Progress Notes Patient: Yareli GOLDSTEINKenny WILLY Provider: Juan Rodgers MD :1955 A ge:69 Y S ex:Male Date:04/24/2024 Address:[address] [id number] Pcp:Markos Mulligan MD Subjective: * Chief Complaints: [...] 0 04/24/2024 Generated for Adrian wilcox/Latasha/Heladio on: 06:05 AM EDT
--- OUTSIDE RECORDS SUMMARY | 2025-06-15 06:05 | XMS_ITS | Patient Health Record ---
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 Name Role Phone Markos Mulligan MD Primary Care Provider Manolo Sales Unavailable [phone] Allergies No Known Allergies Results Component Value Reference Range Notes HEMOGLOBIN A1C (GLYCOHEMOGLO BIN) Reviewed date:06/09/2025 08:45:12 AM Interpretation: Performing Lab: Notes/Report: HEMOGLOBIN A1C % (HH) 6.4 Reason For Referral No Information Medications Medication SIG (Take, Route, Frequency, Duration) Notes Start Date End Date Status metFORMIN HCl ER 500 MG TAKE TWO TABLETS BY MOUTH EVERY DAY WITH SUPPER Oral; Duration: 90 Active Lisinopril 40 MG 1 tablet Orally Once a day; Duration: 30 day(s) Active hydroCHLOROthiazide 25 MG 1 tablet in th e morning Orally Once a day; Duration: 30 day(s) Active Gabapentin 600 MG 1 tablet Orally three a day Not-Taking Atorvastatin Calcium 10 MG 1 tablet Orally Once a day; Duration: 30 day(s) Active Lantus Not-Taking Acyclovir Active Ciprofloxacin HCl 500 MG TAKE ONE TABLET BY MOUTH TWICE A DAY FOR 10 DAYS Oral; Duration: 10 Not-Taking Basaglar KwikPen 100 UNIT/ML as directed Subcutaneous Not-Taking metroNIDAZOLE Not-Ta henok Tamsulosin HCl 0.4 MG 1 capsule Orally Once a day Not-Taking Cephalexin 500 MG 1 capsule Orally every 6 hrs; Duration: 5 day(s) Not-Taking Extra Depth Orthopedic Shoes (1 Pair) with Customized Heat Molded Multidensity Innersoles (3 Pair) as directed Dx: NIDDM (E11.9), Hammertoe Foot Deformity (M20.41,M20.42), Preulcerative Skin Lesion(s) (L85.1) Active Finasteride 5 MG 1 tablet Orally Once a day Not-Taking Insulin Degludec 26 units Act aicha Protonix 40 MG 1 tablet Orally Once a day; Duration: 30 day(s) Active Meloxicam 15 mg 1x a day Not-Taking Immunizations Vaccine Route Administration Date Status Comme nts Influenza Unknown 04/27/2022 Administered COVID-19 Moderna Vaccine Unknown 10/25/2020 Administere d 1st 09/27/2020 Social History Tobacco Use: Social History Observation Description Date Details (start date - stop date) Never Smoker NA - NA Tobacco use other than smoking: Question Answer Notes Are you an other tobacco user? No Tobacco Control (Standard) Question Answer Notes Tobacco use: Nonsmoker Additional Findings: Tobacco non-user Current no nsmoker AUDIT-C (Standard) Question Answer Notes Did you have a drink containing alcohol in the p ast year? No Points 0 Interpretation Negative Problems Problem Type SNOMED Code ICD Code Onset Dates Problem Status W/U Status Risk Notes Problem Acquired hammer toe of right foot (285269161449 9105) Other hammer toe(s) (acquired), right foot (M20.41) Active confirmed Problem Acquired hammer toe of left foot (776670107694 9103) Other hammer toe(s) (acquired), left foot (M20.42) Active confirmed Problem Diabetes mellitus (00705710) Type 2 diabetes mellitus without complication (E11.9) Active confirmed Vital Signs Blood pressure diastolic 78 mm Hg 06/09/2025 Height 5ft 8in in 06/09/2025 Blood pressure systolic 134 mm Hg 06/09/2025 Weight 184 lbs 06/09/2025 BMI 27.97 kg/m2 06/09/2025 Encounters Encounter Location Date Provider Diagnosis [facility] [place] [address] [place] [address] 06/09/2025 Manolo Riojas Type 2 diabetes mellitus without complication E11.9 ; Other hammer toe(s) (acquired), right foot M20.41 and Other hammer toe(s) (acquired), left foot M20.42 Assessments Encounter Date Diagnosis (ICD Code) Assessment Notes Treatment Notes Treatment Clinical Notes Section Notes 06/09/2025 Other hammer toe(s) (acquired), right foot (ICD-10 - M20.41) Patient Educated with: DIABETIC FOOT CARE INSTRUCTIONS.p df (DIABETIC FOOT CARE INSTRUCTIONS.p df) 06/09/2025 Type 2 diabetes mellitus without complication (ICD-10 - E11.9) 06/09/2025 Other hammer toe(s) (acquired), left foot (ICD-10 - M20.42) Plan Of Treatment Pending Test Test Name Order Date [id number] Plate 04/04/2022 [id number] Plate Each Additional 04/2022 [id number] 11/07/2022 [id number] 03/07/2023 [id number] SKIN/TISSUE 03/29/2023 [id number] SKIN/TISSUE 11/21/2022 25776 I&D ABSCESS- SIMPLE,SINGLE 021 Next Appt Details Provider Name:Manolo Riojas , 06/08/2026 08:45:00 AM, [address] [place], [address], Insurance Providers Payer Name Payer Address Payer Phone Subscriber Number Group Number Insured Name Patient Relationship to Insured Coverage Start Date Coverage End Date Medicare National Govt [employer] [address] [place] [address] [id number] Paulo Savage Self - patient is the insured [employer] [address] [place] [address] [phone] [id number] Paulo Savage Self - patient is the insured Medical (General) History Medical History History ICD Code Back,Hip,and Knee pain Cataracts Diabetes mellitus type ll Diverticulosis Hepatitis C High blood pressure Measles Mumps Chicken pox Carpal tunnel knee Arthritis Sciatica - Left CAD Surgical History Surgery Date(Month/Year) knee surgery, right carpal tunnel surgery bilateral right shoulder surgery cataract Epidural steroid injections, Spine hip injection 10/10/22 l5 s1 spine surgery 03/25/2024
--- OUTSIDE RECORDS SUMMARY | 2025-06-15 06:06 | XMS_ITS | Patient Health Record ---
Author Organization [facility] Address [address] [place] [address] Care Team Providers Care Chargeback Specialist Name Role Phone Markos Mulligan MD Primary Care Provider Steven Monteiro [phone] Allergies No Known Allergies Results Component Value Reference Range Notes MR abdomen wo/w con Reviewed date:10/18/2024 10:14:57 PM Interpretation: Performing Lab: Notes/Report: [address] [address] Magnetic Resonance Report Signed Patient: Willy Salgado MR#: [id number] : 1955 Acct:[id number] Age/Sex: 69 / M ADM Date: 09/11/24 Loc: HO.MRI Attending Dr: Steven Rodgers MD Ordering Physician: Steven Rodgers MD Date of Service: 09/11/24 Procedure(s): MR abdomen wo/w con Accession Number(s): [id number] cc: Markos Mulligan MD; Steven Rodgers MD [...] by: Steven Wells MD 09/11/2024 01:44 PM [facility] Dictated By: Steven Wells MD Signed By: <Electronically signed by Steven Wells MD in OV> 09/11/24 1344 DD/ 0830 TD/TT: 09/11/24 0915 Photographer Motion Picture: Complete Blood Count Auto Di ff Reviewed date:10/18/2024 10:15:21 PM Interpretation: Performing Lab:[facility], [address] [place] [address] Notes/Report: White Blood Count 6.8 4.8-10.8 X10*3/uL [...] INR Reviewed date:09/15/2024 09:35:56 PM Interpretation: Performing Lab:[address] [address] Notes/Report: Prothrombin Time 11.9 10.9-12.4 SEC [employer] [...] Panel Reviewed date:09/15/2024 09:35:47 PM Interpretation: Performing Lab:[address] [address] Notes/Report: Bilirubin Total 0.4 0.0-1.0 mg/dL Bilirubin Direct 0.1 0.0-0.5 mg/dL Aspartate Amino Transferase 29 5-37 U/L Alanine Aminotransferase 24 0-40 U/L Total Protein 8.2 6.5-8.0 g/dL Albumin Level 4.8 3.5-5.0 g/dL Alkaline Phosphatase 71 39-117 U/L Blood Urea Nitrogen Reviewed date:09/15/2024 09:35:35 PM Interpretation: Performing Lab:[facility], [address] [place] [phone] Notes/Report: Blood Urea Nitrogen 26 9-16 mg/dL Creatinine Reviewed date:09/15/2024 09:35:24 PM Interpretation: Performing Lab:[address] [address] Notes/Report: Creatinine 1.01 0.5-1.4 mg/dL Estimated Glomerular Filt Rate > 60 Chronic Kidney Disease: Estimated GFR < 60 mL/min/1.73m2 Severe Kidney Disease: Estimated GFR < 15 mL/min/1.73m2 Carbohydrate Antigen 19-9 Reviewed date:09/21/2024 02:53:31 PM Interpretation: Performing Lab:[address] [address] Notes/Report: Carbohydrate Antigen 19-9 11 <34 U/mL This test was performed using the Polymer Vision chemiluminescent method. Values obtained from different assay methods cannot be used interchangeably. CA 19-9 levels, regardless of value, should not be interpreted as absolute evidence of the presence or absence of disease. THIS TEST WAS PERFORMED AT: [facility] [address] [place] [phone] KIRAN PRATHER MD Alpha Fetoprotein Reviewed date:09/21/2024 02:53:40 PM Interpretation: Performing Lab:[address] [address] Notes/Report: Alpha Fetoprotein 2.1 <6.1 ng/mL This test was performed using the Tipjoy Cyrus chemiluminescent method. Values obtained from different assay methods cannot be used interchangeably. AFP levels, regardless of value, should not be interpreted as absolute evidence of the presence or absence of disease. THIS TEST WAS PERFORMED AT: [facility] [address] [place] [phone] KIRAN PRATHER MD Liver Fibrosis Pnl Reviewed date:09/21/2024 02:54:05 PM Interpretation: Performing Lab:[facility], [address] [place] [phone] Notes/Report: Liver Fibrosis Score 0.59 Liver Fibrosis [...] a>0.62 and a<=1.00 : A3 (severe activity) IJH-Gewbx-6-Macroglobulin 373 106-279 mg/dL FIB-Haptoglobin 89 43-212 mg/dL FIB-Apolipoprotein A1 117 94-176 mg/dL FIB-Total Bilirubin 0.3 0.2-1.2 mg/dL FIB-GGT 13 3-70 U/L FIB-ALT 15 9-46 U/L Reference ID [id number] Footnote SEE NOTE The reliability of results is dependent on compliance with the preanalytical and analytical conditions recommended by [employer]. The tests have to be deferred for: [...] The performance characteristics have been determined by [facility]. It has not been cleared or approved by the U.S. Food and Drug Administration. Performance characteristics refer to the analytical performance of the test. [employer], the associated logo, [employer] and all associated [employer] larry are the registered trademarks of [employer]. All third libertarian larry - (R) and (TM) - are the property of their respective owners. (C) 5422-3052 [employer]. All rights reserved. THIS TEST WAS PERFORMED AT: [employer] [facility] [address] [place] [address] ROBERTO COLÓN MD,PHD,KELLIE Reason For Referral No Information Medications Medication SIG (Take, Route, Frequency, Duration) Notes Start Date End Date Status Flaxseed Oil 1000 MG as directed Orally once a day Active metFORMIN HCl 500 MG 4 tablet with meals Orally Once a day Active Protonix 40 MG 1 tablet Orally Once a day; Duration: 30 Active Acyclovir 400 MG 1 tablet [...] 20 MG 1 tablet Orally Once a day; Duration: 30 day(s) Active Insulin Glargine 100 UNIT/ML as directed /26 units Subcutaneous once a day Active Fiber 625 MG 2 tablets as needed Orally as directed Active Gabapentin 600 MG 1 capsule Orally three times a day Active Move Free Joint [facility] Advance - as directed Orally once a day Active Tamsulosin HCl 0.4 MG 2 capsule Orally Once a day Active Atorvastatin Calcium 10 MG 1 tablet Oral ly Once a day; Duration: 30 day(s) Active Immunizations Vaccine Route Administration Date Status Comme nts Influenza Unknown 04/27/2018 Administered Influenza Unknown 05/27/2020 Administered Influenza Unknown 05/27/2021 Administered Problems Problem Type SNOMED Code ICD Code Onset Dates Problem Status W/U Status Risk Notes Problem Epigastric pain (36160168) Epigastric pain (R10.13) Active confirmed Problem Diverticulitis of colon (064697383) Diverticulitis of large intestine without perforation or abscess without bleeding (K57.32) Active confirmed Problem Screening for malignant neoplasm of colon (837399196) Encounter for screening for malignant neoplasm of colon (Z12.11) Active confirmed Problem Abdominal bloating (206805974) Abdominal bloating (R14.0) Active confirmed Problem Hemorrhoids (04448760) Other hemorrhoids (K64.8) Active confirmed Problem Gastroesophageal reflux disease without esophagitis (063298971) Gastroesophageal reflux disease without esophagitis (K21.9) Active confirmed Problem Chronic hepatitis C (866484355) Chronic hepatitis C without hepatic coma (B18.2) Active confirmed Problem Pancreatic cyst (98506454) Pancreatic cyst (K86.2) Active confirmed Problem Left lower quadrant pain (496268318) Abdominal pain, left lower quadrant (R10.32) Active confirmed Problem History of hepatitis C (19183145677011) History of hepatitis C (Z86.19) Active confirmed Problem Generalized abdominal pain (055057836) Abdominal pain, generalized (R10.84) Active confirmed Problem Abdominal distension (30153421) Abdominal distension (R14.0) Active confirmed Problem Irritable bowel syndrome (26831583) Other irritable bowel syndrome (K58.8) Active confirmed Problem Diarrhea of presumed infectious origin (16080230) Diarrhea of presumed infectious origin (R19.7) Active confirmed Problem Hepatic fibrosis (disorder) (36702564) Liver fibrosis (K74.00) Active confirmed Problem Diastasis of muscle (409041613) Diastasis of rectus abdominis (M62.08) Active confirmed Vital Signs Blood pressure diastolic 00 mm Hg 09/04/2024 Height 69 in 09/04/2024 Blood pressure systolic 00 mm Hg 09/04/2024 Weight 189 lbs 09/04/2024 BMI 27.91 kg/m2 09/04/2024 Encounters Encounter Location Date Provider Diagnosis [facility] [address] [place] [address] 09/04/2024 Steven Rodgers Pancreatic cyst K86. 2 ; Liver fibrosis K74.00 ; History of hepatitis C Z86.19 ; Gastroesophageal reflux disease without esophagitis K21.9 and Other irritable bowel syndrome K58.8 [facility] [address] [place] [address] 06/23/2024 Steven Rodgers [facility] [address] [place] [address] 11/18/2024 Steven Rodgers [facility] [address] [place] [address] 11/19/2024 Steven Rodgers Assessments Encounter Date Diagnosis [...] ENDOSCOPY 12/26/2020 Next Appt Details Provider Name:Steven Gunn Rodgers , 09/08/2025 09:10:00 AM, [address] [place] [address], [address], [place], [address], Insurance Providers Payer Name Payer Address Payer Phone Subscriber Number Group Number Insured Name Patient Relationship to Insured Coverage Start Date Coverage End Date MEDICARE OF [place] [address] [place] [address] [phone] [id number] WILLY SORIANO Self - patient is the insured [employer] ATT[employer] CLAIMS [address] [place] [address] [id number] WILLY SORIANO Self - patient is the [...] 10/2009, and 2019 except sigmoid diverticulosis Denies NM,CVA,Lung disease,renal disease Sigmoid diverticulitis confi rmed on CAT scan and treated with outpatient antibiotics in June of 2014; had an episode in 02/2016 treated with outpatient antibiotics--- he also had episodes in June of 2016, August of 2016, and February 2017--he was referred to the colorectal surgeons at [facility] in August 2016--seen by Dr. Malave [...]
--- OUTSIDE RECORDS SUMMARY | 2025-06-15 06:06 | XMS_ITS | Clinical Summary ---
Author Organization [facility] Address [address] [facility] [address] [place] [address] Phone Care Team Providers Care Belt Worker Name Role Phone Markos Mulligan MD Primary Care Provider [phone] Markos Mulligan MD Unavailable [phone] Markos Mulligan MD Unavailable [phone] Kaveh Garcia MD Unavailable Steven Rodgers MD Unavailable [phone] Allergies No known active allergies Medications GLUCOSAMINE/METHY LSULFONYLMETH (GLUCOSAMINE SULFATE-MSM ORAL) (Move free) Take 2 tablets by mouth once daily. Active fxbotpgk-oyn-srzu ous fumarate 9 mg iron/15 mL Liqd [...] 3 x a day 300 each 11 Active FREESTYLE LITE Strp stripsIndications :Type 2 diabetes mellitus without complication, without long-term current use of insulin Inject 1 each under the skin 3 (three) times a day before meals. 300 strip 11 Active gabapentin (NEURONTIN) 600 MG tablet Take 600 mg by mouth 3 (three) times a day. 024 Active insulin pen needles, disposable, (BD PIOTR 2ND GEN PEN NEEDLE) 32 gauge x /32 NdleIndications:U ncontrolled type 2 diabetes mellitus with hyperglycemia USE 1 NEEDLE NEEDED (EACH EVENING). 100 each 3 Active acyclovir (ZOVIRAX) 400 MG tablet TAKE 1 TABLET BY MOUTH TWICE A DAY 180 tablet 3 Active FREESTYLE TERRY 3 PLUS SENSOR Charisse Use as directed Active atorvastatin (LIPITOR) 10 MG tabletIndications :Mixed hyperlipidemia TAKE 1 TABLET BY MOUTH EVERY DAY 90 tablet 3 Active cyanocobalamin, vitamin B-12, (VITAMIN B-12 SL) Place under the tongue every morning. Active hydroCHLOROthiazi de 25 MG tabletIndications :Essential hypertension TAKE 1 TABLET (25 MG TOTAL) BY MOUTH DAILY. 90 tablet 025 Active metFORMIN (GLUCOPHAGE-XR) 500 MG 24 hr tabletIndications :Type 2 diabetes mellitus without complications TAKE 2 TABLETS BY MOUTH TWICE A DAY 360 tablet Active insulin degludec U-100 (TRESIBA) injection penIndications:Ty pe 2 diabetes mellitus without complication, with long-term current use of insulin Inject 26 Units under the skin nightly at bedtime. 30 mL Active lisinopril (PRINIVIL,ZESTRIL ) 40 MG tabletIndications :Essential hypertension TAKE 1 TABLET BY MOUTH EVERY DAY 90 tablet 3 025 Active lisinopril (PRINIVIL,ZESTRIL ) 40 MG tabletIndications :Essential hypertension TAKE 1 TABLET BY MOUTH EVERY DAY 90 tablet 3 024 2024 Discontinued insulin degludec U-100 (TRESIBA) injection penIndications:Ty pe 2 diabetes mellitus without complication, with long-term current use of insulin Inject 26 Units under the skin nightly at bedtime. 30 mL 025 2024 Discontinued(R eodebby) Active Problems Problem Noted Date Diagnosed Date Lumbar radiculopathy 04/12/2024 Overview (04/14/2024): Saw [facility] spine center- 03/06 saw Chandrakant Majano PA-C they will get new films and get pain med information from [facility]- then f/u with the pt Admitted to [facility] 03/24/24 for numbness and leg [...] Encounters Date Type Department Care Team Description 06/07/2025 Refill [facility] Internal Medicine [address] [place] [address] Markos Mulligan MD Medication Refill 06/04/2025 Refill [facility] Internal Medicine [address] [place] [address] Markos Mulligan MD Medication Refill 04/09/2025 Refill [facility] Internal Medicine [address] [place] [address] Markos Mulligan MD Medication Refill 03/27/2025 11:00 AM EDT Office Visit [facility] Internal Medicine [address] [place] [address] Markos Mulligan MD Routine general medical examination at a health care facility (Primary Dx); Gastroesophageal reflux disease, unspecified whether esophagitis present; Essential hypertension; History of tobacco use; Mixed hyperlipidemia; Bilateral hearing loss, unspecified hearing loss type; Type 2 diabetes mellitus without complication, with long-term current use of insulin 03/24/2025 Orders Only [facility] Internal Medicine [address] [facility] [place] [address] Provider, MD Zehra from Last 3 Months Immunizations Immunization Administration Dates Next Due COVID-19 (Pre-06/18) Moderna Vaccine, mRNA, PF 10/25/2020,09/27/2020 INFLUENZA, SPLIT VIRUS, TRIV ALENT W/ PRESERVATIVE IM 05/27/2020,04/27/2018,05/17/2015 Influenza High-Dose Quadriva lent Preservative Free IM 05/09/2021 Influenza High-Dose Trivalen t Preservative Free IM 05/05/2024,04/29/2019,04/29/2018 Influenza Quadrivalent Adjuv anted Preservative Free IM 06/11/2023,05/30/2022 Influenza Quadrivalent Preservative Free IM 03/2017,05/05/2016 Influenza Trivalent Adjuvant ed Preservative free IM 06/07/2025 Influenza, Unspecified Formulation 04/27/2022, Pneumococcal conjugate PCV13 [...] Description 10/02/2025 8:30 AM EST Office Visit [facility] Internal Medicine [address] [place] [address] Markos Mulligan MD [address] [place] [address] [email or web address] 03/29/2026 8:00 AM EDT Office Visit [facility] Internal Medicine [address] [place] [address] Jose E Fallon PA-C [address] [place] [address] [email or web address] Health Maintenance Due Date Last Done Comments HEPATITIS A VACCINES (1 of 2 - Risk 2-dose series) 01/02/1974 COLOGUARD 1998 FIT TEST 1998 FOBT 1998 SIGMOIDOSCOPY 1998 VIRTUAL COLONOSCOPY 1998 DIABETIC EYE EXAM 08/01/2024 08/01/2023, , 06/20/2022, Additional history exists COVID-19 VACCINE ( season) 2025 05/30/2022, 11/24/2021, 07/12/2021, Additional history exists HEMOGLOBIN A1C 09/23/2025 03/23/2025, 04/0 02/2025, 03/17/2024, Additional history exists BLOOD PRESSURE 09/27/2025 03/27/2025 CREATININE LEVEL 03/23/2026 03/23/2025, 02/2025, 03/17/2024, Additional history exists POTASSIUM LEVEL 03/23/2026 03/23/2025, 04/0 02/2025, 03/17/2024, Additional history exists DEPRESSION SCREENING 03/27/2026 03/27/2025, 03/17/20 24 COLONOSCOPY 11/02/2029 11/03/2019, 11/22/2009 COLORECTAL CANCER SCREENING 11/02/2029 Adult Td,Tdap Booster 04/08/2035 04/08/2025, 015 PNEUMOCOCCAL VACCINES (50+ years) Completed 07/01/2020, 2018, 06/15/2015 ABDOMINAL AORTIC ANEURYSM (AAA) SCREENING Completed 01/20/2021, 12/08/2016 ZOSTER VACCINES Completed 04/01/2023, 0 12/2017, 12/02/2017, Additional history exists RSV VACCINE Completed 05/10/2023 SMOKING STATUS SCREENING (Once After 26 Yrs) Completed 03/27/2025 INFLUENZA VACCINE Completed 06/07/2025, , 06/11/2023, Additional history exists HIB VACCINES Aged Out No longer eligi [...] LAB Routine 03/23/2025 2:01 PM EDT OUTSIDE POTASSIUM LEVEL Routine 03/23/2025 OUTSIDE HEMOGLOBIN A1C Routine 03/23/2025 OUTSIDE ALT LEVEL Routine 03/23/2025 OUTSIDE SERUM CREATININE LEVEL Routine 03/23/2025 DIABETES EYE EXAM FOR RESULT ENTRY ONLY [...] Maribel l Result * Outside Potassium Level (03/23/2025) Potassium level - External 4.0 3.4 - 5.0 mmol/L Historical Provider LAB BLOOD ORDERABLES Maribel l Result * Outside HbA1c (03/23/2025) Hemoglobin A1c - External 6.3 % Historical Provider LAB BLOOD ORDERABLES Maribel l Result * Outside Serum Creatinine Level (03/23/2025) Creatinine, serum - External 1.09 0.8 - 1.3 mg/dL Result [facility] Historical Provider LAB BLOOD ORDERABLES Maribel l Result * Outside ALT Level (03/23/2025) ALT - External 21 5 - 30 U/L Result [facility] Historical Provider LAB BLOOD ORDERABLES Maribel l Result * DIABETES EYE EXAM FOR RESULT ENTRY ONLY (08/01/2023 10:48 AM EST) Result [facility] Historical Provider HEALTH MAINTENANCE Final Result * US Abdominal Aortic Screening (01/20/2021 4:28 PM EDT) Anatomical Region Laterality Modality Abdomen Ultrasound Diagn ostic Result [facility] Markos Mulligan MD IMG US ABDOMEN Final Result * COLONOSCOPY FOR RESULT ENTRY ONLY (11/03/2019) Colonoscopy 10 year repeat Result [facility] Historical Provider HEALTH MAINTENANCE Final Result from Last 3 Months or Most Recently Relevant to Health Maintenance Insurance MEDICARE PART A & B Member Subscriber Plan / Payer (Ef fective 2017-Present) Name:Willy Salgado Member ID:[id number] Relation to Subscriber:Self Name:Willy Salgado Subscriber ID:[id number] Payer ID:[id number] Group ID:Not on file Type:Medicare Address: [facility] [employer] [facility] [employer] [facility] [address] [place] [address] [employer] MEDEX SUPPLEMENT MEDICARE PART A & B [facility] MEDEX SUPPLEMENT MEDICARE PART A & B [employer] MEDEX SUPPLEMENT MEDICARE PART A & B [employer] MEDEX SUPPLEMENT MEDICARE PART A & B [employer] MEDEX SUPPLEMENT MEDICARE PART A & B Member Subscriber Plan / P[facility] Name:Dorothy Willy Member ID:[id number] Relation to Subscriber:Self Name:Willy Salgado Subscriber ID:[id number] Payer ID:[id number] Group ID:Not on file Type:Medicare Address: [facility] [employer] [facility] [employer] [facility] [address] [place] [address] [employer] MEDEX SUPPLEMENT MEDICARE PART A & B [employer] MEDEX SUPPLEMENT MEDICARE PART A & B [employer] MEDEX SUPPLEMENT MEDICARE PART A & B [employer] MEDEX SUPPLEMENT Care Teams Belt Worker Relationship Specialty Start Date End Date Markos Mulligan MD [address] [place] [address] PCP - General 06/14/17 Markos Mulligan MD [address] [place] [address] Historical LMR Provider 06/14/17 Markos Mulligan MD [address] [place] [id number] [email or web address] Insurance Assigned Provider 12/01/23 Kaveh Garcia MD [address] [place] [address] [address] [place] [address] Ophthalmology 01/15/20 Steven Rodgers MD [address] [place] [address] [address] [place] [address] Gastroenterology 01/15/20 Additional Source Comments The information contained in this document represents components of the legal health record. It is not the complete legal health record.[facility]
--- OUTSIDE RECORDS SUMMARY | 2025-06-15 06:06 | XMS_ITS | Clinical Summary ---
Author Organization [employer] [facility] Address [address] [place] [address] Care Team Providers Care Bindery Manager Name Role Phone Markos Mulligan MD Primary Care Provider [phone] Surgical History Surgery Date Site/Laterality Comments CARPAL [...] Health Maintenance Due Date Last Done Comments Colorectal Cancer Screening: Colonoscopy 1955 DTaP,Tdap,and Td Vaccines (1 - Tdap) 04/20/2015 04/19/2015 Pneumococcal Vaccine: 50+ Years (2 of 2 - PCV) 07/01/2021 07/01/2020 Abdominal Aortic Aneurysm (AAA) Screen 09/21/2023 Cholesterol Screening (Lipid Panel) 09/21/2023 Falls Risk Assessment 09/21/2023 Hepatitis C Screening 09/21/2023 Social Influencers of Health Screening 09/21/2023 Depression Screening 08/27/2024 COVID-19 Vaccine ( season) 2025 11/24/2021, 07/12/2021, 10/25/2020, Additional history exists Influenza Vaccine (#1) 2025 , 05/09/2021, 04/14/2020, [...] age to complete this topic Care Teams Bindery Manager Relationship Specialty Start Date End Date Markos Mulligan MD [address] [place] [address] PCP - General 09/18/22
[2025-06-15 08:12] LABS: Prostate Specific Antigen 1.17 ng/mL (<0.05-4.0)
== END 2025-06-15 06:03 | disposition home or self-care (01) ==
LOC: HO.LAB 06:02
PROVIDERS: Urology; PCP Internal Medicine; Visit Provider Nurse Practitioner Family
DX: N40.0 Benign prostatic hyperplasia without lower urinary tract symptoms (principal); N32.0 Bladder-neck obstruction; Z12.5 Encounter for screening for malignant neoplasm of prostate
CPT/HCPCS: 36415; 84153

== ENCOUNTER 2025-06-30 08:34 | Outpatient (AMB) | payer MEDICARE, SELFPAY ==
--- OUTSIDE RECORDS SUMMARY | 2024-04-24 04:00 | XMS_ITS ---
Author Organization [facility] Address [address] [place] [address] Care Team Providers Care Animal Ride Manager Name Role Phone Markos Mulligan MD Primary Care Provider Steven Monteiro [phone] REASON FOR VISIT Patient presents today for chronic hep c,pancreatic cyst Encounters Encounter Location Date Provider Diagnosis [facility] [address] [place] [address] 04/24/2024 Steven Rodgers Plan Of Treatment Next Appt Details Provider Name:Steven Rodgers , 09/08/2025 09:10:00 AM, [address], [address], [place], [address], Progress Notes * WILLY SALGADODOB:[birth year] (70 yo M)Acc No.[id number]:04/24/2024 Progress Notes Patient: Yareli GOLDSTEINKenny WILLY Provider: Juan Rodgers MD :1955 A ge:69 Y S ex:Male Date:04/24/2024 Address:[address] [id number] Pcp:Markos Mulligan MD Subjective: * Chief Complaints: [...] 0 04/24/2024 Generated for Adrian wilcox/Latasha/Heladio on: 08/30/2024 08:57 AM EST
--- NOTE | 2025-06-30 08:40 | MHC.OFFVIS ---
Intake Visit Reasons: 6m/PSA Intake Note: Patient is present for 6M/PSA Urology Medication:FINASTERIDE,TAMSULOSIN Antibiotic Allergy:NONE Blood Thinner:NONE LAST PVR:230ML'S TODAY'S PVR:187ML'S Bale Tie Machine Operator Required: No Allergies No Known Allergies (No Known Allergies*) Allergy (Verified 06/30/25 08:41) HPI Comments Details: Keon is a pleasant male. He is a patient of Dr. Mulligan. He seen for the following urologic conditions - urinary retention - lower urinary tract symptoms Six-month follow-up PVR 180 cc PSA 1.1 Twelve month follow-up Lower urinary tract symptoms Doing well with urinary emptying Urinary retention Initial presentation following L5-S1 spine fusion with Dr. Crawford Has been on alpha-celine Butler catheter been placed for large voiding residual 07/15 1.2, 01/13 1.0, 06/20 1.2 PFSH Medical History Gallbladder sludge Hemorrhoids with complication Diabetes Pancreatic cyst Hepatic hemangioma Diverticulitis HSV infection HTN (hypertension) Hepatitis C Surgical History S/p bilateral carpal tunnel release Family History Maternal Grandfather Cancer of unknown origin Social History Patient Tobacco Use Status: Never used Tobacco Review of Systems Const Denies chills and Denies fever(s) Card Reports no additional complaints and Denies syncope Resp Denies cough GI Denies abdominal pain and Denies heartburn Reports as per HPI and Denies change in libido Neuro Denies syncope Psych Denies change in libido Endo Denies change in libido Physical Exam Const General: cooperative, healthy appearing, comfortable and no acute distress Orientation/consciousness: patient oriented x3 HEENT Face and sinus: Yes normal facial exam Mouth: moist mucous membranes Neck Neck: Yes normal visual inspection, Yes full ROM and Yes trachea midline Chest Chest palpation & inspection: normal inspection of the chest Resp Effort & Inspection: normal respiratory effort, able to speak in complete sentences and no respiratory distress GI Inspection: Yes normal to inspection Back/Spine/Pelvis Cervical Spine: normal cervical lordosis Thoracic/Lumbar Spine: thoracic and lumbar spine normal to inspection Skin General skin exam: no rashes or lesions noted Neuro General: patient oriented x3, gait normal, tone normal and moves all extremities Extrem General: Yes normal to inspection and Yes capillary refill normal Office Procedures Post Void Residual Post Residual Void Post Void Residual (PVR): 187 53246-Favp Void Residual by ultrasound Assessment & Plan Assessment & Plan (1) Bladder outlet obstruction: Code(s): N32.0 - Bladder-neck obstruction Category: Medical Plan Twelve month follow-up Orders: Orders AMB Urinalysis Automated Today Z13.9 - Encounter for screening, unspecified Patient Instructions: This note is constructed using voice recognition software. While every effort has been made to ensure accuracy leasing director errors may have been included. Imaging studies, laboratory and physical exam results were discussed and reviewed in detail. No major barriers to patient understanding were identified. An opportunity to ask questions regarding the treatment plan was provided. All questions were answered. The patient expressed understanding and agreement with the above treatment plan. The patient is aware they should contact our office by phone for worsening of their current condition or the appearance of new urologic symptoms. Compliance is encouraged with any medications and followup testing that is ordered. It is a privilege to participate in the urologic care of your patient. If you have any questions or concerns regarding treatment for the above conditions, or other urologic issues, please do not hesitate to contact me. The office telephone contact is [phone]. Sincerely, Dr Ulisses Monsivais MD, KELL[facility] - Urology Compassionate Specialist Care for the Genitourinary System Coding Level of Care Code Est Pt Level 3 (02493) Complex EM visit Add On G2211 Diagnoses Bladder outlet obstruction N32.0 CPT Codes Post Residual Void - PVR CPT Code: 11952-Ttpw Void Residual by ultrasound ([id number])
--- OUTSIDE RECORDS SUMMARY | 2025-06-30 08:57 | XMS_ITS | Patient Health Record ---
Author Organization [facility] Address [address] [place] [address] Care Team Providers Care Family Support Worker Name Role Phone Markos Mulligan MD Primary Care Provider Steven Monteiro [phone] Allergies No Known Allergies Results Component Value Reference Range Notes MR abdomen wo/w con Reviewed date:10/18/2024 10:14:57 PM Interpretation: Performing Lab: Notes/Report: [address] [address] Magnetic Resonance Report Signed Patient: Willy Salgado MR#: [id number] : 1955 Acct:[id number] Age/Sex: 69 / M ADM Date: 09/11/24 Loc: HO.MRI Attending Dr: Steven Rodgers MD Ordering Physician: Steven Rodgers MD Date of Service: 09/11/24 Procedure(s): MR abdomen wo/w con Accession Number(s): [id number] cc: Markos Mulligan MD; Steven Rodgers MD [...] MD 09/11/2024 01:44 PM [facility] Dictated By: Steven Wells MD Signed By: <Electronically signed by Steven Wells MD in OV> 09/11/24 1344 DD/ 0830 TD/TT: 09/11/24 0915 Supervisor Insecticide: Complete Blood Count Auto Di ff Reviewed date:10/18/2024 10:15:21 PM Interpretation: Performing Lab:[facility], [address] [place] [phone] Notes/Report: White Blood Count 6.8 4.8-10.8 X10*3/uL [...] INR Reviewed date:09/15/2024 09:35:56 PM Interpretation: Performing Lab:[address] [address] Notes/Report: Prothrombin Time 11.9 10.9-12.4 [employer] [...] Panel Reviewed date:09/15/2024 09:35:47 PM Interpretation: Performing Lab:[address] [address] Notes/Report: Bilirubin Total 0.4 0.0-1.0 mg/dL Bilirubin Direct 0.1 0.0-0.5 mg/dL Aspartate Amino Transferase 29 5-37 U/L Alanine Aminotransferase 24 0-40 U/L Total Protein 8.2 6.5-8.0 g/dL Albumin Level 4.8 3.5-5.0 g/dL Alkaline Phosphatase 71 39-117 U/L Blood Urea Nitrogen Reviewed date:09/15/2024 09:35:35 PM Interpretation: Performing Lab:[facility], [address] [place] [phone] Notes/Report: Blood Urea Nitrogen 26 9-16 mg/dL Creatinine Reviewed date:09/15/2024 09:35:24 PM Interpretation: Performing Lab:[address] [address] Notes/Report: Creatinine 1.01 0.5-1.4 mg/dL Estimated Glomerular Filt Rate > 60 Chronic Kidney Disease: Estimated GFR < 60 mL/min/1.73m2 Severe Kidney Disease: Estimated GFR < 15 mL/min/1.73m2 Carbohydrate Antigen 19-9 Reviewed date:09/21/2024 02:53:31 PM Interpretation: Performing Lab:[address] [address] Notes/Report: Carbohydrate Antigen 19-9 11 <34 U/mL This test was performed using the Fotomoto chemiluminescent method. Values obtained from different assay methods cannot be used interchangeably. CA 19-9 levels, regardless of value, should not be interpreted as absolute evidence of the presence or absence of disease. THIS TEST WAS PERFORMED AT: [facility] [address] [place] [phone] KIRAN PRATHER MD Alpha Fetoprotein Reviewed date:09/21/2024 02:53:40 PM Interpretation: Performing Lab:[address] [address] Notes/Report: Alpha Fetoprotein 2.1 <6.1 ng/mL This test was performed using the Quanlight Cyrus chemiluminescent method. Values obtained from different assay methods cannot be used interchangeably. AFP levels, regardless of value, should not be interpreted as absolute evidence of the presence or absence of disease. THIS TEST WAS PERFORMED AT: [facility] [address] [place] [phone] KIRAN PRATHER MD Liver Fibrosis Pnl Reviewed date:09/21/2024 02:54:05 PM Interpretation: Performing Lab:[facility], [address] [place] [phone] Notes/Report: Liver Fibrosis Score 0.59 Liver Fibrosis [...] a>0.62 and a<=1.00 : A3 (severe activity) BVK-Nwehz-9-Macroglobulin 373 106-279 mg/dL FIB-Haptoglobin 89 43-212 mg/dL FIB-Apolipoprotein A1 117 94-176 mg/dL FIB-Total Bilirubin 0.3 0.2-1.2 mg/dL FIB-GGT 13 3-70 U/L FIB-ALT 15 9-46 U/L Reference ID [id number] Footnote SEE NOTE The reliability of results is dependent on compliance with the preanalytical and analytical conditions recommended by [employer]. The tests have to be deferred for: [...] The performance characteristics have been determined by [facility]. It has not been cleared or approved by the U.S. Food and Drug Administration. Performance characteristics refer to the analytical performance of the test. app[employer], the associated logo, Social Reality and all associated [employer] larry are the registered trademarks of [employer]. All third green party larry - (R) and (TM) - are the property of their respective owners. (C) 0664-3244 [employer]. All rights reserved. THIS TEST WAS PERFORMED AT: [facility] [employer] [facility] [address] [place] [address] ROBERTO COLÓN MD,PHD,KELLIE Reason For Referral No Information Medications Medication SIG (Take, Route, Frequency, Duration) Notes Start Date End Date Status Pantoprazole Sodium 40 MG TAKE 1 TABLET BY MOUTH EVERY DAY FOR 30 DAYS; Duration: 90 Active Flaxseed Oil 1000 MG as directed [...] times a day Active Move Free Joint [facility] - as directed Orally once a [...] W/U Status Risk Notes Problem Epigastric pain (90796899) Epigastric pain (R10.13) Active confirmed Problem Diverticulitis of colon (414522715) Diverticulitis of large intestine without perforation or abscess without bleeding (K57.32) Active confirmed Problem Screening for malignant neoplasm of colon (929331439) Encounter for screening for malignant neoplasm of colon (Z12.11) Active confirmed Problem Abdominal bloating (694594332) Abdominal bloating (R14.0) Active confirmed Problem Hemorrhoids (83341797) Other hemorrhoids (K64.8) Active confirmed Problem Gastroesophageal reflux disease without esophagitis (566473539) Gastroesophageal reflux disease without esophagitis (K21.9) Active confirmed Problem Chronic hepatitis C (226295575) Chronic hepatitis C without hepatic coma (B18.2) Active confirmed Problem Pancreatic cyst (54459556) Pancreatic cyst (K86.2) Active confirmed Problem Left lower quadrant pain (285221426) Abdominal pain, left lower quadrant (R10.32) Active confirmed Problem History of hepatitis C (75665268251919) History of hepatitis C (Z86.19) Active confirmed Problem Generalized abdominal pain (226289101) Abdominal pain, generalized (R10.84) Active confirmed Problem Abdominal distension (57744335) Abdominal distension (R14.0) Active confirmed Problem Irritable bowel syndrome (03661821) Other irritable bowel syndrome (K58.8) Active confirmed Problem Diarrhea of presumed infectious origin (32903094) Diarrhea of presumed infectious origin (R19.7) Active confirmed Problem Hepatic fibrosis (disorder) (46724011) Liver fibrosis (K74.00) Active confirmed Problem Diastasis of muscle (285988878) Diastasis of rectus abdominis (M62.08) Active confirmed Vital Signs Blood pressure diastolic 00 mm Hg 09/04/2024 Height 69 in 09/04/2024 Blood pressure systolic 00 mm Hg 09/04/2024 Weight 189 lbs 09/04/2024 BMI 27.91 kg/m2 09/04/2024 Encounters Encounter Location Date Provider Diagnosis [facility] [address] [place] [phone] 09/04/2024 Steven Rodgers Pancreatic cyst K86. 2 ; Liver fibrosis K74.00 ; History of hepatitis C Z86.19 ; Gastroesophageal reflux disease without esophagitis K21.9 and Other irritable bowel syndrome K58.8 [facility] [address] [place] [phone] 11/18/2024 Steven Rodgers [facility] [address] [place] [phone] 11/19/2024 Steven Rodgers Assessments Encounter Date Diagnosis [...] BUN 09/30/2020 BUN 09/04/2024 BUN 04/20/2017 CREATININE 09/30/2020 CREATININE 04/20/2017 CREATININE 04/29/2019 CREATININE 06/30/2014 LIVER PROFILE 09/04/2024 LIVER PROFILE 04/02/2015 LIVER PROFILE 09/30/2020 LIVER PROFILE 01/21/2015 LIVER PROFILE 04/20/2017 LIVER PROFILE 05/09/2012 LIVER PROFILE 12/13/2021 LIVER PROFILE 07/01/2015 LIVER PROFILE 04/23/2015 LIVER PROFILE 04/24/2023 LIVER PROFILE 06/30/2014 CBC w DIFF 04/23/2015 CBC w DIFF 04/24/2023 CBC w DIFF 06/30/2014 CBC w DIFF 09/04/2024 CBC w DIFF 04/02/2015 CBC w DIFF 07/13/2016 CBC w DIFF 09/30/2020 CBC w DIFF 01/21/2015 CBC w DIFF 04/20/2017 CBC w DIFF 02/18/2015 PROTHROMBIN TIME (PT, INR) 09/30/2020 PROTHROMBIN TIME (PT, INR) 04/20/2017 ALPHA-FETOPROTEIN,TUMOR MARKER 3 ALPHA-FETOPROTEIN,TUMOR MARKER 5 ALPHA-FETOPROTEIN,TUMOR MARKER 4 ALPHA-FETOPROTEIN,TUMOR MARKER 1 ALPHA-FETOPROTEIN,TUMOR MARKER 9 ALPHA-FETOPROTEIN,TUMOR MARKER 7 CELIAC PANEL #10 04/24/2023 CA 19-9 09/30/2020 CA 19-9 04/29/2019 CA 19-9 04/20/2017 CA 19-9 09/04/2024 CA 19-9 04/24/2023 CA 19-9 12/13/2021 HEPATITIS C VIRAL LOAD 12/13/2021 HEPATITIS C VIRAL LOAD 04/23/2015 HEPATITIS C VIRAL LOAD 04/29/2019 HEPATITIS C VIRAL LOAD 04/20/2017 HEPATITIS C VIRAL LOAD 04/02/2015 HEPATITIS C VIRAL LOAD 01/21/2015 HEPATITIS C VIRAL LOAD 07/01/2015 HEPATITIS C VIRAL LOAD 04/24/2023 CT ABD & PELVIS WITH CONTRAST 06/30/2014 CT ABD & PELVIS WITH CONTRAST 07/13/2016 MRI ABD NO CONTRAST (MRCP) 04/24/2023 MRI ABD W&WO CONTRAST 07/01/2014 MRI ABD W&WO CONTRAST 05/02/2016 MRI ABD W&WO CONTRAST 05/09/2018 MRI ABD W&WO CONTRAST 09/30/2020 MRI ABD W&WO CONTRAST 04/24/2023 MRI ABD W&WO CONTRAST 04/29/2019 MRI ABD W&WO CONTRAST 04/20/2017 MRI ABD W&WO CONTRAST 09/04/2024 HCV LIVER FIBROSIS, FIBRO TEST 5 HCV LIVER FIBROSIS, FIBRO TEST 2 HCV LIVER FIBROSIS, FIBRO TEST 3 STOOL WBC 04/04/2023 C DIFFICILE RFLX PCR 04/04/2023 Prothrombin Time INR 09/04/2024 Creatinine 09/04/2024 Alpha Fetoprotein 12/13/2021 Future Test Test Name Order Date COLONOSCOPY 04/29/2019 UPPER GI ENDOSCOPY 12/26/2020 Next Appt Details Provider Name:Steven Gunn Vishal , 09/08/2025 09:10:00 AM, [address] [place] [address], [address], [place], [address], Insurance Providers Payer Name Payer Address Payer Phone Subscriber Number Group Number Insured Name Patient Relationship to Insured Coverage Start Date Coverage End Date MEDICARE OF [place] [address] [facility] [address] [id number] WILLY SORIANO Self - patient is the insured [employer] ATT[employer] CLAIMS [address] [place] [address] [phone] [id number] WILLY SORINAO Self - patient is the insured Medical [...] 10/2009, and 2019 except sigmoid diverticulosis Denies SD,CVA,Lung disease,renal disease Sigmoid diverticulitis confi rmed on CAT scan and treated with outpatient antibiotics in June of 2014; had an episode in 02/2016 treated with outpatient antibiotics--- he also had episodes in June of 2016, August of 2016, and February 2017--he was referred to the colorectal surgeons at [facility] in August 2016--seen by Dr. Malave [...]
--- OUTSIDE RECORDS SUMMARY | 2025-06-30 08:57 | XMS_ITS | Patient Health Record ---
Author Organization [facility] Address [address] [place] [address] Care Team Providers Care Quitline Counselor Name Role Phone Markos Mulligan MD Primary Care Provider Manolo Sales Unavailable [phone] Allergies No Known Allergies Results Component Value [...] Problem Acquired hammer toe of right foot (404800048309 9105) Other hammer toe(s) (acquired), right foot (M20.41) Active confirmed Problem Acquired hammer toe of left foot (073694973293 9103) Other hammer toe(s) (acquired), left foot (M20.42) Active confirmed Problem Diabetes mellitus (09014076) Type 2 diabetes mellitus without complication (E11.9) Active confirmed Vital Signs Blood pressure diastolic 78 mm Hg 06/09/2025 Height 5ft 8in in 06/09/2025 Blood pressure systolic 134 mm Hg 06/09/2025 Weight 184 lbs 06/09/2025 BMI 27.97 kg/m2 06/09/2025 Encounters Encounter Location Date Provider Diagnosis [facility] [place] [address] [place] [address] 06/09/2025 Manolo Riojas Type 2 diabetes mellitus [...] Treatment Pending Test Test Name Order Date [id number]-Xqmpmkdp Plate 04/04/2022 15411-Fkqbdksa Plate Each Additional 04/2022 [id number] 11/07/2022 49236-[id number] 03/07/2023 66110-JJREQFW SKIN/TISSUE 03/29/2023 50347-[id number] SKIN/TISSUE 11/21/2022 72028 I&D ABSCESS- SIMPLE,SINGLE 021 Next Appt Details Provider Name:Manolo Riojas , 06/08/2026 08:45:00 AM, [address] [place], [address], Insurance Providers Payer Name Payer Address Payer Phone Subscriber Number Group Number Insured Name Patient Relationship to Insured Coverage Start Date Coverage End Date Medicare National Govt [employer] [address] [facility] [place] [address] [id number] Paulo Savage Self - patient is the insured [employer] Blue Shield [address] [place] [address] [phone] [id number] Paulo Savage Self - patient is the [...]
--- OUTSIDE RECORDS SUMMARY | 2025-06-30 08:57 | XMS_ITS | Encounter Summary ---
Author Organization [facility] Address [address] [place] [address] Phone Care Team Providers Care Cement Crusher Operator Name Role Phone Markos Mulilgan MD Primary Care Provider [phone] Markos Mulligan MD Unavailable [phone] Markos Mulligan MD Unavailable [phone] Kaveh Garcia MD Unavailable Steven Rodgers MD Unavailable [phone] Encounter Details Date Type Department Care Team (Late st Contact Info) Description 06/16/2025 Orders Only [facility] Internal Medicine [address] [place] [address] Provider, MD Ze[facility]ra [facility] [place] [address] Social History Tobacco Use Types Packs/Day Years Used Date Smoking Tobacco: Former Cigarettes 0.5 20 0 02/13/1980 - 1989 Smokeless Tobacco: Never Comments:quit 25 years ago Alcohol Use Standard [...] on file Sexual Orientation Not on file documented as of this encounter Plan of Treatment Upcoming Encounters Date Type Department Care Team (Late st Contact Info) Description 10/02/2025 8:30 AM EST Office Visit [facility] Internal Medicine [address] [place] [address] Markos Mulligan MD [address] [place] [address] 03/29/2026 8:00 AM EDT Office Visit [facility] Internal Medicine [address] [place] [address] Jose E Fallon PA-C [address] [place] [address] documented as of this encounter Procedures Procedure Name Priority Date/Time Associated Diagnosis Comments OUTSIDE LAB Routine 06/15/2025 12:12 PM EDT documented in this encounter Results * Outside Lab (06/15/2025 12:12 PM EDT) us Historical Provider LAB BLOOD BKR ORDERABLES Final Result documented in this encounter Visit Diagnoses Not on filedocumented in this encounter Additional Health Concerns Assessment Noted Time PHQ-9 Depression Total Score: 7 03/17/20 24 7:57 AM EDT PHQ-2 Depression Total Score: 0 03/27/20 25 10:42 AM EDT documented as of this encounter Care Teams Cement Crusher Operator Relationship Specialty Start Date End Date Markos Mulligan MD [address] [place] [address] [email or web address] PCP - General 06/14/17 Markos Mulligan MD [address] [place] [address] Historical LMR Provider 06/14/17 Markos Mulligan MD [address] [place] [address] Insurance Assigned Provider 12/01/23 Kaveh Garcia MD [address] [place] [address] [address] Ophthalmology 01/15/20 Steven Rodgers MD [address] [place] [address] [address] [place] [address] Gastroenterology 01/15/20 documented as of this encounter Additional Source Comments The information contained in this document represents components of the legal health record. It is not the complete legal health record.[facility]
--- OUTSIDE RECORDS SUMMARY | 2025-06-30 08:57 | XMS_ITS | Clinical Summary ---
Author Organization [email or web address] Address [address] [place] [address] Care Team Providers Care Associate Editor Name Role Phone Markos Mulligan MD Primary Care Provider [phone] Surgical History Surgery Date Site/Laterality Comments CARPAL [...] age to complete this topic Care Teams Associate Editor Relationship Specialty Start Date End Date Markos Mulligan MD [address] [place] [address] PCP - General 09/18/22
--- OUTSIDE RECORDS SUMMARY | 2025-06-30 08:57 | XMS_ITS | Clinical Summary ---
Author Organization [facility] Address [address] [facility] [address] [place] [address] Phone Care Team Providers Care Secondary Spanish Teacher Name Role Phone Markos Mulligan MD Primary Care Provider [phone] Markos Mulligan MD Unavailable [phone] Markos Mulligan MD Unavailable [phone] Kaveh Garcia MD Unavailable Steven Rodgers MD Unavailable [phone] Allergies No known active allergies Medications GLUCOSAMINE/METHY LSULFONYLMETH (GLUCOSAMINE SULFATE-MSM ORAL) (Move free) Take 2 tablets by mouth once daily. Active bsudpvjr-qzq-qloc ous fumarate 9 mg iron/15 mL Liqd [...] Date Lumbar radiculopathy 04/12/2024 Overview (04/14/2024): Saw [facility] [place] [facility]- 03/06 saw Chandrakant Majano PA-C they will get new films and get pain med information from [facility]- then f/u with the pt Admitted to [facility] 03/24/24 for numbness and leg pain- [...] Encounters Date Type Department Care Team Description 06/16/2025 Orders Only [facility] Internal Medicine [address] [place] [address] Zehra Ford MD 06/07/2025 Refill [facility] Internal Medicine [address] [place] [address] Markos Mulligan MD Medication Refill 06/04/2025 Refill [facility] Internal Medicine [address] [place] [address] Markos Mulligan MD Medication Refill 04/09/2025 Refill [facility] Internal Medicine [address] [place] [address] Markos Mulligan MD Medication Refill from Last [...] Description 10/02/2025 8:30 AM EST Office Visit [facility] Internal Medicine [address] [place] [address] Markos Mulligan MD [address] [place] [address] 03/29/2026 8:00 AM EDT Office Visit [facility] Internal Medicine [address] [place], [place] [phone] Jose E Fallon PA-C [address] [place] [address] [email or web address] Health Maintenance Due Date Last Done Comments HEPATITIS A VACCINES (1 of 2 - Risk 2-dose series) 01/02/1974 COLOGUARD 1998 FIT TEST 1998 FOBT 1998 SIGMOIDOSCOPY 1998 VIRTUAL COLONOSCOPY 1998 DIABETIC EYE EXAM 08/01/2024 08/01/2023, , 06/20/2022, Additional history exists COVID-19 VACCINE (2024- season) 2025 05/30/2022, 11/24/2021, 07/12/2021, Additional history [...] Completed 01/20/2021, 12/08/2016 ZOSTER VACCINES Completed 04/01/2023, 110 12/2017, 12/02/2017, Additional history exists RSV VACCINE [...] OUTSIDE LAB Routine 06/15/2025 12:12 PM EDT OUTSIDE HEMOGLOBIN A1C Routine 03/23/2025 OUTSIDE POTASSIUM LEVEL Routine 03/23/2025 OUTSIDE SERUM CREATININE LEVEL Routine 03/23/2025 DIABETES EYE EXAM FOR RESULT ENTRY ONLY Routine 08/01/2023 10:48 AM EST US ABDOMINAL AORTIC SCREENING Routine 01/20/2021 4:28 PM EDT Screening for abdominal aortic aneurysm COLONOSCOPY FOR RESULT ENTRY ONLY Routine 11/03/2019 from Last 3 Months or Most Recently Relevant to Health Maintenance Results * Outside Lab (06/15/2025 12:12 PM EDT) [facility] Provider LAB BLOOD BKR ORDERABLES Final Result * Outside Potassium Level (03/23/2025) Potassium level - External 4.0 3.4 - 5.0 mmol/L Result [facility] Provider LAB BLOOD ORDERABLES Maribel l Result * Outside HbA1c (03/23/2025) Hemoglobin A1c - External 6.3 % Result [facility] Provider LAB BLOOD ORDERABLES Maribel l Result * Outside Serum Creatinine Level (03/23/2025) Creatinine, serum - External 1.09 0.8 - 1.3 mg/dL Result [facility] Provider LAB BLOOD ORDERABLES Maribel l Result * DIABETES EYE EXAM FOR RESULT ENTRY ONLY (08/01/2023 10:48 AM EST) [facility] Provider HEALTH MAINTENANCE Final Result * US Abdominal Aortic Screening (01/20/2021 4:28 PM EDT) Anatomical Region Laterality Modality Abdomen Ultrasound Diagn ostic Markos Mulligan MD IMG US ABDOMEN Final Result * COLONOSCOPY FOR RESULT ENTRY ONLY (11/03/2019) Colonoscopy 10 year repeat Historical Provider MD HEALTH MAINTENANCE Final Result from Last 3 Months or Most Recently Relevant to Health Maintenance Insurance [place] [id number] [employer] MEDEX SUPPLEMENT MEDICARE PART A & B [employer] MEDEX SUPPLEMENT Member Subscriber Plan / Payer [facility] Name:Willy Salgado Relation to Subscriber:Self Name:WILLY SALGADO Payer ID:[id number] (NAIC) Type:Indemnity Address: [place] [address] MEDICARE PART A & B [employer] MEDEX SUPPLEMENT MEDICARE PART A & B [employer] CROSS MEDEX SUPPLEMENT MEDICARE PART A & B [employer] MEDEX SUPPLEMENT MEDICARE PART A & B [employer] MEDEX SUPPLEMENT MEDICARE PART A & B [employer] MEDEX SUPPLEMENT MEDICARE PART A & B [employer] MEDEX SUPPLEMENT MEDICARE PART A & B [employer] MEDEX SUPPLEMENT Care Teams Secondary Spanish Teacher Relationship Specialty Start Date End Date Markos Mulligan MD [address] [place] [address] PCP - General 06/14/17 Markos Mulligan MD [address] [place], [place] [phone] Historical LMR Provider 06/14/17 Markos Mulligan MD [address] [place] [address] Insurance Assigned Provider 12/01/23 Kaveh Garcia MD [address] [place] [address] [phone] Ophthalmology 01/15/20 Steven Rodgers MD [address] [place] [address] [address] [place] [address] [id number] Gastroenterology 01/15/20 Additional Source Comments The information contained in this document represents components of the legal health record. It is not the complete legal health record.[facility]
== END 2025-06-30 09:47 | disposition home or self-care (01) ==
LOC: HO.HUSH 08:34
PROVIDERS: PCP Internal Medicine; Visit Provider Urology
DX: N32.0 Bladder-neck obstruction (principal)
CPT/HCPCS: 99213

== ENCOUNTER → 2025-06-30 08:34 | Outpatient (BNVA) | payer MEDICARE, SELFPAY | PROVIDERS: PCP Internal Medicine; Visit Provider Urology | DX: N32.0 Bladder-neck obstruction (principal) | CPT/HCPCS: 51798; 99212 ==

== ENCOUNTER 2025-07-02 07:54 | Outpatient (REF) | payer SELFPAY ==
--- OUTSIDE RECORDS SUMMARY | 2024-04-24 04:00 | XMS_ITS ---
Author Organization [facility] Address [address] [place] [address] Care Team Providers Care Cook Italian Style Food Name Role Phone Markos Mulligan MD Primary Care Provider Steven Monteiro [phone] REASON FOR VISIT Patient presents today for chronic hep c,pancreatic cyst Encounters Encounter Location Date Provider Diagnosis [facility] [address] [place] [address] 04/24/2024 Steven Rodgers Plan Of Treatment Next Appt Details Provider Name:Steven Rodgers , 09/08/2025 09:10:00 AM, [address], [address], [place], [address], Progress Notes * WILLY SALGADODOB:[birth year] (70 yo M)Acc No.[id number]:04/24/2024 Progress Notes Patient: Yareli GOLDSTEINKenny WILLY Provider: Juan Rodgers MD :1955 A ge:69 Y S ex:Male Date:04/24/2024 Address[address] [id number] Pcp:Markos Mulligan MD Subjective: * Chief Complaints: * 1 . Patient presents today for chronic hep c,pancreatic cyst. * Medical History: Objective: * Vitals: Assessment: Plan: * Treatment: * * The named appointment provid er may or may not be the originator of this progress note, and it is not deemed complete until electronically signed by the appointment provider. Sign off status: Pending * Provider: Juan Rodgers MD Date: 0 04/24/2024 Generated for Adrian wilcox/Latasha/Heladio on: 09/01/2024 07:57 AM EST
--- OUTSIDE RECORDS SUMMARY | 2025-07-02 07:57 | XMS_ITS | Patient Health Record ---
Author Organization [facility] Address [address] [place] [address] Care Team Providers Care Photo Lab Specialist Name Role Phone Markos Mulligan MD Primary Care Provider Steven Monteiro [phone] Allergies No Known Allergies Results Component Value Reference Range Notes MR abdomen wo/w con Reviewed date:10/18/2024 10:14:57 PM Interpretation: Performing Lab: Notes/Report: [address] [address] Magnetic Resonance Report Signed Patient: Willy Salgado MR#: [id number] : 1955 Acct:[id number] Age/Sex: 69 / M ADM Date: 09/11/24 Loc: HO.MRI Attending Dr: Steven Rodgers MD Ordering Physician: Steven Rodgers MD Date of Service: 09/11/24 Procedure(s): MR abdomen wo/w con Accession Number(s): [id number] cc: Markos Mulligan MD; Steven Rodgers MD [...] by: Steven Wells MD 09/11/2024 01:44 PM [facility] Dictated By: Steven Wells MD Signed By: <Electronically signed by Steven Wells MD in OV> 09/11/24 1344 DD/ 0830 TD/TT: 09/11/24 0915 Dairy Worker: Complete Blood Count Auto Di ff Reviewed date:10/18/2024 10:15:21 PM Interpretation: Performing Lab:[facility], [address] [place] [address] Notes/Report: White Blood Count 6.8 4.8-10.8 X10*3/uL [...] INR Reviewed date:09/15/2024 09:35:56 PM Interpretation: Performing Lab:[address] [address] Notes/Report: Prothrombin Time 11.9 10.9-12.4 [employer] [...] Panel Reviewed date:09/15/2024 09:35:47 PM Interpretation: Performing Lab:[address] [address] Notes/Report: Bilirubin Total 0.4 0.0-1.0 mg/dL Bilirubin Direct 0.1 0.0-0.5 mg/dL Aspartate Amino Transferase 29 5-37 U/L Alanine Aminotransferase 24 0-40 U/L Total Protein 8.2 6.5-8.0 g/dL Albumin Level 4.8 3.5-5.0 g/dL Alkaline Phosphatase 71 39-117 U/L Blood Urea Nitrogen Reviewed date:09/15/2024 09:35:35 PM Interpretation: Performing Lab:[facility], [address] [place] [phone] Notes/Report: Blood Urea Nitrogen 26 9-16 mg/dL Creatinine Reviewed date:09/15/2024 09:35:24 PM Interpretation: Performing Lab:[address] [address] Notes/Report: Creatinine 1.01 0.5-1.4 mg/dL Estimated Glomerular Filt Rate > 60 Chronic Kidney Disease: Estimated GFR < 60 mL/min/1.73m2 Severe Kidney Disease: Estimated GFR < 15 mL/min/1.73m2 Carbohydrate Antigen 19-9 Reviewed date:09/21/2024 02:53:31 PM Interpretation: Performing Lab:[address] [address] Notes/Report: Carbohydrate Antigen 19-9 11 <34 U/mL This test was performed using the LilLuxe chemiluminescent method. Values obtained from different assay methods cannot be used interchangeably. CA 19-9 levels, regardless of value, should not be interpreted as absolute evidence of the presence or absence of disease. THIS TEST WAS PERFORMED AT: [facility] [address] [place] [phone] KIRAN PRATHER MD Alpha Fetoprotein Reviewed date:09/21/2024 02:53:40 PM Interpretation: Performing Lab:[address] [address] Notes/Report: Alpha Fetoprotein 2.1 <6.1 ng/mL This test was performed using the Tonx Cyrus chemiluminescent method. Values obtained from different assay methods cannot be used interchangeably. AFP levels, regardless of value, should not be interpreted as absolute evidence of the presence or absence of disease. THIS TEST WAS PERFORMED AT: [facility] [address] [place] [phone] KIRAN PRATHER MD Liver Fibrosis Pnl Reviewed date:09/21/2024 02:54:05 PM Interpretation: Performing Lab:[facility], [address] [place] [phone] Notes/Report: Liver Fibrosis Score 0.59 Liver Fibrosis [...] a>0.62 and a<=1.00 : A3 (severe activity) LSF-Hmjek-6-Macroglobulin 373 106-279 mg/dL FIB-Haptoglobin 89 43-212 mg/dL FIB-Apolipoprotein A1 117 94-176 mg/dL FIB-Total Bilirubin 0.3 0.2-1.2 mg/dL FIB-GGT 13 3-70 U/L FIB-ALT 15 9-46 U/L Reference ID [id number] Footnote SEE NOTE The reliability of results is dependent on compliance with the preanalytical and analytical conditions recommended by [employer]. The tests have to be deferred for: [...] The performance characteristics have been determined by [facility]. It has not been cleared or approved by the U.S. Food and Drug Administration. Performance characteristics refer to the analytical performance of the test. XATA, the associated logo, [employer] and all associated [employer] larry are the registered trademarks of [employer]. All third republican larry - (R) and (TM) - are the property of their respective owners. (C) 6810-7699 [employer] Incorporated. All rights reserved. THIS TEST WAS PERFORMED AT: [employer] [facility] [address] [place] [address] ROBERTO COLÓN MD,PHD,KELLIE Reason For Referral No [...] times a day Active Move Free Joint [facility] Advance - as directed Orally [...] W/U Status Risk Notes Problem Epigastric pain (91681224) Epigastric pain (R10.13) Active confirmed Problem Diverticulitis of colon (806667951) Diverticulitis of large intestine without perforation or abscess without bleeding (K57.32) Active confirmed Problem Screening for malignant neoplasm of colon (105655415) Encounter for screening for malignant neoplasm of colon (Z12.11) Active confirmed Problem Abdominal bloating (314260680) Abdominal bloating (R14.0) Active confirmed Problem Hemorrhoids (82936991) Other hemorrhoids (K64.8) Active confirmed Problem Gastroesophageal reflux disease without esophagitis (778000663) Gastroesophageal reflux disease without esophagitis (K21.9) Active confirmed Problem Chronic hepatitis C (030322490) Chronic hepatitis C without hepatic coma (B18.2) Active confirmed Problem Pancreatic cyst (71642385) Pancreatic cyst (K86.2) Active confirmed Problem Left lower quadrant pain (370000572) Abdominal pain, left lower quadrant (R10.32) Active confirmed Problem History of hepatitis C (65463582533707) History of hepatitis C (Z86.19) Active confirmed Problem Generalized abdominal pain (275236742) Abdominal pain, generalized (R10.84) Active confirmed Problem Abdominal distension (15572906) Abdominal distension (R14.0) Active confirmed Problem Irritable bowel syndrome (66525381) Other irritable bowel syndrome (K58.8) Active confirmed Problem Diarrhea of presumed infectious origin (96516741) Diarrhea of presumed infectious origin (R19.7) Active confirmed Problem Hepatic fibrosis (disorder) (22149010) Liver fibrosis (K74.00) Active confirmed Problem Diastasis of muscle (693305146) Diastasis of rectus abdominis (M62.08) Active confirmed Vital Signs Blood pressure diastolic 00 mm Hg 09/04/2024 Height 69 in 09/04/2024 Blood pressure systolic 00 mm Hg 09/04/2024 Weight 189 lbs 09/04/2024 BMI 27.91 kg/m2 09/04/2024 Encounters Encounter Location Date Provider Diagnosis [facility] [address] [place] [address] 09/04/2024 Steven Rodgers Pancreatic cyst K86. 2 ; Liver fibrosis K74.00 ; History of hepatitis C Z86.19 ; Gastroesophageal reflux disease without esophagitis K21.9 and Other irritable bowel syndrome K58.8 [facility] [address] [place] [address] 11/18/2024 Steven Rodgers [facility] [address] [place] [address] 11/19/2024 Steven Rodgers Assessments Encounter Date Diagnosis [...] Name:Steven Gunn Vishal , 09/08/2025 09:10:00 AM, [address] [place] [address], [address], [place], [address], Insurance Providers Payer Name Payer Address Payer Phone Subscriber Number Group Number Insured Name Patient Relationship to Insured Coverage Start Date Coverage End Date MEDICARE OF [place] [address] [facility] [place] [address] [id number] WILLY SORIANO Self - patient is the insured MEDEX ATTN CLAIMS [address] [place] [address] [id number] WILLY SORIANO Self - patient is the [...] 10/2009, and 2019 except sigmoid diverticulosis Denies ME,CVA,Lung disease,renal disease Sigmoid diverticulitis confi rmed on CAT scan and treated with outpatient antibiotics in June of 2014; had an episode in 02/2016 treated with outpatient antibiotics--- he also had episodes in June of 2016, August of 2016, and February 2017--he was referred to the colorectal surgeons at [facility] in August 2016--seen by Dr. Malave [...]
--- OUTSIDE RECORDS SUMMARY | 2025-07-02 07:57 | XMS_ITS | Patient Health Record ---
Author Organization [facility] Address [address] [place] [address] Care Team Providers Care Cooler Worker Name Role Phone Markos Mulligan MD Primary Care Provider Manolo Sales Unavailable [phone] Allergies No Known Allergies Results Component Value [...] Problem Acquired hammer toe of right foot (820295522962 9105) Other hammer toe(s) (acquired), right foot (M20.41) Active confirmed Problem Acquired hammer toe of left foot (989591277573 9103) Other hammer toe(s) (acquired), left foot (M20.42) Active confirmed Problem Diabetes mellitus (42682634) Type 2 diabetes mellitus without complication (E11.9) Active confirmed Vital Signs Blood pressure diastolic 78 mm Hg 06/09/2025 Height 5ft 8in in 06/09/2025 Blood pressure systolic 134 mm Hg 06/09/2025 Weight 184 lbs 06/09/2025 BMI 27.97 kg/m2 06/09/2025 Encounters Encounter Location Date Provider Diagnosis [facility] [place] [address] [place] [address] 06/09/2025 Manolo Riojas Type 2 diabetes mellitus [...] Treatment Pending Test Test Name Order Date 78038-Ptykoubf Plate 04/04/2022 23381-Lsnfemyq Plate Each Additional 04/2022 44842-YTU 11/07/2022 [id number] 03/07/2023 53635-[id number] SKIN/TISSUE 03/29/2023 [id number] SKIN/TISSUE 11/21/2022 15870 I&D ABSCESS- SIMPLE,SINGLE 021 Next Appt Details Provider Name:Manolo Riojas , 06/08/2026 08:45:00 AM, [address] [place], [address], Insurance Providers Payer Name Payer Address Payer Phone Subscriber Number Group Number Insured Name Patient Relationship to Insured Coverage Start Date Coverage End Date Medicare National Govt [employer] [address] [place] [address] [id number] Paulo Savage Self - patient is the insured [employer] Blue Shield [address] [place] [address] [id number] Paulo Savage Self - patient is the [...]
--- OUTSIDE RECORDS SUMMARY | 2025-07-02 07:58 | XMS_ITS | Clinical Summary ---
Author Organization [facility] Address [address] [facility] [address] [place] [address] Phone Care Team Providers Care Proof Machine Operator Supervisor Name Role Phone Markos Mulligan MD Primary Care Provider [phone] Markos Mulligan MD Unavailable [phone] Markos Mulligan MD Unavailable [phone] Kaveh Garcia MD Unavailable Steven Rodgers MD Unavailable [phone] Allergies No known active allergies Medications GLUCOSAMINE/METHY LSULFONYLMETH (GLUCOSAMINE SULFATE-MSM ORAL) (Move free) Take 2 tablets by mouth once daily. Active csovxpms-pgw-wprm ous fumarate 9 mg iron/15 mL Liqd [...] Date Lumbar radiculopathy 04/12/2024 Overview (04/14/2024): Saw [facility]- 03/06 saw Chandrakant Majano PA-C they will get new films and get pain med information from [facility]- then f/u with the pt Admitted to [facility] 03/24/24 for numbness and leg pain- [...] Department Care Team Description 06/16/2025 Orders Only [facility] Internal Medicine [address] [place] [address] Zehra Ford MD 06/07/2025 Refill [facility] Internal Medicine [address] [place] [address] Markos Mulligan MD Medication Refill 06/04/2025 Refill [facility] Internal Medicine [address] [place] [address] Markos Mulligan MD Medication Refill 04/09/2025 Refill [facility] Internal Medicine [address] [place] [address] Markos Mulligan MD Medication Refill from Last [...] Description 10/02/2025 8:30 AM EST Office Visit [facility] Internal Medicine [address] [place] [address] Markos Mulligan MD [address] [place] [address] 03/29/2026 8:00 AM EDT Office Visit [facility] Internal Medicine [address] [place], [place] [phone] Jose E Fallon PA-C [address] [place] [address] @[email or web address]oor Health Maintenance Due Date Last Done Comments [...] * Outside Lab (06/15/2025 12:12 PM EDT) [facility] Provider LAB BLOOD BKR ORDERABLES Final Result * Outside Potassium Level (03/23/2025) Potassium level - External 4.0 3.4 - 5.0 mmol/L Result [facility] Provider LAB BLOOD ORDERABLES Maribel l Result * Outside HbA1c (03/23/2025) Hemoglobin A1c - External 6.3 % Result [facility] Provider LAB BLOOD ORDERABLES Maribel l Result * Outside Serum Creatinine Level (03/23/2025) Creatinine, serum - External 1.09 0.8 - 1.3 mg/dL Result [facility] Provider LAB BLOOD ORDERABLES Maribel l Result * DIABETES EYE EXAM FOR RESULT ENTRY ONLY (08/01/2023 10:48 AM EST) [facility] Provider HEALTH MAINTENANCE Final Result * US [...] Member Subscriber Plan / Payer ( fective 2017-Present) Name:Willy Salgado Member ID:[id number] Relation to Subscriber:Self Name:Willy Salgado Subscriber ID:[id number] Payer ID:[id number] Group ID:Not on file Type:Medicare Address: [facility] [employer] [facility] [address] [address] [place] [address] [employer] MEDEX SUPPLEMENT MEDICARE PART A & B [employer] MEDEX SUPPLEMENT Member Subscriber Plan / [facility]) Name:Willy Salgado Relation to Subscriber:Self Name:WILLY SALGADO Payer ID:[id number] (NAIC) Type:Indemnity Address: [place] [address] MEDICARE PART A & B Member Subscriber Plan / Payer ([facility]2017[facility] Name:Willy Salgado Member ID:[id number] Relation to Subscriber:Self Name:Willy Salgado Subscriber ID:[id number] Payer ID:[id number] Group ID:Not on file Type:Medicare Address: [employer] [address] [place] [address] [employer] MEDEX SUPPLEMENT Member Subscriber Plan / Payer ([facility]/25/2017-) Name:Willy Salgado Relation to Subscriber:Self Name:WILLY SALGADO Payer ID:[id number] (NAIC) Type:Indemnity Address: [place] [address] MEDICARE PART A & B [employer]OSS MEDEX SUPPLEMENT MEDICARE PART A & B [employer] MEDEX SUPPLEMENT MEDICARE PART A & B [employer] MEDEX SUPPLEMENT MEDICARE PART A & B [employer] MEDEX SUPPLEMENT MEDICARE PART A & B [employer] MEDEX SUPPLEMENT MEDICARE PART A & B [employer] MEDEX SUPPLEMENT Care Teams Proof Machine Operator Supervisor Relationship Specialty Start Date End Date Markos Mulligan MD [address] [place] [address] PCP - General 06/14/17 Markos Mulligan MD [address] [place], [place] [phone] Historical LMR Provider 06/14/17 Markos Mulligan MD [address] [place] [address] Insurance Assigned Provider 12/01/23 Kaveh Garcia MD [address] [place] [address] [id number] Ophthalmology 01/15/20 Steven Rodgers MD [address] [place] [address] [address] [place] [address] [phone] Gastroenterology 01/15/20 Additional Source Comments The information contained in this document represents components of the legal health record. It is not the complete legal health record.[facility]
--- OUTSIDE RECORDS SUMMARY | 2025-07-02 07:59 | XMS_ITS | Clinical Summary ---
Author Organization [facility] Address [address] [place] [address] Care Team Providers Care Sleep Technician Name Role Phone Markos Mulligan MD Primary Care Provider [phone] Surgical History Surgery Date Site/Laterality Comments CARPAL [...] age to complete this topic Care Teams Sleep Technician Relationship Specialty Start Date End Date Markos Mulligan MD [address] [place] [address] PCP - General 09/18/22
--- OUTSIDE RECORDS SUMMARY | 2025-07-02 07:59 | XMS_ITS | Encounter Summary ---
Author Organization [facility] Address [address] [place] [address] Phone Care Team Providers Care Hairspring Cutter Name Role Phone Markos Mulligan MD Primary Care Provider [phone] Markos Mulligan MD Unavailable [phone] Markos Mulligan MD Unavailable [phone] Kaveh Garcia MD Unavailable Steven Rodgers MD Unavailable [phone] Encounter Details Date Type Department Care Team (Late st Contact Info) Description 06/16/2025 Orders Only [facility] Internal Medicine [address] [place] [facility] [place] [address] Provider, MD Ze[place] [address] Social History Tobacco Use Types [...] Description 10/02/2025 8:30 AM EST Office Visit [facility] Internal Medicine [address] [place] [address] Markos Mulligan MD [address] [place] [address] 03/29/2026 8:00 AM EDT Office Visit [facility] Internal Medicine [address] [place] [address] Jose E Fallon PA-C [address] [place] [address] [email or web address] documented as of this encounter Procedures Procedure [...] documented as of this encounter Care Teams Hairspring Cutter Relationship Specialty Start Date End Date Markos Mulligan MD [address] [place] [address] [email or web address] PCP - General 06/14/17 Markos Mulligan MD [address] [place] [address] Historical LMR Provider 06/14/17 Markos Mulligan MD [address] [place] [address] Insurance Assigned Provider 12/01/23 Kaveh Garcia MD [address] [place] [address] [address] Ophthalmology 01/15/20 Steven Rodgers MD [address] [place] [address] [address] [place] [address] Gastroenterology 01/15/20 documented as of this encounter Additional Source Comments The information contained in this document represents components of the legal health record. It is not the complete legal health record.[facility]
== END 2025-07-02 07:55 | disposition home or self-care (01) ==
LOC: HO.HAP 07:54
PROVIDERS: Visit Provider Internal Medicine
DX: Z46.1 Encounter for fitting and adjustment of hearing aid (principal); H90.3 Sensorineural hearing loss, bilateral
CPT/HCPCS: V5299